=== PATIENT | female | born 1960 | race Caucasian/White ===

== ENCOUNTER 2019-08-19 10:58 | Outpatient (CLI) | payer MEDICARE, OTHER, SELFPAY ==
--- NOTE | ~2019-08-19 | CT_ITS ---
EXAMINATION: CT foot LT wo con DATE: 08/19/2019 11:40 INDICATION: Spontaneous rupture flexor tendon TECHNIQUE: High resolution computed tomography (CT) of the left foot and ankle was performed without intravenous contrast. Additional sagittal and coronal reconstructions were performed. Automated expos ure control and iterative reconstruction technique were employed. The dose-length product was 543.77 mGy-cm. COMPARISON: Radiograph dated 07/19/2018 FINDINGS: Bone alignment is normal. No fracture. Mild polyarticular osteoarthritis at the second-fifth tarsal m etatarsal joints. No cortical erosions or periosteal reaction. Small amount of fluid along the perone al tendon sheath consistent with tenosynovitis. There is prominent thickening of the peroneus brevis tendon distal to the lateral malleolus consistent with at least moderate tendinopathy. Assessment for tear is not considered diagnostic on CT imaging. No joint effusions or other abnormal fluid collecti ons. IMPRESSION: 1. Peroneal tenosynovitis with prominent tendinopathy of the distal peroneus brevis tendon. Unable to diagnostically assessed for tendon tear by CT and could consider further evaluation with MRI as clin ically indicated. Reviewed, dictated and finalized at location A. IMPRESSION: 1. Peroneal tenosynovitis with prominent tendinopathy of the distal peroneus br jacquelyn tendon. Unable to diagnostically assessed for tendon tear by CT and could consider further evaluation with MRI as clinically indicated.
== END 2019-08-19 10:59 | disposition home or self-care (01) ==
PROVIDERS: Visit Provider Podiatrist Foot & Ankle Surgery
DX: M65.872 Other synovitis and tenosynovitis, left ankle and foot (principal)
CPT/HCPCS: 73700

== ENCOUNTER 2019-11-05 09:05 | Inpatient (IN) | payer MEDICARE, OTHER, SELFPAY ==
[2019-11-05] VITALS (11 sets, daily range): BP systolic 129–178; BP diastolic 79–100; PULSE 80–95; RESP 14–18; TEMP 36.3–36.9; O2SAT 97–100; BMI 36.2
--- NOTE | ~2019-11-05 | CT_ITS ---
EXAMINATION: CT BRAIN W/O DATE: 11/05/2019 09:36 INDICATION: Dizziness TECHNIQUE: Computed tomography (CT) of the head was performed without intravenous contrast. The dose- length product was 605.33 mGy-cm. Automated exposure control and iterative reconstruction technique w ere employed. COMPARISON: 07/21/2016 FINDINGS: Normal brain parenchymal volume for age. Normal flores-white differentiation. No acute intrac ranial hemorrhage, infarction, mass or mass effect. No ventriculomegaly or midline shift. Midline sagittal images demonstrate a normal corpus callosum, c raniovertebral junction and sella turcica. Basilar cisterns are patent. Paranasal sinuses and mastoids are pneumatized. No depressed skull fractures. IMPRESSION: 1. No acute intracranial abnormality. Reviewed, dictated and finalized at location B.
--- NOTE | ~2019-11-05 | CT_ITS ---
EXAMINATION: CTA brain carotid DATE: 11/08/2019 09:00 INDICATION: Intractable vertigo. TECHNIQUE: Computed tomographic angiography (CTA) of the head was performed without and with 100 mL O mnipaque-350 intravenous contrast. CTA of the neck was performed with intravenous contrast. Automated exposure control and iterative reconstruction technique were employed. The dose-length product was 1 718.00 mGy-cm. Maximum intensity projection and volume rendered 3D-reconstructions were created by breana rodriguez technologist on a separate workstation. COMPARISON: Head CT 11/05/2019, ultrasound 11/06/2019 FINDINGS: HEAD CTA: There is no intracranial hemorrhage, acute infarction, or abnormal intracranial mass lesion . The ventricles are normal in size. The paranasal sinuses are clear. The orbits are normal. The mast oid air cells are normal. The vertebral arteries are codominant. There is no significant stenosis of basilar artery or the posterior cerebral arteries. There is no significant stenosis of the intracrani al internal carotid arteries or anterior or middle cerebral arteries. There is a 5 mm saccular aneury sm of the terminus of left internal carotid artery. Anterior communicating artery is normal. The post erior communicating arteries are normal. NECK CTA: There is mild emphysema. There are no pathologically enlarged lymph nodes. There is no sign ificant stenosis of the vertebral arteries. There is mild plaque in the proximal internal carotid art eries. There is 0% stenosis of the proximal right internal carotid artery relative to normal distal a rtery lumen diameter (NASCET criteria). There is 0% stenosis of the proximal left internal carotid ar chuckie relative to normal distal artery lumen diameter. There is moderate cervical spondylosis. IMPRESSION: 1. 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 2. 0% stenosis of the proximal internal carotid arteries relative to normal distal artery lumen diame ters (NASCET criteria). Reviewed, dictated and finalized at location A. IMPRESSION: 1. 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 2. 0% stenosis of the proximal internal carotid arteries relative to normal dis jalen artery lumen diameters (NASCET criteria).
--- NOTE | ~2019-11-05 | US_ITS ---
EXAMINATION: US carotid duplex BI DATE: 11/06/2019 17:26 INDICATION: Vertigo. TECHNIQUE: Grayscale, color Doppler, and pulsed Doppler images of the cervical carotid arteries were obtained. The degree of vessel stenosis is placed in one of the following categories: normal, <50%, 5 0-69%, >=70% but less than near-occlusion, near-occlusion, or total occlusion. Note that percent sten osis relative to normal distal artery lumen diameter is indirectly measured from velocity measurement s as described by Ken, et al. Radiology 2003; 229:340-346. COMPARISON: None. FINDINGS: RIGHT: The right common carotid artery (CCA) peak systolic velocity (PSV) is 107 cm/s. The right internal ca rotid artery (ICA) PSV is 136 cm/s. The right ICA end-diastolic velocity (EDV) is 40 cm/s. The right ICA/CCA PSV ratio is 1.3. Grayscale and color Doppler images yield an estimate of <50% diameter reduc tion from plaque in the ICA. There is antegrade flow in the right vertebral artery. LEFT: The left CCA PSV is 87 cm/s. The left ICA PSV is 194 cm/s. The left ICA EDV is 57 cm/s. The left ICA/ CCA PSV ratio is 2.2. Grayscale and color Doppler images yield an estimate of <50% diameter reduction from plaque in the ICA. There is antegrade flow in the left vertebral artery. IMPRESSION: 1. <50% stenosis in the right internal carotid artery. 2. <50% stenosis in the left internal carotid artery. Reviewed, dictated and finalized at location A.
--- NOTE | ~2019-11-05 | XR_ITS ---
EXAMINATION: XR chest 1V DATE: 11/05/2019 09:40 INDICATION: Dizziness TECHNIQUE: frontal view of the chest was obtained. COMPARISON: Chest radiograph dated 12/12/2009 FINDINGS: The lungs remain clear with no focal airspace opacities, pulmonary edema, pleural effusion or pneumot horax. The cardiomediastinal silhouette is normal. Spinal stimulator leads project over the central c anal the lower thoracic spine with distal tip at the level of T8. IMPRESSION: 1. No acute cardiopulmonary disease. Reviewed, dictated and finalized at location A.
--- NOTE | 2019-11-05 09:13 | PC.NURSE ---
Pt unable to recall medications.
--- NOTE | 2019-11-05 09:16 | ED.DIZZY ---
HPI - Dizziness General Chief Complaint: Dizziness Stated Complaint: DIZZINESS Source: RN notes reviewed History of Present Illness HPI Narrative: Patient presents emergency department from home for dizziness. Patient states symptoms began last night. States the dizziness is described as a room spinning sensation. Worse with movement of her head. States that when she ambulates the dizziness is so severe she has trouble walking. She denies any fevers or chills vision changes numbness or tingling in the extremities chest pain shortness of breath or any other symptoms Related Data Home Medications Medication Instructions Recorded Confirmed Unable to Obtain Home Medications 11/05/19 11/05/19 Allergies Allergy/AdvReac Type Severity Reaction Status Date / Time codeine Allergy Severe ITCHING,HIV Verified 11/05/19 09:12 ES hydrocodone Allergy Severe Itching Verified 11/05/19 09:12 NSAIDS (Non-Steroidal Allergy Severe Swelling Verified 11/05/19 09:12 Anti-Inflamma oxycodone Allergy Severe ITCHEY Verified 11/05/19 09:12 HIVES levofloxacin Allergy Mild HIVES ALL Verified 11/05/19 09:12 OVER morphine Allergy Mild ITCHEY Verified 11/05/19 09:12 HIVES kiwi Allergy Unknown Unknown Verified 11/05/19 09:12 strawberry Allergy Unknown Unknown Verified 11/05/19 09:12 OPIODS Allergy Intermediate HIVES Uncoded 11/05/19 09:12 steroids Allergy Intermediate HIVES Uncoded 11/05/19 09:12 Review of Systems Review of Systems: Narrative: Gen.: Denies fevers or chills Eyes: Denies eye pain or visual change ENT: Denies congestion Respiratory: Denies shortness of breath or cough CV: Denies chest pain or palpitations GI: Denies abdominal pain nausea, emesis or diarrhea Musculoskeletal: Denies back pain or muscle pain Neuro: See HPI Skin: Denies rash Except as documented, all other systems reviewed and negative [facility] Past Medical History Medical History (Updated 11/05/19 @ 11:56 by Roger Mason DO) Fibromyalgia Social History Social History (Updated 11/05/19 @ 09:17 by Roger Mason DO) Smoking packs per day: 1 Smoking cigarettes per day: 20.0 Gender identity (if verbalized by the patient): Female Exam Narrative: Exam Narrative: APPEARANCE: No acute distress, nontoxic, resting in bed HEENT: Normocephalic, atraumatic, OMM, TMs clear bilaterally EYES: PERRL, EOMI NECK: Supple, nontender, full range of motion without pain, no meningismus RESPIRATORY: No respiratory distress, clear to auscultation bilaterally with no rhonchi wheezing or rales CARDIOVASCULAR: RRR s murmur ABDOMINAL: Soft, nontender, nondistended MUSCULOSKELETAL: Moves all extremities. No clubbing, cyanosis or edema. NEURO: A and O ?3, following commands, speech normal, no facial droop,muscle strength 5 out of 5 bilateral upper and lower extremities dizziness with turning the head bilaterally SKIN:: Warm, dry. Normal Color PSYCHIATRIC: Normal affect/mood Course Course Emergency Course: Patient continues to have vertigo following Antivert and Valium Discussed Dr Rios presentation work-up. Agrees with admission at this time Discussed with patient and family results of workup and diagnosis. Discussed need for admission. Patient and family understand and agree to current treatment plan. Patient states that she cannot have an MRI secondary to spinal cord stimulator Vital Signs Vital signs: Vital Signs Temperature 97.4 F L 11/05/19 09:06 Pulse Rate 83 11/05/19 09:06 Respiratory Rate 18 11/05/19 09:06 Blood Pressure 161/100 H 11/05/19 09:06 Pulse Oximetry 97 11/05/19 09:06 Temperature 97.4 F L 11/05/19 09:06 Pulse Rate 84 11/05/19 10:18 Respiratory Rate 16 11/05/19 10:18 Blood Pressure 143/79 H 11/05/19 10:18 Pulse Oximetry 97 11/05/19 10:18 MDM - Dizziness Lab Data Result diagrams: 11/05/19 09:48 11/05/19 09:48 Labs: Lab Results 11/05/19 11/05/19
[2019-11-05] MEDS: MECLIZINE HCL 25 MG TABLET PO (09:27)
[2019-11-05] MEDS: SODIUM CHLORIDE 0.9% IV 1,000 ML 999 ML IV CONT (09:27)
--- NOTE | 2019-11-05 09:52 | ECG_ITS ---
Measurements Intervals [place] Rate: 80 P: -16 IN: 146 QRS: 30 QRSD: 76 T: 18 QT: 370 QTc: 427 Interpretive Statements SINUS RHYTHM BORDERLINE T WAVE ABNORMALITY- ANTERIOR LEADS BASELINE WANDER- I, II, V1, V4-V6 BORDERLINE ECG Electronically Signed On 11-05-2019 10:00:06 CDT by Brian Graves D.O.
[2019-11-05 09:55] LABS: Basophils Absolute Auto 0.1 K/mm3 (0.0-0.1); Basophils Percent Auto 0.8 % (0.2-1.2); Eosinophils Absolute Auto 0.1 K/mm3 (0-0.3); Eosinophils Percent Auto 1.2 % (0-4.4); Hematocrit 41.7 % (37.0-47.0); Hemoglobin 14.1 g/dL (12.0-15.0); Immature Granulocyte Absolute 0.06 K/mm3 (0.00-0.031); Immature Granulocyte Percent A 0.6 % (0-0.5); Lymphocytes Percent Auto 23.6 % (18.3-44.2); Mean Corpuscular HGB Conc 33.8 g/dl (32-36); Mean Corpuscular Volume 94.6 fl (80-100); Mean Platelet Volume 9.7 fl (7.4-10.4); Monocytes Absolute Auto 0.8 K/mm3 (0.1-0.6); Monocytes Percent Auto 7.8 % (2.6-8.5); Neutrophils Absolute Auto 6.7 K/mm3 (1.3-6.7); Platelet Count Result 228 k/mm3 (150-375); Red Blood Count 4.41 M/mm3 (4.2-5.4); Red Cell Distribution Width 12.2 % (11.5-14.5); White Blood Count 10.2 K/mm3 (4.5-10.0)
[2019-11-05 10:07] LABS: Alanine Aminotransferase 95 U/L (4-35); Albumin Level 4.5 g/dL (3.5-5.1); Alkaline Phosphatase 66 U/L (38-126); Anion Gap 8 mmol/L (8-16); Aspartate Amino Transferase 68 U/L (14-36); Bilirubin,Total 0.5 mg/dL (0.2-1.3); Blood Urea Nitrogen 10 mg/dL (7-17); Carbon Dioxide 28 mmol/L (22-30); Chloride 99 mmol/L (98-107); Estimated CRCL calculation 66 ml/min; Estimated Glomerular Filt Rate > 60; Glucose 120 mg/dL (65-105); Potassium 4.5 mmol/L (3.4-5.0); Sodium 135 mmol/L (137-145)
[2019-11-05 10:16] LABS: Prothrombin Time 13.3 Seconds (11.1-14.7)
[2019-11-05 10:17] LABS: Partial Thromboplastin Time 25.8 SECONDS (22.3-36.8)
[2019-11-05 10:18] LABS: Troponin I < 0.012 ng/mL (0.000-0.034)
[2019-11-05] MEDS: diazePAM INJ (*CRX) 10 MG/2 ML SYRINGE 2 MG IV PUSH (10:25)
--- NOTE | 2019-11-05 11:07 | PC.NURSE ---
Pt crying, states I'm anxious! My anxiety! when another patient placed into ED Rm 3. Explained that there are no other rooms available at this time. Izzy, physician obstetrician, made aware and at bedside.
--- NOTE | 2019-11-05 11:15 | PC.NURSE ---
Report to SYDNEY Coon, to continue care. Pt made aware of pending admission and process.
[2019-11-05 12:10] LABS: Add Urine Microscopic? YES; Appearance Urine Clear (Clear); Bacteria Urine Trace /hpf; Bilirubin Urine Negative (Negative); Blood Urine 1+ (Negative); Color Urine Straw (Yellow); Glucose Urine UA Negative (Negative); Ketones Urine Negative (Negative); Leukocyte Esterase Ur Negative LEU/UL (Negative); Mucus Urine Rare /lpf; Nitrate Urine Negative (Negative); Protein Urine Negative (Negative); RBC Urine 0-2 /hpf (0-2); Specific Grav Ur 1.011 (1.001-1.035); Squamous Epithelial Cell Urine Few /hpf (Few); Urobilinogen Urine Negative mg/dL (<2.0); WBC Urine 0-3 /hpf
--- NOTE | 2019-11-05 13:45 | PC.NURSE ---
This patient, Avril Salazar, was admitted to 3 Medical Room 348-01. Patient/family oriented to hospital policies and general routines including ID bracelet, bed and alarms, visiting hours, pain management, procedures, bathroom and other care routines, personal items, smoking policy, room service/diet, and visiting hours. Valuables list has been completed. Information on how to activate the Rapid Response Team has been discussed. Patient/Family are encouraged to report perceived risks to care and to ask questions if they do not understand what they are told or what they should do.
[2019-11-05] MEDS: SODIUM CHLORIDE 0.9% IV 1,000 ML 100 ML IV CONT (13:58)
[2019-11-05 15:30] LABS: Troponin I < 0.012 ng/mL (0.000-0.034)
[2019-11-05] MEDS: hydrOXYzine HCL 25 MG TABLET PO (16:46)
[2019-11-05] MEDS: ALPRAZolam (*CRX) 0.5 MG TABLET 1 MG PO ×2 (16:46→20:20)
--- NOTE | 2019-11-05 17:14 | PM.IMHP ---
H&P: HPI History of Present Illness Date/Time: 11/05/19 17:14 Chief complaint: intractable vertigo Narrative: Avril Salazar is a 59 year old female Who has a history of fibromyalgia and hypertension. The patient stated she has been under a lot of stress recently she has a history of depression with anxiety. The patient started to feel dizzy last night. She says she had a very busy day she was doing a lot of running around she is not sure she took off her medicine her drink very much water. 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 The patient stated her symptoms began last night with the room was spinning. It was worse when she moved her head. She stated she did not sleep very well last couple nights. Her dizziness was so severe that she had trouble walking. She has not had this in the past. She has not tried any new medication. Her taken any illicit drugs. She has no fever or chills. The patient in the room crying at this present time. She has no chest pain or palpitations. The patient stated she has not taken any of her medications for 24 hours. She is crying because she has not had her medicine. She is crying because we every time she moves her head her sits up she complains of dizziness. However prior to me coming into the room the patient was sitting up eating and conversing with her without difficulty. Her head CT was read as no acute intracranial abnormality. The patient cannot have MRI she has a neurostimulator. Patient refuses to see the neurologist here. She stated that the Valium did help. She received IV fluids and volume in the emergency room. The patient appears to be quite anxious. She is also complaining of having a Headache. She was also given meclizine in the emergency room. Her troponins were negative. Date of service 11/05/2019 Review of Systems Review of Systems: All systems reviewed & are unremarkable except as noted in HPI and below Constitutional: Constitutional: Reports as per HPI and Reports no additional constitutional complaints Eyes: Eyes: Reports as per HPI and Reports no additional eye complaints ENT: Reports system reviewed and no additional complaints, except as documented and Reports Normal hearing present Cardiovascular: Cardiovascular: Reports no additional cardiovascular complaints Respiratory: Respiratory: Reports no additional respiratory complaints and Reports no additional respiratory complaints Gastrointestinal: Gastrointestinal: Reports as per HPI and Reports no additional gastrointestinal complaints Musculoskeletal: Musculoskeletal: Reports no additional musculoskeletal complaints Integumentary/Breasts: Skin/Breast: Reports system reviewed and no additional complaints, except as docu and Reports as per HPI Neurologic: Reports system reviewed and no additional complaints, except as documented, Reports as per HPI and Reports Normal hearing present Psychiatric: Psychiatric: Reports no additional psychiatric complaints and Reports as per HPI Endocrine: Endocrine: Reports no additional endocrine complaints Hematologic/Lymphatic: Hematologic/Lymphatic: Reports no additional hematologic/lymphatic complaints Allergic/Immunologic: Allergic/Immunologic: Reports no additional allergic/immunologic complaints [facility] Past Medical History Medical History (Updated 11/05/19 @ 17:30 by Priscila Crooks NP) Chronic back pain Depression with anxiety Fibromyalgia GERD with esophagitis High blood triglycerides History of cervical cancer status post history History of peptic ulcer disease History of skin cancer HTN (hypertension), malignant Neuropathy RSD (reflex sympathetic dystrophy) Spinal cord stimulator status Surgical History Surgical History (Updated 11/05/19 @ 17:30 by Priscila Crooks NP) H/O: hysterectomy 2004 Status post osteotomy full Merissa osteotomy right tibia Total knee replacement status x2
[2019-11-05] MEDS: NICOTINE (*PBKC) 21 MG PATCH 1 PATCH TRANSDERM (18:09)
[2019-11-05] MEDS: SUCRALFATE 1 GM TABLET PO ×2 (18:09→20:20)
[2019-11-05 19:34] LABS: Troponin I < 0.012 ng/mL (0.000-0.034)
[2019-11-05] MEDS: PANTOPRAZOLE 40 MG TABLET PO (20:20)
[2019-11-05] MEDS: VENLAFAXINE HCL XR 75 MG CAP.ER.24H 150 MG PO (20:20)
[2019-11-05] MEDS: lisinopriL 10 MG TABLET PO (20:20)
[2019-11-05] MEDS: MELATONIN 3 MG TABLET PO (20:21)
[2019-11-05] MEDS: MECLIZINE HCL 12.5 MG TABLET PO (20:21)
[2019-11-05] MEDS: ACETAMINOPHEN 325 MG TABLET 650 MG PO (23:55)
[2019-11-06] VITALS (17 sets, daily range): BP systolic 124–171; BP diastolic 58–104; PULSE 76–97; RESP 16–20; TEMP 35.8–36.8; O2SAT 97–100
[2019-11-06] MEDS: SODIUM CHLORIDE 0.9% IV 1,000 ML 100 ML IV CONT ×2 (00:36→10:18)
[2019-11-06 06:12] LABS: Basophils Absolute Auto 0.1 K/mm3 (0.0-0.1); Basophils Percent Auto 0.6 % (0.2-1.2); Eosinophils Absolute Auto 0.1 K/mm3 (0-0.3); Eosinophils Percent Auto 1.4 % (0-4.4); Hematocrit 39.2 % (37.0-47.0); Hemoglobin 13.4 g/dL (12.0-15.0); Immature Granulocyte Absolute 0.04 K/mm3 (0.00-0.031); Immature Granulocyte Percent A 0.5 % (0-0.5); Lymphocytes Absolute Auto 2.67 K/mm3 (0.9-3.2); Lymphocytes Percent Auto 34.1 % (18.3-44.2); Mean Corpuscular HGB Conc 34.2 g/dl (32-36); Mean Corpuscular Volume 93.6 fl (80-100); Mean Platelet Volume 9.9 fl (7.4-10.4); Monocytes Absolute Auto 0.7 K/mm3 (0.1-0.6); Monocytes Percent Auto 8.7 % (2.6-8.5); Neutrophils Absolute Auto 4.3 K/mm3 (1.3-6.7); Neutrophils Percent Auto 54.7 % (45.5-73.1); Platelet Count Result 217 k/mm3 (150-375); Red Blood Count 4.19 M/mm3 (4.2-5.4); Red Cell Distribution Width 11.8 % (11.5-14.5); White Blood Count 7.8 K/mm3 (4.5-10.0)
[2019-11-06] MEDS: MECLIZINE HCL 12.5 MG TABLET PO ×3 (06:18→22:09)
[2019-11-06 06:23] LABS: Alanine Aminotransferase 87 U/L (4-35); Albumin Level 3.8 g/dL (3.5-5.1); Alkaline Phosphatase 53 U/L (38-126); Anion Gap 5 mmol/L (8-16); Aspartate Amino Transferase 55 U/L (14-36); Bilirubin,Total 0.5 mg/dL (0.2-1.3); Blood Urea Nitrogen 12 mg/dL (7-17); Carbon Dioxide 30 mmol/L (22-30); Chloride 100 mmol/L (98-107); Estimated CRCL calculation 79 ml/min; Estimated Glomerular Filt Rate > 60; Glucose 107 mg/dL (65-105); Magnesium 1.7 mg/dL (1.6-2.3); Sodium 135 mmol/L (137-145)
[2019-11-06] MEDS: ONDANSETRON HCL ODT 4 MG TABLET 8 MG PO ×2 (06:24→20:30)
[2019-11-06] MEDS: METOPROLOL SUCCINATE EXT REL 25 MG TABCR PO (08:48)
[2019-11-06] MEDS: SUCRALFATE 1 GM TABLET PO ×4 (08:48→20:06)
[2019-11-06] MEDS: NICOTINE (*PBKC) 21 MG PATCH 1 PATCH TRANSDERM (08:49)
[2019-11-06] MEDS: lisinopriL 10 MG TABLET PO ×2 (08:49→20:06)
[2019-11-06] MEDS: VENLAFAXINE HCL XR 75 MG CAP.ER.24H 150 MG PO ×2 (08:50→20:06)
[2019-11-06] MEDS: PANTOPRAZOLE 40 MG TABLET PO ×2 (08:50→20:06)
[2019-11-06] MEDS: hydrOXYzine HCL 25 MG TABLET PO ×3 (08:58→16:20)
[2019-11-06] MEDS: ALPRAZolam (*CRX) 0.5 MG TABLET 1 MG PO ×3 (08:58→22:09)
[2019-11-06] MEDS: TIZANIDINE HCL 2 MG TABLET PO (10:19)
[2019-11-06 12:15] LABS: Total Triiodothyronine (T3) 1.15 NG/ML (0.97-1.69)
[2019-11-06] MEDS: ACETAMINOPHEN 325 MG TABLET 650 MG PO (14:06)
--- NOTE | 2019-11-06 15:39 | PM.IMPN ---
Progress Note: A&P Assessment and Plan (1) Vertigo: Code(s): R42 - Dizziness and giddiness Status: Acute Assessment and Plan: Etiology is unclear at this time. She has had resolution of symptoms with meclizine. She is not orthostatic. head CT negative for any acute findings. Discontinue IV fluids as patient is tolerating oral intake continue p.r.n. meclizine Will obtain carotid doppler neurology consultation has been encouraged however patient adamantly denies. Monitor orthostatics each shift (2) Depression with anxiety: Code(s): F41.8 - Other specified anxiety disorders Status: Chronic Assessment and Plan: Patient is quite anxious and tearful. Her mood is labile throughout the encounter. Continue venlafaxine and hydroxyzine I believe patient would benefit from evaluation by psychiatrist and to establish with a licensed counselor (3) HTN (hypertension), malignant: Code(s): I10 - Essential (primary) hypertension Status: Chronic Assessment and Plan: Blood pressure reviewed and is mildly elevated in the 140s to 150 systolic. Prior readings had elevated diastolic readings in the 90-100s. Continue metoprolol and lisinopril monitor blood pressures closely and up titrate medication as needed (4) Neuropathy: Code(s): G62.9 - Polyneuropathy, unspecified Status: Chronic Assessment and Plan: In bilateral lower extremities. She has been on disability for some time related to this. She is established with pain management and has a spinal cord stimulator. She had a fall 2 days prior to presentation. PT/OT Continue tizanidine (5) Chronic back pain: Code(s): M54.9 - Dorsalgia, unspecified; G89.29 - Other chronic pain Status: Chronic Assessment and Plan: She is established with pain management and has a spinal cord stimulator as noted above. PT/OT, tizanidine as above she will need to follow-up with her pain management provider Subjective Date/time seen: 11/06/19 15:39 Interval history: Date of service: 11/06/2019 Avril Salazar is a 59 year old female with a history of anxiety, fibromyalgia, and neuropathy s/p spinal cord stimulator placement who is seen in follow-up for vertigo. She believes that she is doing and her vertigo has improved. She still feels lightheaded with movements, sitting up, or standing. She has been able to ambulate to the bathroom several times without difficulty. She denies feeling weak or unsteady. She denies headache. She has no visual changes, speech changes, or loss of coordination. she complains of chronic neuropathy in the bilateral lower extremities but denies numbness or tingling in the upper extremities. No nausea, vomiting, fever, chills, cough, shortness of breath, or chest pain. She adamantly denies a neurology consultation. She feels quite anxious today about being in the hospital and about multiple personal issues with family. Review of Systems Review of Systems: Narrative: Twelve systems reviewed with pertinent positives and negatives as per HPI. Exam Narrative: Exam Narrative: Ms. Salazar is a well-nourished 59-year-old female who is lying semi recumbent in bed. She appears comfortable and is in no acute respiratory distress. HR 89, BP 136/104, R 18, T 98.2?, 98% on room air Neuro: awake, alert and oriented x4, speech clear, no focal neuro deficits noted, able to perform [id number] and rapid alternating movements, sensation intact, strength 5/5 throughout HEENMT: normocephalic, atraumatic, EOMI, sclerae anicteric, moist oral mucosa, tongue midline, nares patent Neck: supple, no lymphadenopathy Respiratory: clear to auscultation bilaterally, nonlabored breathing Cardio: regular rate, regular rhythm with S1-S2 Abdomen: nondistended, normoactive bowel sounds, soft, nontender to palpation Extremities: no edema, erythema, cyanosis,
[2019-11-06] MEDS: MELATONIN 3 MG TABLET PO (20:07)
[2019-11-07] VITALS (14 sets, daily range): BP systolic 130–150; BP diastolic 60–97; PULSE 70–83; RESP 17–18; TEMP 36.1–36.2; O2SAT 100
--- NOTE | 2019-11-07 | ECHO_ITS ---
Patient Info Name: Avril Salazar Age: 59 years : 1960 Gender: Female Ht: 63 in Wt: 204 lbs BSA: 2.07 m2 HR: 74 bpm BP: 143 / 88 mmHg Technical Quality: Good Exam Date: 11/07/2019 2:17 PM Exam Location: [facility] Pulmonary Patient Status: Inpatient Admit Date: 11/06/2019 Staff Ordering Physician: Aaron Faulkner MD Polysomnographic Technician: Enrrique Woodson RDCS, RT Attending Provider: Ju Borden PA-C Referring Physician: Kaushik DESOUZA; Exam Type: CA echo doppler color flow Study Info Indications R42 - Dizziness and giddiness Complete two-dimensional, color flow and Doppler transthoracic echocardiogram is performed. Summary 1. Complete two-dimensional, color flow and Doppler transthoracic echocardiogram is performed. 2. Left ventricular chamber dimension is normal. 3. Definity contrast administered improved wall motion interpretation. 4. Left ventricular systolic function is normal, estimated at 65-70%. 5. There is moderately increased left ventricular wall thickness. 6. The left ventricular diastolic function is abnormal. 7. E/e' 11 is mildly elevated. 8. There is trivial pericardial effusion. Left Ventricle Definity contrast administered improved wall motion interpretation. E/e' 11 is mildly elevated. Left ventricular chamber dimension is normal. Left ventricular systolic function is normal, estimated at 65-70%. There is moderately increased left ventricular wall thickness. The left ventricular diastolic function is abnormal. Right Ventricle Right ventricular chamber dimension is normal. Right ventricular systolic function is normal. Left Atria Left atrial chamber dimension is normal. Right Atria Right atrial chamber dimension is normal. Aortic Valve The aortic valve is trileaflet. There is no aortic valve stenosis. There is no aortic valve regurgitation. Pulmonic Valve There is no pulmonic regurgitation. Mitral Valve There is no mitral valve stenosis. There is no mitral valve regurgitation. Tricuspid Valve There is no tricuspid valve regurgitation. Pericardium/Pleural There is trivial pericardial effusion. Inferior Vena Cava Normal inferior vena cava with >50% collapse upon inspiration consistent with normal right atrial pressure, 5 mmHg. Aorta The aortic root size at the sinus of Valsalva is normal. Left Ventricular Outflow Tract Name Value Normal LVOT 2D LVOT Diameter 2.0 cm LVOT Doppler LVOT Peak Gradient 4 mmHg LVOT Mean Gradient 2 mmHg LVOT VTI 21 cm LVOT VTI/AV VTI Ratio 0.9 LVOT Stroke Volume 63 ml LVOT CO 4.8 l/min LVOT CI 2.3 l/min/m2 Mitral Valve Name Value Normal MV Doppler MV Decel S
[2019-11-07] MEDS: MECLIZINE HCL 12.5 MG TABLET PO ×3 (05:28→20:06)
[2019-11-07] MEDS: ONDANSETRON HCL ODT 4 MG TABLET 8 MG PO (05:30)
[2019-11-07] MEDS: ACETAMINOPHEN 325 MG TABLET 650 MG PO ×2 (05:30→17:24)
[2019-11-07 06:39] LABS: Anion Gap 7 mmol/L (8-16); Blood Urea Nitrogen 13 mg/dL (7-17); Calcium 9.5 mg/dL (8.4-10.2); Carbon Dioxide 29 mmol/L (22-30); Chloride 99 mmol/L (98-107); Estimated CRCL calculation 79 ml/min; Estimated Glomerular Filt Rate > 60; Glucose 103 mg/dL (65-105); Potassium 4.2 mmol/L (3.4-5.0); Sodium 135 mmol/L (137-145)
[2019-11-07 07:19] LABS: Hematocrit 41.1 % (37.0-47.0); Mean Corpuscular HGB Conc 34.1 g/dl (32-36); Mean Corpuscular Hemoglobin 32.3 pg (26-34); Mean Corpuscular Volume 94.9 fl (80-100); Mean Platelet Volume 10.4 fl (7.4-10.4); Platelet Count Result 219 k/mm3 (150-375); Red Blood Count 4.33 M/mm3 (4.2-5.4); Red Cell Distribution Width 11.9 % (11.5-14.5); White Blood Count 9.8 K/mm3 (4.5-10.0)
[2019-11-07] MEDS: SUCRALFATE 1 GM TABLET PO ×4 (08:07→20:06)
[2019-11-07] MEDS: ALPRAZolam (*CRX) 0.5 MG TABLET 1 MG PO ×3 (08:07→17:10)
[2019-11-07] MEDS: VENLAFAXINE HCL XR 75 MG CAP.ER.24H 150 MG PO ×2 (08:07→20:07)
[2019-11-07] MEDS: PANTOPRAZOLE 40 MG TABLET PO ×2 (08:07→20:06)
[2019-11-07] MEDS: lisinopriL 10 MG TABLET PO ×2 (08:07→20:07)
[2019-11-07] MEDS: hydrOXYzine HCL 25 MG TABLET PO ×3 (08:07→17:10)
[2019-11-07] MEDS: NICOTINE (*PBKC) 21 MG PATCH 1 PATCH TRANSDERM (08:08)
[2019-11-07] MEDS: METOPROLOL SUCCINATE EXT REL 25 MG TABCR PO (08:09)
[2019-11-07] MEDS: TIZANIDINE HCL 2 MG TABLET PO (12:27)
--- NOTE | 2019-11-07 13:37 | WPDNEURCNPN ---
Assessment and Plan Assessment and plan (1) Chronic back pain: Code(s): M54.9 - Dorsalgia, unspecified; G89.29 - Other chronic pain Status: Chronic (2) Neuropathy: Code(s): G62.9 - Polyneuropathy, unspecified Status: Chronic (3) RSD (reflex sympathetic dystrophy): Code(s): G90.50 - Complex regional pain syndrome I, unspecified Status: Chronic (4) High blood triglycerides: Code(s): E78.1 - Pure hyperglyceridemia Status: Chronic (5) HTN (hypertension), malignant: Code(s): I10 - Essential (primary) hypertension Status: Chronic (6) GERD with esophagitis: Code(s): K21.0 - Gastro-esophageal reflux disease with esophagitis Status: Chronic (7) Depression with anxiety: Code(s): F41.8 - Other specified anxiety disorders Status: Chronic (8) Vertigo: Code(s): R42 - Dizziness and giddiness Status: Acute (9) Fibromyalgia: Code(s): M79.7 - Fibromyalgia Status: Acute Additional Plan I have recommended repeat CT to see if there is any evidence of posterior circulation issues for completeness sake in the meantime present management needs to be continued Consult date: 11/07/19 Time Seen: 12:45 HPI: Avril Salazar is a 59 year old female who is right-handed who was admitted because of severe vertigo for the past 2 or 3 days without any associated headache but she did have some nausea but no vomiting no lateralizing paresthesias no focal motor weakness apart from the fact that she has bad left foot related to diagnosis of the RSD and also has spinal cord stimulator which precludes for her to go through MRI of her brain her CT head is unremarkable likewise her carotid studies unremarkable she never had the episode like this at the time of this examination she continues to have the vertigo on which is with movement of the head as if the things are spinning around she denies double vision though and no lateralizing weakness Review of Systems Review of Systems: All systems reviewed & are unremarkable except as noted in HPI and below PMFSH Past Medical History Medical History Chronic back pain Depression with anxiety Fibromyalgia GERD with esophagitis High blood triglycerides History of cervical cancer status post history History of peptic ulcer disease History of skin cancer HTN (hypertension), malignant Neuropathy RSD (reflex sympathetic dystrophy) Spinal cord stimulator status Surgical History Surgical History H/O: hysterectomy 2004 Status post osteotomy full Merissa osteotomy right tibia Total knee replacement status x2 Family History Family History (Updated 11/05/19 @ 17:32 by Priscila Crooks NP) Father Heart disease Mother Alzheimer disease Sibling Alzheimer disease 2 brother Heart disease sister Idania Gehrigs disease sister from this Social History Social History Social History: 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 She lives with her and has 1 child. She smokes a pack a cigarettes a day. She socially drinks. She is a full code and desires to have her is the durable power assistant county attorney for healthcare his name is Dileep Salazar. Smoking packs per day: 1.5 Smoking cigarettes per day: 30.0 Smoking status: Current every day smoker Tobacco type: cigarettes Alcohol intake: former Substance use: former Substance use type: marijuana Last use: August 2019 Gender identity (if verbalized by the patient): Female Spiritual care concerns: No Meds Home Medications and Allergies Home Medications Medication Instructions Recorded Confirmed Type alprazolam 1 mg PO TID PRN 11/05/19 11/05/19 History cimetidine 400
[2019-11-07] MEDS: PERFLUTREN LIPID MICROSPHERES 1.5 ML VIAL DILUTED TO 10 ML TOTAL VOLUME IV PUSH (14:48)
--- NOTE | 2019-11-07 17:23 | PM.IMPN ---
Progress Note: A&P Assessment and Plan (1) Vertigo: Code(s): R42 - Dizziness and giddiness Status: Acute Assessment and Plan: Etiology is unclear at this time. She has had resolution of symptoms with meclizine. She is not orthostatic. head CT negative for any acute findings. Carotid Dopplers with <50% stenosis bilaterally. Echo showed EF 65-70% and no valvular abnormalities. She had previously refused a neurology consult but changed her mind yesterday evening. continue p.r.n. meclizine Neurology has been consulted and recommendations are appreciated. CTA head/neck has been ordered and will await results. Attempting to obtain vestibular evaluation while inpatient but if unable to be performed while inpatient will be referred for outpatient evaluation. Monitor orthostatics each shift (2) Depression with anxiety: Code(s): F41.8 - Other specified anxiety disorders Status: Chronic Assessment and Plan: Mood improved today. Yesterday, she was quite anxious and tearful with labile mood. Continue venlafaxine and hydroxyzine I believe patient would benefit from evaluation by psychiatrist and to establish with a licensed counselor (3) HTN (hypertension), malignant: Code(s): I10 - Essential (primary) hypertension Status: Chronic Assessment and Plan: Blood pressure reviewed and has been well controlled in the 130s systolic. Prior readings had elevated diastolic readings in the 90-100s. Continue metoprolol and lisinopril monitor blood pressures closely and up titrate medication as needed (4) Neuropathy: Code(s): G62.9 - Polyneuropathy, unspecified Status: Chronic Assessment and Plan: In bilateral lower extremities. She has been on disability for some time related to this. She is established with pain management and has a spinal cord stimulator. She had a fall 2 days prior to presentation. PT/OT Continue tizanidine (5) Chronic back pain: Code(s): M54.9 - Dorsalgia, unspecified; G89.29 - Other chronic pain Status: Chronic Assessment and Plan: She is established with pain management and has a spinal cord stimulator as noted above. PT/OT, tizanidine as above she will need to follow-up with her pain management provider Subjective Date/time seen: 11/07/19 17:23 Interval history: Date of service: 11/06/2019 Avril Salazar is a 59 year old female with a history of anxiety, fibromyalgia, and neuropathy s/p spinal cord stimulator placement who is seen in follow-up for vertigo. Her vertigo has improved today but she has occasional episodes of dizziness with movement. No weakness, fatigue, loss of coordination or balance. She has been ambulating without difficulty. No headache or visual changes. Less anxious today. Review of Systems Review of Systems: Narrative: 12 systems reviewed with pertinent positives and negatives as per HPI. Exam Narrative: Exam Narrative: Ms. Salazar is a well-nourished 59-year-old female who is lying semi recumbent in bed. She appears comfortable and is in no acute respiratory distress. HR 72, BP 130/78, RR 17, T 97.0, 100% on room air Neuro: awake, alert and oriented x4, speech clear, no focal neuro deficits noted, able to perform [id number] and rapid alternating movements, sensation intact, strength 5/5 throughout HEENMT: normocephalic, atraumatic, EOMI, sclerae anicteric, moist oral mucosa, tongue midline, nares patent Neck: supple, no lymphadenopathy Respiratory: clear to auscultation bilaterally, nonlabored breathing Cardio: regular rate, regular rhythm with S1-S2 Abdomen: nondistended, normoactive bowel sounds, soft, nontender to palpation Extremities: no edema, erythema, cyanosis, clubbing, or tenderness to palpation, DP pulses 2+ bilaterally Skin: no rashes or lesions, warm and dry Psych: appropriate mood and affect, judgement and insight intact
[2019-11-07] MEDS: MELATONIN 3 MG TABLET PO (20:06)
[2019-11-08] MEDS: MECLIZINE HCL 12.5 MG TABLET PO ×2 (03:41→09:26)
[2019-11-08] MEDS: TIZANIDINE HCL 2 MG TABLET PO (03:41)
[2019-11-08] MEDS: ACETAMINOPHEN 325 MG TABLET 650 MG PO ×3 (03:43→13:40)
[2019-11-08 04:25] VITALS: BP 137/72; PULSE 77; RESP 19; TEMP 36.1; O2SAT 100
[2019-11-08 08:00] VITALS: BP 134/70
[2019-11-08 08:13] VITALS: BP 130/78
[2019-11-08 08:14] VITALS: BP 135/76
[2019-11-08] MEDS: NICOTINE (*PBKC) 21 MG PATCH 1 PATCH TRANSDERM (09:14)
[2019-11-08] MEDS: PANTOPRAZOLE 40 MG TABLET PO (09:14)
[2019-11-08 09:15] VITALS: PULSE 80; RESP 20; O2SAT 100
[2019-11-08] MEDS: VENLAFAXINE HCL XR 75 MG CAP.ER.24H 150 MG PO (09:15)
[2019-11-08] MEDS: METOPROLOL SUCCINATE EXT REL 25 MG TABCR PO (09:15)
[2019-11-08] MEDS: lisinopriL 10 MG TABLET PO (09:15)
[2019-11-08] MEDS: hydrOXYzine HCL 25 MG TABLET PO ×3 (09:25→17:27)
[2019-11-08] MEDS: ALPRAZolam (*CRX) 0.5 MG TABLET 1 MG PO ×2 (09:25→15:02)
[2019-11-08] MEDS: SUCRALFATE 1 GM TABLET PO ×2 (11:22→17:27)
[2019-11-08 14:00] VITALS: BP 140/76; PULSE 72; RESP 18; TEMP 36.7; O2SAT 100
--- NOTE | 2019-11-08 14:27 | PM.DS ---
DS: Admitting Diagnosis Admitting Diagnosis Admitting Diagnosis: intractable vertigo DS: Discharge Diagnosis Discharge Diagnosis (1) Vertigo: Code(s): R42 - Dizziness and giddiness Status: Acute Assessment and Plan: Etiology is unclear at this time. She has had resolution of symptoms with meclizine. She is not orthostatic. head CT negative for any acute findings. Carotid Dopplers with <50% stenosis bilaterally. Echo showed EF 65-70% and no valvular abnormalities. She had previously refused a neurology consult but changed her mind on evening of 11/05. Neurology recommended CTA head/neck for further evaluation; 5 mm saccular aneurysm at terminus of left internal carotid noted on CTA today; 0% stenosis of proximal internal carotid arteries. Discussed with Dr. Faulkner who states this is likely incidental finding. He recommended increasing meclizine to 25 mg QID. Okay for discharge from his standpoint, but will need further work up/follow up with her PCP and/or neurosurgeon. Continue p.r.n. meclizine; will increase to 25 mg QID PRN per Dr. Faulkner rec Neurology has been consulted and recommendations are appreciated Attempted to obtain vestibular evaluation while inpatient but unable to be performed while inpatient and will be referred for outpatient evaluation. Will discharge today Recommended no driving, swimming, bathing until further recommendation from Dr. Faulkner F/u with PCP and Dr. Faulkner as an outpatient (2) Depression with anxiety: Code(s): F41.8 - Other specified anxiety disorders Status: Chronic Assessment and Plan: Mood improved today. She is a bit anxious and tearful with labile mood again today Continue venlafaxine and hydroxyzine I believe patient would benefit from evaluation by psychiatrist and to establish with a licensed counselor We discussed following up with her PCP as an outpatient for further management (3) HTN (hypertension), malignant: Code(s): I10 - Essential (primary) hypertension Status: Chronic Assessment and Plan: Blood pressure reviewed and has been well controlled in the 130s systolic. Prior readings had elevated diastolic readings in the 90-100s. Orthostatic BP unremarkable today Continue metoprolol and lisinopril monitor blood pressures closely and up titrate medication as needed (4) Neuropathy: Code(s): G62.9 - Polyneuropathy, unspecified Status: Chronic Assessment and Plan: In bilateral lower extremities. She has been on disability for some time related to this. She is established with pain management and has a spinal cord stimulator. She had a fall 2 days prior to presentation. PT/OT Continue tizanidine (5) Chronic back pain: Code(s): M54.9 - Dorsalgia, unspecified; G89.29 - Other chronic pain Status: Chronic Assessment and Plan: She is established with pain management and has a spinal cord stimulator as noted above. PT/OT, tizanidine as above she will need to follow-up with her pain management provider DS: Summary Hospital Course Reason for hospitalization: Intractable vertigo Hospital Course: Patient is a 59 yo F with history of anxiety, fibromyalgia, and neuropathy s/p spinal cord stimulator placement who presented to the ED on 11/04 from home via EMS for evaluation of dizziness. Patient reported sensation that the room was spinning that started the night prior and was made worse with changing positions or moving her head and was so severe that she had difficulty walking, prompting her to summon EMS on morning of 11/04. While in the ED, CT of the brain showed no acute intracranial abnormality and vertigo was persistent without improvement with meclizine or valium. Patient admitted under this setting.
[2019-11-08] MEDS: ONDANSETRON HCL ODT 4 MG TABLET 8 MG PO (14:59)
--- NOTE | 2019-11-08 17:36 | WPDNEUROPN ---
Progress Note: A&P Assessment and Plan (1) Chronic back pain: Code(s): M54.9 - Dorsalgia, unspecified; G89.29 - Other chronic pain Status: Chronic (2) Neuropathy: Code(s): G62.9 - Polyneuropathy, unspecified Status: Chronic (3) RSD (reflex sympathetic dystrophy): Code(s): G90.50 - Complex regional pain syndrome I, unspecified Status: Chronic (4) High blood triglycerides: Code(s): E78.1 - Pure hyperglyceridemia Status: Chronic (5) HTN (hypertension), malignant: Code(s): I10 - Essential (primary) hypertension Status: Chronic (6) GERD with esophagitis: Code(s): K21.0 - Gastro-esophageal reflux disease with esophagitis Status: Chronic (7) Depression with anxiety: Code(s): F41.8 - Other specified anxiety disorders Status: Chronic (8) Vertigo: Code(s): R42 - Dizziness and giddiness Status: Acute (9) Fibromyalgia: Code(s): M79.7 - Fibromyalgia Status: Acute (10) Unruptured cerebral aneurysm: Code(s): I67.1 - Cerebral aneurysm, nonruptured Status: Acute Additional Plan I discussed at length the findings of CTA of the brain and 5 millimeter cerebral aneurysm this is is symptomatic and I suspect it has nothing to do with her vertigo I shared this with her but since it is about 5 millimeter I would recommend seeing a neurosurgeon or interventional neuroradiologist she will be in touch with my office where she would like to go I told her if there is unusual symptoms which she thinks are necessary then she can go to the emergency room again to look into this however at this point this is not ruptured it does not have any neurological findings and or symptoms related to it I also told her to take it easy at home do not drive stat home and see how her dizziness and lightheadedness go which she significantly has gotten better since then she is pleasantly ready to be discharged today All option risk in the benefits were discussed with her in detail and she understood it well Review of Systems Review of Systems: All systems reviewed & are unremarkable except as noted in HPI and below Exam Const: General: comfortable and no acute distress HENMT: General nose exam: Normal nares present Mouth: Yes moist mucous membranes Eyes: General: appearance normal, both eyes and all related structures Other: no nystagmus is noted on today's exam Neck: Neck: supple and no JVD Resp: Effort & Inspection: normal respiratory effort Auscultation: clear to auscultation bilaterally Cardio: Rate: regular rate Rhythm: regular rhythm Skin: General skin exam: normal color and no rashes or lesions noted Neuro: Other: patient is awake and alert well oriented time place and person has normal speech and language function normal cranial examination normal motor examination normal sensory examination is symmetrical reflexes and ability to walk is fairly decent and much better than yesterday Extrem: General: normal to inspection Psych: Mental Status: mental status grossly normal Affect: Anxious affect present Other: patient is anxious and suffers from anxiety Objective Data Vital Signs Vital Signs: Vital Signs - 24 hr 11/07/19 19:22 11/07/19 19:24 11/07/19 19:30 Temperature 36.2 C L Pulse Rate 70 Respiratory Rate 17 Blood Pressure 137/77 136/70 132/85 Pulse Oximetry 100 11/08/19 04:25 11/08/19 08:00 11/08/19 08:13 Temperature 36.1 C L Pulse Rate 77 Respiratory Rate 19 Blood Pressure 137/72 134/70 130/78 Pulse Oximetry 100 11/08/19 08:14 11/08/19 09:15 11/08/19 14:00 Temperature 36.7 C Pulse Rate 80 72 Respiratory Rate 20 18 Blood Pressure 135/76 140/76 Pulse Oximetry 100 100 Intake/Output Intake/Output: Intake & Output 11/05/19 11/06/19 11/07/19 11/08/19 23:59 23:59 23:59 23:59 Intake Total 1540 5760 780 1980 Output Total 1200 3600 1950 Balance 340 2160 -1170 1980 Ga
== END 2019-11-08 18:20 | disposition home or self-care (01) | DRG 149 ==
LOC: ANHED 11:56 → ANH3MED 13:17
PROVIDERS: Nurse Practitioner; Physician Assistant; Admitting Provider Internal Medicine; Emergency Provider Emergency Medicine; PCP Family Medicine; Visit Provider Physician Assistant
DX: R42 Dizziness and giddiness (principal); G90.50 Complex regional pain syndrome I, unspecified; F41.8 Other specified anxiety disorders; G62.9 Polyneuropathy, unspecified; M79.7 Fibromyalgia; I10 Essential (primary) hypertension; M54.9 Dorsalgia, unspecified; F17.219 Nicotine dependence, cigarettes, with unspecified nicotine-induced disorders
CPT/HCPCS: 36415; 70450; 70496; 70498; 71045; 80048; 80053; 81001; 83735; 84439; 84443; 84480; 84484; 85025; 85027; 85610; 85730; 93005; 93306; 93880; 96361; 96374; 97110; 97116; 97161; 97165; 99285; A9270; G0378; J3360; J7030; Q9957; Q9967

== ENCOUNTER 2019-11-16 07:09 | Emergency (ER) | payer MEDICARE, OTHER, SELFPAY ==
[2019-11-16] VITALS (10 sets, daily range): BP systolic 118–178; BP diastolic 61–95; PULSE 73–95; RESP 12–20; TEMP 37.3; O2SAT 87–100
--- NOTE | 2019-11-16 07:28 | ED.GENADULT ---
HPI - General Adult General Chief complaint: Allergic Reaction Stated complaint: Allergic Reaction Time Seen by Provider: 11/16/19 07:14 Source: patient History of Present Illness HPI narrative: Patient is a 59 y/o female complaining of itchy, nausea and drying heaves since yesterday. She states that her itch is severe and there is no alleviating or exacerbating factor. She has hives intermittently. She also feels anxious and light-headed. She states that she was recently admitted for dizziness and was treated for vertigo. Incidentally, she was also found to have a left carotid aneurysm. She has history of anxiety and she was on Xanax, but was recently switched to Valium. She started to take Valium 2 days ago. She is concerned about possible reaction/side effect of Valium Related Data Home Medications Medication Instructions Recorded Confirmed alprazolam 1 mg PO TID PRN 11/05/19 11/05/19 cimetidine 400 mg PO BID 11/05/19 11/05/19 hydroxyzine HCl 25 mg PO TID 11/05/19 11/05/19 lisinopril 10 mg PO BID 11/05/19 11/05/19 metoprolol succinate 25 mg PO DAILY 11/05/19 11/05/19 omeprazole 40 mg PO BID 11/05/19 11/05/19 ondansetron 8 mg PO Q8H PRN 11/05/19 11/05/19 sucralfate 1 g PO TIDWMEAL 11/05/19 11/05/19 tizanidine 2 mg PO TID PRN 11/05/19 11/05/19 venlafaxine 150 mg PO BID 11/05/19 11/05/19 diazepam 11/16/19 Allergies Allergy/AdvReac Type Severity Reaction Status Date / Time codeine Allergy Severe ITCHING,HIV Verified 11/16/19 07:21 ES hydrocodone Allergy Severe Itching Verified 11/16/19 07:21 NSAIDS (Non-Steroidal Allergy Severe Swelling Verified 11/16/19 07:21 Anti-Inflamma oxycodone Allergy Severe ITCHEY Verified 11/16/19 07:21 HIVES levofloxacin Allergy Mild HIVES ALL Verified 11/16/19 07:21 OVER morphine Allergy Mild ITCHEY Verified 11/16/19 07:21 HIVES kiwi Allergy Unknown Unknown Verified 11/16/19 07:21 strawberry Allergy Unknown Unknown Verified 11/16/19 07:21 OPIODS Allergy Intermediate HIVES Uncoded 11/05/19 09:12 steroids Allergy Intermediate HIVES Uncoded 11/05/19 09:12 Review of Systems Constitutional: Constitutional: Denies chills, Denies fever(s), Denies headache(s) and Denies weakness Eyes: Eyes: Denies blurry vision ENT: Denies headache(s) and Denies neck pain Cardiovascular: Cardiovascular: Denies chest pain and Denies dyspnea Respiratory: Respiratory: Denies cough and Denies dyspnea Gastrointestinal: Gastrointestinal: Reports as per HPI, Denies abdominal pain, Denies diarrhea, Reports nausea, Denies vomiting and Reports other (dry heaves) Genitourinary: Genitourinary: Denies hematuria and Denies dysuria Musculoskeletal: Musculoskeletal: Denies back pain and Denies neck pain Integumentary/Breasts: Skin/Breast: Reports as per HPI and Reports other (itch, hives) Neurologic: Denies headache(s) and Denies weakness PMFSH Past Medical History Medical History Chronic back pain Depression with anxiety Fibromyalgia GERD with esophagitis High blood triglycerides History of cervical cancer status post history History of peptic ulcer disease History of skin cancer HTN (hypertension), malignant Neuropathy RSD (reflex sympathetic dystrophy) Spinal cord stimulator status Surgical History Surgical History H/O: hysterectomy 2004 Status post osteotomy full Merissa osteotomy right tibia Total knee replacement status x2 Family History Family History Father Heart disease Mother Alzheimer disease Sibling Alzheimer disease 2 brother Heart disease sister Idania Gehrigs disease sister from this Social History Social History Social History: 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 She i
[2019-11-16 07:38] LABS: Basophils Absolute Auto 0.1 K/mm3 (0.0-0.1); Basophils Percent Auto 0.8 % (0.2-1.2); Eosinophils Absolute Auto 0.1 K/mm3 (0-0.3); Eosinophils Percent Auto 0.7 % (0-4.4); Hematocrit 42.5 % (37.0-47.0); Hemoglobin 15.2 g/dL (12.0-15.0); Immature Granulocyte Percent A 0.8 % (0-0.5); Lymphocytes Absolute Auto 2.63 K/mm3 (0.9-3.2); Lymphocytes Percent Auto 21.4 % (18.3-44.2); Mean Corpuscular HGB Conc 35.8 g/dl (32-36); Mean Corpuscular Hemoglobin 32.3 pg (26-34); Mean Corpuscular Volume 90.2 fl (80-100); Mean Platelet Volume 9.7 fl (7.4-10.4); Monocytes Absolute Auto 0.9 K/mm3 (0.1-0.6); Monocytes Percent Auto 6.9 % (2.6-8.5); Neutrophils Absolute Auto 8.5 K/mm3 (1.3-6.7); Neutrophils Percent Auto 69.4 % (45.5-73.1); Platelet Count Result 322 k/mm3 (150-375); Red Blood Count 4.71 M/mm3 (4.2-5.4); Red Cell Distribution Width 11.5 % (11.5-14.5); White Blood Count 12.3 K/mm3 (4.5-10.0)
[2019-11-16] MEDS: ONDANSETRON INJ 4 MG/2 ML VIAL IV PUSH (07:38)
[2019-11-16] MEDS: ALPRAZolam (*CRX) 0.25 MG TABLET 1 MG PO (07:38)
[2019-11-16 08:04] LABS: Anion Gap 11 mmol/L (8-16); Blood Urea Nitrogen 8 mg/dL (7-17); Calcium 10.1 mg/dL (8.4-10.2); Carbon Dioxide 24 mmol/L (22-30); Chloride 91 mmol/L (98-107); Estimated CRCL calculation 85 ml/min; Estimated Glomerular Filt Rate > 60; Glucose 121 mg/dL (65-105); Potassium 4.5 mmol/L (3.4-5.0); Sodium 126 mmol/L (137-145)
[2019-11-16] MEDS: SODIUM CHLORIDE 0.9% IV 1,000 ML 999 ML IV CONT (08:35)
--- NOTE | 2019-11-16 09:30 | PC.NURSE ---
pt reports feeling more relaxed and calm. reports less itching. skin normal tone and temp. vitals stable. no resp or cardiac distress
== END 2019-11-16 11:08 | disposition home or self-care (01) ==
PROVIDERS: Emergency Provider Emergency Medicine; PCP Family Medicine
DX: F41.8 Other specified anxiety disorders (principal); E87.1 Hypo-osmolality and hyponatremia; M79.7 Fibromyalgia; K21.0 Gastro-esophageal reflux disease with esophagitis; Z85.41 Personal history of malignant neoplasm of cervix uteri; Z87.11 Personal history of peptic ulcer disease; Z85.828 Personal history of other malignant neoplasm of skin; I10 Essential (primary) hypertension; G62.9 Polyneuropathy, unspecified; G90.50 Complex regional pain syndrome I, unspecified; Z96.659 Presence of unspecified artificial knee joint; F17.210 Nicotine dependence, cigarettes, uncomplicated
CPT/HCPCS: 36415; 80048; 85025; 96361; 96374; 99284; A9270; J2405; J7030

== ENCOUNTER 2020-06-02 03:08 | Emergency (ER) | payer MEDICARE, OTHER, SELFPAY ==
--- NOTE | ~2020-06-02 | CT_ITS ---
EXAMINATION: CT brain wo con EXAM DATE: 06/02/2020 03:49 INDICATION: Headache. TECHNIQUE: Spiral CT of the head was performed without contrast. Axial, coronal and sagittal images were reviewed. The dose-length product (DLP) for this examination was 605.33 mGy-cm. The exposure w as tailored according to patient size, and iterative reconstruction (ASIR) was used as additional dos e reduction technique. Comparison is made to prior examination from 11/08/2019. 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 Low-density fluid collection between the craniotomy defect in the overlying temporalis muscle tessie uring up to 1.4 cm in thickness. There is no acute intraparenchymal hemorrhage. No evidence of intra parenchymal brain mass lesion. No evidence of acute infarction. There is no mass effect or midline shift. The ventricles are normal in size. There are no extra-axial collections. There are no acute calvarial fractures. The orbits are unremarkable. Soft tissue is unremarkable. The visualized sinu ses and mastoid air cells are well aerated. IMPRESSION: 1. No acute intracranial findings. 2. 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 Reviewed, dictated and finalized at location A.
[2020-06-02 03:11] VITALS: BP 148/90; PULSE 79; RESP 18; TEMP 37.1; O2SAT 99
[2020-06-02] MEDS: ONDANSETRON HCL ODT 4 MG TABLET PO (03:42)
[2020-06-02] MEDS: SODIUM CHLORIDE 0.9% IV 1,000 ML 999 ML IV CONT (03:42)
--- NOTE | 2020-06-02 03:43 | ED.GENADULT ---
HPI - General Adult General Chief complaint: Nausea/Vomiting/Diarrhea Stated complaint: not feeling well Time Seen by Provider: 06/02/20 03:13 History of Present Illness HPI narrative: Patient is a 60-year-old female that presents to emergency department with chief complaint of nausea vomiting diarrhea and headache. Patient reports that she has been [facility] doing [facility]hab and reports that she has been uncomfortable at that facility per report she has been having nausea and vomiting and is reports to having diarrhea as well since she has been at that facility. Patient reports that she has headache that is not improved by anything nor is it worsened by anything. Patient does report that she was admitted to the facility approximately 3 days ago after she had been discharged from [facility] after having an intercerebral hemorrhage with aneurysm. Patient denies focal neurological deficit denies bowel or bladder dysfunction. Related Data Home Medications Medication Instructions Recorded Confirmed alprazolam 1 mg PO TID PRN 11/05/19 11/05/19 cimetidine 400 mg PO BID 11/05/19 11/05/19 hydroxyzine HCl 25 mg PO TID 11/05/19 11/05/19 lisinopril 10 mg PO BID 11/05/19 11/05/19 metoprolol succinate 25 mg PO DAILY 11/05/19 11/05/19 omeprazole 40 mg PO BID 11/05/19 11/05/19 ondansetron 8 mg PO Q8H PRN 11/05/19 11/05/19 sucralfate 1 g PO TIDWMEAL 11/05/19 11/05/19 tizanidine 2 mg PO TID PRN 11/05/19 11/05/19 venlafaxine 150 mg PO BID 11/05/19 11/05/19 diazepam 11/16/19 Allergies Allergy/AdvReac Type Severity Reaction Status Date / Time codeine Allergy Severe ITCHING,HIV Verified 06/02/20 04:59 ES hydrocodone Allergy Severe Itching Verified 06/02/20 04:59 NSAIDS (Non-Steroidal Allergy Severe Swelling Verified 06/02/20 04:59 Anti-Inflamma oxycodone Allergy Severe ITCHEY Verified 06/02/20 04:59 HIVES levofloxacin Allergy Mild HIVES ALL Verified 06/02/20 04:59 OVER morphine Allergy Mild ITCHEY Verified 06/02/20 04:59 HIVES kiwi Allergy Unknown Unknown Verified 06/02/20 04:59 strawberry Allergy Unknown Unknown Verified 06/02/20 04:59 OPIODS Allergy Intermediate HIVES Uncoded 06/02/20 04:59 steroids Allergy Intermediate HIVES Uncoded 06/02/20 04:59 Review of Systems Review of Systems: Narrative: A 10 system review of systems was completed on the patient and is negative except for what is stated in the HPI. Nursing and ancillary documentation was reviewed. [facility] Past Medical History Medical History (Updated 06/02/20 @ 06:07 by Vitaliy Hinton MD) Chronic back pain Depression with anxiety Fibromyalgia GERD with esophagitis High blood triglycerides History of cervical cancer status post history History of peptic ulcer disease History of skin cancer HTN (hypertension), malignant Neuropathy RSD (reflex sympathetic dystrophy) Spinal cord stimulator status Surgical History Surgical History H/O: hysterectomy 2004 Status post osteotomy full Merissa osteotomy right tibia Total knee replacement status x2 Family History Family History Father Heart disease Mother Alzheimer disease Sibling Alzheimer disease 2 brother Heart disease sister Idania Gehrigs disease sister from this Social History Social History Social History: 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 She lives with her and has 1 child. She smokes a pack a cigarettes a day. She socially drinks. She is a full code and desires to have her is the durable power tax attorney for healthcare his name is Dileep Salazar. Smoking packs per day: 1.5 Smoking cigarettes per day: 30.0 Smoking status: Current every d
[2020-06-02 03:47] LABS: Basophils Absolute Auto 0.1 K/mm3 (0.0-0.1); Basophils Percent Auto 0.5 % (0.2-1.2); Eosinophils Absolute Auto 0.3 K/mm3 (0-0.3); Eosinophils Percent Auto 1.9 % (0-4.4); Hematocrit 36.8 % (37.0-47.0); Hemoglobin 12.2 g/dL (12.0-15.0); Immature Granulocyte Absolute 0.06 K/mm3 (0.00-0.031); Immature Granulocyte Percent A 0.4 % (0-0.5); Lymphocytes Absolute Auto 3.17 K/mm3 (0.9-3.2); Lymphocytes Percent Auto 23.3 % (18.3-44.2); Mean Corpuscular HGB Conc 33.2 g/dl (32-36); Mean Corpuscular Hemoglobin 31.1 pg (26-34); Mean Corpuscular Volume 93.9 fl (80-100); Mean Platelet Volume 10.5 fl (7.4-10.4); Monocytes Absolute Auto 1.2 K/mm3 (0.1-0.6); Monocytes Percent Auto 8.4 % (2.6-8.5); Neutrophils Absolute Auto 8.9 K/mm3 (1.3-6.7); Neutrophils Percent Auto 65.5 % (45.5-73.1); Platelet Count Result 255 k/mm3 (150-375); Red Blood Count 3.92 M/mm3 (4.2-5.4); Red Cell Distribution Width 13.5 % (11.5-14.5); White Blood Count 13.6 K/mm3 (4.5-10.0)
[2020-06-02 03:59] VITALS: PULSE 84; RESP 21; O2SAT 98
[2020-06-02 04:00] VITALS: PULSE 83; RESP 18; O2SAT 98
[2020-06-02 04:00] LABS: Alanine Aminotransferase 65 U/L (4-35); Albumin Level 4.2 g/dL (3.5-5.1); Alkaline Phosphatase 79 U/L (38-126); Anion Gap 8 mmol/L (8-16); Aspartate Amino Transferase 43 U/L (14-36); Bilirubin,Total 0.3 mg/dL (0.2-1.3); Blood Urea Nitrogen 16 mg/dL (7-17); Carbon Dioxide 26 mmol/L (22-30); Chloride 107 mmol/L (98-107); Estimated CRCL calculation 60 ml/min; Estimated Glomerular Filt Rate > 60; Glucose 117 mg/dL (65-105); Lipase 288 U/L (23-300); Potassium 3.6 mmol/L (3.4-5.0); Sodium 141 mmol/L (137-145)
[2020-06-02 04:08] VITALS: BP 127/80; PULSE 83; RESP 19; O2SAT 98
--- NOTE | 2020-06-02 04:29 | PC.NURSE ---
Pt up to bathroom x 2 to void. No diarrhea.
[2020-06-02 04:31] LABS: Add Urine Microscopic? YES; Appearance Urine Cloudy (Clear); Bacteria Urine Trace /hpf; Bilirubin Urine Negative (Negative); Color Urine Yellow (Yellow); Glucose Urine UA Negative (Negative); Ketones Urine Negative (Negative); Leukocyte Esterase Ur 3+ LEU/UL (Negative); Mucus Urine Few /lpf; Nitrate Urine Negative (Negative); Protein Urine 1+ mg/dL (Negative); RBC Urine 21-50 /hpf (0-2); Squamous Epithelial Cell Urine Many /hpf (Few); WBC Urine >75 /hpf
[2020-06-02 04:32] LABS: Blood Urine Negative (Negative)
--- NOTE | 2020-06-02 05:17 | PC.NURSE ---
Pt frequently asking to be discharged so she can go home. Pt frequently trying to get out of bed and will not leave her helmet on. Request sent to [facility] for most recent CT scan of brain for comparison. Pt redirectable.
[2020-06-02 05:59] VITALS: BP 132/80; PULSE 81; RESP 18; O2SAT 97
[2020-06-02 06:31] VITALS: BP 138/70; PULSE 89; RESP 20; O2SAT 95
--- NOTE | 2020-06-02 06:43 | PC.NURSE ---
Pt remains a/o x 4. Pt is abetment that she is not ging back to the Rehab facility.
--- NOTE | 2020-06-02 06:54 | PC.NURSE ---
Pt has contacted her sister who will pick her up. IV ATB completed and IV d/c. Pt gets herself into a w/c and starts to move herself out the door. EDP informed and he will work on paperwork for d/c. Pt will not listen to RN or veterinarian small animal to wait for paperwork or wait in room. RN gets paperwork and finds pt standing outside waiting for sister. Pt does agree to sitting inside to wait.
== END 2020-06-02 06:50 | disposition home or self-care (01) ==
PROVIDERS: Emergency Provider Emergency Medicine; PCP Family Medicine
DX: N30.00 Acute cystitis without hematuria (principal); F41.8 Other specified anxiety disorders; M79.7 Fibromyalgia; K21.00 Gastro-esophageal reflux disease with esophagitis, without bleeding; Z85.41 Personal history of malignant neoplasm of cervix uteri; Z87.11 Personal history of peptic ulcer disease; I10 Essential (primary) hypertension; G90.50 Complex regional pain syndrome I, unspecified; G62.9 Polyneuropathy, unspecified; Z96.659 Presence of unspecified artificial knee joint; F17.210 Nicotine dependence, cigarettes, uncomplicated; Z96.82 Presence of neurostimulator
CPT/HCPCS: 36415; 70450; 80053; 81001; 83690; 85025; 87077; 87086; 87088; 87147; 87181; 87186; 96361; 96365; 99284; A9270; J0696; J7030

== ENCOUNTER 2020-06-05 10:44 | Emergency (ER) | payer MEDICARE, OTHER, SELFPAY ==
--- NOTE | ~2020-06-05 | XR_ITS ---
EXAMINATION: XR foot LT min 3V DATE: 06/05/2020 11:29 INDICATION: Left foot pain. TECHNIQUE: Dorsoplantar, two oblique and lateral views of the left foot were obtained. COMPARISON: None. FINDINGS: Alignment is normal. No fracture. Mild polyarticular osteoarthritis at the first metatarsophalangeal and several tarsal metatarsal and interphalangeal joints. Soft tissues are unremarkable. IMPRESSION: 1. Mild polyarticular osteoarthritis. No acute osseous abnormality. Reviewed, dictated and finalized at location A.
[2020-06-05 11:00] VITALS: BP 149/79; PULSE 100; RESP 18; TEMP 36.2; O2SAT 100
--- NOTE | 2020-06-05 12:02 | ED.GENADULT ---
HPI - General Adult General Chief complaint: Extremity Injury, Lower Stated complaint: left foot pain Time Seen by Provider: 06/05/20 11:03 Source: patient and family Mode of arrival: ambulatory Limitations: no limitations History of Present Illness HPI narrative: Patient 60-year-old female complaining of right midfoot pain pain began after stepping on the foot awkwardly last night patient notes aching pain in the midfoot worse with weightbearing and activity denies other injuries or complaints presents in no distress with family Related Data Home Medications Medication Instructions Recorded Confirmed alprazolam 1 mg PO TID PRN 11/05/19 11/05/19 cimetidine 400 mg PO BID 11/05/19 11/05/19 hydroxyzine HCl 25 mg PO TID 11/05/19 11/05/19 lisinopril 10 mg PO BID 11/05/19 11/05/19 metoprolol succinate 25 mg PO DAILY 11/05/19 11/05/19 omeprazole 40 mg PO BID 11/05/19 11/05/19 ondansetron 8 mg PO Q8H PRN 11/05/19 11/05/19 sucralfate 1 g PO TIDWMEAL 11/05/19 11/05/19 tizanidine 2 mg PO TID PRN 11/05/19 11/05/19 venlafaxine 150 mg PO BID 11/05/19 11/05/19 diazepam 11/16/19 Allergies Allergy/AdvReac Type Severity Reaction Status Date / Time codeine Allergy Severe ITCHING,HIV Verified 06/05/20 11:06 ES hydrocodone Allergy Severe Itching Verified 06/05/20 11:06 NSAIDS (Non-Steroidal Allergy Severe Swelling Verified 06/05/20 11:06 Anti-Inflamma oxycodone Allergy Severe ITCHEY Verified 06/05/20 11:06 HIVES levofloxacin Allergy Mild HIVES ALL Verified 06/05/20 11:06 OVER morphine Allergy Mild ITCHEY Verified 06/05/20 11:06 HIVES kiwi Allergy Unknown Unknown Verified 06/05/20 11:06 strawberry Allergy Unknown Unknown Verified 06/05/20 11:06 OPIODS Allergy Intermediate HIVES Uncoded 06/05/20 11:06 steroids Allergy Intermediate HIVES Uncoded 06/05/20 11:06 Review of Systems Review of Systems: All systems reviewed & are unremarkable except as noted in HPI and below PMFSH Past Medical History Medical History (Updated 06/05/20 @ 12:04 by Monroe Stockton PA-C) Chronic back pain Depression with anxiety Fibromyalgia GERD with esophagitis High blood triglycerides History of cervical cancer status post history History of peptic ulcer disease History of skin cancer HTN (hypertension), malignant Neuropathy RSD (reflex sympathetic dystrophy) Spinal cord stimulator status Surgical History Surgical History H/O: hysterectomy 2004 Status post osteotomy full Merissa osteotomy right tibia Total knee replacement status x2 Family History Family History Father Heart disease Mother Alzheimer disease Sibling Alzheimer disease 2 brother Heart disease sister Idania Gehrigs disease sister from this Social History Social History Social History: 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 She lives with her and has 1 child. She smokes a pack a cigarettes a day. She socially drinks. She is a full code and desires to have her is the durable power neurocritical care physician for healthcare his name is Dileep Salazar. Smoking packs per day: 1.5 Smoking cigarettes per day: 30.0 Smoking status: Current every day smoker Tobacco type: cigarettes Alcohol intake: former Substance use: former Substance use type: marijuana Last use: August 2019 Gender identity (if verbalized by the patient): Female Spiritual care concerns: No Exam Narrative: Exam Narrative: GENERAL: Well-appearing, well-nourished, and in no acute distress. HEAD: Normocephalic, atraumatic. EYES: PERRLA and EOMI. ENT: Nares clear, no rhinorrhea or epistaxis. Mucous membranes moist. CHEST: Clear to auscultation. No respiratory distress. No wheezes rale
--- NOTE | 2020-06-05 12:06 | PC.NURSE ---
Pt declined ordered maria elena wrap and post op shoe.
== END 2020-06-05 12:09 | disposition home or self-care (01) ==
PROVIDERS: Emergency Provider Emergency Medicine; PCP Family Medicine
DX: M79.672 Pain in left foot (principal); F41.8 Other specified anxiety disorders; M79.7 Fibromyalgia; K21.00 Gastro-esophageal reflux disease with esophagitis, without bleeding; I10 Essential (primary) hypertension; G90.50 Complex regional pain syndrome I, unspecified; G62.9 Polyneuropathy, unspecified; Z96.82 Presence of neurostimulator; Z85.41 Personal history of malignant neoplasm of cervix uteri; Z85.828 Personal history of other malignant neoplasm of skin; F17.210 Nicotine dependence, cigarettes, uncomplicated
CPT/HCPCS: 73630; 99283

== ENCOUNTER 2020-11-18 00:12 | Emergency (ER) | payer MEDICARE, OTHER, SELFPAY ==
[2020-11-18 00:15] VITALS: BP 124/68; PULSE 83; RESP 18; TEMP 36.3; O2SAT 99
== END 2020-11-19 05:00 | disposition left against medical advice (07) ==
LOC: ANHED 00:33
PROVIDERS: PCP Family Medicine
DX: R51.9 Headache, unspecified (principal)
CPT/HCPCS: 99199

== ENCOUNTER 2021-05-25 11:36 | Outpatient (CLI) | payer MEDICARE, OTHER, SELFPAY ==
--- NOTE | ~2021-05-25 | CT_ITS ---
EXAMINATION: CT thoracic lumbar wo con EXAM DATE: 05/25/2021 12:30 INDICATION: Thoracic and lumbar radiculopathy. TECHNIQUE: Spiral CT thoracolumbar spine was performed without contrast. Axial, coronal and sagittal images of the thoracic spine were reviewed. Axial, coronal and sagittal images of the lumbar spine we re reviewed. The dose-length product (DLP) for this examination was 1646.90 mGy-cm. The exposure was tailored according to patient size (auto mA exposure control), and iterative reconstruction (ASIR) w as used as additional dose reduction technique. There is a prior CT lumbar spine from 01/29/2014 for comparison. FINDINGS: THORACIC SPINE: There is mild thoracic dextroscoliosis, mild lumbar levoscoliosis. Mild loss of most of the thoracic disc height with small endplate osteophytes. Spine stimulator leads tips at the T7-8 level. There is moderate to severe bilateral neural foraminal stenosis at T8-9. Mild to moderate neur al foraminal stenosis at several of the other levels. The central canal does not have any evidence of stenosis. The vertebral bodies are aligned in the AP dimension. Overall mild thoracic facet arthropa thy. There are no osteoblastic or osteolytic lesions identified. There are no acute fractures identif ied. No endplate erosion. Paraspinal soft tissue is unremarkable. LUMBAR SPINE: Mild lumbar levoscoliosis. There is moderate to severe disc disease L-1-L3 and L5-S1, m oderate at L4-5. The vertebral bodies are aligned in the AP dimension. There are no acute fractures i dentified. Vertebral body heights are maintained. Sacroiliac joints demonstrate moderate osteoarthrit is but otherwise unremarkable. Level by level evaluation: T12-L1: There is a minimal diffuse disc bulge. Facet arthropathy: Mild. Neural foraminal stenosis: No stenosis. Central canal stenosis: No stenosis. L1-L2: There is a minimal diffuse disc bulge. Spine stimulator leads entering this level. Facet arthropathy: Mild. Neural foraminal stenosis: No stenosis. Central canal stenosis: No stenosis. L2-L3: There is a moderate diffuse disc bulge. Facet arthropathy: Mild to moderate. Neural foraminal stenosis: Moderate right, mild to moderate left. Central canal stenosis: Moderate. L3-L4: There is a moderate diffuse disc bulge. Facet arthropathy: Moderate to severe right, mild to moderate left. Neural foraminal stenosis: Moderate right, mild to moderate left. Central canal stenosis: Moderate. L4-L5: There is a moderate diffuse disc bulge. Facet arthropathy: Moderate to severe left, moderate right. Neural foraminal stenosis: Moderate bilateral. Central canal stenosis: Moderate. L5-S1: There is a moderate diffuse disc bulge. Facet arthropathy: Moderate to severe bilateral. Neural foraminal stenosis: Moderate to severe left, moderate right. Central canal stenosis: Mild to moderate. IMPRESSION: 1. T8-9 moderate to severe bilateral neural foraminal stenosis, much less other thoracic levels. 2. Overall moderate to severe lumbar spondylosis. 3. Mild thoracic dextroscoliosis, lumbar levoscoliosis. Reviewed, dictated and finalized at location A. IMPRESSION: 1. T8-9 moderate to severe bilateral neural foraminal stenosis, much less othe r thoracic levels. 2. Overall moderate to severe lumbar spondylosis. 3. Mild thoracic dextroscoliosis, lumbar levoscoliosis.
--- NOTE | 2021-05-25 13:20 | ECG_ITS ---
Measurements Intervals [place] Rate: 75 P: 34 WI: 166 QRS: 58 QRSD: 78 T: 31 QT: 371 QTc: 416 Interpretive Statements SINUS RHYTHM COMPARED TO ECG 11/05/2019 09:08:35 NO SIGNIFICANT CHANGES Electronically Signed On 05-25-2021 14:27:36 CDT by Carmencita Rosas M.D.
[2021-05-25 13:30] LABS: Hematocrit 41.7 % (37.0-47.0); Hemoglobin 14.6 g/dL (12.0-15.0); Mean Corpuscular Hemoglobin 31.8 pg (26-34); Mean Corpuscular Volume 90.8 fl (80-100); Platelet Count Result 282 k/mm3 (150-375); Red Blood Count 4.59 M/mm3 (4.2-5.4); Red Cell Distribution Width 12.4 % (11.5-14.5); White Blood Count 10.9 K/mm3 (4.5-10.0)
[2021-05-25 13:44] LABS: Alanine Aminotransferase 29 U/L (4-35); Albumin Level 4.5 g/dL (3.5-5.1); Alkaline Phosphatase 59 U/L (38-126); Anion Gap 9 mmol/L (8-16); Aspartate Amino Transferase 28 U/L (14-36); Bilirubin,Total 0.2 mg/dL (0.2-1.3); Blood Urea Nitrogen 13 mg/dL (7-17); Calcium 9.2 mg/dL (8.4-10.2); Carbon Dioxide 26 mmol/L (22-30); Chloride 96 mmol/L (98-107); Estimated Glomerular Filt Rate > 60; Glucose 93 mg/dL (65-110); Potassium 4.1 mmol/L (3.4-5.0); Sodium 131 mmol/L (137-145)
[2021-05-25 13:48] LABS: Prothrombin Time 12.4 Seconds (11.1-14.7)
== END 2021-05-25 11:37 | disposition home or self-care (01) ==
PROVIDERS: PCP Family Medicine
DX: R53.83 Other fatigue (principal); R06.00 Dyspnea, unspecified; Z51.81 Encounter for therapeutic drug level monitoring; M47.24 Other spondylosis with radiculopathy, thoracic region; M47.26 Other spondylosis with radiculopathy, lumbar region
CPT/HCPCS: 36415; 72128; 72131; 80053; 85027; 85610; 93005

== ENCOUNTER 2021-08-24 10:29 | Outpatient (CLI) | payer MEDICARE, OTHER, SELFPAY ==
--- NOTE | ~2021-08-24 | CT_ITS ---
EXAMINATION: CT lumbar spine wo con DATE: 08/24/2021 10:56 INDICATION: Lumbar radiculopathy and left hip joint pain TECHNIQUE: Computed tomography (CT) of the lumbar spine was performed without intravenous contrast. A utomated exposure control and iterative reconstruction technique were employed. The dose-length produ ct was 971.89 mGy-cm. COMPARISON: 05/25/2021 FINDINGS: 10 degrees lumbar levoscoliosis. Sagittal alignment is normal. Vertebral body heights are normal. No fracture. Moderate to severe right-sided predominant disc height loss at L2-L3 and L3-L4. Moderate di sc height loss at L4-L5 and mild to moderate disc height loss with vacuum phenomena at L5-S1 and mode rate disc height loss at L4-L5. Spinal stimulator in the subcutaneous tissues at the the cephalad asp ect of the left buttock with a pair of leads extending into the central canal by interspinous process approach at L1 L2 L3 tips extending cephalad to the level of T7-T8. Mild to moderate bilateral sacro iliac osteoarthritis. Visualized paravertebral soft tissues are unremarkable. Normal appendix. The fo llowing disc levels are specifically discussed: T12-L1: Disc is minimally bulging. There is mild right and mild to moderate left facet joint osteoart hritis. There is no neural foraminal stenosis. There is no central canal stenosis. L1-L2: Disc is mildly bulging. There is mild right and mild to moderate left facet joint osteoarthrit is. There is no neural foraminal stenosis. There is no central canal stenosis. L2-L3: Disc is bulging. There is mild left and mild to moderate right facet joint osteoarthritis. The re is moderate right and mild to moderate left neural foraminal stenosis. There is moderate to severe central canal stenosis. L3-L4: Disc is bulging. There is mild left and severe right facet joint osteoarthritis. There is mode rate right and mild to moderate left neural foraminal stenosis. There is moderate to severe central c anal stenosis. L4-L5: Disc is bulging. There is moderate right and moderate to severe left facet joint osteoarthriti s. There is moderate to severe bilateral neural foraminal stenosis. There is moderate to severe centr al canal stenosis. L5-S1: Disc is bulging. There is moderate to severe right and severe left facet joint osteoarthritis. There is moderate right and moderate to severe left neural foraminal stenosis. There is mild central canal stenosis. IMPRESSION: 1. No significant change in moderate to severe lumbar spondylosis. Reviewed, dictated and finalized at location A.
== END 2021-08-24 10:30 | disposition home or self-care (01) ==
PROVIDERS: PCP Family Medicine; Visit Provider Orthopaedic Surgery
DX: M25.552 Pain in left hip (principal)
CPT/HCPCS: 72131

== ENCOUNTER 2022-01-05 10:03 | Emergency (ER) | payer MEDICARE, OTHER, SELFPAY ==
--- NOTE | ~2022-01-05 | XR_ITS ---
XR chest 1V portable DATE: 01/05/2022 10:48 INDICATION: Shortness of breath, numbness TECHNIQUE: Portable upright AP chest on 01/05/2022 at 1040 hours COMPARISON: 11/05/2019 AP chest FINDINGS: 2 electrodes overlie the thoracic spinal canal. Normal heart size. Mild aortic unfolding. No hilar or mediastinal enlargement. Interval mild left pleural effusion since 11/05/2019 with mild infiltrate or atelectasis at the left l khoi base and to a lesser extent right lower lung. No right pleural effusion. Osteopenia. IMPRESSION: Mild infiltrate or atelectasis in the lower lung zones, left greater than right and mild left pleural effusion Reviewed, dictated and finalized at location B. NCE BUSINESS MANAGER IMPRESSION: Mild infiltrate or atelectasis in the lower lung zones, left greate r than right and mild left pleural effusion
--- NOTE | ~2022-01-05 | CT_ITS ---
EXAMINATION: CT brain wo con DATE: 01/05/2022 10:51 INDICATION: Right facial numbness. Headache. TECHNIQUE: Computed tomography (CT) of the head was performed without intravenous contrast. The mA wa s adjusted according to patient size. Iterative reconstruction technique was employed. The dose-lengt h product was 605.33 mGy-cm. COMPARISON: Head CT 06/02/2020 FINDINGS: Again seen is chronic encephalomalacia in lateral aspect of left temporal lobe. There are l ow-attenuation infarcts in left frontal and temporal lobes, new from 06/02/20, but likely chronic. The re is acute subarachnoid hemorrhage in left sylvian fissure and in left frontotemporal sulci. There i s no abnormal mass lesion. There is ex vacuo dilatation of left lateral ventricle. There is 3 mm left wilkerson midline shift from left brain volume loss. There are changes of left-sided craniotomy. There is an aneurysm clip in left suprasellar cistern. The orbits are normal. There is mild mucosal thickening in the paranasal sinuses. The mastoid air cells are normal. IMPRESSION: 1. Acute subarachnoid hemorrhage in left sylvian fissure and left frontotemporal sulci. 2. Infarcts involving left frontal and temporal lobes with worsening from 06/02/2020, likely chronic. Reviewed, dictated and finalized at location A. L SUPPORT ASSISTANT IMPRESSION: 1. Acute subarachnoid hemorrhage in left sylvian fissure and left frontotempora l sulci. 2. Infarcts involving left frontal and temporal lobes with worsening from 2020, likely chronic.
[2022-01-05 10:12] VITALS: BP 147/87; PULSE 88; RESP 18; TEMP 36.6; O2SAT 99
[2022-01-05 10:24] VITALS: BP 145/72; O2SAT 99
--- NOTE | 2022-01-05 10:28 | ECG_ITS ---
Measurements Intervals [place] Rate: 85 P: 180 MA: 366 QRS: 16 QRSD: 86 T: 28 QT: 380 QTc: 454 Interpretive Statements SINUS RHYTHM RSR' IN V1 OR V2, PROBABLY NORMAL VARIANT LOW QRS VOLTAGE- DIFFUSE LEADS BORDERLINE T WAVE ABNORMALITY- ANTERIOR LEADS BASELINE ARTIFACT- II, III, AVR, AVL, AVF, V3 BORDERLINE ECG COMPARED TO ECG 05/25/2021 13:32:46 NO SIGNIFICANT CHANGES Electronically Signed On 01-05-2022 11:33:23 MACHINE REPAIRER by Brian Graves D.O.
--- NOTE | 2022-01-05 10:42 | PC.NURSE ---
pt to cat scan
[2022-01-05 10:46] LABS: Basophils Absolute Auto 0.1 K/mm3 (0.0-0.1); Basophils Percent Auto 0.6 % (0.2-1.2); Eosinophils Absolute Auto 0.1 K/mm3 (0-0.3); Eosinophils Percent Auto 0.4 % (0-4.4); Hematocrit 39.2 % (37.0-47.0); Hemoglobin 13.7 g/dL (12.0-15.0); Immature Granulocyte Absolute 0.09 K/mm3 (0.00-0.031); Immature Granulocyte Percent A 0.7 % (0-0.5); Lymphocytes Absolute Auto 2.35 K/mm3 (0.9-3.2); Lymphocytes Percent Auto 18.1 % (18.3-44.2); Mean Corpuscular HGB Conc 34.9 g/dl (32-36); Mean Corpuscular Hemoglobin 32.5 pg (26-34); Mean Corpuscular Volume 92.9 fl (80-100); Mean Platelet Volume 9.1 fl (7.4-10.4); Monocytes Absolute Auto 0.8 K/mm3 (0.1-0.6); Monocytes Percent Auto 6.3 % (2.6-8.5); Neutrophils Absolute Auto 9.6 K/mm3 (1.3-6.7); Neutrophils Percent Auto 73.9 % (45.5-73.1); Platelet Count Result 259 k/mm3 (150-375); Red Blood Count 4.22 M/mm3 (4.2-5.4); Red Cell Distribution Width 12.1 % (11.5-14.5)
[2022-01-05 10:56] LABS: INR 1.1; Prothrombin Time 13.3 Seconds (11.1-14.7)
[2022-01-05 10:57] LABS: Partial Thromboplastin Time 26.9 SECONDS (22.3-36.8)
[2022-01-05 10:58] VITALS: PULSE 79; RESP 19; O2SAT 96
[2022-01-05 11:00] VITALS: PULSE 79; RESP 22; O2SAT 97
[2022-01-05 11:02] LABS: Alanine Aminotransferase 53 U/L (6-35); Albumin Level 4.4 g/dL (3.5-5.1); Alkaline Phosphatase 72 U/L (38-126); Anion Gap 13 mmol/L (8-16); Aspartate Amino Transferase 46 U/L (14-36); Bilirubin,Total 0.3 mg/dL (0.2-1.3); Blood Urea Nitrogen 8 mg/dL (7-17); Calcium 9.1 mg/dL (8.4-10.2); Carbon Dioxide 24 mmol/L (22-30); Chloride 94 mmol/L (98-107); Estimated CRCL calculation 98 ml/min; Estimated Glomerular Filt Rate > 60; Glucose 111 mg/dL (65-110); Potassium 3.9 mmol/L (3.4-5.0); Sodium 131 mmol/L (137-145)
--- NOTE | 2022-01-05 11:10 | ED.NEUROSD ---
HPI - Neuro Symptoms/Deficit General Chief Complaint: Neuro Symptoms/Deficit Stated Complaint: headache facial numbness 7pm last night Time Seen by Provider: 01/05/22 10:58 Source: patient Mode of arrival: ambulatory Limitations: no limitations History of Present Illness HPI Narrative: This is a 61-year-old female that presents to the emergency department for a headache ongoing over the last couple of days. Reports a constant left-sided headache. Worse with coughing. Reports she had some right-sided facial tingling last night that resolved. She has history of an aneurysm that was cl[place] [address] Mckinney. Denies visual changes, vomiting, or focal numbness or weakness. Related Data Home Medications Medication Instructions Recorded Confirmed alprazolam 1 mg tablet 1 mg PO TID PRN Anxiety 11/05/19 11/05/19 cimetidine 400 mg tablet 400 mg PO BID 11/05/19 11/05/19 hydroxyzine HCl 25 mg tablet 25 mg PO TID 11/05/19 11/05/19 lisinopril 10 mg tablet 10 mg PO BID 11/05/19 11/05/19 metoprolol succinate 25 mg capsule 25 mg PO DAILY 11/05/19 11/05/19 sprinkle, ext. release 24 hr omeprazole 40 mg capsule,delayed 40 mg PO BID 11/05/19 11/05/19 release ondansetron 8 mg disintegrating 8 mg PO Q8H PRN Nausea 11/05/19 11/05/19 tablet sucralfate 1 gram tablet 1 g PO TIDWMEAL 11/05/19 11/05/19 tizanidine 2 mg tablet 2 mg PO TID PRN Pain 11/05/19 11/05/19 venlafaxine 150 mg 150 mg PO BID 11/05/19 11/05/19 capsule,extended release 24 hr diazepam 2 mg tablet 11/16/19 Allergies Allergy/AdvReac Type Severity Reaction Status Date / Time codeine Allergy Severe ITCHING,HIV Verified 06/05/20 11:06 ES hydrocodone Allergy Severe Itching Verified 06/05/20 11:06 NSAIDS (Non-Steroidal Allergy Severe Swelling Verified 06/05/20 11:06 Anti-Inflamma oxycodone Allergy Severe ITCHEY Verified 06/05/20 11:06 HIVES levofloxacin Allergy Mild HIVES ALL Verified 06/05/20 11:06 OVER morphine Allergy Mild ITCHEY Verified 06/05/20 11:06 HIVES kiwi Allergy Unknown Unknown Verified 06/05/20 11:06 strawberry Allergy Unknown Unknown Verified 06/05/20 11:06 OPIODS Allergy Intermediate HIVES Uncoded 06/05/20 11:06 steroids Allergy Intermediate HIVES Uncoded 06/05/20 11:06 Review of Systems Review of Systems: CONSTITUTIONAL: Denies fever EYES: Denies visual changes GASTROINTESTINAL: Denies vomiting NEUROLOGIC: Reports headache. Denies numbness, or weakness. All systems reviewed & are unremarkable except as noted in HPI and below PMFSH Past Medical History Medical History (Updated 01/05/22 @ 11:32 by Lisa Mccarthy PA-C) Chronic back pain Depression with anxiety Fibromyalgia GERD with esophagitis High blood triglycerides History of cervical cancer status post history History of peptic ulcer disease History of skin cancer HTN (hypertension), malignant Neuropathy RSD (reflex sympathetic dystrophy) Spinal cord stimulator status Surgical History Surgical History (Updated 01/05/22 @ 11:24 by Lisa Mccarthy PA-C) H/O: hysterectomy 2004 History of cerebral aneurysm repair Status post osteotomy full Merissa osteotomy right tibia Total knee replacement status x2 Family History Family History Father Heart disease Mother Alzheimer disease Sibling Alzheimer disease 2 brother Heart disease sister Idania Gehrigs disease sister from this Social History Social History Social History: 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 She lives with her and has 1 child. She smokes a pack a cigarettes a day. She socially drinks. She is a full code and desires to have her is the durable power trade mark attorney for healthcare his name is Dileep Salazar. Smoking packs per day: 1.5 Smok
[2022-01-05 11:18] LABS: Troponin I < 0.012 ng/mL (0.000-0.034)
[2022-01-05] MEDS: levETIRAcetam 1000MG/NACL100ML 1,000 MG/100 ML BAG 400 MG IVPB (11:31)
== END 2022-01-05 12:00 | disposition short-term general hospital (02) ==
PROVIDERS: Emergency Provider Emergency Medicine; PCP Family Medicine
DX: I60.9 Nontraumatic subarachnoid hemorrhage, unspecified (principal); J90 Pleural effusion, not elsewhere classified; F41.9 Anxiety disorder, unspecified; F32.9 Major depressive disorder, single episode, unspecified; K21.9 Gastro-esophageal reflux disease without esophagitis; I10 Essential (primary) hypertension
CPT/HCPCS: 36415; 70450; 71045; 80053; 84484; 85025; 85610; 85730; 93005; 96365; 99285; J1953

== ENCOUNTER 2022-02-07 05:53 | Emergency (ER) | payer MEDICARE, OTHER, SELFPAY ==
--- NOTE | ~2022-02-07 | CT_ITS ---
EXAMINATION: CT brain wo con DATE: 02/07/2022 06:12 INDICATION: Right hemiparesis. TECHNIQUE: Computed tomography (CT) of the head was performed without intravenous contrast. The mA wa s adjusted according to patient size. Iterative reconstruction technique was employed. The dose-lengt h product was 605.33 mGy-cm. COMPARISON: Head CT 01/05/2022 FINDINGS: There are changes of left-sided craniotomy. There is an aneurysm clip in left sylvian fissu re. There is chronic encephalomalacia in the left frontal and temporal lobes. There is no intracrania l hemorrhage, acute infarction, or abnormal intracranial mass lesion. There is ex vacuo dilatation of left lateral ventricle. There is mild mucosal thickening in the paranasal sinuses. The mastoid air c ells are normal. The orbits are normal. IMPRESSION: 1. Chronic encephalomalacia in the left frontal and temporal lobes. Reviewed, dictated and finalized at location A. NESS SYSTEMS ANALYST
--- NOTE | ~2022-02-07 | XR_ITS ---
EXAMINATION: XR chest 1V portable DATE: 02/07/2022 06:53 INDICATION: Cerebrovascular accident. TECHNIQUE: A single frontal view of the chest was obtained. COMPARISON: Chest single view 01/05/2022 FINDINGS: There is no pneumonia, pleural effusion, or pneumothorax. The heart size is normal. Epidura l electrodes are noted. IMPRESSION: 1. No acute cardiopulmonary disease. Reviewed, dictated and finalized at location A. ER SHIELDED METAL ARC
--- NOTE | 2022-02-07 06:07 | ECG_ITS ---
Measurements Intervals [place] Rate: 89 P: 132 IN: 239 QRS: 63 QRSD: 77 T: 33 QT: 351 QTc: 427 Interpretive Statements UNCERTAIN REGULAR RHYTHM LOW QRS VOLTAGE IN PRECORDIAL LEADS [QRS DEFLECTION < 1.0 mV IN CHEST LEADS] NONSPECIFIC T-WAVE ABNORMALITY ABNORMAL ECG Electronically Signed On 02-07-2022 15:32:49 PASTORAL MINISTRIES PROFESSOR by Boyd Mai M.D.
[2022-02-07 06:08] VITALS: BP 145/84; PULSE 88; RESP 13; TEMP 36.9; O2SAT 100
[2022-02-07 06:25] LABS: Basophils Absolute Auto 0.1 K/mm3 (0.0-0.1); Basophils Percent Auto 0.4 % (0.2-1.2); Eosinophils Absolute Auto 0.3 K/mm3 (0-0.3); Eosinophils Percent Auto 2.5 % (0-4.4); Hematocrit 37.5 % (37.0-47.0); Hemoglobin 12.9 g/dL (12.0-15.0); Immature Granulocyte Absolute 0.04 K/mm3 (0.00-0.031); Immature Granulocyte Percent A 0.3 % (0-0.5); Lymphocytes Absolute Auto 3.45 K/mm3 (0.9-3.2); Lymphocytes Percent Auto 26.8 % (18.3-44.2); Mean Corpuscular HGB Conc 34.4 g/dl (32-36); Mean Corpuscular Hemoglobin 32.1 pg (26-34); Mean Corpuscular Volume 93.3 fl (80-100); Mean Platelet Volume 9.8 fl (7.4-10.4); Monocytes Absolute Auto 0.8 K/mm3 (0.1-0.6); Monocytes Percent Auto 6.2 % (2.6-8.5); Neutrophils Absolute Auto 8.2 K/mm3 (1.3-6.7); Neutrophils Percent Auto 63.8 % (45.5-73.1); Platelet Count Result 238 k/mm3 (150-375); Red Blood Count 4.02 M/mm3 (4.2-5.4); Red Cell Distribution Width 12.1 % (11.5-14.5); White Blood Count 12.9 K/mm3 (4.5-10.0)
[2022-02-07 06:35] VITALS: PULSE 83; RESP 18; O2SAT 99
[2022-02-07 06:42] LABS: Alanine Aminotransferase 43 U/L (6-35); Albumin Level 4.5 g/dL (3.5-5.1); Alkaline Phosphatase 62 U/L (38-126); Anion Gap 6 mmol/L (8-16); Aspartate Amino Transferase 35 U/L (14-36); Bilirubin,Total 0.3 mg/dL (0.2-1.3); Blood Urea Nitrogen 9 mg/dL (7-17); Calcium 8.6 mg/dL (8.4-10.2); Carbon Dioxide 31 mmol/L (22-30); Chloride 96 mmol/L (98-107); Estimated CRCL calculation 73 ml/min; Estimated Glomerular Filt Rate > 60; Glucose 93 mg/dL (65-110); Potassium 3.3 mmol/L (3.4-5.0); Sodium 133 mmol/L (137-145)
--- NOTE | 2022-02-07 06:42 | ED.GENADULT ---
HPI - General Adult General Chief complaint: Neuro Symptoms/Deficit <Raudel Mendieta MD - Last Filed: 02/07/22 06:49> Stated complaint: R/O CVA, HERE WITH STROKE 4 WEEKS AGO <Raudel Mendieta MD - Last Filed: 02/07/22 06:49> Time Seen by Provider: 02/07/22 05:59 <Raudel Mendieta MD - Last Filed: 02/07/22 06:49> History of Present Illness HPI narrative: Patient is a 61-year-old female who presents ER with concerns for neurodeficits. Patient was seen here 5 weeks ago and was found to have a subarachnoid hemorrhage on the left side. She went to [facility] where she was observed for a week before being discharged home. Has reports she had no neurologic deficits upon discharge and there are no interventions performed. Reports that she is acting normal when he went to bed last night which is around 10 PM. When he woke up this morning patient was acting confused and unable to get up and move around. There is no lateralizing weakness that he can identify. Patient is oriented x3 and is unsure what occurred at home but is able to answer questions reasonably appropriately. She has no complaints of headache. reports it appeared as if patient was moving in slow motion. <Raudel Mendieta MD - Last Filed: 02/07/22 06:49> Related Data Home medications: Home Medications Medication Instructions Recorded Confirmed alprazolam 1 mg tablet 1 mg PO TID PRN Anxiety 11/05/19 11/05/19 cimetidine 400 mg tablet 400 mg PO BID 11/05/19 11/05/19 hydroxyzine HCl 25 mg tablet 25 mg PO TID 11/05/19 11/05/19 lisinopril 10 mg tablet 10 mg PO BID 11/05/19 11/05/19 metoprolol succinate 25 mg capsule 25 mg PO DAILY 11/05/19 11/05/19 sprinkle, ext. release 24 hr omeprazole 40 mg capsule,delayed 40 mg PO BID 11/05/19 11/05/19 release ondansetron 8 mg disintegrating 8 mg PO Q8H PRN Nausea 11/05/19 11/05/19 tablet sucralfate 1 gram tablet 1 g PO TIDWMEAL 11/05/19 11/05/19 tizanidine 2 mg tablet 2 mg PO TID PRN Pain 11/05/19 11/05/19 venlafaxine 150 mg 150 mg PO BID 11/05/19 11/05/19 capsule,extended release 24 hr diazepam 2 mg tablet 11/16/19 <Raudel Mendieta MD - Last Filed: 02/07/22 06:49> Allergies/adverse reactions: Allergies Allergy/AdvReac Type Severity Reaction Status Date / Time codeine Allergy Severe ITCHING,HIV Verified 06/05/20 11:06 ES hydrocodone Allergy Severe Itching Verified 06/05/20 11:06 NSAIDS (Non-Steroidal Allergy Severe Swelling Verified 06/05/20 11:06 Anti-Inflamma oxycodone Allergy Severe ITCHEY Verified 06/05/20 11:06 HIVES levofloxacin Allergy Mild HIVES ALL Verified 06/05/20 11:06 OVER morphine Allergy Mild ITCHEY Verified 06/05/20 11:06 HIVES kiwi Allergy Unknown Unknown Verified 06/05/20 11:06 strawberry Allergy Unknown Unknown Verified 06/05/20 11:06 OPIODS Allergy Intermediate HIVES Uncoded 06/05/20 11:06 steroids Allergy Intermediate HIVES Uncoded 06/05/20 11:06 <Raudel Mendieta MD - Last Filed: 02/07/22 06:49> Review of Systems Review of Systems: All systems reviewed & are unremarkable except as noted in HPI and below <Raudel Mendieta MD - Last Filed: 02/07/22 06:49> Constitutional: Constitutional: Denies chills, Denies fatigue, Denies fever(s) and Reports weakness <Raudel Mendieta MD - Last Filed: 02/07/22 06:49> ENT: Denies nasal congestion and Denies sore throat <Raudel Mendieta MD - Last Filed: 02/07/22 06:49> Cardiovascular: Cardiovascular: Denies chest pain, Denies rapid heart rate and Denies radiating jaw, neck or arm pain <Raudel Mendieta MD - Last Filed: 02/07/22 06:49> Respiratory: Respiratory: Denies cough and Denies dyspnea <Raudel Mendieta MD - Last Filed: 02/07/22 06:49> Gastrointestinal: Gastrointestinal: Denies abdominal pain, Denies nausea and Denies vomiting <Raudel Mendieta MD - Last Filed: 02/07/22 06:49> Neurologic: Denies syncope, Denies headache(s), Denies focal weakne
[2022-02-07 06:43] LABS: Ethanol < 10 mg/dL (<10)
[2022-02-07 06:44] LABS: Partial Thromboplastin Time 27.6 SECONDS (22.3-36.8); Prothrombin Time 12.7 Seconds (11.1-14.7)
[2022-02-07 06:53] LABS: Troponin I < 0.012 ng/mL (0.000-0.034)
[2022-02-07 07:08] LABS: Add Urine Microscopic? NO; Appearance Urine Clear (Clear); Bilirubin Urine Negative (Negative); Blood Urine Negative (Negative); Color Urine Light Yellow (Yellow); Glucose Urine UA Negative (Negative); Ketones Urine Negative (Negative); Leukocyte Esterase Ur Negative LEU/UL (Negative); Nitrate Urine Negative (Negative); Protein Urine Negative (Negative); Specific Grav Ur <= 1.005 (1.001-1.035); Urobilinogen Urine 0.2 mg/dL (<2.0)
[2022-02-07 07:21] LABS: Amphetamine Screen Urine Negative (Negative); Barbiturate Screen Urine Negative (Negative); Benzodiazepines Screen Urine Positive (Negative); Cannabinoid Screen Urine Positive (Negative); Cocaine Screen Urine Negative (Negative); Methadone Screen Urine Negative (Negative); Opiate Screen Urine Negative (Negative); Phencyclidine Screen Urine Negative (Negative)
[2022-02-07 07:26] LABS: Mucus Urine Rare /lpf; RBC Urine 0-2 /hpf (0-2); WBC Urine 0-3 /hpf
[2022-02-07 07:45] LABS: Glucose Point of Care 93 mg/dl (65-105)
[2022-02-07 09:57] VITALS: BP 144/72; PULSE 97; RESP 18; O2SAT 99
[2022-02-07 10:59] VITALS: BP 136/87; PULSE 79; RESP 18; O2SAT 100
[2022-02-07 11:20] VITALS: PULSE 83; RESP 16; O2SAT 97
[2022-02-07 12:28] LABS: Influenza A QL RT-PCR Negative (Negative); Influenza B QL RT-PCR Negative (Negative); RSV RNA, RT-PCR Negative (Negative); SARS-CoV-2 RNA PCR Negative
== END 2022-02-07 11:20 | disposition left against medical advice (07) ==
LOC: ANHED 07:43 → ANH3MEDSUR 10:07
PROVIDERS: Emergency Medicine; Emergency Provider Emergency Medicine; PCP Family Medicine; Visit Provider Chiropractor
DX: R53.1 Weakness (principal); R53.83 Other fatigue; Z20.822 Contact with and (suspected) exposure to COVID-19; I10 Essential (primary) hypertension; M79.7 Fibromyalgia; G62.9 Polyneuropathy, unspecified; K21.00 Gastro-esophageal reflux disease with esophagitis, without bleeding; F41.8 Other specified anxiety disorders; Z96.82 Presence of neurostimulator; Z96.659 Presence of unspecified artificial knee joint; Z90.710 Acquired absence of both cervix and uterus; Z86.73 Personal history of transient ischemic attack (TIA), and cerebral infarction without residual deficits; Z85.41 Personal history of malignant neoplasm of cervix uteri; Z85.828 Personal history of other malignant neoplasm of skin; Z87.11 Personal history of peptic ulcer disease; F17.210 Nicotine dependence, cigarettes, uncomplicated; R94.31 Abnormal electrocardiogram [ECG] [EKG]; G93.89 Other specified disorders of brain
CPT/HCPCS: 36415; 51701; 70450; 71045; 80053; 80307; 81003; 82948; 84484; 85025; 85610; 85730; 87637; 93005; 99284; 99285

== ENCOUNTER 2023-05-13 16:58 | Emergency (ER) | payer MEDICARE, OTHER, SELFPAY ==
[2023-05-13 17:04] VITALS: BP 145/84; PULSE 82; RESP 20; TEMP 36.2; O2SAT 96
--- NOTE | 2023-05-13 17:07 | ECG_ITS ---
Measurements Intervals [place] Rate: 82 P: 43 [place]: 198 QRS: 29 QRSD: 92 T: 45 QT: 364 QTc: 427 Interpretive Statements SINUS RHYTHM VENTRICULAR PREMATURE COMPLEX NONSPECIFIC ST & T-WAVE ABNORMALITY- ANTEROLAT/INF LEADS BORDERLINE ECG COMPARED TO ECG 02/07/2022 06:15:27 NO SIGNIFICANT CHANGES Electronically Signed On 05-14-2023 15:11:44 CDT by Brian Graves D.O.
--- NOTE | 2023-05-13 17:08 | ED.SEIZURE ---
HPI - Seizure General Chief Complaint: Seizure Stated Complaint: SEIZURE Time Seen by Provider: 05/13/23 17:08 Source: patient and family Limitations: no limitations History of Present Illness HPI Narrative: 62 years old white female came to the emergency room because of seizure-like activity, witnessed by her , patient was sitting suddenly started shaking all over tonic clonic, staring in the air, fell on the floor, head injury, denies any pain or injuries. Patient on lorazepam 1 mg t.i.d.. Last seizure was 8 months ago, went to [facility] and was told that her seizure secondary to running out of lorazepam. Patient received 90 tablets a month. Does remember if she got the last prescription or not, does not remember exactly when the last time she had lorazepam. at the bedside does not remember either. History of memory impairment status post brain surgery/stroke 4 years ago. Patient is not on anti seizure medication except lorazepam. The patient and requested no blood workup or imaging, just lorazepam and showed like to go home after that.. Related Data Home Medications Medication Instructions Recorded Confirmed alprazolam 1 mg tablet 1 mg PO TID PRN Anxiety 11/05/19 11/05/19 cimetidine 400 mg tablet 400 mg PO BID 11/05/19 11/05/19 hydroxyzine HCl 25 mg tablet 25 mg PO TID 11/05/19 11/05/19 lisinopril 10 mg tablet 10 mg PO BID 11/05/19 11/05/19 metoprolol succinate 25 mg capsule 25 mg PO DAILY 11/05/19 11/05/19 sprinkle, ext. release 24 hr omeprazole 40 mg capsule,delayed 40 mg PO BID 11/05/19 11/05/19 release ondansetron 8 mg disintegrating 8 mg PO Q8H PRN Nausea 11/05/19 11/05/19 tablet sucralfate 1 gram tablet 1 g PO TIDWMEAL 11/05/19 11/05/19 tizanidine 2 mg tablet 2 mg PO TID PRN Pain 11/05/19 11/05/19 venlafaxine 150 mg 150 mg PO BID 11/05/19 11/05/19 capsule,extended release 24 hr diazepam 2 mg tablet 11/16/19 Allergies Allergy/AdvReac Type Severity Reaction Status Date / Time codeine Allergy Severe ITCHING,HIV Verified 05/13/23 17:06 ES hydrocodone Allergy Severe Itching Verified 05/13/23 17:06 NSAIDS (Non-Steroidal Allergy Severe Swelling Verified 05/13/23 17:06 Anti-Inflamma oxycodone Allergy Severe ITCHEY Verified 05/13/23 17:06 HIVES levofloxacin Allergy Mild HIVES ALL Verified 05/13/23 17:06 OVER morphine Allergy Mild ITCHEY Verified 05/13/23 17:06 HIVES kiwi Allergy Unknown Unknown Verified 05/13/23 17:06 strawberry Allergy Unknown Unknown Verified 05/13/23 17:06 OPIODS Allergy Intermediate HIVES Uncoded 06/05/20 11:06 steroids Allergy Intermediate HIVES Uncoded 06/05/20 11:06 Review of Systems Review of Systems: All systems reviewed & are unremarkable except as noted in HPI and below PMFSH Past Medical History Medical History Chronic back pain Depression with anxiety Fibromyalgia GERD with esophagitis High blood triglycerides History of cervical cancer status post history History of peptic ulcer disease History of skin cancer History of subarachnoid hemorrhage HTN (hypertension), malignant Neuropathy RSD (reflex sympathetic dystrophy) Spinal cord stimulator status Surgical History Surgical History H/O: hysterectomy 2003 History of cerebral aneurysm repair History of craniotomy Status post osteotomy full Merissa osteotomy right tibia Total knee replacement status x2 Family History Family History Father Heart disease Mother Alzheimer disease Sibling Alzheimer disease 2 brother Heart disease sister Idania Gehrigs disease sister from this Social History Social History Social History: 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 She
[2023-05-13 18:00] VITALS: BP 133/76; PULSE 82; RESP 16; O2SAT 100
[2023-05-13] MEDS: LORazepam INJ (*CRX) 2 MG/ML VIAL 1 MG IV PUSH (18:10)
[2023-05-13] MEDS: LORazepam (*CRX) 0.5 MG TABLET 1 MG PO (18:48)
[2023-05-13 18:50] VITALS: BP 148/71; PULSE 84; RESP 16; O2SAT 99
== END 2023-05-13 18:55 | disposition home or self-care (01) ==
PROVIDERS: Emergency Provider Emergency Medicine; PCP Family Medicine
DX: F13.239 Sedative, hypnotic or anxiolytic dependence with withdrawal, unspecified (principal); I10 Essential (primary) hypertension; G62.9 Polyneuropathy, unspecified; K21.00 Gastro-esophageal reflux disease with esophagitis, without bleeding; M79.7 Fibromyalgia; F17.210 Nicotine dependence, cigarettes, uncomplicated; F41.8 Other specified anxiety disorders; Z87.11 Personal history of peptic ulcer disease; Z85.41 Personal history of malignant neoplasm of cervix uteri; Z85.828 Personal history of other malignant neoplasm of skin; Z96.659 Presence of unspecified artificial knee joint; Z96.82 Presence of neurostimulator; Z90.710 Acquired absence of both cervix and uterus; I49.3 Ventricular premature depolarization; R94.31 Abnormal electrocardiogram [ECG] [EKG]
CPT/HCPCS: 93005; 96374; 99284; A9270; J2060

== ENCOUNTER 2023-09-14 08:53 | Outpatient (CLI) | payer MEDICARE, OTHER, SELFPAY ==
[2023-09-14 09:25] LABS: Hematocrit 45.5 % (37.0-47.0); Hemoglobin 15.1 g/dL (12.0-15.0); Mean Corpuscular HGB Conc 33.2 g/dl (32-36); Mean Corpuscular Hemoglobin 30.4 pg (26-34); Mean Corpuscular Volume 91.5 fl (80-100); Mean Platelet Volume 9.8 fl (7.4-10.4); Platelet Count Result 282 k/mm3 (150-375); Red Blood Count 4.97 M/mm3 (4.2-5.4); Red Cell Distribution Width 12.8 % (11.5-14.5); White Blood Count 10.7 K/mm3 (4.5-10.0)
--- NOTE | 2023-09-14 09:33 | ECG_ITS ---
Test Date: 2023-09-14 09:33:45 Measurements Intervals [place] Rate: 71 P: 61 [place]: 163 QRS: 77 QRSD: 80 T: 61 QT: 380 QTc: 414 Interpretive Statements SINUS RHYTHM LOW QRS VOLTAGE IN PRECORDIAL LEADS CANNOT R/O SEPTAL INFARCT, AGE INDETERMINATE BORDERLINE T WAVE ABNORMALITY- ANTERIOR LEADS BASELINE ARTIFACT- I, II, III ABNORMAL ECG No previous ECG available for comparison Electronically Signed On 09-16-2023 12:44:48 CDT by Brian Graves D.O.
[2023-09-14 09:40] LABS: Alanine Aminotransferase 17 U/L (6-35); Albumin Level 4.7 g/dL (3.5-5.1); Alkaline Phosphatase 67 U/L (38-126); Anion Gap 9 mmol/L (4-12); Aspartate Amino Transferase 21 U/L (14-36); Bilirubin,Total 0.6 mg/dL (0.2-1.3); Blood Urea Nitrogen 13 mg/dL (7-17); Calcium 9.6 mg/dL (8.4-10.2); Carbon Dioxide 28 mmol/L (22-30); Chloride 98 mmol/L (98-107); Estimated Glomerular Filt Rate > 60; Glucose 106 mg/dL (65-110); Potassium 3.7 mmol/L (3.4-5.0); Sodium 135 mmol/L (137-145)
== END 2023-09-14 08:54 | disposition home or self-care (01) ==
PROVIDERS: PCP Family Medicine
DX: R53.83 Other fatigue (principal); R94.31 Abnormal electrocardiogram [ECG] [EKG]; Z51.81 Encounter for therapeutic drug level monitoring
CPT/HCPCS: 36415; 80053; 85027; 85610; 93005

== ENCOUNTER 2023-11-20 10:23 | Outpatient (CLI) | payer MEDICARE, OTHER, SELFPAY ==
--- NOTE | ~2023-11-20 | XR_ITS ---
3 VIEWS LUMBAR SPINE Ordering provider: Gabriel Mendez MD History: . RADICULOPATHY, THOR AND LUMB REGION . Comparison: August 10, 2006 FINDINGS: VERTEBRAL BODIES: Levoscoliosis No visible fracture or subluxation. Spinal stimulator is seen. DISK SPACES: Narrowing of the disc L2-L3, L3-4, L4-L5 and L5-S1. Multilevel degenerative. SOFT TISSUES: Normal. IMPRESSION: No acute osseous abnormality lumbar spine. . Reviewed, dictated and finalized at location A.
--- NOTE | ~2023-11-20 | XR_ITS ---
3 VIEWS THORACIC SPINE Ordering provider: Gabriel Mendez MD History: . RADICULOPATHY, THOR AND LUMB REGION . Comparison: February 05, 2015 FINDINGS: VERTEBRAL BODIES: Normal height and alignment. No visible fracture or subluxation. Degenerative ward es of the spine. Spinal stimulator is seen in the midthoracic area. DISK SPACES: Multilevel degenerative disc disease. SOFT TISSUES: Normal. IMPRESSION: No acute osseous abnormality of the thoracic spine. Reviewed, dictated and finalized at location A.
== END 2023-11-20 10:24 | disposition home or self-care (01) ==
LOC: ANHIMG 10:29
PROVIDERS: PCP Internal Medicine; Visit Provider Pain Medicine Interventional Pain Medicine
DX: M54.14 Radiculopathy, thoracic region (principal); M54.17 Radiculopathy, lumbosacral region
CPT/HCPCS: 72072; 72100

== ENCOUNTER 2023-11-22 08:05 | Emergency (ER) | payer MEDICARE, OTHER, SELFPAY ==
--- NOTE | ~2023-11-22 | CT_ITS ---
CT abdomen pelvis w con Ordering provider: Kostas Evans MD History: 63 years Female with . Suprapubic,RLQ,LLQ pain . Comparison: October 22, 2015 Technique: CT abdomen and pelvis with IV and without oral contrast. Automated exposure control and it erative reconstruction technique were employed. The dose-length product was 379.14 mGy-cm. 100 mL Omn ipaque 350 was given IV. Findings: VISUALIZED LOWER CHEST: Normal. UPPER ABDOMINAL ORGANS: Liver: Normal. Gallbladder: Normal. Spleen: Normal. Stomach/duodenum: Thickened wall of the stomach. Evaluation for cystitis advised. Pancreas: Normal. Adrenals: Normal. Kidneys: Normal. PELVIC ORGANS: The bladder is normal. BOWEL AND MESENTERY: Colon: No evidence of diverticulitis. Normal appendix. Appendicolith is seen in the appendix with no definite inflammatory changes. Small Bowel: Normal. No obstruction. Peritoneum/mesentery: No free air or free fluid. No mesenteric lymphadenopathy. RETROPERITONEUM: Mild atheromatous disease of the abdominal aorta. No retroperitoneal lymphadenopat hy. MUSCULOSKELETAL: Superficial soft tissues: The superficial soft tissues are normal. Spinal stimulator is seen in the r ight lumbar area. Bones: Age appropriate degenerative changes of the spine. IMPRESSION: 1. No acute abdominal process with no evidence of appendicitis, diverticulitis or intestinal obstruc tion. Reviewed, dictated and finalized at location A. IMPRESSION: 1. No acute abdominal process with no evidence of appendicitis, diverticulitis or intestinal obstruction.
[2023-11-22 08:10] VITALS: BP 133/84; PULSE 81; RESP 18; TEMP 36.9; O2SAT 100
[2023-11-22 08:37] LABS: Hematocrit 42.4 % (37.0-47.0); Immature Granulocyte Percent A 0.4 % (0-0.5); Mean Corpuscular HGB Conc 35.4 g/dl (32-36); Mean Corpuscular Hemoglobin 31.1 pg (26-34); Mean Corpuscular Volume 87.8 fl (80-100); Mean Platelet Volume 9.7 fl (7.4-10.4); Neutrophils Percent Auto 79.4 % (45.5-73.1); Platelet Count Result 380 k/mm3 (150-375); Red Blood Count 4.83 M/mm3 (4.2-5.4); Red Cell Distribution Width 12.8 % (11.5-14.5); White Blood Count 17.8 K/mm3 (4.5-10.0)
[2023-11-22 08:38] LABS: Basophils Absolute Auto 0.1 K/mm3 (0.0-0.1); Basophils Percent Auto 0.4 % (0.2-1.2); Eosinophils Percent Auto 0.2 % (0-4.4); Immature Granulocyte Absolute 0.08 K/mm3 (0.00-0.031); Lymphocytes Absolute Auto 2.33 K/mm3 (0.9-3.2); Lymphocytes Percent Auto 13.1 % (18.3-44.2); Monocytes Absolute Auto 1.2 K/mm3 (0.1-0.6); Monocytes Percent Auto 6.5 % (2.6-8.5); Neutrophils Absolute Auto 14.2 K/mm3 (1.3-6.7)
[2023-11-22 08:45] LABS: Add Urine Microscopic? YES; Appearance Urine Cloudy (Clear); Bacteria Urine 2+ /hpf; Bilirubin Urine Negative (Negative); Blood Urine Non-Hemolyzed Trace (Negative); Color Urine Yellow (Yellow); Glucose Urine UA Negative (Negative); Ketones Urine Negative (Negative); Leukocyte Esterase Ur 1+ LEU/UL (Negative); Need Manual Microscopic Reviewed; Nitrate Urine Negative (Negative); Non Pathogenic Casts 0-2; Protein Urine 1+ mg/dL (Negative); Specific Grav Ur 1.016 (1.001-1.035); Squamous Epithelial Cell Urine Many /hpf (Few); Urobilinogen Urine 0.2 mg/dL (<2.0)
[2023-11-22 09:11] LABS: Alanine Aminotransferase 15 U/L (6-35); Albumin Level 4.8 g/dL (3.5-5.1); Alkaline Phosphatase 65 U/L (38-126); Anion Gap 8 mmol/L (4-12); Aspartate Amino Transferase 26 U/L (14-36); Bilirubin,Total 0.3 mg/dL (0.2-1.3); Blood Urea Nitrogen 8 mg/dL (7-17); Calcium 9.8 mg/dL (8.4-10.2); Carbon Dioxide 25 mmol/L (22-30); Chloride 99 mmol/L (98-107); Estimated CRCL calculation 69 ml/min; Estimated Glomerular Filt Rate > 60; Glucose 106 mg/dL (65-110); Lipase 444 U/L (23-300); Potassium 4.1 mmol/L (3.4-5.0); Sodium 132 mmol/L (137-145)
--- NOTE | 2023-11-22 10:16 | ED.GENADULT ---
HPI - General Adult General Chief complaint: Abdominal Pain Stated complaint: abd pain Time Seen by Provider: 11/22/23 08:16 History of Present Illness HPI narrative: This is a 63-year-old female presenting ED with a chief complaint abdominal pain. Patient is says that he does not have a good bowel movement for the last 2 weeks. Patient is taken in aggressive bowel regimen including stool softeners previous use and suppositories and still is only having small bowel movements. Now she has developed crampy diffuse abdominal pain. She called her primary care physician to schedule appointment and they told her come to the ED to be evaluated for small-bowel obstruction. Patient has had a bowel movement earlier today. She is still passing gas. She has not had any nausea or vomiting. She has no fevers chills chest pain difficulty breathing. No urinary symptoms. Related Data Home Medications Medication Instructions Recorded Confirmed alprazolam 1 mg tablet 1 mg PO TID PRN Anxiety 11/05/19 11/05/19 cimetidine 400 mg tablet 400 mg PO BID 11/05/19 11/05/19 hydroxyzine HCl 25 mg tablet 25 mg PO TID 11/05/19 11/05/19 lisinopril 10 mg tablet 10 mg PO BID 11/05/19 11/05/19 metoprolol succinate 25 mg capsule 25 mg PO DAILY 11/05/19 11/05/19 sprinkle, ext. release 24 hr omeprazole 40 mg capsule,delayed 40 mg PO BID 11/05/19 11/05/19 release ondansetron 8 mg disintegrating 8 mg PO Q8H PRN Nausea 11/05/19 11/05/19 tablet sucralfate 1 gram tablet 1 g PO TIDWMEAL 11/05/19 11/05/19 tizanidine 2 mg tablet 2 mg PO TID PRN Pain 11/05/19 11/05/19 venlafaxine 150 mg 150 mg PO BID 11/05/19 11/05/19 capsule,extended release 24 hr diazepam 2 mg tablet 11/16/19 Allergies Allergy/AdvReac Type Severity Reaction Status Date / Time codeine Allergy Severe ITCHING,HIV Verified 05/13/23 17:06 ES hydrocodone Allergy Severe Itching Verified 05/13/23 17:06 NSAIDS (Non-Steroidal Allergy Severe Swelling Verified 05/13/23 17:06 Anti-Inflamma oxycodone Allergy Severe ITCHEY Verified 05/13/23 17:06 HIVES levofloxacin Allergy Mild HIVES ALL Verified 05/13/23 17:06 OVER morphine Allergy Mild ITCHEY Verified 05/13/23 17:06 HIVES kiwi Allergy Unknown Unknown Verified 05/13/23 17:06 strawberry Allergy Unknown Unknown Verified 05/13/23 17:06 OPIODS Allergy Intermediate HIVES Uncoded 06/05/20 11:06 steroids Allergy Intermediate HIVES Uncoded 06/05/20 11:06 PMFSH Past Medical History Medical History Chronic back pain Depression with anxiety Fibromyalgia GERD with esophagitis High blood triglycerides History of cervical cancer status post history History of peptic ulcer disease History of skin cancer History of subarachnoid hemorrhage HTN (hypertension), malignant Neuropathy RSD (reflex sympathetic dystrophy) Spinal cord stimulator status Surgical History Surgical History H/O: hysterectomy 2004 History of cerebral aneurysm repair History of craniotomy Status post osteotomy full Merissa osteotomy right tibia Total knee replacement status x2 Family History Family History Father Heart disease Mother Alzheimer disease Sibling Alzheimer disease 2 brother Heart disease sister Idania Gehrigs disease sister from this Social History Social History Social History: 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 She lives with her and has 1 child. She smokes a pack a cigarettes a day. She socially drinks. She is a full code and desires to have her is the durable power ip attorney for healthcare his name is Dileep Salazar. Smoking packs per day: 1.5 Smoking cigarettes per day: 30.0 Smoking status
[2023-11-22 10:52] VITALS: BP 132/88; PULSE 84; RESP 12; O2SAT 99
[2023-11-22] MEDS: DICYCLOMINE HCL INJ 20 MG/2 ML VIAL IM (10:52)
== END 2023-11-22 10:53 | disposition home or self-care (01) ==
PROVIDERS: Emergency Provider Emergency Medicine; PCP Internal Medicine
DX: R10.9 Unspecified abdominal pain (principal); I10 Essential (primary) hypertension; G62.9 Polyneuropathy, unspecified; K21.00 Gastro-esophageal reflux disease with esophagitis, without bleeding; M79.7 Fibromyalgia; F41.8 Other specified anxiety disorders; F17.210 Nicotine dependence, cigarettes, uncomplicated; Z96.659 Presence of unspecified artificial knee joint; Z96.82 Presence of neurostimulator; Z85.41 Personal history of malignant neoplasm of cervix uteri; Z85.828 Personal history of other malignant neoplasm of skin; Z87.11 Personal history of peptic ulcer disease; Z90.710 Acquired absence of both cervix and uterus; Z79.899 Other long term (current) drug therapy
CPT/HCPCS: 36415; 74177; 80053; 81001; 83690; 85025; 87086; 96372; 99284; J0500; Q9967

== ENCOUNTER 2024-03-21 11:20 | Outpatient (CLI) | payer MEDICARE, OTHER, SELFPAY ==
--- OUTSIDE RECORDS SUMMARY | 2024-03-21 11:29 | XMS_ITS | Data Portability ---
Author Organization [place] - [facility], Main Office Address [address] [place] [address] Care Team Providers Care Data Keyer Name Role Phone PAUL ADLER Primary Care Provider PAUL ADLER Referring Provider [phone] SUHAS MENDEZ Pain Management JOEL MADISON Navy Material Inspector ESTELA COOK Primary Care Provider [phone] Assessment Encounter Date Assessment Date Assessment LastModified by Organization Details LastModified Time 08/31/2022 08/31/2022 Patient returns hip pain. She has tried medicine therapy cortisone exercise time unfortunately see symptomatic. She has a hard time taking medication in particularly of prednisone and is reluctant to consider any injections. The pain is localized to the hip. Examination she is more tender over the sacroiliac person has reasonable hip motion without radicular symptoms. Neurologically she is grossly intact strength is good reflexes symmetric. I think most her pain is a tetlin iliac will try an injury course of physical therapy and per prescription drug management will add Voltaren for pain and inflammation. I will see her back in a month for follow-up and reassess at that point discussed. vance Not available 08/31/2022 11:51:50 09/10/2023 09/10/2023 05/28/2023: Hep panel: Neg GGT 30 WBC 11.9H AST 40H, alb 4.7H, TP WNL 45 minutes spent with her in the office, discussed her various diagnosis, and her apts with the consultants adrianna Not available 09/10/2023 14:22:05 10/29/2023 10/29/2023 Assessment: Nicotine smoke: 1 ppd 1983-present (quit 8 years in between) = 32 pack years Cough Dyspnea Plan: The following were reviewed and explained to the patient: primary care/referral note Chest CT 05/28/23 4 mm RML nodule, mild paraseptal emphysema Nicotine cessation counseling provided for 3.5 minutes. [place] for quitting nicotine include getting ready, getting support and encouragement, learning new skills and behaviors and being prepared to handle slips. Tips for dealing with cravings provided. Prevention of subsequent illnesses from nicotine addiction discussed. Comorbidities include but are not limited to hypertension, cerebrovascular disease, coronary heart disease, congestive heart failure, hyperlipidemia, COPD/asthma, peptic ulcer disease, esophagitis/gastri tis, and osteoporosis. Therapy options offered include: Quitting by total abstinence Receiving nicotine replacement therapy Undergoing hypnosis Filling a bupropion or varenicline prescription Enrolling in Quit For Life program Registering at [email or web address] Making a call to 7-825-KKIN-NOW ( ). A strong, clear, personalized message was given to the patient to quit smoking. The patient was urged to set a quit date. We discussed patient's barriers to quitting and I will be of assistance when patient is ready to quit. I encouraged patient to inform friends and family of plans to quit with a request for support. I encouraged the patient to remove all cigarettes from the environment. We reviewed any previous quit attempts and lessons learned from them. I encouraged total abstinence from smoking and advised the patient that drinking alcohol and/or associating with other smokers are associated with failure or relapse. Patient can enroll in [facility]'s smoking cessation class through Radha Campo RN at . Enrollment is free and classes are held every sunday of the month from 1:30 pm to 2:30 pm at the conference room next to the cafeteria on the ground floor. Differential diagnoses for pulmonary nodule: 1. malignant tumor 2. benign tumor 3. inflammatory processes 4. infectious process (viral, atypical bacterial, fungal, atypical mycobacterial) The Fleischner Society pulmonary nodule recommendations below pertain to the follow-up and management of indeterminate pulmonary nodules detected incidentally on CT and are published by the Fleischner Society. The guideline does not apply to lung cancer screening, patients younger than 35 years, or patients with a history of primary cancer or immunosuppression. These recommendations reflect the 2017 revision 4, which supersedes prior versions published in 2005 and 2013. Single solid nodule <6 mm (<100 mm3) *low-risk patients: no routine follow-up required *high-risk patients: optional CT at 12 months (particularly with suspicious nodule morphology and/or upper lobe location) Single solid nodule 6-8 mm (100-250 mm3) *low-risk patients: CT at 6-12 months, then consider CT at 18-24 months *high-risk patients: CT at 6-12 months, then CT at 18-24 months Single solid nodule >8 mm (>250 mm3) *low-risk and high-risk patients: consider CT at 3 months, PET/CT, or tissue sampling Cough/Dyspnea workup will be done as follows: Respiratory allergen panel for [facility] Serum IgE Serum total IgG, IgG1, IgG2, IgG3, IgG4 Odbmx-3-ghfkqtmyal n phenotype and level TB stimulated gamma interferon B-type natriuretic peptide (BNP) Eosinophil count Complete pulmonary function testing (PFT) Adherence to therapy is advocated. Nonadherence may lead to treatment failure, further progression of the condition, and other complications. Hospitals admissions are often the result of individuals not taking prescription medications accurately. Alternatively, greater adherence to medication regimens have shown to lower rates of hospitalization and decrease total medical costs in patients with chronic medical conditions. Advocated influenza vaccination annually and pneumonia vaccination ANTHONY. Advocated weight loss through diet and exercise. Patient's ideal body weight according to height and gender is up to 130 lbs. Encouraged patient to adjust caloric intake to maintain/achieve ideal body weight, emphasizing on fruits, vegetables, whole grains, and fat-free or low-fat products. These include lean meats, poultry, fish, beans, eggs, and nuts and foods that are low in saturated fats, trans-fats, cholesterol, salt (sodium), and glycemic index. Stressed the importance of regular exercise up to the patient's capacity limits. In this case, we recommend regular (4 x a week or more) walking or other light activity. Patient to monitor BP daily and bring records to PCP for further management. Follow-up: 1 week after PFT [email or web address] Not available 10/29/2023 13:20:38 01/14/2024 01/14/2024 05/28/2023: Hep panel: Neg GGT 30 WBC 11.9H AST 40H, alb 4.7H, TP WNL 45 minutes spent with her in the office, discussed her various diagnosis, and her apts with the consultants [email or web address] Not available 01/14/2024 11:53:09 Plan of Treatment Reminders Order Date Submit Date Provider Last Modified By Organization Details Last Modified Time Details Appointments Any 15 2024 10:30A M Estela barillas MD Not available Not available Not available Lab lipid panel, serum 2023 024 [email or web address] Not available 05/23/2023 19:01:34 CMP, serum or plasma 2023 024 ALEJANDRO Not available 05/23/2023 19:01:40 CBC w/ auto diff 2023 024 ALEJANDRO Not available 05/23/2023 18:56:54 TSH + free T4, serum 2023 024 [email or web address] Not available 05/30/2023 09:38:06 vitamin D, 25-hydrox y, total, serum 2023 024 Not available 05/30/2023 09:38:07 vitamin B12 + folate, serum or blood 2023 024 [email or web address] Not available 05/30/2023 09:38:07 lipid panel, serum 2023 024 [email or web address] Not available 10/17/2023 10:01:25 CMP, serum or plasma 2023 024 [email or web address] Not available 10/17/2023 10:01:37 CBC w/ auto diff 2023 024 [email or web address] Not available 10/17/2023 10:01:46 TSH + free T4, serum 2023 024 [email or web address] Not available 10/17/2023 10:01:55 vitamin D, 25-hydrox y, total, serum 2023 024 [email or web address] Not available 10/17/2023 10:02:05 noninvasi ve colorecta l cancer DNA + occult blood screening , QL, stool 2023 024 [email or web address] [employer] (Cologuard Orders Only), [address], [address], [place], [address], 10/17/2023 10:02:23 vitamin B12 + folate, serum or blood 2023 024 [email or web address] Not available 10/17/2023 10:02:14 alpha-1-a ntitrypsi n (aat) phenotype , serum 2023 024 [email or web address] 2 [facility], [address] [place], [address], 01/31/2024 14:04:44 BNP (B-type natriuret ic peptide), serum or plasma 2023 024 ALEJANDRO [facility], [address] [place], [address], 10/29/2023 19:22:52 ige, total, serum 2023 024 [email or web address] 2 [facility], [address] [place], [address], 01/31/2024 14:04:44 tb (M tuberculo sis), ifn-gamma rosmery, blood 2023 024 [email or web address] 2 [facility], [address] [place], [address], 01/31/2024 14:04:45 eosinophi l count, manual, blood (OBS) 2023 024 2 [facility], [address] [place], [address], 01/31/2024 14:04:[address] s 1+2+3+4, serum 2023 024 [email or web address] 2 [facility], [address] [place], [address], 01/31/2024 14:04:45 respirato ry allergen panel, [facility] A, serum 2023 024 [email or web address] 2 [facility], [address] [place], [address], 01/31/2024 14:04:45 respirato ry allergen panel - [facility] b 2023 024 [email or web address] 2 [facility], [address] [place], [address], 01/31/2024 14:04:45 lipid panel, serum 2023 024 Not available 01/14/2024 13:51:35 CMP, serum or plasma 2023 024 Not available 01/14/2024 13:51:35 CBC w/ auto diff 2023 024 Not available 01/14/2024 13:51:35 TSH + free T4, serum 2023 024 Not available 01/14/2024 13:51:36 vitamin D, 25-hydrox y, total, serum 2023 024 Not available 01/14/2024 13:51:36 noninvasi ve colorecta l cancer DNA + occult blood screening , QL, stool 2023 024 [employer] (Cologuard Orders Only), [address], [address], [place], [address], 01/22/2024 09:53:44 vitamin B12 + folate, serum or blood 2023 024 Not available 01/14/2024 13:51:36 Referral physical therapist referral - patient to schedule 2022 023 [email or web address], [address], [place], [address], 08/31/2022 11:12:27 pulmonolo gist referral 2023 024 [email or web address] Joel Madison MD, [address] [place], [address], 12/17/2023 09:46:26 psychiatr ist referral 2023 024 [email or web address] Apolinar Montejo MD, [address], [address], [place], [address], 12/17/2023 09:46:53 pain managemen t referral [address] Gabriel Mendez, [address] [facility] [address], [address], [place], [address], 06/18/2023 12:54:48 cardiolog ist referral 2023 024 [place], [address], [address], [place], [address], 01/14/2024 09:01:23 urologist referral 2023 024 [email or web address] Lowell Mcarthur MD, [address] [facility] [address], [place], [address], 12/17/2023 09:46:[address] referral 2023 024 [email or web address] Jules Edwards MD, [address] [facility] , [address], [place], [address], 12/17/2023 09:46:54 pulmonolo gist referral 2023 024 jenny Madison MD, [address] [place], [address], 03/10/2024 08:41:08 cardiolog ist referral 2023 024 [place], [address], [address], [place], [address], 03/10/2024 08:41:08 urologist referral 2023 024 [email or web address] Lowell Mcarthur MD, [address] [facility] [address], [address], [place], [address], 01/15/2024 12:11:[address] referral 2023 024 [email or web address] Jules Edwards MD, [facility], [address], [address], 01/15/2024 12:04:[address] referral - Please call patient to schedule. 2023 024 Jules Edwards MD, [address] [facility], [address], [place], [address], 03/18/2024 12:33:41 pulmonolo gist referral 2023 024 [email or web address] Joel Madison MD, [address] [place], [address], 01/15/2024 12:01:47 urologist referral - Please call patient to schedule. 2023 024 Roger Ruano, [address] [facility], [facility] [address], [address], 01/15/2024 12:13:56 cardiolog ist referral 2023 024 [email or web address] [place], [address], [address], [place], [address], 03/18/2024 12:33:41 Procedures upper endoscopy procedure (EGD) (PROC) 2023 024 jenny Mooney MD, [address] [facility], [facility] [address], [address], 12/18/2023 08:07:26 colonosco py screening (PROC) 2023 024 [place] [address] Frances Mooney MD, [address], [address], [place], [address], 11/20/2023 10:07:15 upper endoscopy procedure (EGD) (PROC) 2023 024 [place] [address] Frances Mooney MD, [address], [address], [place], [address], 01/15/2024 11:56:01 upper endoscopy procedure (EGD) (PROC) - Please call patient to schedule. 2023 024 ALEJANDRO Hayes MD, [address], [address], [place], [address], 03/15/2024 04:09:15 Surgeries None recorded. Imaging LDCT, chest, for lung cancer screening 2023 024 [facility] (Imaging), [address] [facility] [address] [place] [address], [address], 05/28/2023 10:04:50 MAMMO, screening , bilateral [address] (Imaging), [address] [facility] [address] [facility], [place], [address], 10/17/2023 11:35:00 DEXA [address] (Imaging), [address], [place], [address], 10/17/2023 11:34:50 MAMMO, screening , bilateral [address] (Imaging), [address] [facility] [address], [place], [address], 01/14/2024 15:23:25 DEXA [address] ([facility]), [address], [place], [address], 01/14/2024 15:23:44 Medication Orders diclofena c sodium 75 mg tablet,de layed release [address]/[facility] #[id number], [address], [place], [address], 05/23/2023 11:05:00 hydroxyzi ne HCl 25 mg tablet [address] [facility], [address] [place] [address], [address], 05/23/2023 13:05:35 cyclobenz aprine 10 mg tablet [address] [facility], [address] [place] [address], [address], 09/10/2023 10:58:27 nystatin 100,000 unit/gram topical cream [email or web address] [place] [address] [id number], [address] , [place], [place], [id number], 10/14/2023 11:26:45 lisinopri l 10 mg tablet [address] [id number], [address] , [place], [place], [id number], 09/10/2023 12:40:57 Patient TargetsNo targets recorded. Patient Instructions Encounter Date Encounter Id Patient Instructions Last Modified By Organization Details Last Modified Time 09/10/2023 [id number] dementia rating scale-2* [email or web address] 2 Not available 09/10/2023 12:41:05 alcohol misuse* [email or web address] 2 Not available 09/10/2023 12:41:03 depression screening* Not available 09/10/2023 13:03:38 Timed Up and Go test (TUG)* Not available 09/10/2023 13:03:42 multi-dimensiona l health assessment questionnaire* [email or web address] Not available 09/10/2023 13:03:35 Personalized Hea lt Plan and Screening Recommendations Advance Directives - Do you have one? Yes Advance Directives - Do we have your advance directive on file in your health record? Primary Prevention/Interven tion (prevents or decreases the chance of common diseases from occurring) Smoking Risk: Refer to attached smoking cessation handouts Alcohol Misuse Screening: Refer to attached alcohol cessation handout Weight: Appropriate Overwei ght continue your current weight loss efforts try to lose 5% of your body weight try to lose 10% of your body weight Physical activity: Nutrition: Good Average Refer to attached handout Heart-Healthy Diet: After Your Visit Fall Risk (screened today): Refer to attached handout Preventing Falls: After your Visit Vaccines Pneumococcal: Ordered Recommended today Recommended today, but you have declined No further needed Influenza: Chronic Disease Risks Stroke: Low Risk Intermediate Risk Heart Attack: Low risk Intermediate Risk Clogging of the Arteries: Low risk Intermediate Risk Diabetes: Low Risk Intermediate Risk Secondary Prevention/Interven tion (detects treatable diseases before they may cause symptoms, disability, or ) Breast Cancer Screening with mammogram: Your next mammogram: Ordered Cervical/Uterine/Ov rosa elena Cancer Screening: Your next PAP/pelvic in: 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 [email or web address] Not available 11/29/2023 18:03:48 Reason for Referral Physical Therapist Referral for Pain in left sacroiliac joint patient to schedule Referring Physician: Hugo Riddle, Orthopedic Surgery, Encounter Date: 08/31/2022 Navy Material Inspector Referral for Britta gibbons Referring Physician: Estela Cook, Internal Medicine, Encounter Date: 05/23/2023 Psychiatrist Referral for Mo derate recurrent major depression Referring Physician: Estela Cook Internal Medicine, Encounter Date: 05/23/2023 Neurologist Referral for Tra nsient cerebral ischemia Referring Physician: Estela Cook Internal Medicine, Encounter Date: 05/23/2023 Pain Management Referral for Chronic pain Referring Physician: Estela Cook Internal Medicine, Encounter Date: 05/23/2023 Private Pilot Referral for Es sential hypertension Referring Physician: Estela Cook Internal Medicine, Encounter Date: 05/23/2023 Urologist Referral for Urina ry incontinence Referring Physician: Kailash Truong, Encounter Date: 05/23/2023 Neurologist Referral for Tra nsient cerebral ischemia Referring Physician: Kailash Truong Medicine, Encounter Date: 09/10/2023 Private Pilot Referral for Es sential hypertension Referring Physician: Kailash Truong, Encounter Date: 09/10/2023 Urologist Referral for Urina ry incontinence Referring Physician: Kailash Truong, Encounter Date: 09/10/2023 Navy Material Inspector Referral for P ulmonary emphysema Referring Physician: Estela Cook Internal Medicine, Encounter Date: 09/10/2023 Neurologist Referral for Tra nsient cerebral ischemia Please call patient to schedule. Referring Physician: Kailash Truong, Encounter Date: 01/14/2024 Private Pilot Referral for Es sential hypertension Referring Physician: Kailash Truong, Encounter Date: 01/14/2024 Urologist Referral for Urina ry incontinence Please call patient to schedule. Referring Physician: Kailash Truong, Encounter Date: 01/14/2024 Navy Material Inspector Referral for P ulmonary emphysema Referring Physician: Estela Cook, Internal Medicine, Encounter Date: 01/14/2024 Results Created Date Observation Date Name Description Value Unit Range Abnormal Flag Note LastModifiedBy Organization Detail LastModifiedTime 05/23/19 24 05/23/2023 CBC/C OMPLE TE BLD COUNT W/DIF F white blood cells 13.0 x10'3 /uL 4.2-10 .8 high Not Available [facility] (Lab) [address] [place], [address], 05/23/2023 18:56:54 05/23/19 24 05/23/2023 CBC/C OMPLE TE BLD COUNT W/DIF F red blood cells 4.46 x10'6 /uL 3.80-5 .20 Not Available [facility] (Lab) [address] [place], [address], 05/23/2023 18:56:54 05/23/19 24 05/23/2023 CBC/C OMPLE TE BLD COUNT W/DIF F hemoglobin 13.8 g/dL 12.0-1 5.6 Not Available [facility] (Lab) [address] [place], [address], 05/23/2023 18:56:54 05/23/19 24 05/23/2023 CBC/C OMPLE TE BLD COUNT W/DIF F hematocrit 40.8 % 35.7-4 5.7 Not Available [facility] (Lab) [address] [place], [address], 05/23/2023 18:56:54 05/23/19 24 05/23/2023 CBC/C OMPLE TE BLD COUNT W/DIF F mean red cell volume 91.5 fL 82.0-9 9.0 Not Available [facility] (Lab) [address] [place], [address], 05/23/2023 18:56:54 05/23/19 24 05/23/2023 CBC/C OMPLE TE BLD COUNT W/DIF F mean red cell hemoglobin 30.9 pg 27.0-3 3.0 Not Available [facility] (Lab) [address] [place], [address], 05/23/2023 18:56:54 05/23/19 24 05/23/2023 CBC/C OMPLE TE BLD COUNT W/DIF F mean RBC HGB concentratio n 33.8 g/dL 31.0-3 6.0 Not Available [facility] (Lab) [address] [place], [address], 05/23/2023 18:56:54 05/23/19 24 05/23/2023 CBC/C OMPLE TE BLD COUNT W/DIF F red cell distribution width 12.3 % 11.8-1 5.5 Not Available [facility] (Lab) [address] [place], [address], 05/23/2023 18:56:54 05/23/19 24 05/23/2023 CBC/C OMPLE TE BLD COUNT W/DIF F platelets 276 x10'3 /uL 150-40 0 Not Available [facility] (Lab) [address] [place], [address], 05/23/2023 18:56:54 05/23/19 24 05/23/2023 CBC/C OMPLE TE BLD COUNT W/DIF F mean platelet volume 11.0 fL 9.0-12 .4 Not Available [facility] (Lab) [address] [place], [address], 05/23/2023 18:56:54 05/23/19 24 05/23/2023 CBC/C OMPLE TE BLD COUNT W/DIF F neutrophils 64.0 % 39.0-7 2.0 Not Available [facility] (Lab) [address] [place], [address], 05/23/2023 18:56:54 05/23/19 24 05/23/2023 CBC/C OMPLE TE BLD COUNT W/DIF F lymphocytes 27.5 % 16.0-4 7.0 Not Available [facility] (Lab) [address] [place], [address], 05/23/2023 18:56:54 05/23/19 24 05/23/2023 CBC/C OMPLE TE BLD COUNT W/DIF F monocytes 6.5 % 5.0-12 .0 Not Available [facility] (Lab) [address] [place], [address], 05/23/2023 18:56:54 05/23/19 24 05/23/2023 CBC/C OMPLE TE BLD COUNT W/DIF F eosinophils 1.0 % 1.0-7. 0 Not Available [facility] (Lab) [address] [place], [address], 05/23/2023 18:56:54 05/23/19 24 05/23/2023 CBC/C OMPLE TE BLD COUNT W/DIF F basophils 0.7 % 0.0-2. 0 Not Available [facility] (Lab) [address] [place], [address], 05/23/2023 18:56:54 05/23/19 24 05/23/2023 CBC/C OMPLE TE BLD COUNT W/DIF F immature granulocytes 0.3 % 0.00-0 .50 Not Available [facility] (Lab) [address] [place], [address], 05/23/2023 18:56:54 05/23/19 24 05/23/2023 CBC/C OMPLE TE BLD COUNT W/DIF F neutrophils, absolute count 8.32 x10'3 /uL 1.5-8. 0 high Not Available [facility] (Lab) [address] [place], [address], 05/23/2023 18:56:54 05/23/19 24 05/23/2023 CBC/C OMPLE TE BLD COUNT W/DIF F lymphocytes, absolute count 3.57 x10'3 /uL 1.07-3 .43 high Not Available [facility] (Lab) [address] [place], [address], 05/23/2023 18:56:54 05/23/19 24 05/23/2023 CBC/C OMPLE TE BLD COUNT W/DIF F monocytes, absolute count 0.84 x10'3 /uL 0.29-0 .99 Not Available [facility] (Lab) [address] [place], [address], 05/23/2023 18:56:54 05/23/19 24 05/23/2023 CBC/C OMPLE TE BLD COUNT W/DIF F eosinophils, absolute count 0.13 x10'3 /uL 0.02-0 .53 Not Available [facility] (Lab) [address] [place], [address], 05/23/2023 18:56:54 05/23/19 24 05/23/2023 CBC/C OMPLE TE BLD COUNT W/DIF F basophils, absolute count 0.09 x10'3 /uL 0.01-0 .08 high Not Available [facility] (Lab) [address] [place], [address], 05/23/2023 18:56:54 05/23/19 24 05/23/2023 CBC/C OMPLE TE BLD COUNT W/DIF F immature granulocytes ,absolute 0.04 x10'3 /uL 0.00-0 .05 Not Available [facility] (Lab) [address] [place], [address], 05/23/2023 18:56:54 05/23/19 24 05/23/2023 CBC/C OMPLE TE BLD COUNT W/DIF F nucleated red blood cells 0.0 % -0 Not Available [facility] (Lab) [address] [place], [address], 05/23/2023 18:56:54 05/23/19 24 05/23/2023 CBC/C OMPLE TE BLD COUNT W/DIF F NRBC# 0.00 x10'3 /uL Not Available [facility] (Lab) [address] [place], [address], 05/23/2023 18:56:54 05/23/19 24 05/23/2023 LIPID PANEL cholesterol 112 mg/dL 140-19 9 low NIH ZULMA NSUS RECOM MENDA TION FOR BRI STERO L: ADULT CHILD LOW RISK: <200 <170 BORDE RLINE : <200- 239 ----- HIGH RISK: >240 >200 Not Available [facility] (Lab) [address] [place], [address], 05/23/2023 19:01:34 05/23/19 24 05/23/2023 LIPID PANEL triglyceride s 100 mg/dL 0-150 NIH ZULMA NSUS REPOR T RECOM MENDA TION FOR TRIGL YCERI CALE: ADULT CHILD LOW RISK: <150 ----- BODER LINE: 150-1 99 ----- HIGH RISK: >200 ----- Not Available [facility] (Lab) [address] [place], [address], 05/23/2023 19:01:34 05/23/19 24 05/23/2023 LIPID PANEL HDL cholesterol 59 mg/dL 40- Not Available [facility] (Lab) [address] [place], [address], 05/23/2023 19:01:34 05/23/19 24 05/23/2023 LIPID PANEL LDL cholesterol, calculated 33 mg/dL 0-130 NIH ZULMA NSUS REPOR T RECOM MENDA TIONS FOR LDL: ADULT CHILD LOW RISK <130 <110 (OPTI MAL LDL) <100 ----- BORDE RLINE : 130-1 59 ----- HIGH RISK: >160 >130 A TRIGL YCERI DE RESUL T >400 INVAL IDATE S THE CALCU LATIO N FOR LDL FRACT IONAT ION - THE LDL RESUL T WILL NOT BE REPOR AUDI. Not Available [facility] (Lab) [address] [place], [address], 05/23/2023 19:01:34 05/23/19 24 05/23/2023 COMPR EHENS RICHARD METAB OLIC PANEL sodium 137 mmol/ L 137-14 5 Not Available [facility] (Lab) [address] [place], [address], 05/23/2023 19:01:40 05/23/19 24 05/23/2023 COMPR EHENS RICHARD METAB OLIC PANEL potassium 4.2 mmol/ L 3.5-5. 1 Not Available [facility] (Lab) [address] [place], [address], 05/23/2023 19:01:40 05/23/19 24 05/23/2023 COMPR EHENS RICHARD METAB OLIC PANEL chloride 104 mmol/ L 98-107 Not Available [facility] (Lab) [address] [place], [address], 05/23/2023 19:01:40 05/23/19 24 05/23/2023 COMPR EHENS RICHARD METAB OLIC PANEL carbon dioxide 27 mmol/ L 22-30 Not Available [facility] (Lab) [address] [place], [address], 05/23/2023 19:01:40 05/23/19 24 05/23/2023 COMPR EHENS RICHARD METAB OLIC PANEL anion gap 10.2 mmol/ L 14-22 low Not Available [facility] (Lab) [address] [place], [address], 05/23/2023 19:01:40 05/23/19 24 05/23/2023 COMPR EHENS RICHARD METAB OLIC PANEL glucose 98 mg/dL 70-99 Not Available [facility] (Lab) [address] [place], [address], 05/23/2023 19:01:40 05/23/19 24 05/23/2023 COMPR EHENS RICHARD METAB OLIC PANEL BUN 14 mg/dL 8-19 Not Available [facility] (Lab) [address] [place], [address], 05/23/2023 19:01:40 05/23/19 24 05/23/2023 COMPR EHENS RICHARD METAB OLIC PANEL creatinine 0.69 mg/dL 0.66-1 .25 Not Available [facility] (Lab) [address] [place], [address], 05/23/2023 19:01:40 05/23/19 24 05/23/2023 COMPR EHENS RICHARD METAB OLIC PANEL GFR >60 Refer ence Range : Arthur ge GFR Healt hy Adult : >60 mL/mi n/1.7 3 m2 Chron ic Kidne y Disea se: 15-60 mL/mi n/1.7 3 m2 Kidne y Failu re: <15/m L/min /1.73 m2 www.n iddk. nih.g ov The MDRD study equat ion has not been valid ated in child kari <18 years of age; pregn ant women ; the elder ly >85 years of age; or in some racia l or ethni c subgr oups, such as Hisny nics. Outsi de the valid ated ammy eters , estim ated GFR is less accur ate, requi ring clini obdulia judgm ent on a case- by-ca se basis . Clini obdulia inter preta tion for other races and ages must be made by the clini jeannie. The MDRD study equat ion has not been valid ated for the evalu ation of serum creat inine relat ed to nutri rosy l statu s or medic ation usage . For perso ns <18 years of age, a pedia tric GFR calcu latayanna is avail able on the F websi te: https ://sola valladares.gary agarwal.o odessa/pr ofess ional s/kdo qi/gf r_cal culat or Not Available [facility] (Lab) [address] [place], [address], 05/23/2023 19:01:40 05/23/19 24 05/23/2023 COMPR EHENS RICHARD METAB OLIC PANEL alkaline phosphatase 53 U/L 38-126 Not Available [facility] (Lab) [address] [place], [address], 05/23/2023 19:01:40 05/23/19 24 05/23/2023 COMPR EHENS RICHARD METAB OLIC PANEL alanine aminotransfe rase 22 U/L 0-35 Not Available [facility] (Lab) [address] [place], [address], 05/23/2023 19:01:40 05/23/19 24 05/23/2023 COMPR EHENS RICHARD METAB OLIC PANEL aspartate aminotransfe rase 40 U/L 15-37 high Not Available [facility] (Lab) [address] [place], [address], 05/23/2023 19:01:40 05/23/19 24 05/23/2023 COMPR EHENS RICHARD METAB OLIC PANEL bilirubin, total 0.60 mg/dL 0.20-1 .30 Not Available [facility] (Lab) [address] [place], [address], 05/23/2023 19:01:40 05/23/19 24 05/23/2023 COMPR EHENS RICHARD METAB OLIC PANEL calcium 9.5 mg/dL 8.4-10 .2 Not Available [facility] (Lab) [address] [place], [address], 05/23/2023 19:01:40 05/23/19 24 05/23/2023 COMPR EHENS RICHARD METAB OLIC PANEL total protein 7.5 g/dL 6.3-8. 2 Not Available [facility] (Lab) [address] [place], [address], 05/23/2023 19:01:40 05/23/19 24 05/23/2023 COMPR EHENS RICHARD METAB OLIC PANEL albumin 4.7 g/dL 3.0-4. 4 high Not Available [facility] (Lab) [address] [place], [address], 05/23/2023 19:01:40 05/23/19 24 05/23/2023 COMPR EHENS RICHARD METAB OLIC PANEL globulin 2.8 g/dL 2.6-4. 2 Not Available [facility] (Lab) [address] [place], [address], 05/23/2023 19:01:40 05/23/19 24 05/23/2023 COMPR EHENS RICHARD METAB OLIC PANEL A/G ratio 1.7 ratio 1.0-2. 0 Not Available [facility] (Lab) [address] [place], [address], 05/23/2023 19:01:40 05/23/19 24 05/23/2023 T4 FREE free T4 1.01 NG/dL 0.78-2 .19 Not Available [facility] (Lab) [address] [place], [address], 05/23/2023 19:22:54 05/23/19 24 05/23/2023 VITAM IN D 25-HY DROXY vd25oh 40.4 NG/mL 30-100 Vitam in D Statu s: Defic ient: <20 ng/mL Insuf ficie nt: 20-29 ng/mL Suffi cient : 30-10 0 ng/mL Not Available [facility] (Lab) [address] [place], [address], 05/23/2023 19:23:09 05/23/19 24 05/23/2023 TSH thyroid-stim ulating hormone 1.660 uIU/m L 0.465- 4.680 Not Available [facility] (Lab) [address] [place], [address], 05/23/2023 19:47:42 05/23/19 24 05/23/2023 VITAM IN B12 (CAITLIN YAMIL ) vb12 829 pg/mL 239-93 1 Not Available [facility] (Lab) [address] [place], [address], 05/23/2023 20:07:30 05/23/19 24 05/23/2023 FOLAT E, SERUM /PLAS MA folate 12.6 NG/mL 2.76-2 0.0 Not Available [facility] (Lab) [address] [place], [address], 05/23/2023 20:07:34 05/28/19 24 05/28/2023 CBC/C OMPLE TE BLD COUNT W/DIF F white blood cells 11.9 x10'3 /uL 4.2-10 .8 high Not Available [facility] (Lab) [address] [place], [address], 05/28/2023 13:00:18 05/28/19 24 05/28/2023 CBC/C OMPLE TE BLD COUNT W/DIF F red blood cells 4.30 x10'6 /uL 3.80-5 .20 Not Available [facility] (Lab) [address] [place], [address], 05/28/2023 13:00:18 05/28/19 24 05/28/2023 CBC/C OMPLE TE BLD COUNT W/DIF F hemoglobin 13.3 g/dL 12.0-1 5.6 Not Available [facility] (Lab) [address] [place], [address], 05/28/2023 13:00:18 05/28/19 24 05/28/2023 CBC/C OMPLE TE BLD COUNT W/DIF F hematocrit 38.8 % 35.7-4 5.7 Not Available [facility] (Lab) [address] [place], [address], 05/28/2023 13:00:18 05/28/19 24 05/28/2023 CBC/C OMPLE TE BLD COUNT W/DIF F mean red cell volume 90.2 fL 82.0-9 9.0 Not Available [facility] (Lab) [address] [place], [address], 05/28/2023 13:00:18 05/28/19 24 05/28/2023 CBC/C OMPLE TE BLD COUNT W/DIF F mean red cell hemoglobin 30.9 pg 27.0-3 3.0 Not Available [facility] (Lab) [address] [place], [address], 05/28/2023 13:00:18 05/28/19 24 05/28/2023 CBC/C OMPLE TE BLD COUNT W/DIF F mean RBC HGB concentratio n 34.3 g/dL 31.0-3 6.0 Not Available [facility] (Lab) [address] [place], [address], 05/28/2023 13:00:18 05/28/19 24 05/28/2023 CBC/C OMPLE TE BLD COUNT W/DIF F red cell distribution width 12.4 % 11.8-1 5.5 Not Available [facility] (Lab) [address] [place], [address], 05/28/2023 13:00:18 05/28/19 24 05/28/2023 CBC/C OMPLE TE BLD COUNT W/DIF F platelets 274 x10'3 /uL 150-40 0 Not Available [facility] (Lab) [address] [place], [address], 05/28/2023 13:00:18 05/28/19 24 05/28/2023 CBC/C OMPLE TE BLD COUNT W/DIF F mean platelet volume 10.9 fL 9.0-12 .4 Not Available [facility] (Lab) [address] [place], [address], 05/28/2023 13:00:18 05/28/19 24 05/28/2023 CBC/C OMPLE TE BLD COUNT W/DIF F neutrophils 63.2 % 39.0-7 2.0 Not Available [facility] (Lab) [address] [place], [address], 05/28/2023 13:00:18 05/28/19 24 05/28/2023 CBC/C OMPLE TE BLD COUNT W/DIF F lymphocytes 27.2 % 16.0-4 7.0 Not Available [facility] (Lab) [address] [place], [address], 05/28/2023 13:00:18 05/28/19 24 05/28/2023 CBC/C OMPLE TE BLD COUNT W/DIF F monocytes 7.4 % 5.0-12 .0 Not Available [facility] (Lab) [address] [place], [address], 05/28/2023 13:00:18 05/28/19 24 05/28/2023 CBC/C OMPLE TE BLD COUNT W/DIF F eosinophils 1.2 % 1.0-7. 0 Not Available [facility] (Lab) [address] [place], [address], 05/28/2023 13:00:18 05/28/19 24 05/28/2023 CBC/C OMPLE TE BLD COUNT W/DIF F basophils 0.7 % 0.0-2. 0 Not Available [facility] (Lab) [address] [place], [address], 05/28/2023 13:00:18 05/28/19 24 05/28/2023 CBC/C OMPLE TE BLD COUNT W/DIF F immature granulocytes 0.3 % 0.00-0 .50 Not Available [facility] (Lab) [address] [place], [address], 05/28/2023 13:00:18 05/28/19 24 05/28/2023 CBC/C OMPLE TE BLD COUNT W/DIF F neutrophils, absolute count 7.50 x10'3 /uL 1.5-8. 0 Not Available [facility] (Lab) [address] [place], [address], 05/28/2023 13:00:18 05/28/19 24 05/28/2023 CBC/C OMPLE TE BLD COUNT W/DIF F lymphocytes, absolute count 3.22 x10'3 /uL 1.07-3 .43 Not Available [facility] (Lab) [address] [place], [address], 05/28/2023 13:00:18 05/28/19 24 05/28/2023 CBC/C OMPLE TE BLD COUNT W/DIF F monocytes, absolute count 0.88 x10'3 /uL 0.29-0 .99 Not Available [facility] (Lab) [address] [place], [address], 05/28/2023 13:00:18 05/28/19 24 05/28/2023 CBC/C OMPLE TE BLD COUNT W/DIF F eosinophils, absolute count 0.14 x10'3 /uL 0.02-0 .53 Not Available [facility] (Lab) [address] [place], [address], 05/28/2023 13:00:18 05/28/19 24 05/28/2023 CBC/C OMPLE TE BLD COUNT W/DIF F basophils, absolute count 0.08 x10'3 /uL 0.01-0 .08 Not Available [facility] (Lab) [address] [place], [address], 05/28/2023 13:00:18 05/28/19 24 05/28/2023 CBC/C OMPLE TE BLD COUNT W/DIF F immature granulocytes ,absolute 0.04 x10'3 /uL 0.00-0 .05 Not Available [facility] (Lab) [address] [place], [address], 05/28/2023 13:00:18 05/28/19 24 05/28/2023 CBC/C OMPLE TE BLD COUNT W/DIF F nucleated red blood cells 0.0 % -0 Not Available [facility] (Lab) [address] [place], [address], 05/28/2023 13:00:18 05/28/19 24 05/28/2023 CBC/C OMPLE TE BLD COUNT W/DIF F NRBC# 0.00 x10'3 /uL Not Available [facility] (Lab) [address] [place], [address], 05/28/2023 13:00:18 05/28/19 24 05/28/2023 GGT/G -GLUT AMYL TRANS FERAS E gamma-glutam yl transferase 30 U/L 12-43 Not Available [facility] (Lab) [address] [place], [address], 05/28/2023 16:12:39 05/28/19 24 05/28/2023 HEPAT ITIS ACUTE PANEL hepatitis A IgM antibody NON-RE ACTIVE non-re active For sampl es repor audi as Madinade rline React richard for HAV IgM, it is recom justin d a new speci men be obtai adri in 2 weeks and retes audi. Not Available [facility] (Lab) [address] [place], [address], 05/28/2023 16:48:51 05/28/19 24 05/28/2023 HEPAT ITIS ACUTE PANEL hepatitis A virus signal/cutof 0.02 0.00-0 .79 Not Available [facility] (Lab) [address] [place], [address], 05/28/2023 16:48:51 05/28/19 24 05/28/2023 HEPAT ITIS ACUTE PANEL hepatitis B core IgM antibody NON-RE ACTIVE non-re active Not Available [facility] (Lab) [address] [place], [address], 05/28/2023 16:48:51 05/28/19 24 05/28/2023 HEPAT ITIS ACUTE PANEL HBV core IgM signal/cutof f 0.13 0.00-1 .10 Not Available [facility] (Lab) [address] [place], [address], 05/28/2023 16:48:51 05/28/19 24 05/28/2023 HEPAT ITIS ACUTE PANEL hepatitis B surface antigen NON-RE ACTIVE non-re active All speci mens react richard for Hepat itis B Surfa ce Antig en will refle x to refer ral lab confi rmato ry testi ng. Not Available [facility] (Lab) [address] [place], [address], 05/28/2023 16:48:51 05/28/19 24 05/28/2023 HEPAT ITIS ACUTE PANEL HBV surf.antigen signal/cutof f 0.07 0.00-0 .99 Not Available [facility] (Lab) [address] [place], [address], 05/28/2023 16:48:51 05/28/19 24 05/28/2023 HEPAT ITIS ACUTE PANEL hepatitis C antibody NON-RE ACTIVE non-re active All speci mens react richard for Hepat itis C Virus antib chau will refle x to PCR confi rmato ry testi ng. Pleas e allow 48-72 hours for resul ts. Not Available [facility] (Lab) [address], [place], [address], 05/28/2023 16:48:51 05/28/19 24 05/28/2023 HEPAT ITIS ACUTE PANEL hepatitis C virus signal/cutof 0.02 0.00-0 .99 Not Available [facility] (Lab) [address] [facility], [place], [address], 05/28/2023 16:48:51 05/28/19 24 LDCT, chest , for lung cance r scree dale [facility] [address] [facility] [address], [place] [address] Patien t Name: DIMA POLLOCK Access ion #: [id number] Sex: F : 1960 6 Dictat ed By: Barak Kendrick ms Attend ing Physic cinthia: GINO KENNEDY Orderi Physic cinthia: GINO KENNEDY Exam Date: 2023 08:07 AM Exam Name: CT LOW DOSE CANCER SCREEN ING Admitt ing Diagno sis(es ): CT Chest withou t intrav enous contra st INDICA TION: Nicoti ne depend ence. TECHNI QUE: Multid etecto r spiral CT of the chest was perfor med from the lung apices to the upper abdome n utiliz ing axial images . Gonsalez l and sagitt al multip lanar reform ats were perfor med. Radiat ion Dose : 1. Chest: CTDI volume is 1.9 mGy. Dose-l ength produc t is 65.5 mGy*cm The dose indica tors for CT are the volume Comput ed Tomogr aphy (CT) Dose Index (CTDIv ol) and the Dose Length Produc t (DLP), and are measur ed in units of mGy and mGy-cm , respec tively . These indica tors are not patien t dose, but values genera audi from the CT scanne r acquis ition factor s. The report includ es radiat ion exposu re data for exposu res receiv ed during this examin ation. Compar nanda: None. Findin gs: Lower neck: Unrema rkable thyroi d Lungs: There is mild parase ptal emphys carlene. There is a 0.4 cm nodule in the right middle lobe (serie s 204, image 131). Pleura : No pleura l effusi ons. No pneumo thorax Heart/ Vascul ar Struct ures: The heart is normal in size. No perica rdial effusi on There are gonsalez ry artery calcif icatio ns. Normal calibe r aorta. The main pulmon josie artery is normal in calibe r Page 1 [facility] [address] [place] [address] Patien t Name: DIMA POLLOCK Access ion #: [id number] Sex: F : 1960 6 Dictat ed By: Barak Kendrick ms Attend ing Physic cinthia: MIKE PONCE Physic cinthia: GINO KENNEDY Exam Date: 2023 08:07 AM Exam Name: CT LOW DOSE CANCER SCREEN ING Admitt ing Diagno sis(es ): Lymph Nodes: No adenop athy Muscul oskele jalen: No fractu re or suspic ious bone lesion s. Thorac ic spinal stimul ator noted. Body wall: Unrema rkable Upper abdome n: Unrema rkable IMPRES VINAY: Right middle lobe pulmon josie nodule . Mild parase ptal emphys carlene. Gonsalez ry artery calcif icatio ns. Lung-R ADS: Catego ry 2: Recomm endati on: Contin ue annual screen ing with LDCT [email or web address]: [email or web address] Electr onical ly Signed by: Barak Kendrick ms at 2023 09:03: 32 AM Page 2 [email or web address] [facility] (Imaging) [address] [place], [address], 09/30/2023 19:14:20 11/20/19 24 11/20/2023 XR, thora cic spine No observ ation record ed. [address], [place], [address], 11/29/2023 16:09:12 11/20/19 24 11/20/2023 XR, lumba r spine , 2 view No observ ation record ed. [address], [place], [address], 11/29/2023 17:14:53 11/22/19 24 11/22/2023 CT, abdom en + pelvi s, w/ contr ast No observ ation record ed. [address] [address], [place], [address], 11/29/2023 16:10:36 Result Notes None recorded. Problems Name Problem SNOMED Code Status Onset Date Resolution Date Notes Provider Name and Address Organization Details Recorded Time Osteoarthriti s 318827974 Active Not Available [employer] 3 08:11:06 Hyperlipidemi a 68631477 Active 2023 Estela hancock MD [address], [address] [address], [place], [address] , [employer] 4 11:42:25 Essential hypertension 39254001 Active 2023 Estela hancock MD [address], [facility] [address], [place], [address] , [employer] 4 11:42:29 Moderate recurrent major depression 31808190 Active 2023 Estela hancock MD [address], [facility] [address], [place], [address] , [employer] 4 11:42:42 Smoker 30026380 Active 2023 Estela hancock MD [address] [facility] [address], [place], [address] , [facility] 4 11:43:43 Transient cerebral ischemia 557204297 Active 2023 Estela hancock MD [address], [address], [place], [address] , [facility] 4 11:44:10 Overactive urinary bladder 630765032 Active 2023 Katia Fowler MA null, [place] [facility] 4 14:31:55 Gastroesophag eal reflux disease 117008724 Active 2023 Katia Fowler MA null, [place] [facility] 4 12:03:18 Dementia 35689727 Active 2023 Estela hancock MD [address], [address], [place], [address] , [facility] 4 11:53:20 Urinary incontinence 269772822 Active 2023 Estela hancock MD [address], [address], [place], [address] , [facility] 4 14:50:22 Vitamin D deficiency 65072274 Active 2023 Estela hancock MD [address], [address], [place], [address] , [facility] 4 14:50:22 Serum vitamin B12 below reference range 081870381 Active 2023 Estela hancock MD [address], [address], [place], [address] , [facility] 4 14:50:22 Chronic pain 41084945 Active 2023 Estela hancock MD [address], [address], [place], [address] , [facility] 4 14:50:22 Gastroesophag eal reflux disease without esophagitis 603302097 Active 2023 Estela hancock MD [address] [facility], [address], [address] , [facility] 4 14:50:22 Pulmonary emphysema 39611601 Active 2023 Estela hancock MD [address] [facility], [address], [address] , [facility] 4 14:50:22 Pruritic rash 26646411 Active 2023 Estela hancock MD [address] [facility], [address], [address] , [facility] [employer] [facility] [employer] [facility] 4 14:50:22 Leukocytosis 528281412 Active 2023 Estela hancock MD [address] [facility], [address], [address] , [facility] [employer] [facility] [employer] [facility] 4 11:57:22 Cough 43253980 Active 2024 CHINA Dominguez [facility] [employer] [facility] 5 11:42:23 Notes:Medical History: TIA D ementia Anxiety/Depression Rhinitis to multiple environmental allergens Eosinophils 90/uL IgE 593 IU/mL AAT PiMM 190 mg% Nicotine use 4 mm RML nodule Hypertension Hyperlipidemia KASSIDY Urge urinary incontinence Lumbar spondylosis Procedure History: ROSANNA-BSO 2005 Left foot surgeries 4936-9691 Electrical stumulation unit implantation 2013, 2023 Rught knee replacement 2014 Left cerebral aneurysm clipping 2020 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 Procedures Surgical History Date Name Laterality Status Provider Name and Address Organization Details Recorded Time 09/10/19 Medicare Wellness CPT Code, subsequent completed Kuldeep Phillips LPN [facility] [employer] [facility] 09/10/2023 08:23:20 Brain Surgery completed CHINA Dominguez [facility] [employer] [facility] 05/23/2023 11:13:29 Foot Surgery completed Tabitha Estes [facility] 05/23/2023 11:13:56 Hysterectomy completed Tabitha Estes [facility] 05/23/2023 11:14:01 excision of basal cell carcinoma completed Tabitha Estes [facility] 05/23/2023 11:14:25 Knee Replacement completed Tabitha Estes CHINA [facility] 05/23/2023 11:14:36 Imaging Results Imaging Date Name Status LastModified by Organiz [email or web address] Details LastModified Time 05/28/2023 LDCT, chest, for lung cancer screening completed [address] (Imaging) [address] [place], [address], 09/30/2023 19:14:20 11/20/2023 XR, thoracic spine completed [address] [place] [address], [address], 11/29/2023 16:09:12 11/20/2023 XR, lumbar spine, 2 view completed [address], [address], 11/29/2023 17:14:53 11/22/2023 CT, abdomen + pelvis, w/ contrast completed [address], [address], 11/29/2023 16:10:36 Procedure Notes None recorded. Medical Equipment None Reported. Allergies Allergen ID Allergen Name Allergen Category Reaction Reaction Severity Criticality Documentation Date Start Date Code Code System Note Provider Name and Address Organization Details Recorded Time prednison e medicatio n hives itching respirato ry distress severe severe severe Not available 04/19/2022 8640 RxNorm Not Available [facility] 3 08:15:02 oxycodone medicatio n hives itching respirato ry distress severe severe severe Not available 04/19/2022 7804 RxNorm Not Available [facility] 3 08:15:02 02701 morphine medicatio n hives itching respirato ry distress severe severe severe Not available 04/19/2022 7052 RxNorm Not Available [facility] 3 08:15:03 56445 hydrocodo ne Not available hives itching respirato ry distress severe severe severe Not available 04/19/2022 5489 RxNorm Not Available [facility] 3 08:15:03 Medications Name Sig Start Date Stop Date Status Note LastModified by Organization Details LastModified Time celecoxib 200 mg capsule Take 1 capsule every day by oral route. 09/01 completed Not Available Not Available Not Available cyclobenzap rine 10 mg tablet TAKE 1 TABLET BY MOUTH ONCE DAILY NEEDED FOR 30 DAYS active Not Available Not Available No t Available amoxicillin 500 mg capsule TAKE ONE CAPSULE BY MOUTH 3 TIMES A DAY 09/01 completed Not Available Not Available Not Available atorvastati n 40 mg tablet TAKE 1 TABLET BY MOUTH ONCE DAILY active Not Available Not Available No t Available silver sulfadiazin e 1 % topical cream 09/01 completed Not Available Not Available Not Available promethazin e-DM 6.25 mg-15 mg/5 mL oral syrup TAKE 5 - 10 ML BY MOUTH EVERY 6 HOURS NEEDED. 09/01 completed Not Available Not Available Not Available gabapentin 600 mg tablet TAKE 1 TABLET BY MOUTH THREE TIMES DAILY NEEDED active Not Available Not Available No t Available tizanidine 2 mg tablet TAKE 1 TABLET BY MOUTH EVERY 4 HOURS NEEDED 01/13 completed Not Available Not Available Not Available loperamide 2 mg capsule 08/31 completed Not Available Not Available Not Available azithromyci n 250 mg tablet TAKE 2 TABLETS BY MOUTH ON DAY 1, AND THEN TAKE 1 TABLET BY MOUTH ONCE A DAY ON DAY 2 THROUGH DAY 5 active Not Available Not Available No t Available alprazolam 1 mg tablet TAKE 1 TABLET BY MOUTH THREE TIMES DAILY active Not Available Not Available No t Available tizanidine 4 mg tablet TAKE 1 TABLET BY MOUTH TWICE DAILY NEEDED active Not Available Not Available No t Available fluconazole 150 mg tablet TAKE 1 TABLET BY MOUTH TODAY. YOU MAY REPEAT IN 3 DAYS IF STILL SYMPTOMAT IC 09/01 completed Not Available Not Available Not Available cimetidine 400 mg tablet 09/01 completed Not Available Not Available Not Available ranitidine 300 mg tablet 09/01 completed Not Available Not Available Not Available meperidine 50 mg tablet active Not Available Not Available Not Available ondansetron HCl 8 mg tablet 09/01 completed Not Available Not Available Not Available sucralfate 1 gram tablet TAKE 1 TABLET BY MOUTH 3 TIMES A DAY WITH MEALS AND 1 TABLET BY MOUTH AT BEDTIME 09/01 completed Not Available Not Available Not Available promethazin e 12.5 mg tablet TAKE ONE TABLET BY MOUTH THREE TIMES A DAY NEEDED 09/01 completed Not Available Not Available Not Available ondansetron HCl 4 mg tablet TAKE 1 TABLET BY MOUTH TWICE DAILY NEEDED 2024 active Not Available Not Available Not Avai lable clonazepam 1 mg tablet TAKE 1 TABLET BY MOUTH 3 TIMES A DAY NEEDED 09/01 completed Not Available Not Available Not Available venlafaxine ER 150 mg capsule,ext ended release 24 hr TAKE 1 CAPSULE BY MOUTH ONCE DAILY WITH FOOD active Not Available Not Available No t Available penicillin V potassium 500 mg tablet TAKE 1 TABLET BY MOUTH 4 TIMES A DAY UNTIL FINISHED 09/01 completed Not Available Not Available Not Available Nexium 40 mg capsule,del ayed release 09/01 completed Not Available Not Available Not Available phentermine 37.5 mg tablet TAKE 1 TABLET BY MOUTH EVERY DAY 09/01 completed Not Available Not Available Not Available amlodipine 5 mg tablet TAKE 1 TABLET BY MOUTH EVERY MORNING 09/01 completed Not Available Not Available Not Available sulfamethox azole 800 mg-trimetho prim 160 mg tablet TAKE 1 TABLET BY MOUTH TWICE A DAY FOR 5 DAYS 05/22 completed Not Available Not Available Not Available omeprazole 40 mg capsule,del ayed release TAKE 1 CAPSULE BY MOUTH TWICE A DAY 09/01 completed Not Available Not Available Not Available tramadol 50 mg tablet TAKE 1 TO 2 TABLETS BY MOUTH THREE TIMES DAILY NEEDED active Not Available Not Available No t Available amoxicillin 500 mg tablet TAKE 1 TABLET BY MOUTH EVERY 12 HOURS FOR 7 DAYS 08/31 completed Not Available Not Available Not Available ondansetron 8 mg disintegrat ing tablet DISSOLVE 1 TABLET ON THE TONGUE EVERY 8 HOURS NEEDED FOR NAUSEA 09/09 completed Not Available Not Available Not Available lidocaine-p rilocaine 2.5 %-2.5 % topical cream 09/01 completed Not Available Not Available Not Available ketorolac 10 mg tablet TAKE 1 TABLET BY MOUTH TWICE A DAY FOR 5 DAYS 09/01 completed Not Available Not Available Not Available meloxicam 7.5 mg tablet TAKE 1 TABLET BY MOUTH EVERY DAY 10/28 completed Not Available Not Available Not Available alprazolam 0.5 mg tablet TAKE 1 TABLET BY MOUTH THREE TIMES DAILY active Not Available Not Available No t Available alprazolam 0.25 mg tablet 09/01 completed Not Available Not Available Not Available potassium chloride ER 20 mEq tablet,exte nded release(par t/cryst) 05/22 completed Not Available Not Available Not Available levetiracet am 250 mg tablet 08/31 completed Not Available Not Available Not Available benzonatate 100 mg capsule TAKE ONE CAPSULE BY MOUTH THREE TIMES DAILY NEEDED 09/01 completed Not Available Not Available Not Available cephalexin 500 mg capsule TAKE 1 CAPSULE BY MOUTH TWICE DAILY FOR 7 DAYS 10/13 completed Not Available Not Available Not Available pantoprazol e 40 mg tablet,annamarie yed release TAKE 1 TABLET BY MOUTH ONCE DAILY NEEDED active Not Available Not Available No t Available hyoscyamine sulfate 0.125 mg tablet active Not Available Not Available Not Available nystatin 100,000 unit/gram topical cream APPLY TOPICALLY TO THE AFFECTED AREA TWICE DAILY 10/13 completed Not Available Not Available Not Available buspirone 10 mg tablet TAKE 1 TABLET BY MOUTH TWICE DAILY 10/28 completed Not Available Not Available Not Available lisinopril 10 mg tablet TAKE 1 TABLET BY MOUTH TWICE DAILY active Not Available Not Available No t Available orphenadrin e citrate ER 100 mg tablet,exte nded release TAKE 1 TABLET TWICE DAILY. active Not Available Not Available No t Available oxybutynin chloride ER 5 mg tablet,exte nded release 24 hr TAKE 1 TABLET BY MOUTH EVERY DAY active Not Available Not Available No t Available gabapentin 300 mg capsule TAKE 1 CAPSULE BY MOUTH TWICE DAILY NEEDED 10/13 completed Not Available Not Available Not Available buspirone 7.5 mg tablet 09/01 completed Not Available Not Available Not Available diclofenac sodium 75 mg tablet,annamarie yed release Take 1 tablet twice a day by oral route. 05/22 completed Not Available Not Available Not Available hydroxyzine HCl 25 mg tablet TAKE 1 TABLET BY MOUTH TWICE DAILY NEEDED active Not Available Not Available No t Available metoprolol succinate ER 25 mg tablet,exte nded release 24 hr TAKE 1 TABLET BY MOUTH EVERY DAY IN THE EVENING 08/31 completed Not Available Not Available Not Available ondansetron 4 mg disintegrat ing tablet TAKE 1 TABLET BY MOUTH EVERY 6 HOURS NEEDED 09/01 completed Not Available Not Available Not Available dicyclomine 10 mg capsule 09/01 completed Not Available Not Available Not Available diazepam 5 mg tablet TAKE 1 TABLET BY MOUTH 1 HOUR PRIOR TO PROCEDURE THEN 30 MINUTES PRIOR TO PROCEDURE 09/01 completed Not Available Not Available Not Available metoclopram raulito 10 mg tablet TAKE 1 TABLET BY MOUTH THREE TIMES DAILY NEEDED FOR NAUSEA active Not Available Not Available No t Available amoxicillin 875 mg-potassiu m clavulanate 125 mg tablet TAKE 1 TABLET BY MOUTH EVERY 12 HOURS 09/01 completed Not Available Not Available Not Available Ventolin HFA 90 mcg/actuati on aerosol inhaler INHALE 2 PUFFS BY MOUTH EVERY 6 HOURS NEEDED 09/01 completed Not Available Not Available Not Available buspirone 15 mg tablet TAKE 1 TABLET BY MOUTH THREE TIMES DAILY active Not Available Not Available No t Available escitalopra m 5 mg tablet TAKE 1 TABLET BY MOUTH EVERY DAY 09/01 completed Not Available Not Available Not Available nitrofurant oin monohydrate /macrocryst als 100 mg capsule 09/01 completed Not Available Not Available Not Available omega-3 acid ethyl esters 1 gram capsule TAKE 2 CAPSULES BY MOUTH TWICE A DAY 09/01 completed Not Available Not Available Not Available Lyrica 50 mg capsule TAKE ONE CAPSULE AT BEDTIME active Not Available Not Available No t Available Euflexxa 10 mg/mL (mw 2.4-3.6 million) intra-artic ular syringe active Not Available Not Available Not Available levetiracet am 1,000 mg tablet 08/31 completed Not Available Not Available Not Available Flector 1.3 % transdermal 12 hour patch APPLY ONE PATCH FOR 12 HOURS THEN REMOVE FOR 12 HOURS (APPLYING ONE PATCH A DAY) 09/01 completed Not Available Not Available Not Available diclofenac 1 % topical gel APPLY 3 GRAMS TO AFFECTED AREA 4 TIMES A DAY 09/01 completed Not Available Not Available Not Available Nucynta 50 mg tablet active Not Available Not Available No t Available Suprep Bowel Prep Kit 17.5 gram-3.13 gram-1.6 gram oral solution active Not Available Not Available Not Available Xarelto 10 mg tablet 09/01 completed Not Available Not Available Not Available PCCA Custom Lipo-Max cream 09/01 completed Not Available Not Available Not Available Chantix Starting Month Box 0.5 mg (11)-1 mg (42) tablets in dose pack USE DIRECTED 09/01 completed Not Available Not Available Not Available Combivent Respimat 20 mcg-100 mcg/actuati on solution for inhalation INHALE 1 PUFF BY MOUTH EVERY 4 HOURS NEEDED FOR SHORTNESS OF BREATH OR WHEEZING 09/01 completed Not Available Not Available Not Available EpiPen 2-Pancho 0.3 mg/0.3 mL injection, auto-inject or 09/01 completed Not Available Not Available Not Available Osphena 60 mg tablet active Not Available Not Available No t Available Contrave 8 mg-90 mg tablet,exte nded release TAKE 1 TABLET BY MOUTH FOR 1 WEEK THEN TWICE DAILY 09/01 completed Not Available Not Available Not Available Flowflex COVID-19 Antigen Home Test kit USE PER PACKAGE DIRECTION S 08/31 completed Not Available Not Available Not Available Vitals Date Recorded Body height Provider Name an d Address Organization Details Last Updated DateTime 08/31/2022 162.56 cm Alysha Shaikh CNA [employer] [facility] [employer] 08/31/2022 10:06:21 Date Recorded Body mass index (BMI) Body weight Provider Name and Address Organization Details Last Updated DateTime 08/31/2022 46.3 kg/m2 594420.94 g Alysha Shaikh [facility]NA [employer] [facility] [employer] 08/31/2022 10:06:30 Date Recorded Body height Provider Name an d Address Organization Details Last Updated DateTime 05/23/2023 162.56 cm Tabitha Estes [facility] [employer] 05/23/2023 11:03:10 Date Recorded Body mass index (BMI) Body weight Provider Name and Address Organization Details Last Updated DateTime 05/23/2023 26.8 kg/m2 52626.41 g CHINA Dominguez [place] [facility] [place] 05/23/2023 11:03:25 Date Recorded Body temperature Provider Name a nd Address Organization Details Last Updated DateTime 05/23/2023 97.9 [degF] CHINA Dominguez [place] [facility] [place] 05/23/2023 11:18:22 Date Recorded Heart rate Provider Name an d Address Organization Details Last Updated DateTime 05/23/2023 84 /min CHNIA Dominguez [place] [facility] [place] 05/23/2023 11:18:52 Date Recorded Body height Provider Name an d Address Organization Details Last Updated DateTime 09/10/2023 162.56 cm CHINA Dominguez [place] [facility] [place] 09/10/2023 10:57:15 Date Recorded Body mass index (BMI) Body weight Provider Name and Address Organization Details Last Updated DateTime 09/10/2023 26.1 kg/m2 43940.04 g CHINA Dominguez [place] [facility] [place] 09/10/2023 10:57:21 Date Recorded Body temperature Provider Name a nd Address Organization Details Last Updated DateTime 09/10/2023 97.5 [degF] CHINA Dominguez [place] [facility] [place] 09/10/2023 11:00:44 Date Recorded Heart rate Provider Name an d Address Organization Details Last Updated DateTime 09/10/2023 78 /min CHINA Dominguez [place] [facility] [place] 09/10/2023 11:01:39 Date Recorded Pain severity - 0-10 verbal numeric rating [Score] - Reported Provider Name and Address Organization Details Last Updated DateTime 09/10/2023 6 Kuldeep Phillips LPN [place] [facility] [place] 09/10/2023 11:30:55 Date Recorded Body height Provider Name an d Address Organization Details Last Updated DateTime 10/29/2023 162.56 cm Juanita Cedeño [place] [facility] [place] [facility] [place] 10/29/2023 12:32:21 Date Recorded Body mass index (BMI) Body weight Provider Name and Address Organization Details Last Updated DateTime 10/29/2023 24 kg/m2 94430.93 g Juanita Cedeño MA [facility] [employer] [facility] 10/29/2023 12:33:08 Date Recorded Body temperature Provider Name a nd Address Organization Details Last Updated DateTime 10/29/2023 98.1 [degF] Juanita Cedeño MA [facility] [employer] [facility] 10/29/2023 12:38:25 Date Recorded Heart rate Provider Name an d Address Organization Details Last Updated DateTime 10/29/2023 80 /min Juanita [facility]edeño [facility] [employer] [facility] 10/29/2023 12:39:01 Date Recorded Oxygen saturation Oxygen saturation in Arterial blood by Pulse oximetry Provider Name and Address Organization Details Last Updated DateTime 10/29/2023 97 % 97 % Juanita Cedeño MA [facility] [place] [employer] [facility] 10/29/2023 12:39:05 Date Recorded Heart rate Provider Name an d Address Organization Details Last Updated DateTime 10/29/2023 80 /min Joel Madison MD [address], [id number], [facility] [employer] [facility] 10/29/2023 13:12:47 Date Recorded Respiratory rate Provider Name a nd Address Organization Details Last Updated DateTime 10/29/2023 15 /min Joel Madison MD [address], [id number], [facility] [employer] [facility] 10/29/2023 13:16:51 Date Recorded Body height Provider Name an d Address Organization Details Last Updated DateTime 01/14/2024 162.56 cm CHINA Dominguez [facility] I [employer] [facility] 01/14/2024 11:26:56 Date Recorded Body mass index (BMI) Body weight Provider Name and Address Organization Details Last Updated DateTime 01/14/2024 25.6 kg/m2 86431.26 g CHINA Dominguez [place] [employer] [facility] 01/14/2024 11:27:11 Date Recorded Body temperature Provider Name a nd Address Organization Details Last Updated DateTime 01/14/2024 97.6 [degF] CHINA Dominguez [place] [employer] [facility] [place] 01/14/2024 11:30:00 Date Recorded Heart rate Provider Name an d Address Organization Details Last Updated DateTime 01/14/2024 78 /min Tabitha EstesCHINA - JAN [facility] [employer] 01/14/2024 11:31:37 Date Recorded Systolic blood pressure Diastolic blood pressure Provider Name and Address Organization Details Last Updated DateTime 05/23/2023 110 mm[Hg] 64 mm[Hg] Tabitha EstesCHINA [place] [facility] [employer] 05/23/2023 11:18:26 Date Recorded Systolic blood pressure Diastolic blood pressure Provider Name and Address Organization Details Last Updated DateTime 09/10/2023 114 mm[Hg] 62 mm[Hg] Tabitha Estes CH[place] - [facility] [employer] 09/10/2023 11:01:36 Date Recorded Systolic blood pressure Diastolic blood pressure Provider Name and Address Organization Details Last Updated DateTime 10/29/2023 136 mm[Hg] 86 mm[Hg] Juanita Cedeño [place] [employer] 10/29/2023 12:40:52 Date Recorded Systolic blood pressure Diastolic blood pressure Provider Name and Address Organization Details Last Updated DateTime 01/14/2024 118 mm[Hg] 76 mm[Hg] Tabitha EstesCHINA - [employer] 01/14/2024 11:31:34 Social History Question Answer Notes LastModified by Organization Details LastModified Time Tobacco Smoking Status Current Every Day Smoker Not Available [facility] 04/19/2022 08:07:12 Do You Have An Advance Directive? Yes Information not available 05/23/2023 What Is Your Level Of Alcohol Consumption? Occasional Information not available 05/23/2023 How Many Years Have You Consumed Alcohol? 30 [email or web address] Information not available 09/10/2023 Are You Blind Or Do You Have Difficulty Seeing? No Information not available 05/23/2023 Is Blood Transfusion Acceptable In An Emergency? Yes [email or web address] Information not available 09/10/2023 What Is Your Level Of Caffeine Consumption? Occasional [email or web address] Information not available 09/10/2023 What Is Your Code Status? DNR [email or web address] Information not available 09/10/2023 In The 14 Days Before Symptom Onset, Have You Had Close Contact With A [facility] While That Case Was Ill? No Information not available 05/23/2023 In The 14 Days Before Symptom Onset, Have You Had Close Contact With A Person Who Is Under Investigation For COVID-19 While That Person Was Ill? No Information not available 05/23/2023 Are You Currently Employed? No Diabled [email or web address] Information not available 09/10/2023 Are You Deaf Or Do You Have Serious Difficulty Hearing? No Information not available 05/23/2023 What Type Of Diet Are You Following? REGULAR Information not available 05/23/2023 Which Illicit Or Recreational Drugs Have You Used? Marijuana Information not available 05/23/2023 What Is The Highest Grade Or Level Of School You Have Completed Or The Highest Degree You Have Received? [id number] Information not available 05/23/2023 Do You Have An Electrostatic Air Filter? Yes Information not available 10/29/2023 How Many Days Of Moderate To Strenuous Exercise, Like A Brisk Walk, Did You Do In The Last 7 Days? 0 [email or web address] Information not available 09/10/2023 Have There Been Any Changes To Your Family Or Social Situation? Yes MIL And Step Dtr. [email or web address] Information not available 09/10/2023 What Is The Fluoride Status Of Your Home? Unknown Information not available 05/23/2023 Are There Any Guns Present In Your Home? Yes Information not available 05/23/2023 Do You Have A Humidifier? Yes Information not available 10/29/2023 How Many Years Have You Used Illicit Or Recreational Drugs? 4 [email or web address] Information not available 09/10/2023 Do You Use Insect Repellent Routinely? No [email or web address] Information not available 09/10/2023 Where Do You Live? SingleLevelHouse Information not available 05/23/2023 Advance Directive- Providers Has Reviewed Directive And Consents To Follow Them (insert Provider Name With Any Objectives In Notes Field) Yes [email or web address] Information not available 09/10/2023 Presence Of Domestic Violence No Information not available 09/10/2023 Guns Present In The Home? Yes [email or web address] Information not available 09/10/2023 Are You Able To Care For Yourself? Yes Wity Assistance When Needed [email or web address] Information not available 09/10/2023 Are You Blind Or Do Yo Have Difficulty Seeing? No [email or web address] Information not available 09/10/2023 Are You Deaf Or Do You Have Serious Difficulty Hearing? No [email or web address] Information not available 09/10/2023 General Stress Level? High [email or web address] Information not available 09/10/2023 Live Alone Of With Others? With Others [email or web address] Information not available 09/10/2023 Do You Have A Medical Power Of Entry Level Paralegal? Yes Information not available 05/23/2023 Do You Have Moisture Problems In Your Home? No Information not available 10/29/2023 What Was The Date Of Your Most Recent Tobacco Screening? 01/14/2024 Information not available 01/14/2024 How Many Children Do You Have? 1 [email or web address] Information not available 09/10/2023 What Is Your Current Pack Years? 20-29packyears [email or web address] Information not available 09/10/2023 Have You Ever Been Counseled For Unhealthy Alcohol Use? No [email or web address] Information not available 09/10/2023 Do You Have Any Pets? Yes Dog Information not available 09/10/2023 What Is Your Relationship Status? Information not available 05/23/2023 Do You Use Your Seat Belt Or Car Seat Routinely? Yes Information not available 05/23/2023 Do You Have Smoke And Carbon Monoxide Detectors In Your Home? Yes Information not available 05/23/2023 At What Age Did You Start Smoking Tobacco? 16 Information not available 05/23/2023 Are You Passively Exposed To Smoke? No [email or web address] Information not available 09/10/2023 Are There Any Smokers In Your House? No Information not available 09/10/2023 How Much Tobacco Do You Smoke? 1 PPD Information not available 05/23/2023 What Types Of Sporting Activities Do You Participate In? None [email or web address] Information not available 09/10/2023 Do You Feel Stressed (tense, Restless, Nervous, Or Anxious, Or Unable To Sleep At Night)? [id number] Information not available 05/23/2023 Do You Use Any Illicit Or Recreational Drugs? Yes Information not available 05/23/2023 Do You Use Sunscreen Routinely? No [email or web address] Information not available 09/10/2023 Has Tobacco Cessation Counseling Been Provided? Yes [email or web address] Information not available 09/10/2023 On What Date Was Tobacco Cessation Counseling Provided? 09/10/2023 [email or web address] Information not available 09/10/2023 How Many Years Have You Smoked Tobacco? 25 [id number] Information not available 04/19/2022 Have You Recently Traveled Abroad? No Information not available 05/23/2023 Have You Used IV Drugs? No [email or web address] Information not available 09/10/2023 Do You Have Any Dietary Restrictions? No [email or web address] Information not available 09/10/2023 Do You Or Have You Ever Used Any Other Forms Of Tobacco Or Nicotine? No Information not available 05/23/2023 How Many Days In The Past Year Have You Consumed 4 Or More Drinks? 0 Information not available 09/10/2023 Sex: Unknown Functional Status Question Answer Note LastModified by Organizat ion Details LastModified Time Do you have difficulty walking or climbing stairs? Yes Uses cane [email or web address] Information not available 09/10/2023 Do you have transportation difficulties? No [email or web address] Information not available 09/10/2023 Are you able to walk? YESASSIST Colt [email or web address] Information not available 09/10/2023 Do you have difficulty doing errands alone? No Information not available 05/23/2023 Are you able to care for yourself? Yes Information n ot available 05/23/2023 Do you have difficulty dressing or bathing? Yes needs help at times Information not available 09/10/2023 What is your exercise level? None [email or web address] Information not available 09/10/2023 Mental Status Question Answer Note LastModified by Organization D etails LastModified Time Do you have difficulty concentrating, remembering or making decisions? Yes Information no t available 05/23/2023 Family History Relationship Description Onset Age of this Age Resolved Age Notes LastModified by Organization Details LastModified Time Father Heart disease [email or web address] Not available 2022 10:08:02 Father Malignant tumor of lung Not available 2023 11:08:29 Mother Dementia Not availabl e 05/23/2023 11:08:49 Sister Amyotrophic lateral sclerosis Not available 2023 11:08:57 Brother Dementia Not availab le 05/23/2023 11:09:09 Brother Posttraumati c stress disorder [email or web address] Not available 2023 13:05:24 Maternal Grandfather Malignant tumor of colon [email or web address] Not available 2023 13:04:41 Medical History Condition Response NERVE DISEASE N BLINDNESS N RHEUMATIC FEVER N KIDNEY STONES N BLADDER PROBLEMS N MRSA N OTHER # 1 N POLIO N LUNG DISEASE/DISORDER N HISTORY OF DRUG ABUSE N COPD N RADIATION / CHEMOTHERAPY N Other # 2 N BLOOD DISEASES N EAR OR HEARING PROBLEMS N MUMPS N SHINGLES N DEPRESSION (INCLUDING POST ) Y BOWEL PROBLEMS N FAILED BACK SYNDROME N STROKE/TIA Y ULCERS N BENIGN PROSTATIC HYPERPLASIA N MEASLES N HYPOTENSION N MYOCARDIAL INFARCTION N OBESITY N GERD/NAUSEA N ANEURYSM Y URINARY/BLADDER/KIDNEY PROBLEMS N CORONARY ARTERY DISEASE (CAD) N Do you have Advance directive? N ADDICTION CONCERNS N Impotence N ENDOMETRIOSIS N USE OF BLOOD THINNERS N SKIN PROBLEMS N GASTROINTESTINAL DISORDER N PERIPHERAL VASCULAR DISEASE N MUSCLE,JOINT OR BONE PROBLEMS N GASTROINTESTINAL BLEEDING N BLOOD CLOTS N ASTHMA N CATARACTS N Abdominal Pain N ERECTILE DYSFUNCTION N ARTERIAL INSUFFICIENCY N VARICOSITIES N GI PROBLEMS N Low Testosterone N INFERTILITY N AIDS/HIV N CHEMOTHERAPY / RADIATION N LIVER DISEASE N MALE HYPOGONADISM N HYPERTENSION Y Deficiency N TOURETTE'S N ANXIETY DISORDER Y BLOOD TRANSFUSION N ANEMIA/BLOOD DISORDER N CHRONIC EAR INFECTIONS N TUBERCULOSIS N GLAUCOMA N FOOT PROBLEM N DIVERTICULITIS N SLEEP APNEA N CHICKENPOX N BACK INJECTIONS N ALLERGIES/HAYFEVER N INFECTIOUS DISEASE N PROSTATE N HEART ARRHYTHMIA N INSOMNIA N ESRD N HIGH CHOLESTEROL / HYPERLIPIDEMIA Y HYPERTHYROIDISM N EYE PROBLEMS N PVD N EDEMA N CHRONIC PAIN SYNDROME N HYPOTHYROIDISM N CONSTIPATION N CAROTID BLOCKAGE N BACK / NECK PROBLEMS N ATHEROSCLEROSIS N BREAST PROBLEMS N DIALYSIS N POLYCYSTIC OVARIES N ECZEMA N OSTEOPOROSIS N ARTHRITIS Y APPENDICITIS N DIABETES, TYPE N BAD TEETH N VON WILLIBRAND'S DISEASE N ENT N HEARTBURN / REFLUX N GI N AUTISM SPECTRUM DISORDER (ASD) N POST LAMINECTOMY SYNDROME N HEPATITIS / LIVER DISEASE N GOUT N SLEEP DISORDER N ALZHEIMER'S DISEASE N Brain Problems N HERPES N DEMENTIA N SEIZURES/EPILEPSY N HEADACHES/MIGRAINES N VASCULAR DISEASE N PACEMAKER N DIZZINESS N KIDNEY DISEASE N HEART DISEASE/HEART PROBLEMS N MULTIPLE SCLEROSIS N NEUROPSYCHOLOGICAL N CARDIAC ARRHYTHMIA N CANCER: SPECIFY N Gall Stones N ATRIAL FIBRILLATION N PULMONARY EMBOLISM N AUTOIMMUNE DISEASE N Gynecological HistoryNo gynecological history recorded. Obstetrics History GPAL:G 0 P 0 0 0 0 Immunizations Vaccine Type Date Status Note Provider Nam e and Address Organization Details Recorded Time Influenza, split virus, trivalent, PF 4 completed Kuldeep Phillips LPN null, [facility] 09/10/2023 08:21:04 pneumococcal polysaccharide PPV23 0 completed Kuldeep Phillips LPN null, [facility] 09/10/2023 08:21:04 influenza, unspecified formulation 0 completed Tabitha Estes RMAngel null, [facility] 05/23/2023 12:43:27 COVID-19, mRNA, LNP-S, PF, 30 mcg/0.3 mL dose 1 completed Kuldeep Phillips LPN null, [facility] 09/10/2023 08:21:04 COVID-19, mRNA, LNP-S, PF, 30 mcg/0.3 mL dose 1 completed Kuldeep Phillips LPN null, [facility] 09/10/2023 08:21:04 Influenza, recombinant, quadrivalent, PF 2 completed Kuldeep Phillips LPN null, [facility] 09/10/2023 08:21:04 Influenza, split virus, quadrivalent, PF 4 completed Kuldeep Phillips LPN null, [facility] 09/10/2023 08:21:04 Pneumococcal conjugate PCV 13 4 completed Estela Cook MD [address] [place] [address], [address], [address], [facility] 05/23/2023 14:13:40 Influenza, high-dose, trivalent, PF 4 completed Estela Cook MD [address], [place], [address], [place] [facility] 01/14/2024 18:15:24 Past Encounters Encounter ID Performer Location Encounter Start Date Encounter Closed Date Diagnosis/Indication Diagnosis SNOMED-CT Code Diagnosis ICD10 Code Diagnosis Note [id number] [facility] [address] [place] [address] 11/30/2020 00:00:00 11/30/2020 14:51:27 [id number] [facility] [address] [place] [address] 08/11/2021 00:00:00 08/11/2021 11:36:57 [id number] [facility] [address] [place] [address] 09/01/2021 00:00:00 09/01/2021 11:31:46 [id number] [facility] [address] [place] [address] 03/02/2022 00:00:00 03/02/2022 11:48:48 [id number] Hugo Riddle MD [facility] [address] [place] [address] 08/31/2022 09:46:39 08/31/2022 11:12:27 Pain in left sacroiliac joint 5414981989 [id number] M53.3 Pain of le ft hip joint 5017249902 19804 M25.552 Trochanter ic bursitis of left hip 9874328554 46286 M70.62 Spinal adonay nosis of lumbar region 29184276 M48.425 [id number] MD JOHN [facility] Mark rodriguez [address] [facility] [place] [address] 05/23/2023 10:32:01 05/23/2023 12:46:46 Screening - NAD 810634117 Z13.9 C-scope: Get this done if not done Mammogram: Get thisDEXA: Get thisPAP: Not doing d/t ROSANNA and Davy O Get yearly flu shotGet Tdap if not doneUTD PCV #13 05/23/2023 Get shingrix vaccineCan do RSV vaccineGet COVID 19 vaccine and its boosters RTC in 3 months, do labs, ER if worse, she and her verbalized her understand ing of the above Hyperlipidemia 12955329 E78.5 On atorvastat in 40mg dailyGet labs Essential hypertension 94811299 I10 On lisinopril 10mg bidGet labs Urinary incontinence 165 615146 R32 On oxybutynin ER 5mg dailyWill get a referral to urology Moderate r ecurrent major depression 32626274 F33.1 On alprazolam 1mg tid as neededOn buspirone 10mg dailyOn hydroxyzin e 25mg tid as needed, renewed 05/23/2023 , advised the next refill has to be from psychiatry On venlafaxin e ER 150mg bidNot suicidal or homicidalA greeable to see psychiatry Chronic pain 88696771 G8 9.29 On meloxicam 7.5mg daily, advised to take ONLY as neededOn cyclobenza blaine 10mg daily as needed, renewed 05/23/2023 On tizanadine 2mg every 4 hours as neededOn tramadol 50mg tidOn zofranAdvi sed that she will need to see pain management and get her meds sent by them, advised that I am unable to fill any opiates Smoker 51993627 F17.200 Advised to quit!Get a referral to pulmonaryG et LDCT Transient cerebral ischemia 124343608 G45.9 S/p aneurysmS/ p surgeryShe has noted some gait imbalance, uses a walker, refer to neurology Vitamin D deficiency 347 02328 E55.9 Serum fatuma min B12 below reference range 419781802 R79.89 Administra tion of pneumococcal vaccine 00896767 Z23 Screening for malignant neoplasm of colon 519685400 Z12.11 Gastroesop hageal reflux disease without esophagitis 990637923 K21.9 On pantoprazo le 40mg bidNeeds to get EGD [id number] Estela hancock MD [facility] Mark lljennifer [address] [place] [address] 09/10/2023 10:50:00 09/10/2023 12:04:40 Screening - NAD 042005753 Z13.9 C-scope: Get this done if not done Mammogram: Get thisDEXA: Get thisPAP: Not doing d/t ROSANNA and Davy O Get yearly flu shotGet Tdap if not doneUTD PCV #13 05/23/2023 Get shingrix vaccineCan do RSV vaccineGet COVID 19 vaccine and its boosters RTC in 3 months, do labs, ER if worse, she and her verbalized her understand ing of the above Hyperlipidemia 16755723 E78.5 On atorvastat in 40mg dailyGet labs Essential hypertension 39264002 I10 On lisinopril 10mg bid, renewed 09/10/2023 Get labsLDCT 05/28/2023 Needs to keep apt with cardiology ! referred again 09/10/2023 Urinary incontinence 165 795352 R32 On oxybutynin ER 5mg dailyWill get a referral to urology Moderate r ecurrent major depression 34366499 F33.1 On alprazolam 1mg tid as neededOn buspirone 10mg dailyOn hydroxyzin e 25mg tid as needed, renewed by Dr Mendez pain management On venlafaxin e ER 150mg bidNot suicidal or homicidalS ees Anayeli Luis [employer] psychiatry Chronic pain 94547183 G8 9.29 On meloxicam 7.5mg daily, advised to take ONLY as neededOn cyclobenza blaine 10mg daily as neededOn tizanadine 2mg every 4 hours as neededOn gabapentin 600mg tidOn tramadol 50mg tidOn zofranNow sees Dr Galicia s also to get her nerve simulator removed as per her history 09/10/2023 , states that she does not need any cardiac clearance as [facility] work up, advised her that she still needs to see cardiology and referral was again provided to her today 09/10/2023 Smoker 96859305 F17.200 Advised to quit!Get a referral to pulmonaryL DCT 05/28/2023 Transient cerebral ischemia 290058280 G45.9 S/p aneurysmS/ p surgeryShe has noted some gait imbalance, uses a walker, refer to neurology Vitamin D deficiency 347 16099 E55.9 Serum fatuma min B12 below reference range 390594207 R79.89 Screening for malignant neoplasm of colon 230492304 Z12.11 Gastroesop hageal reflux disease without esophagitis 027297276 K21.9 On pantoprazo le 40mg bidNeeds to get EGD Adult heal th examination 007135081 Z00.00 Screening for disorder 486255425 Z13.9 Screening mammography 24 239506 Z12.31 Screening for osteoporosis 587777591 Z13.820 Pulmonary emphysema 8743 3001 J43.9 LDCT 05/28/2023 Get a referral to Dr Madison Dementia 55940544 F03.90 MWV 09/10/2023 , dementia screening scored 5/8, will refer to neurology Pruritic rash 81532171 L 28.2 Faint hyperemic, slightly excoriated rash noted on the R inner upper thigh, will get on nystatin cream as needed [id number] Joel Madison MD [facility] [address] [place] [address] 10/29/2023 12:24:46 10/30/2023 15:30:48 Dyspnea on exertion 87162104 R06.09 R05.9 T78.40XA D89.9 Smoker 19526136 F17.218 F17.219 Z87.095 [id number] Estela hancock MD [facility] [address] [place] [address] 01/14/2024 11:11:28 01/14/2024 12:49:51 Screening - NAD 682858147 Z13.9 C-scope: Get this done if not done Mammogram: Get thisDEXA: Get thisPAP: Not doing d/t ROSANNA and Davy O Get yearly flu shotGet Tdap if not doneUTD PCV #13 05/23/2023 Get shingrix vaccineCan do RSV vaccineGet COVID 19 vaccine and its boosters RTC in 3 months, do labs, ER if worse, she and her verbalized her understand ing of the above Hyperlipidemia 49333785 E78.5 On atorvastat in 40mg dailyGet labs Essential hypertension 67877431 I10 On lisinopril 10mg bid, renewed 09/10/2023 Get labsLDCT 05/28/2023 Needs to keep apt with cardiology ! referred again 09/10/2023 Urinary incontinence 165 075065 R32 On oxybutynin ER 5mg dailyWill get a referral to urology Moderate r ecurrent major depression 68264650 F33.1 On alprazolam 1mg tid as neededOn buspirone 10mg dailyOn hydroxyzin e 25mg tid as needed, renewed by Dr Mendez pain management On venlafaxin e ER 150mg bidNot suicidal or homicidalS ees Anayeli Luis [employer] psychiatry Chronic pain 02967573 G8 9.29 On meloxicam 7.5mg daily, advised to take ONLY as neededOn cyclobenza blaine 10mg daily as neededOn tizanadine 2mg every 4 hours as neededOn gabapentin 600mg tidOn tramadol 50mg tidOn zofranNow sees Dr Galicia s also to get her nerve simulator removed as per her history 09/10/2023 , states that she does not need any cardiac clearance as [place] [facility] [place] [facility] done her cardiac work up, advised her that she still needs to see cardiology and referral was again provided to her today 09/10/2023 Smoker 75386943 F17.200 Advised to quit!Get a referral to pulmonaryL DCT 05/28/2023 Transient cerebral ischemia 822535199 G45.9 S/p aneurysmS/ p surgeryShe has noted some gait imbalance, uses a walker, refer to neurology Vitamin D deficiency 347 57938 E55.9 Serum fatuma min B12 below reference range 897818784 R79.89 Screening for malignant neoplasm of colon 130055175 Z12.11 Gastroesop hageal reflux disease without esophagitis 100667034 K21.9 On pantoprazo le 40mg bidNeeds to get EGD Screening mammography 24 969302 Z12.31 Screening for osteoporosis 299171031 Z13.820 Pulmonary emphysema 8743 3001 J43.9 LDCT 05/28/2023 Dr Madison 10/29/2023 , ordered labs and PFT Dementia 26604520 F03.90 MWV 09/10/2023 , dementia screening scored 5/8, will refer to neurology Leukocytosis 708681990 D 72.829 Repeat the labs Administra tion of influenza vaccine 46912500 Z23 Health Concerns Section Related Observation LastModified by Organization Detai ls LastModified Time None Recorded Concern Status LastModified by Organization Details LastModified Time None Recorded Advance Directives Directive Y: Payers Encounter Date Sequence Insurance Name Policy Number Policy Ayers Covered Member ID Ayers Member ID Guarantor Name 08/31/2022 1 [place] Avril Tee Martin [id number] Avril L [place] 08/31/2022 2 [employer] [place] [place] (MEDICARE SUPPLEMENT) Avril L [place] [id number] Avril L Martin 05/23/2023 1 [place] Avril L Martin [id number] Avril L [place] 05/23/2023 2 [employer] [place] (MEDICARE SUPPLEMENT) Avril L Martin [id number] Avril L Martin 09/10/2023 1 [place] Avril L [place] [id number] Avril L [place] 09/10/2023 2 [employer] [place] (MEDICARE SUPPLEMENT) Avril L [place] [id number] Avril L Martin 10/29/2023 1 [place] Avril L Martin [id number] Avril L Martin 10/29/2023 2 [employer] [place] (MEDICARE SUPPLEMENT) Avril L Martin [id number] Avril L [place] 01/14/2024 1 [place] Avril L [place] [id number] Avril L Martin 01/14/2024 2 [employer] [place] (MEDICARE SUPPLEMENT) Varil L Martin [id number] Avril L Martin Notes Date Note Type Note Provider Name and Address Organization Details Recorded Time 08/31/2022 text/html Patient returns hip and back pain. She is tender over the sacroiliac region has pain to palpation manipulation. Neurologically she is intact pain persist despite adequate conservative treatment she continues to be fairly symptomatic. On exam she has got positive Matthew's test tenderness over the SI joint pain to palpation manipulation. This is on her left hip. Hugo Riddle MD [address], [place], [address], [facility] [employer] [facility] [employer] [facility] 08/31/2022 11:52:15 05/23/2023 text/html OV 05/23/2023:He re to establish care Present Hx:DepressionHLDHTNG ERDChronic painSmokerS/p TIA s/p surgery Here to discuss above, to get labs, also wants refill on the hydroxyzine and flexerill Estela Cook MD [address], [place], [address], [employer] [facility] [employer] [facility] 05/23/2023 14:16:51 09/10/2023 text/html OV 05/23/2023:He re to establish care Present Hx:DepressionHLDHTEULALIA ERDChronic painSmokerS/p TIA s/p surgery Here to discuss above, to get labs, also wants refill on the hydroxyzine and flexerill OV 09/10/2023: Here for her f/u apt, she states that she is to get the now removed, she is here with her , she is also to get a MWV Estela Cook MD [address], [place], [address], [facility] [employer] [facility] 09/10/2023 14:22:29 10/29/2023 text/html Primary care/Referring provider: Estela Cook MD Patient is here to go over shortness of breath evaluation/managemen t. Initial development of shortness of breath: 2020 Duration of shortness of breath: 3 years Condition of shortness of breath: stable Timing of shortness of breath: none Frequency: once a week Limits activities: yes Aggravating factors: walking, carrying 10-lb groceries Alleviating factors: rest Modified [employer] (mMRC) Dyspnea Scale - Grade 2 Grade 0 ? I only get breathless with strenuous exercise? . Grade 1 ? I get short of breath when hurrying on the level or walking up a slight hill? . Grade 2 ? I walk slower than people of the same age on the level because of breathlessness or have to stop for breath when walking at my own pace on the level? . Grade 3 ? I stop for breath after walking about 100 yards or after a few minutes on the level? . Grade 4 ? I am too breathless to leave the house? or ? I am breathless when dressing? . Treatment history:None Other symptoms: Drooling: no Dysarthria: no Neck pain: no Odynophagia: no Dysphagia: no Weak mastication: no Facial weakness: no Nasal speech: no Protruding tongue: no Productive cough: no Wheezing: no Chest tightness: yes Orthopnea: no Frequent throat clearing or swallowing: no Palpitations: no Heartburn: no Edema: yes Environmental exposures: Nicotine smoke: 1 ppd 1983-present (quit 8 years in between) = 32 pack years [place]: no Dye: no Dust mites: yes Mold: no Damp basement: no Wood burning stove: no Animal dander: dog, cockatiel 3026-[address] Cockroaches: no Pollen: yes Arsenic: no Asbestos: no Beryllium: no Cadmium: no Chromium: no [place] smoke: no Diesel fumes: no Nickel: no Silica: no Soot: no EPWORTH SLEEPINESS SCALE (ESS) CHANCE OF DOZING SCORE 0 = would never doze 1 = slight chance of dozing 2 = moderate chance of dozing 3 = high chance of dozing SITUATION AND CHANCE OF DOZING Sitting and reading - 1 Watching television - 1 Sitting inactive in a public place (e.g. a theater or meeting) - 0 As a passenger in a car for an hour without a break - 1 Lying down to rest in the afternoon when circumstances permit - 1 Sitting and talking to someone - 0 Sitting quietly after lunch without alcohol - 0 In a car, while stopped for a few minutes in the traffic - 0 TOTAL SCORE 4 Subjectively, patient has a slight chance of dozing. Joel aMdison MD [address] [place] [address], [facility] [address], [place], [address], [place] [facility] [employer] [employer] [facility] 10/29/2023 13:23:50 01/14/2024 text/html OV 05/23/2023:He re to establish care Present Hx:DepressionHLDHTNG ERDChronic painSmokerS/p TIA s/p surgery Here to discuss above, to get labs, also wants refill on the hydroxyzine and flexerill OV 09/10/2023: Here for her f/u apt, she states that she is to get the now removed, she is here with her , she is also to get a MWV OV 01/14/2024: Here for her f/u apt, she is doing well today Estela Cook MD [address] [place] [address], [facility] [address], [place], [address], [place] [facility] 01/14/2024 18:16:07 OBGyn Episode No OBEpisode recorded.
[2024-03-21 12:15] LABS: Strep Group A RT-PCR NOT DETECTED (Negative)
[2024-03-21 12:26] LABS: Influenza A QL RT-PCR Negative (Negative); Influenza B QL RT-PCR Negative (Negative); SARS-CoV-2 RNA PCR Positive (Negative)
== END 2024-03-21 11:21 | disposition home or self-care (01) ==
PROVIDERS: PCP Family Medicine; Visit Provider Internal Medicine
DX: U07.1 COVID-19 (principal)
CPT/HCPCS: 87636; 87651

== ENCOUNTER 2024-04-28 10:43 | Outpatient (CLI) | payer MEDICARE, OTHER, SELFPAY ==
[2024-04-28 11:38] LABS: Basophils Absolute Auto 0.1 K/mm3 (0.0-0.1); Eosinophils Absolute Auto 0.2 K/mm3 (0-0.3); Hematocrit 42.4 % (37.0-47.0); Immature Granulocyte Absolute 0.02 K/mm3 (0.00-0.031); Immature Granulocyte Percent A 0.2 % (0-0.5); Lymphocytes Absolute Auto 2.59 K/mm3 (0.9-3.2); Mean Corpuscular Hemoglobin 30.9 pg (26-34); Mean Corpuscular Volume 93.6 fl (80-100); Mean Platelet Volume 10.5 fl (7.4-10.4); Monocytes Absolute Auto 0.7 K/mm3 (0.1-0.6); Neutrophils Absolute Auto 5.3 K/mm3 (1.3-6.7); Neutrophils Percent Auto 59.8 % (45.5-73.1); Platelet Count Result 287 k/mm3 (150-375); Red Blood Count 4.53 M/mm3 (4.2-5.4); Red Cell Distribution Width 13.2 % (11.5-14.5); White Blood Count 8.9 K/mm3 (4.5-10.0)
[2024-04-28 11:57] LABS: Alanine Aminotransferase 18 U/L (6-35); Albumin Level 4.6 g/dL (3.5-5.1); Alkaline Phosphatase 62 U/L (38-126); Anion Gap 6 mmol/L (4-12); Aspartate Amino Transferase 22 U/L (14-36); Bilirubin,Total 0.4 mg/dL (0.2-1.3); Blood Urea Nitrogen 11 mg/dL (7-17); Calcium 9.8 mg/dL (8.4-10.2); Carbon Dioxide 30 mmol/L (22-30); Chloride 98 mmol/L (98-107); Cholesterol 130 mg/dL (0-200); Estimated Glomerular Filt Rate > 60; Glucose 95 mg/dL (65-110); HDL Direct 66 mg/dL; Potassium 4.6 mmol/L (3.4-5.0); Sodium 134 mmol/L (137-145); Triglycerides 118 mg/dL (<150)
[2024-04-28 12:08] LABS: LDL Cholesterol Direct 32 mg/dL
[2024-04-28 12:25] LABS: Free T4 Free Thyroxine 0.99 ng/dL (0.78-2.19)
--- OUTSIDE RECORDS SUMMARY | 2024-04-28 12:42 | XMS_ITS | Encounter Summary ---
Author Organization [facility] Address [facility] [place] [address] Care Team Providers Care Drafting Detailer Name Role Phone Dontrell Brooks DO Primary Care Provider [phone] Hugo Riddle MD Unavailable [phone] Encounter Details Date Type Department Care Team (Latest Contact Info) Description 12/25/2017 Abstract [facility] Nicho Arana MD Social History Tobacco Use Types Packs/Day Years Used Date Smoking Tobacco: Every Day Cigarettes Smokeless Tobacco: Never Alcohol Use Standard Drinks/Week Comments Yes 0 (1 standard drink = 0.6 oz pur e alcohol) Comments No Sex and Gender Information Value Date Recorded Sex Assigned at Not on file Legal Sex Female 7:03 PM CDT Gender Identity Not on file Sexual Orientation Not on file documented as of this encounter Plan of Treatment Not on file documented as of this encounter Visit Diagnoses Not on filedocumented in this encounter Additional Health Concerns Infection Onset Date Last Indicated Resolved Time COVID-19 Rule Out 03/13/2020 03/13/2020 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
--- OUTSIDE RECORDS SUMMARY | 2024-04-28 12:42 | XMS_ITS ---
Author Organization [facility] Address [address] [place] [address] [address] [place] [address] Care Team Providers Care Larry Car Operator Name Role Phone Awais Davenport Unavailable [phone] REASON FOR VISIT fu Medications Medication SIG (Take, Route, Fr equency, Duration) Notes Start Date End Date Status traMADol HCl 50 MG 1 tablet as needed O rally every 6 hours for 16 days 09/20/2023 10/06/2023 Active Encounters Encounter Location Date Provider Diagnosis [facility] [address] [place] [address] [address] [place] [address] 10/03/2023 Awais Davenport Assessments Encounter Date Diagnosis (ICD Code) Assessment Notes Treatment Notes Treatment Clinical Notes Section Notes 10/03/2023 patient is here for surgical wound check, patient had spinal cord stimulator IPG repositioning/ replacement recently surgical incision is healing nicely, no swelling no redness no discharge, patient feels the stimulator works well and cover the pain on the foot , patient is happy about her current pain control,patient only has some muscle soreness on the right hip area around the new IPG area but she feels it is getting better. follow-up as needed Plan Of Treatment Next Appt Details Follow Up: no martita gayle Reas on: Progress Notes * Avril BAKER LDOB:[birth year] (63 yo F)Acc No.[id number]:10/03/2023 Progress Notes Patient: Avril AGUILERA Provider: Tripp Davenport MD :1960 A ge:63 Y S ex:Female Date:10/03/2023 Address:[address], [facility] Subjective: * Chief Complaints: * 1 . Fu. * Medical History: * Medications: T derick traMADol HCl 50 MG Tablet 1 tablet as needed Orally every 6 hours , stop date 10/06/2023 Objective: * Vitals: Assessment: * Assessment: patient is here for surgical wound check, patient had spinal cord stimulator IPG repositioning/ replacement recently surgical incision is healing nicely, no swelling no redness no discharge, patient feels the stimulator works well and cover the pain on the foot , patient is happy about her current pain control,patient only has some muscle soreness on the right hip area around the new IPG area but she feels it is getting better. follow-up as needed Plan: * Treatment: * Follow Up: martita amado * Billing Information: * Visit Code: * Procedure Codes: * Sign off status: Completed true * Provider: Tripp Davenport MD Date: 0 10/03/2023 Generated for Shawanda johnson/Gold/Mariamitting on: 0 04/28/2024 12:42 PM CDT
--- OUTSIDE RECORDS SUMMARY | 2024-04-28 12:43 | XMS_ITS | Referral Summary ---
Author Organization [facility] Address [address] [place] [address] Care Team Providers Care Liability Claims Representative Name Role Phone Dontrell Brooks Clemente Primary Care Provider Allergies Active Allergy Reactions Criticality Noted Date Comments Acetaminophen Azithromycin Codeine Diclofenac Fenofibrate Gabapentin House Dust Hydrocodone Hydrocodone-Acetaminophen Itching Reaction: Itching, Meperidine Morphine Itching Reaction: Itching, , Nsaids (Non-Steroidal Anti-Inflammatory Drug) Opioids - Morphine Analogues Oxcarbazepine [place] Medications ascorbic acid (vitamin C) 1,000 mg tablet take 1 by Oral route once 0 0 6 Active Additional Information Patient not taking.Reported on 12/22/2020 EPINEPHrine (EPIPEN) 0.3 mg/0.3 mL injection syringe inject 0.3 milliliter by intramuscular route once as needed for anaphylaxis 0 0 6 Active aspirin (ASPIR-81) 81 mg tablet take 1 Tablet by oral route every day 0 0 6 Active Additional Information Patient not taking.Reported on 12/22/2020 venlafaxine 150 mg tablet extended release 24hr 24 hr tablet take 1 tablet by oral route every day in the morning at the same time each day with food 0 0 6 Active cimetidine (TAGAMET) 200 mg tablet take 1 tablet by oral route 2 times every day 30 minutes before meals 0 0 6 Active Additional Information Patient not taking.Reported on 12/22/2020 [id number] pa-fish oil (FISH OIL) 720-1,200 mg capsule take as directed 0 0 6 Active Additional Information Patient not taking.Reported on 12/22/2020 hydrOXYzine (ATARAX) 25 mg tablet take 1 tablet by oral route 3 times every day as needed 0 0 6 Active omeprazole (PriLOSEC) 40 mg capsule take 1 capsule by oral route every day before a meal 0 0 6 Active cyanocobalamin (vitamin B-12) 500 mcg tablet take 3 by oral route once 0 0 6 Active tiZANidine (ZANAFLEX) 2 mg tablet Take 2 mg by mouth every 6 (six) hours as needed for muscle spasms Active lisinopriL (PRINIVIL,ZEST RIL) 10 mg tablet Take 10 mg by mouth 2 (two) times a day Active metoprolol XL (TOPROL-XL) 25 mg extended release tablet Take 25 mg by mouth daily Active amoxicillin-cl avulanate (AUGMENTIN) 875-125 mg per tablet amoxicillin 875 mg-potassium clavulanate 125 mg tablet TAKE 1 TABLET BY MOUTH EVERY 12 HOURS Active cyclobenzaprin e (FLEXERIL) 10 mg tablet Take 1 tablet (10 mg total) by mouth 3 (three) times a day as needed for muscle spasms 60 tablet 2 4 Active metoclopramide (REGLAN) 10 mg tablet Take 1 tablet (10 mg total) by mouth 3 (three) times a day as needed (nausea) 90 tablet 2 4 Active oxyBUTYnin XL (DITROPAN-XL) 5 mg 24 hr tablet Take 1 tablet (5 mg total) by mouth daily 90 tablet 3 4 Active traMADoL (ULTRAM) 50 mg tablet Take 1 tablet (50 mg total) by mouth 3 (three) times a day 85 tablet 4 Active ALPRAZolam (XANAX) 1 mg tablet Take 1 tablet (1 mg total) by mouth 3 (three) times a day as needed for anxiety 90 tablet 4 Active Active Problems Problem Noted Date Diagnosed Date 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): RSD (reflex sympathetic dystrophy) Abnormal electrocardiography 11/26/2015 Overview (06/01/2016): Abnormal EKG Palpitations 11/26/2015 Overview (06/01/2016): Heart palpitations Fibromyalgia 11/26/2015 Overview (06/01/2016): Fibromyalgia Preoperative state 11/26/2015 Overview (06/01/2016): Preoperative cardiovascular examination Tobacco use 11/26/2015 Overview (06/01/2016): Tobacco abuse Knee pain 11/26/2015 Overview (06/01/2016): Chronic pain of right knee Pain of foot 10/02/2012 Social History Tobacco Use Types Packs/Day Years Used Date Smoking Tobacco: Smoker, Current Status Unknown Alcohol Use Standard Drinks/Week Comments Yes 0 (1 standard drink = 0.6 oz pur e alcohol) Personal Safety Answer Date Recorded Getting School Help Needed Not on file 03/09 Comments Unknown Sex and Gender Information Value Date Recorded Sex Assigned at Not on file Legal Sex Female 4:15 AM [employer] Gender Identity Not on file Sexual Orientation Not on file Last Filed Vital Signs Vital Sign Reading Time Taken Comments Blood Pressure 110/70 11/26/2015 2:42 PM CDT Pulse 94 11/26/2015 2:42 PM CDT Temperature 36.5 C (97.7 F) 03/02/2021 10:22 AM [employer]MI[employer]OTE[employer] Respiratory Rate - - Oxygen Saturation - - Inhaled Oxygen Concentration - - Weight 83 kg (183 lb) 11/26/2015 2:42 PM CDT Height 160 cm (5' 3 ) 11/26/2015 2:42 PM CDT Body Mass Index 32.42 11/26/2015 2:42 PM CDT Plan of Treatment Not on file Insurance MEDICARE [employer] [facility] [facility] [employer] MEDICARE [employer] [facility] Care Teams Liability Claims Representative Relationship Specialty Start Date End Date Dontrell Brooks DO PCP - General 11/26/15
--- OUTSIDE RECORDS SUMMARY | 2024-04-28 12:43 | XMS_ITS | Patient Health Summary ---
Author Organization [facility] Address [address] [place] [address] Care Team Providers Care Medical Laboratory Manager Name Role Phone [place] Dontrell Wray Primary Care Provider [phone] Note from [facility],non-owned Affiliates and Associated Physician Practices is amultiple site organization consisting of ambulatory clinics and hospital sitesin [place], [place], [place] and [place]. This disclosure is being madepursuant to the Care Everywhere program and may not contain all information available regarding this patient. Last updated 17.[facility] Allergies * Diclofenac Epolamine(Unknown) -Medium Criticality * Dust Mite Extract(Itching) -Low Criticality * Fenofibrate(Unknown) -Medium Criticality * Fentanyl(Swelling) -Medium Criticality * Gabapentin(Nausea and/or Vomiting) -Medium Criticality * Gramineae Pollens(Urticaria,Itching) -Medium Criticality * Green Estrada(Urticaria) -Medium Criticality * Hydrocodone(Anaphylaxis) -High Criticality * Hydrocodone-Acetaminophen(Unknown) -Medium Criticality * Kiwi Extract(Urticaria) -Medium Criticality * Magnesium Sulfate(Unknown) -Medium Criticality * Morphine(Anaphylaxis) -High Criticality * Codeine(Urticaria) -Medium Criticality * Oxcarbazepine(Unknown) -Medium Criticality * Oxycodone(Other) -Medium Criticality * Seasonal(Itching) -Low Criticality * Corticosteroids(Rash,Anaphylaxis) -High Criticality * [place](Other) -Medium Criticality * Acetaminophen(Unknown) -Medium Criticality,Inactive * Azithromycin(Unknown),Inactive * Meperidine(Unknown) -Medium Criticality,Inactive * Orphenadrine(Unknown),Inactive Medications * Be aware that medications may not be up to date on this document. Alwaysverify current medications with the patient. * venlafaxine XR 24hr (EFFEXOR XR) 150 MG capsule(Started 06/19/2017) Take 150 mg by mouth daily with breakfast * hydrOXYzine hcl (ATARAX) 25 MG tablet Take 25 mg by mouth 3 times daily as needed * acetaminophen (TYLENOL) 325 MG tablet(Started 05/31/2020) Take 2 (two) tablets by mouth every 6 hours as needed for Headache (alternate with ibuprofen) Maximum allowable Acetaminophen amount = 4 Grams (4000 mg) / 24 hours. * calcium carbonate (TUMS) 500 MG chew tablet(Started 05/31/2020) Take 1 (one) tablet by mouth every 4 hours as needed * clonazePAM (KLONOPIN) 0.5 MG tablet(Started 05/31/2020) Take 1 (one) tablet by mouth every 8 hours * busPIRone (BUSPAR) 10 MG tablet(Started 06/21/2020) Take 10 mg by mouth 2 times daily * cimetidine (TAGAMET) 400 MG tablet(Started 07/05/2020) TAKE 1 TABLET BY MOUTH TWICE A DAY * dicyclomine (BENTYL) 10 MG capsule(Started 07/07/2020) Take 1 (one) capsule by mouth once daily * lisinopril (PRINIVIL; ZESTRIL) 10 MG tablet(Started 06/21/2020) Take 10 mg by mouth 2 times daily * pantoprazole EC (PROTONIX) 40 MG tablet(Started 07/10/2020) * Probiotic Product (PROBIOTIC-10 PO) * traMADol (ULTRAM) 50 MG tablet Take 50 mg by mouth every 6 hours as needed for Pain * ALPRAZolam (XANAX) 1 MG tablet(Started 08/28/2020) TAKE 1 TABLET BY MOUTH THREE TIMES A DAY NEEDED * meloxicam (MOBIC) 7.5 MG tablet(Started 03/28/2021) Take 7.5 mg by mouth 2 times daily * perampanel (Fycompa) 8 MG tablet(Started 01/13/2022) Take 1 (one) tablet by mouth once daily * ondansetron, disintegrating, (Zofran ODT) 8 MG tablet(Started 01/13/2022) Take 1 (one) tablet by mouth every 8 hours as needed * metoprolol succinate XL 24hr (Toprol XL) 25 MG tablet(Started 01/13/2022) Take 1 (one) tablet by mouth once daily * polyethylene glycol 3350 (MiraLax) 17 g packet(Started 01/13/2022) Take 17 (seventeen) g by mouth once daily as needed for Constipation * metoclopramide (Reglan) 10 MG tablet(Started 01/13/2022) * tiZANidine (Zanaflex) 2 MG tablet(Started 01/13/2022) Take 1 (one) tablet by mouth * sucralfate (Carafate) 1 GM/10ML suspension(Started 01/13/2022) Take 10 mL by mouth 4 times daily * oxybutynin CR 24hr (Ditropan-XL) 5 MG tablet(Started 01/13/2022) Take 1 (one) tablet by mouth once daily * bismuth subsalicylate (Pepto-Bismol;Kaopectate) 262 MG/15ML suspension(Started 01/13/2022) Take 15 mL by mouth every 1 hour as needed for Diarrhea 2 refills by 01/13/2023 * saline nasal spray ([place]; Baby [place]) 0.65 % nasal spray(Started 01/13/2022) [place] 2 (two) sprays into each nostril every 30 minutes as needed for Dry Nose 2 refills by 01/13/2023 Active Problems Problem Noted Date Diagnosed Date Subarachnoid hemorrhage 01/05/2022 Brain aneurysm 01/05/2022 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 Encounter for central line placement 05/06/2020 Cerebral aneurysm 05/06/2020 Depression 07/17/2018 Essential (primary) hypertension 07/02/2018 Tobacco use 11/26/2015 Fibromyalgia 07/23/2012 Gastroesophageal reflux disease 07/23/2012 Hyperlipidemia 07/23/2012 Viral hepatitis B 07/23/2012 Anxiety 05/27/2012 SAH (subarachnoid hemorrhage) Seizures Nontraumatic epidural hematoma Subdural hematoma Acute respiratory failure Malnutrition Pulmonary insufficiency Leukocytosis Immunizations * INFLUENZA VACCINE(Given 12/03/2020, 12/11/2019) Social History Tobacco Use Types Packs/Day Years Used Date Smoking Tobacco: Some Days Cigarettes Smokeless Tobacco: Never Tobacco Cessation:Ready to Q uit: Not Asked; Counseling Given: Not Answered Alcohol Use Standard Drinks/Week Comments Yes 0 (1 standard drink = 0.6 oz pur e alcohol) 2-3 DRINKS EVERY OTHER DAY AUDIT-C Answer Date Recorded Q1: How often do you have a drink containing alc ohol? Never 08/05/2022 Average Number of Drinks Not on file 023 Frequency of Binge Drinking Not on file 07/20 PHQ-2 Answer Date Recorded PHQ2 TOTAL SCORE 0 01/07/2022 Hunger Vital Sign Answer Date Recorded Within the past 12 months, y ou worried that your food would run out before you got the money to buy more. Never true 01/07/20 22 Within the past 12 months, t he food you bought just didn't last and you didn't have money to get more. Never true 01/06/2022 Sex and Gender Information Value Date Recorded Sex Assigned at Not on file Gender Identity Not on file Sexual Orientation Not on file Last Filed Vital Signs Vital Sign Reading Time Taken Comments Blood Pressure 137/86 08/05/2022 10:40 PM CDT Pulse 96 08/05/2022 10:40 PM CDT Temperature 36.8 C (98.2 F) 08/05/2022 9:12 PM CDT Respiratory Rate 18 08/05/2022 9:12 PM CDT Oxygen Saturation 94% 08/05/2022 10:40 PM CDT Inhaled Oxygen Concentration 40% 08/04/2020 5 :11 PM CDT Weight 82.6 kg (182 lb) 08/05/2022 9:21 PM CDT Height 160 cm (5' 3 ) 08/05/2022 9:21 PM CDT Body Mass Index 32.24 08/05/2022 9:21 PM CDT Medical Devices Implanted Type Area Addiction Psychiatrist Device Identifier Shelf Expiration Date Model / Serial / Lot Sugita Titanium Aneurysm Clip Ii Implanted:Qty: 1 on 05/06/2020 by Timoteo Mckinney MD at [facility] Aneurysm Clip Left: Brain Sugita Standard 17-001-0 52SLAP / 52-SL Sugita Titanium Aneurysm Clip Ii Implanted:Qty: 1 on 05/06/2020 by Timoteo Mckinney MD at [facility] Aneurysm Clip Left: Brain Sugita Standard 17-001-0 2 / 48SKAE / 48-SK Graft Tissue Drgn + Bvn Clgn Mtrx 5x4in Implanted:Qty: 1 on 05/06/2020 by Timoteo Mckinney MD at [facility] Left: Brain Integra Neurosciences 01/18/2023 [id number] / / [id number] Plate 2 Hl Ult Lopro Chmfr Edg Crnl Implanted:Qty: 1 on 05/06/2020 by Timoteo Mckinney MD at [facility] Left: Cranial Synthes Usa 502.0 62 / / Plate 4 Hl Ult Lopro Chmfr Edg Crnl .3mm Implanted:Qty: 1 on 05/06/2020 by Timoteo Mckinney MD at [facility] Left: Cranial Synthes Usa 502.0 64 / / Screw 1.5mm 4mm Crnmxf Slfdrl Implanted:Qty: 16 on 05/06/2020 by Timoteo Mckinney MD at [facility] Left: Cranial Synthes Maxillofacial . 04.01 / / Graft Tissue Drgn + Bvn Clgn Mtrx 2x2in Implanted:Qty: 1 on 05/11/2020 by Austyn Saldaña MD at [facility] Left: Brain Integra Neurosciences 10/19/2022 DP-1022 / / [id number] Cover Bur Hl Lght Grn 17mm Matrixneuro Implanted:Qty: 2 on 05/06/2020 by Timoteo Mckinney MD at [facility] Explanted:Qty: 1 on 08/04/2020 by Austyn Saldaña MD at [facility] Left: Cranial Synthes Usa 04.502.0 23 / / Screw 1.5mm 4mm Crnmxf Slfdrl Implanted:Qty: 6 on 08/04/2020 by Austyn Saldaña MD at [facility] Left: Cranial Synthes Maxillofacial 503.1 04.01 / / Procedures * CARDIAC EKG ORDER(Performed 08/07/2022) * BASIC METABOLIC PANEL (CALCIUM TOTAL)(Performed 08/06/2022) * LACTIC ACID BLOOD(Performed 08/06/2022) * CT HEAD WO CONTRAST(Performed 08/06/2022) Performed for Altered mental status, unspecified altered mental status type * LACTIC ACID BLOOD(Performed 08/06/2022) * XR CHEST 1VW PORTABLE(Performed 08/05/2022) Performed for Altered mental status, unspecified altered mental status type * DIFFERENTIAL MANUAL(Performed 08/05/2022) * LACTIC ACID BLOOD(Performed 08/05/2022) * MAGNESIUM BLOOD(Performed 08/05/2022) * ALCOHOL ETHYL BLOOD(Performed 08/05/2022) * COMPREHENSIVE METABOLIC PANEL(Performed 08/05/2022) * CBC W AUTO DIFFERENTIAL(Performed 08/05/2022) * GLUCOSE - POINT OF CARE(Performed 08/05/2022) * EKG 12-LEAD(Performed 08/05/2022) Performed for Altered mental status, unspecified altered mental status type * CARDIAC EKG ORDER(Performed 01/18/2022) * SODIUM BLOOD(Performed 01/13/2022) Performed for SAH (subarachnoid hemorrhage) ([facility]) * PHOSPHORUS BLOOD(Performed 01/13/2022) Performed for SAH (subarachnoid hemorrhage) ([facility]) * MAGNESIUM BLOOD(Performed 01/13/2022) Performed for SAH (subarachnoid hemorrhage) ([facility]) * PT-INR SLH(Performed 01/13/2022) Performed for SAH (subarachnoid hemorrhage) ([facility]) * CBC W/O DIFFERENTIAL(Performed 01/13/2022) Performed for SAH (subarachnoid hemorrhage) ([facility]) * BASIC METABOLIC PANEL (CALCIUM TOTAL)(Performed 01/13/2022) Performed for SAH (subarachnoid hemorrhage) ([facility]) * SODIUM BLOOD(Performed 01/12/2022) Performed for SAH (subarachnoid hemorrhage) (HCC) * SODIUM BLOOD(Performed 01/12/2022) Performed for SAH (subarachnoid hemorrhage) (HCC) * SODIUM BLOOD(Performed 01/12/2022) Performed for SAH (subarachnoid hemorrhage) ([facility]) * PHOSPHORUS BLOOD(Performed 01/12/2022) Performed for SAH (subarachnoid hemorrhage) ([facility]) * MAGNESIUM BLOOD(Performed 01/12/2022) Performed for SAH (subarachnoid hemorrhage) (HCC) * PT-INR SLH(Performed 01/12/2022) Performed for SAH (subarachnoid hemorrhage) (HCC) * CBC W/O DIFFERENTIAL(Performed 01/12/2022) Performed for SAH (subarachnoid hemorrhage) (HCC) * BASIC METABOLIC PANEL (CALCIUM TOTAL)(Performed 01/12/2022) Performed for SAH (subarachnoid hemorrhage) (HCC) * SODIUM BLOOD(Performed 01/11/2022) Performed for SAH (subarachnoid hemorrhage) (HCC) * OSMOLALITY URINE(Performed 01/11/2022) Performed for SAH (subarachnoid hemorrhage) (HCC) * SODIUM BLOOD(Performed 01/11/2022) Performed for SAH (subarachnoid hemorrhage) (HCC) * VAS TRANSCRANIAL DOPPLER COMP(Performed 01/11/2022) Performed for SAH (subarachnoid hemorrhage) ([facility]) * SODIUM BLOOD(Performed 01/11/2022) Performed for SAH (subarachnoid hemorrhage) ([facility]) * CBC W/O DIFFERENTIAL(Performed 01/11/2022) Performed for SAH (subarachnoid hemorrhage) ([facility]) * PHOSPHORUS BLOOD(Performed 01/11/2022) Performed for SAH (subarachnoid hemorrhage) ([facility]) * MAGNESIUM BLOOD(Performed 01/11/2022) Performed for SAH (subarachnoid hemorrhage) ([facility]) * PT-INR SLH(Performed 01/11/2022) Performed for SAH (subarachnoid hemorrhage) ([facility]) * BASIC METABOLIC PANEL (CALCIUM TOTAL)(Performed 01/11/2022) Performed for SAH (subarachnoid hemorrhage) ([facility]) * SODIUM BLOOD(Performed 01/10/2022) Performed for SAH (subarachnoid hemorrhage) ([facility]) * SODIUM BLOOD(Performed 01/10/2022) Performed for SAH (subarachnoid hemorrhage) ([facility]) * VAS TRANSCRANIAL DOPPLER COMP(Performed 01/10/2022) Performed for SAH (subarachnoid hemorrhage) ([facility]) * CT HEAD WO CONTRAST(Performed 01/10/2022) Performed for SAH (subarachnoid hemorrhage) ([facility]) * SODIUM BLOOD(Performed 01/10/2022) Performed for SAH (subarachnoid hemorrhage) (HCC) * PHOSPHORUS BLOOD(Performed 01/09/2022) Performed for SAH (subarachnoid hemorrhage) ([facility]) * MAGNESIUM BLOOD(Performed 01/09/2022) Performed for SAH (subarachnoid hemorrhage) ([facility]) * PT-INR SLH(Performed 01/09/2022) Performed for SAH (subarachnoid hemorrhage) ([facility]) * CBC W/O DIFFERENTIAL(Performed 01/09/2022) Performed for SAH (subarachnoid hemorrhage) ([facility]) * BASIC METABOLIC PANEL (CALCIUM TOTAL)(Performed 01/09/2022) Performed for SAH (subarachnoid hemorrhage) ([facility]) * SODIUM BLOOD(Performed 01/09/2022) Performed for SAH (subarachnoid hemorrhage) ([facility]) * SODIUM BLOOD(Performed 01/09/2022) Performed for SAH (subarachnoid hemorrhage) ([facility]) * SODIUM BLOOD(Performed 01/09/2022) Performed for SAH (subarachnoid hemorrhage) ([facility]) * PHOSPHORUS BLOOD(Performed 01/08/2022) Performed for SAH (subarachnoid hemorrhage) ([facility]) * MAGNESIUM BLOOD(Performed 01/08/2022) Performed for SAH (subarachnoid hemorrhage) ([facility]) * PT-INR SLH(Performed 01/08/2022) Performed for SAH (subarachnoid hemorrhage) ([facility]) * CBC W/O DIFFERENTIAL(Performed 01/08/2022) Performed for SAH (subarachnoid hemorrhage) ([facility]) * BASIC METABOLIC PANEL (CALCIUM TOTAL)(Performed 01/08/2022) Performed for SAH (subarachnoid hemorrhage) ([facility]) * PHOSPHORUS BLOOD(Performed 01/07/2022) Performed for SAH (subarachnoid hemorrhage) ([facility]) * MAGNESIUM BLOOD(Performed 01/07/2022) Performed for SAH (subarachnoid hemorrhage) ([facility]) * PT-INR SLH(Performed 01/07/2022) Performed for SAH (subarachnoid hemorrhage) ([facility]) * CBC W/O DIFFERENTIAL(Performed 01/07/2022) Performed for SAH (subarachnoid hemorrhage) ([facility]) * BASIC METABOLIC PANEL (CALCIUM TOTAL)(Performed 01/07/2022) Performed for SAH (subarachnoid hemorrhage) ([facility]) * PHOSPHORUS BLOOD(Performed 01/07/2022) Performed for SAH (subarachnoid hemorrhage) ([facility]) * MAGNESIUM BLOOD(Performed 01/07/2022) Performed for SAH (subarachnoid hemorrhage) ([facility]) * PT-INR SLH(Performed 01/07/2022) Performed for SAH (subarachnoid hemorrhage) ([facility]) * CBC W/O DIFFERENTIAL(Performed 01/07/2022) Performed for SAH (subarachnoid hemorrhage) ([facility]) * BASIC METABOLIC PANEL (CALCIUM TOTAL)(Performed 01/07/2022) Performed for SAH (subarachnoid hemorrhage) ([facility]) * ECHO COMPLETE W BUBBLE STUDY(Performed 01/06/2022) Performed for Brain aneurysm ([facility]) * IR CAROTID CEREBRAL ANGIOGRAM(Performed 01/06/2022) Performed for Subarachnoid hemorrhage (HCC), Nontraumatic subarachnoid hemorrhage, unspecified (HCC) * PHOSPHORUS BLOOD(Performed 01/06/2022) Performed for SAH (subarachnoid hemorrhage) (HCC) * MAGNESIUM BLOOD(Performed 01/06/2022) Performed for SAH (subarachnoid hemorrhage) (HCC) * PT-INR SLH(Performed 01/06/2022) Performed for SAH (subarachnoid hemorrhage) (HCC) * CBC W/O DIFFERENTIAL(Performed 01/06/2022) Performed for SAH (subarachnoid hemorrhage) (HCC) * BASIC METABOLIC PANEL (CALCIUM TOTAL)(Performed 01/06/2022) Performed for SAH (subarachnoid hemorrhage) (HCC) * CT ANGIO BRAIN(Performed 01/05/2022) Performed for Brain aneurysm (HCC) * PHOSPHORUS BLOOD(Performed 01/05/2022) Performed for SAH (subarachnoid hemorrhage) (HCC) * MAGNESIUM BLOOD(Performed 01/05/2022) Performed for SAH (subarachnoid hemorrhage) (HCC) * PT-INR SLH(Performed 01/05/2022) Performed for SAH (subarachnoid hemorrhage) (HCC) * CBC W/O DIFFERENTIAL(Performed 01/05/2022) Performed for SAH (subarachnoid hemorrhage) (HCC) * BASIC METABOLIC PANEL (CALCIUM TOTAL)(Performed 01/05/2022) Performed for SAH (subarachnoid hemorrhage) (HCC) * EKG 12-LEAD(Performed 01/05/2022) Performed for Brain aneurysm (HCC) * GLUCOSE - POINT OF CARE(Performed 01/05/2022) * CT HEAD WO CONTRAST(Performed 12/30/2021) Performed for History of cranioplasty * CARDIAC EKG ORDER(Performed 08/07/2020) * CBC W AUTO DIFFERENTIAL(Performed 08/05/2020) Performed for Acquired skull defect * BASIC METABOLIC PANEL (CALCIUM TOTAL)(Performed 08/05/2020) Performed for Acquired skull defect * CT HEAD WO CONTRAST(Performed 08/04/2020) Performed for Acquired skull defect * ENDOTRACHEAL TUBE NOTE(Performed 08/04/2020) * CRANIOPLASTY(Performed 08/04/2020) Performed for Acquired skull defect * SARS-COV-2 (COVID-19) IN HOUSE(Performed 08/02/2020) Performed for Pre-op testing * PT-INR SLH(Performed 07/27/2020) Performed for Pre-op testing * PTT SLH(Performed 07/27/2020) Performed for Pre-op testing * CBC W AUTO DIFFERENTIAL(Performed 07/27/2020) Performed for Pre-op testing * BASIC METABOLIC PANEL (CALCIUM TOTAL)(Performed 07/27/2020) Performed for Pre-op testing * EKG 12-LEAD(Performed 07/27/2020) Performed for Pre-op testing * XR CHEST 2VW(Performed 07/27/2020) Performed for Pre-op testing * CT HEAD WO CONTRAST(Performed 07/27/2020) Performed for Pseudomeningocele * CT HEAD WO CONTRAST(Performed 07/13/2020) Performed for Cerebral aneurysm (HCC) * COMPREHENSIVE METABOLIC PANEL(Performed 06/21/2020) * CBC W AUTO DIFFERENTIAL(Performed 06/21/2020) * SARS-COV-2 (COVID-19)+INFLU A+B PCR RAPID(Performed 06/21/2020) * CARDIAC EKG ORDER(Performed 06/02/2020) * CBC W AUTO DIFFERENTIAL(Performed 05/31/2020) * BASIC METABOLIC PANEL (CALCIUM TOTAL)(Performed 05/31/2020) * CBC W AUTO DIFFERENTIAL(Performed 05/30/2020) * BASIC METABOLIC PANEL (CALCIUM TOTAL)(Performed 05/30/2020) * CBC W AUTO DIFFERENTIAL(Performed 05/29/2020) * BASIC METABOLIC PANEL (CALCIUM TOTAL)(Performed 05/29/2020) * CBC W AUTO DIFFERENTIAL(Performed 05/28/2020) * BASIC METABOLIC PANEL (CALCIUM TOTAL)(Performed 05/28/2020) * EKG 12-LEAD(Performed 05/27/2020) Performed for Cerebral aneurysm (HCC) * URINALYSIS W/MICROSCOPIC NO CULTURE(Performed 05/27/2020) * CBC W AUTO DIFFERENTIAL(Performed 05/27/2020) * BASIC METABOLIC PANEL (CALCIUM TOTAL)(Performed 05/27/2020) * CBC W AUTO DIFFERENTIAL(Performed 05/26/2020) * BASIC METABOLIC PANEL (CALCIUM TOTAL)(Performed 05/26/2020) * DIFFERENTIAL MANUAL(Performed 05/25/2020) * CBC W AUTO DIFFERENTIAL(Performed 05/25/2020) * BASIC METABOLIC PANEL (CALCIUM TOTAL)(Performed 05/25/2020) * URINALYSIS W/MICROSCOPIC NO CULTURE(Performed 05/24/2020) * VASCULAR LAB ORDER(Performed 05/24/2020) * CARDIAC EKG ORDER(Performed 05/24/2020) * CBC W AUTO DIFFERENTIAL(Performed 05/24/2020) * BASIC METABOLIC PANEL (CALCIUM TOTAL)(Performed 05/24/2020) * CBC W AUTO DIFFERENTIAL(Performed 05/23/2020) * BASIC METABOLIC PANEL (CALCIUM TOTAL)(Performed 05/23/2020) * CBC W AUTO DIFFERENTIAL(Performed 05/22/2020) * BASIC METABOLIC PANEL (CALCIUM TOTAL)(Performed 05/22/2020) * URINALYSIS REFLEX TO MICROSCOPIC NO CULTURE(Performed 05/21/2020) * CBC W AUTO DIFFERENTIAL(Performed 05/21/2020) * BASIC METABOLIC PANEL (CALCIUM TOTAL)(Performed 05/21/2020) * CBC W AUTO DIFFERENTIAL(Performed 05/20/2020) * BASIC METABOLIC PANEL (CALCIUM TOTAL)(Performed 05/20/2020) * CBC W AUTO DIFFERENTIAL(Performed 05/19/2020) * PHOSPHORUS BLOOD(Performed 05/19/2020) * MAGNESIUM BLOOD(Performed 05/19/2020) * BASIC METABOLIC PANEL (CALCIUM TOTAL)(Performed 05/19/2020) * DIFFERENTIAL MANUAL(Performed 05/17/2020) * BLOOD GASES ART COMPLETE SLH OR(Performed 05/17/2020) Performed for Cerebral aneurysm (HCC) * PHOSPHORUS BLOOD(Performed 05/17/2020) * MAGNESIUM BLOOD(Performed 05/17/2020) * CBC W AUTO DIFFERENTIAL(Performed 05/17/2020) * BASIC METABOLIC PANEL (CALCIUM TOTAL)(Performed 05/17/2020) * BLOOD GASES ART COMPLETE SLH OR(Performed 05/17/2020) Performed for Cerebral aneurysm (HCC) * DIFFERENTIAL MANUAL(Performed 05/17/2020) * BLOOD GASES ART COMPLETE [facility] OR(Performed 05/17/2020) Performed for Cerebral aneurysm (HCC) * PHOSPHORUS BLOOD(Performed 05/17/2020) * MAGNESIUM BLOOD(Performed 05/17/2020) * CBC W AUTO DIFFERENTIAL(Performed 05/17/2020) * BASIC METABOLIC PANEL (CALCIUM TOTAL)(Performed 05/17/2020) * BLOOD GASES ART COMPLETE SLH OR(Performed 05/16/2020) Performed for Cerebral aneurysm (HCC) * EKG 12-LEAD(Performed 05/16/2020) Performed for Seizures (HCC) * CT HEAD WO CONTRAST(Performed 05/16/2020) Performed for Cerebral aneurysm (HCC) * DIFFERENTIAL MANUAL(Performed 05/16/2020) * CBC W AUTO DIFFERENTIAL(Performed 05/16/2020) * PHOSPHORUS BLOOD(Performed 05/15/2020) * MAGNESIUM BLOOD(Performed 05/15/2020) * BASIC METABOLIC PANEL (CALCIUM TOTAL)(Performed 05/15/2020) * BLOOD GASES ART COMPLETE SLH OR(Performed 05/15/2020) Performed for Cerebral aneurysm (HCC) * BLOOD GASES ART COMPLETE [facility] OR(Performed 05/15/2020) Performed for Cerebral aneurysm (HCC) * BLOOD GASES ART COMPLETE [facility] OR(Performed 2020) Performed for Cerebral aneurysm (HCC) * PHOSPHORUS BLOOD(Performed 2020) * MAGNESIUM BLOOD(Performed 2020) * CBC W AUTO DIFFERENTIAL(Performed 2020) * BASIC METABOLIC PANEL (CALCIUM TOTAL)(Performed 2020) * BLOOD GASES ART COMPLETE [facility] OR(Performed 2020) Performed for Cerebral aneurysm (HCC) * BLOOD GASES ART COMPLETE [facility] OR(Performed 2020) Performed for Cerebral aneurysm (HCC) * PHOSPHORUS BLOOD(Performed 2020) * MAGNESIUM BLOOD(Performed 2020) * CBC W AUTO DIFFERENTIAL(Performed 2020) * BASIC METABOLIC PANEL (CALCIUM TOTAL)(Performed 2020) * BLOOD GASES ART COMPLETE [facility]H OR(Performed 05/13/2020) Performed for Acute respiratory failure with hypoxia (HCC) * URINALYSIS W/MICROSCOPIC NO CULTURE(Performed 05/13/2020) Performed for Cerebral aneurysm (HCC) * BLOOD GASES ART COMPLETE [facility] OR(Performed 05/13/2020) Performed for Cerebral aneurysm (HCC) * XR CHEST 1VW PORTABLE(Performed 05/13/2020) Performed for Cerebral aneurysm (HCC) * ECHO COMPLETE(Performed 05/13/2020) * DIFFERENTIAL MANUAL(Performed 05/12/2020) * BLOOD GASES ART COMPLETE [facility] OR(Performed 05/12/2020) Performed for Cerebral aneurysm (HCC) * PHOSPHORUS BLOOD(Performed 05/12/2020) * MAGNESIUM BLOOD(Performed 05/12/2020) * CBC W AUTO DIFFERENTIAL(Performed 05/12/2020) * BASIC METABOLIC PANEL (CALCIUM TOTAL)(Performed 05/12/2020) * EKG 12-LEAD(Performed 05/12/2020) Performed for Cerebral aneurysm (HCC) * EKG 12-LEAD(Performed 05/12/2020) Performed for Cerebral aneurysm (HCC) * BLOOD GASES ART COMPLETE [facility] OR(Performed 05/12/2020) Performed for Cerebral aneurysm (HCC) * CT HEAD WO CONTRAST(Performed 05/12/2020) Performed for Cerebral aneurysm (HCC) * DIFFERENTIAL MANUAL(Performed 05/11/2020) * BLOOD GASES ART COMPLETE [facility] OR(Performed 05/11/2020) Performed for Cerebral aneurysm (HCC) * PHOSPHORUS BLOOD(Performed 05/11/2020) * MAGNESIUM BLOOD(Performed 05/11/2020) * CBC W AUTO DIFFERENTIAL(Performed 05/11/2020) * BASIC METABOLIC PANEL (CALCIUM TOTAL)(Performed 05/11/2020) * XR ABDOMEN KUB PORTABLE(Performed 05/11/2020) Performed for Pre-op testing * CRANIECTOMY/CRANIOTOMY(Performed 05/11/2020) Performed for SDH (subdural hematoma) (HCC) * ARTERIAL LINE NOTE(Performed 05/11/2020) * BLOOD GASES ART COMPLETE [facility] OR(Performed 05/11/2020) Performed for Cerebral aneurysm (HCC) * CT HEAD WO CONTRAST(Performed 05/11/2020) Performed for Cerebral aneurysm (HCC), SAH (subarachnoid hemorrhage) (HCC) * XR ABDOMEN KUB(Performed 05/11/2020) Performed for Cerebral aneurysm (HCC) * XR CHEST 1VW(Performed 05/11/2020) Performed for Cerebral aneurysm (HCC) * BLOOD GASES ART COMPLETE [facility] OR(Performed 05/11/2020) Performed for Cerebral aneurysm (HCC) * BASIC METABOLIC PANEL (CALCIUM TOTAL)(Performed 05/11/2020) Performed for Cerebral aneurysm (HCC) * DIFFERENTIAL MANUAL(Performed 05/11/2020) * PHOSPHORUS BLOOD(Performed 05/11/2020) * MAGNESIUM BLOOD(Performed 05/11/2020) * CBC W AUTO DIFFERENTIAL(Performed 05/11/2020) * BASIC METABOLIC PANEL (CALCIUM TOTAL)(Performed 05/11/2020) * MRI BRAIN WO CONTRAST(Performed 05/10/2020) Performed for Cerebral aneurysm (HCC) * VAS TRANSCRANIAL DOPPLER COMP(Performed 05/10/2020) Performed for Cerebral aneurysm (HCC) * CT HEAD WO CONTRAST(Performed 05/10/2020) Performed for Cerebral aneurysm (HCC) * DIFFERENTIAL MANUAL(Performed 05/10/2020) * PHOSPHORUS BLOOD(Performed 05/10/2020) * MAGNESIUM BLOOD(Performed 05/10/2020) * CBC W AUTO DIFFERENTIAL(Performed 05/10/2020) * BASIC METABOLIC PANEL (CALCIUM TOTAL)(Performed 05/10/2020) * PREPARE RBC LEUKOREDUCED UNIT(Performed 05/10/2020) Performed for Cerebral aneurysm (HCC) * DIFFERENTIAL MANUAL(Performed 05/09/2020) * PHOSPHORUS BLOOD(Performed 05/09/2020) * MAGNESIUM BLOOD(Performed 05/09/2020) * CBC W AUTO DIFFERENTIAL(Performed 05/09/2020) * BASIC METABOLIC PANEL (CALCIUM TOTAL)(Performed 05/09/2020) * CT HEAD WO CONTRAST(Performed 05/08/2020) Performed for Disorientation * DIFFERENTIAL MANUAL(Performed 05/08/2020) * PHOSPHORUS BLOOD(Performed 05/08/2020) * MAGNESIUM BLOOD(Performed 05/08/2020) * CBC W AUTO DIFFERENTIAL(Performed 05/08/2020) * BASIC METABOLIC PANEL (CALCIUM TOTAL)(Performed 05/08/2020) * OT EVAL AND TREAT(Performed 05/07/2020) * CT HEAD WO CONTRAST(Performed 05/07/2020) Performed for Cerebral aneurysm (HCC) * DIFFERENTIAL MANUAL(Performed 05/06/2020) * PHOSPHORUS BLOOD(Performed 05/06/2020) * MAGNESIUM BLOOD(Performed 05/06/2020) * CBC W AUTO DIFFERENTIAL(Performed 05/06/2020) * BASIC METABOLIC PANEL (CALCIUM TOTAL)(Performed 05/06/2020) * GLUCOSE - POINT OF CARE(Performed 05/06/2020) * XR CHEST 1VW PORTABLE(Performed 05/06/2020) Performed for Encounter for central line placement * BLOOD GASES ART COMPLETE [facility] OR(Performed 05/06/2020) Performed for Cerebral aneurysm (HCC) * BLOOD GASES ART COMPLETE [facility] OR(Performed 05/06/2020) Performed for Cerebral aneurysm (HCC) * CENTRAL LINE NOTE(Performed 05/06/2020) * ARTERIAL LINE NOTE(Performed 05/06/2020) * ENDOTRACHEAL TUBE NOTE(Performed 05/06/2020) * CRANIOTOMY FOR REPAIR ANEURYSM(Performed 05/06/2020) Performed for Cerebral aneurysm (HCC) * TYPE + SCREEN PANEL(Performed 05/06/2020) Performed for Cerebral aneurysm (HCC) * SARS-COV-2 (COVID-19) IN HOUSE(Performed 05/03/2020) Performed for Pre-op testing * XR CHEST 2VW(Performed 04/29/2020) Performed for Pre-op testing * TYPE + SCREEN PANEL(Performed 04/29/2020) Performed for Cerebral aneurysm (HCC) * PT-INR [facility](Performed 04/29/2020) Performed for Pre-op testing * PTT [facility](Performed 04/29/2020) Performed for Pre-op testing * CBC W AUTO DIFFERENTIAL(Performed 04/29/2020) Performed for Pre-op testing * BASIC METABOLIC PANEL (CALCIUM TOTAL)(Performed 04/29/2020) Performed for Pre-op testing * EKG 12-LEAD(Performed 04/29/2020) Performed for Pre-op testing * IR CAROTID CEREBRAL ANGIOGRAM(Performed 03/26/2020) Performed for Cerebral aneurysm (HCC) * BASIC METABOLIC PANEL (CALCIUM TOTAL)(Performed 03/26/2020) * PT-INR [facility](Performed 03/26/2020) * CBC W AUTO DIFFERENTIAL(Performed 03/26/2020) * MRI SHOULDER LEFT WWO CONT(Performed 06/13/2017) Performed for Bone lesion * STREP A SCREEN - POINT OF CARE (AMB) STL(Performed 05/04/2016) Performed for Sore throat * SKIN TEST PPD - POINT OF CARE(Performed 11/12/2015) Performed for Screening examination for pulmonary tuberculosis * GROSS + MICRO EXAM(Performed 10/02/1995) Results * CARDIAC EKG ORDER (08/07/2022 4:10 PM CDT) Only the most recent of5 resultswithin the time period is included. Narrative 08/07/2022 4:10 PM CDT Ordered by an unspecified provider. Scanned Document CARDIAC SERVICES ORD ERABLES * (ABNORMAL) BASIC METABOLIC PANEL (CALCIUM TOTAL) (08/06/2022 4:11 AM CDT) Only the most recent of40 resultswithin the time period is included. BUN 7 7 - 26 mg/dL 08/06/2022 5:05 AM [facility] Creatinine 0.63 0.56 - 0.96 mg/dL 08/06/2022 5:05 AM [facility] Sodium 137 136 - 145 mmol/L 08/06/2022 5:05 AM [facility] Potassium 5.0(H) 3.5 - 4.5 mmol/L 08/06/2022 5:05 AM [facility] Chloride 108(H) 98 - 107 mmol/L 08/06/2022 5:05 AM [facility] CO2 21(L) 22 - 29 mmol/L 08/06/2022 5:05 AM [facility] Glucose 100 70 - 115 mg/dL 08/06/2022 5:05 AM [facility] Calcium 9.3 8.4 - 10.2 mg/dL 08/06/2022 5:05 AM [facility] Anion Gap 13 8 - 18 08/06/2022 5:05 AM [facility] BUN/Creatinine Ratio 11 7 - 23 08/06/2022 5:05 AM [facility] Osmolality Calculated 282 270 - 300 mOsm/kg 08/06/2022 5:05 AM [facility] eGFR by CKD-EPI >90 >=90 mL/min/1.7 3 m2 08/06/2022 5:05 AM [facility] Blood BLOOD SPECIMEN / Unknown Venipuncture / Unknown 08/06/2022 4:11 AM CDT 08/06/2022 4:38 AM CDT Charbel Batista MD LAB - CHEMISTRY ORDERABLES [facility] [address] [place] [address], [facility] [phone] * LACTIC ACID BLOOD (08/06/2022 3:47 AM CDT) Only the most recent of3 resultswithin the time period is included. Pathologist [facility] Lactic Acid-Stat 1.0 <=2.0 mmol/L 08/06/2022 4:24 AM CDT [facility] Blood BLOOD SPECIMEN / Unknown Venipuncture / Unknown 08/06/2022 3:47 AM CDT 08/06/2022 4:16 AM CDT Charbel Batista MD LAB - CHEMISTRY ORDERABLES [facility] [address] [place] [address], [facility] [phone] * CT HEAD WO CONTRAST (08/06/2022 2:22 AM CDT) Only the most recent of12 resultswithin the time period is included. 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 Within these limitations: 1.Redemonstrated postoperative changes of remote left peritonectomy/plasty with left parasellar aneurysm clips. Redemonstration of linear hyperdensity subjacent to the pterional craniotomy site measuring 2 to 3 mm in thickness, not significantly changed compared to study from December 2021 could be secondary to postsurgical changes given the lack of significant interval change compared to study from 01/10/2022. 2.Otherwise no acute intracranial abnormality Report dictated by Orlando Bradford MD, PhD (interventional radiology technologist). I, Monserrat Jacobs MD have personally reviewed and interpreted this examination/study. > Interpreting Provider: Monserrat Jacobs MD on 08/06/2022 11:52 AM Narrative 08/06/2022 11:52 AM CDT PROCEDURE: CT HEAD WO CONTRAST, DATE/TIME OF EXAM: 08/06/2022 1:26 AM, LOC[place] [facility] [place] INDICATION: R41.82: Altered mental status, unspecified altered mental status type ADDITIONAL CLINICAL INFORMATION: Ordering Provider Reason For Exam: r/o ICH Technologist Note: Additional: COMPARISON: CT head without contrast from 01/10/2022, 12/30/2021 EXAMINATION: Computed tomography (CT) of the head without contrast TECHNIQUE: CT of the head was performed without contrast according to standard protocol. CT dose reduction technique was used, including Automated Exposure Control FINDINGS: Redemonstrated postoperative changes of remote left peritonectomy/plasty with left parasellar aneurysm clips, unchanged in position. Redemonstrated linear extra-axial hyperdensity subjacent to the craniotomy site in the left pterional region the (image 26, series 7). Otherwise no evidence of extra-axial blood products noted. 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 Redemonstrated is encephalomalacia/gliosis of the left frontal and temporal lobes with ex vacuo dilation of the left lateral ventricle. Small chronic lacunar infarct in the left basal ganglia. No acute intracranial hemorrhage is identified. There is mild cerebral volume loss with associated ex vacuo ventricular dilatation. The basilar cisterns are patent. No mass effect or midline shift is seen. The flores-white matter differentiation is normal. Periventricular white matter hypoattenuation is indicative of chronic small vessel ischemic disease. There is trace vascular calcification of the carotid siphons . No acute calvarial fracture is identified. The orbits and the orbital contents appear normal. The paranasal sinuses are clear. The nasal septum is deviated to the right with a septal spur in contact with the base of the right inferior turbinateThe mastoid air cells are clear. No soft tissue abnormality is identified. Procedure Note Monserrat Jacobs MD - 08/06/2022 PROCEDURE: CT HEAD WO CONTRAST, DATE/TIME OF EXAM: 08/06/2022 1:26 AM, LOCATION [facility] [place] INDICATION: R41.82: Altered mental status, unspecified altered mental status type ADDITIONAL CLINICAL INFORMATION: Ordering Provider Reason For Exam: r/o ICH Technologist Note: Additional: COMPARISON: CT head without contrast from 01/10/2022, 12/30/2021 EXAMINATION: Computed tomography (CT) of the head without contrast TECHNIQUE: CT of the head was performed without contrast according to standard protocol. CT dose reduction technique was used, including Automated Exposure Control FINDINGS: Redemonstrated postoperative changes of remote left peritonectomy/plasty with left parasellar aneurysm clips, unchanged in position.Redemonstrated linear extra-axial hyperdensity subjacent to the craniotomy site in the left pterional region the (image 26, series 7). Otherwise no evidence of extra-axial blood products noted. 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 Redemonstrated is encephalomalacia/gliosis of the left frontal andtemporal lobes with ex vacuo dilation of the left lateral ventricle. Smallchronic lacunar infarct in the left basal ganglia. No acute intracranial hemorrhage is identified. There is mild cerebral volume loss with associated ex vacuo ventricular dilatation. The basilar cisterns are patent. No mass effect or midline shift is seen. The flores-white matter differentiation is normal. Periventricular whitematter hypoattenuation is indicative of chronic small vessel ischemic disease. There is trace vascular calcification of the carotid siphons . No acute calvarial fracture is identified. The orbits and the orbital contents appear normal. The paranasal sinuses are clear. The nasal septum is deviated to the right with a septal spur in contact with the base of the right inferior turbinateThe mastoid air cells are clear. No soft tissue abnormality is identified. 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 Within these limitations: 1.Redemonstrated postoperative changes of remote leftperitonectomy/plasty with left parasellar aneurysm clips. Redemonstration of linear hyperdensity subjacent to the pterional craniotomy site measuring 2 to 3 mm in thickness, not significantlychanged compared to study from December 2021 could be secondary to postsurgical changes given the lack of significant interval change compared to study from 01/10/2022. 2.Otherwise no acute intracranial abnormality Report dictated by Orlando Bradford MD, PhD (interventional radiology technologist). I, Monserrat Jacobs MD have personally reviewed and interpreted this examination/study. > Interpreting Provider: Monserrat Jacobs MD on 08/06/2022 11:52 AM Karie Lowe MD CT ORDERABLES * XR CHEST 1VW PORTABLE (08/05/2022 10:17 PM CDT) Only the most recent of3 resultswithin the time period is included. Anatomical Region Laterality Modality Chest Radiographic Radha ging 08/05/2022 11:4 9 PM CDT Impressions 08/06/2022 7:36 AM CDT IMPRESSION: Minimal basilar airspace opacifications, likely representing atelectasis. A component of airspace disease is not excluded. Report dictated by Orlando Bradford MD, PhD (interventional radiology technologist). I, JOSH MEJIA MD have personally reviewed and interpreted this examination/study. > Interpreting Provider: JOSH MEJIA MD on 08/06/2022 7:36 AM Narrative 08/06/2022 7:36 AM CDT PROCEDURE: XR CHEST 1VW PORTABLE, DATE/TIME OF EXAM: 08/05/2022 10:17 PM, LOCATION [facility] [place] INDICATION: R41.82: Altered mental status, unspecified altered mental status type ADDITIONAL CLINICAL INFORMATION: Ordering Provider Reason For Exam: r/o pneumonia Technologist Note: Additional: COMPARISON: Chest radiograph from 07/27/2020. FINDINGS: Hardware: *Partially visualized spinal neurostimulator leads terminate in the midthoracic spine. Minimal basilar airspace opacifications. There is no focal consolidation, pleural effusion, or pneumothorax. The mediastinal and cardiac contours are normal. The trachea is symmetrically lucent. No acute osseous abnormality is seen. Procedure Note Josh Mejia MD - 08/06/2022 PROCEDURE: XR CHEST 1VW PORTABLE, DATE/TIME OF EXAM: 08/05/2022 10:17PM, LOCATION [facility] [place] INDICATION: R41.82: Altered mental status, unspecified altered mental status type ADDITIONAL CLINICAL INFORMATION: Ordering Provider Reason For Exam: r/o pneumonia Technologist Note: Additional: COMPARISON: Chest radiograph from 07/27/2020. FINDINGS: Hardware: *Partially visualized spinal neurostimulator leads terminate in the midthoracic spine. Minimal basilar airspace opacifications. There is no focalconsolidation, pleural effusion, or pneumothorax. The mediastinal and cardiac contoursare normal. The trachea is symmetrically lucent. No acute osseousabnormality is seen. IMPRESSION: Minimal basilar airspace opacifications, likely representing atelectasis.A component of airspace disease is not excluded. Report dictated by Orlando Bradford MD, PhD (interventional radiology technologist). I, JSOH MEJIA MD have personally reviewed and interpreted this examination/study. > Interpreting Provider: JOSH MEJIA MD on 08/06/2022 7:36 AM Karie Lowe MD DIAGNOSTIC IMAGING O RDERABLES * (ABNORMAL) DIFFERENTIAL MANUAL (08/05/2022 9:35 PM CDT) Only the most recent of12 resultswithin the time period is included. WBC (corrected for NRBC) 18.3 10 3/uL 08/05/2022 10:33 PM [facility] Total Cell Count 100 08/05/2022 10:33 PM [facility] Neutrophils Absolute Manual 14.46(H) 1.60 - 7.00 10 3/uL 08/05/2022 10:33 PM [facility] Comment:(BANDS+SEGS) x WBC = NEUT # (ANC) Lymphocyte Absolute Manual 2.38 1.10 - 3.90 10 3/uL 08/05/2022 10:33 PM [facility] Monocytes Absolute Manual 1.28(H) 0.26 - 1.07 10 3/uL 08/05/2022 10:33 PM [facility] Band % Manual 3 0 - 10 % 08/05/2022 10:33 PM [facility] Neutrophil % Manual 76(H) 35 - 70 % 08/05/2022 10:33 PM [facility] Lymphocyte % Manual 13(L) 20 - 43 % 08/05/2022 10:33 PM [facility] Monocytes % Manual 7 5 - 13 % 08/05/2022 10:33 PM [facility] Atypical Lymphocyte % Manual 1(H) 0 % 08/05/2022 10:33 PM [facility] Platelet Estimate Adequate Adequate 08/05/2022 10:33 PM [facility] Smudge Cells Rare(A) None 08/05/2022 10:33 PM [facility] Large Platelet Count Occasional(A ) None 08/05/2022 10:33 PM [facility] Comment Platelet Platelet clumped on the smear but appear adequate. 08/05/2022 10:33 PM [facility] Blood BLOOD SPECIMEN / Unknown Venipuncture / Unknown 08/05/2022 9:35 PM CDT 08/05/2022 9:51 PM CDT Karie Lowe MD LAB - HEMATOLOGY ORD ERABLES [facility] [address] [place] [address], [facility] [phone] * (ABNORMAL) CBC W AUTO DIFFERENTIAL (08/05/2022 9:35 PM CDT) Only the most recent of31 resultswithin the time period is included. WBC 18.3(H) 3.5 - 10.5 10 3/uL 08/05/2022 10:01 PM [facility] RBC 4.34 3.80 - 5.20 10 6/uL 08/05/2022 10:01 PM [facility] Hemoglobin 13.5 12.0 - 15.6 g/dL 08/05/2022 10:01 PM [facility] Hematocrit 38.0 35.0 - 45.0 % 08/05/2022 10:01 PM [facility] MCV 87.6 80.7 - 98.3 fL 08/05/2022 10:01 PM [facility] MCH 31.1 26.7 - 34.0 pg 08/05/2022 10:01 PM [facility] MCHC 35.5 30.8 - 35.9 g/dL 08/05/2022 10:01 PM [facility] RDW-SD 39.1 36.0 - 50.0 fL 08/05/2022 10:01 PM [facility] RDW-CV 12.0 11.2 - 14.8 % 08/05/2022 10:01 PM [facility] Platelet Count 310 150 - 400 10 3/uL 08/05/2022 10:01 PM [facility] MPV 10.5 9.4 - 12.9 fL 08/05/2022 10:01 PM [facility] nRBC Absolute 0.00 0 10 3/uL 08/05/2022 10:01 PM T [facility] nRBC Auto 0.0 0 /100 WBC 08/05/2022 10:01 PM [facility] Blood BLOOD SPECIMEN / Unknown Venipuncture / Unknown 08/05/2022 9:35 PM CDT 08/05/2022 9:51 PM CDT Karie Lowe MD LAB - HEMATOLOGY ORD ERABLES [facility] [address] [place] [address], [facility] [phone] * (ABNORMAL) COMPREHENSIVE METABOLIC PANEL (08/05/2022 9:35 PM CDT) Only the most recent of2 resultswithin the time period is included. BUN 8 7 - 26 mg/dL 08/05/2022 10:17 PM [facility] Creatinine 0.86 0.56 - 0.96 mg/dL 08/05/2022 10:17 PM [facility] Sodium 131(L) 136 - 145 mmol/L 08/05/2022 10:17 PM [facility] Potassium 2.9(L) 3.5 - 4.5 mmol/L 08/05/2022 10:17 PM [facility] Chloride 97(L) 98 - 107 mmol/L 08/05/2022 10:17 PM [facility] CO2 20(L) 22 - 29 mmol/L 08/05/2022 10:17 PM [facility] Glucose 145(H) 70 - 115 mg/dL 08/05/2022 10:17 PM [facility] Calcium 9.4 8.4 - 10.2 mg/dL 08/05/2022 10:17 PM [facility] Protein Total 7.1 6.0 - 8.3 g/dL 08/05/2022 10:17 PM [facility] Albumin 4.1 3.4 - 5.0 g/dL 08/05/2022 10:17 PM [facility] Bilirubin Total 0.3 0.2 - 1.2 mg/dL 08/05/2022 10:17 PM [facility] Alkaline Phosphatase 67 40 - 150 U/L 08/05/2022 10:17 PM [facility] ALT 22 5 - 55 U/L 08/05/2022 10:17 PM [facility] AST 20 5 - 34 U/L 08/05/2022 10:17 PM [facility] Anion Gap 17 8 - 18 08/05/2022 10:17 PM [facility] BUN/Creatinine Ratio 9 7 - 23 08/05/2022 10:17 PM [facility] Osmolality Calculated 273 270 - 300 mOsm/kg 08/05/2022 10:17 PM [facility] Albumin/Globulin Ratio 1.4 1.1 - 2.3 08/05/2022 10:17 PM [facility] eGFR by CKD-EPI 75(L) >=90 mL/min/1.7 3 m2 08/05/2022 10:17 PM [facility] Blood BLOOD SPECIMEN / Unknown Venipuncture / Unknown 08/05/2022 9:35 PM CDT 08/05/2022 9:51 PM CDT Karie Lowe MD LAB - CHEMISTRY ORDSandee NOLAN Performing Organization Address City/[facility]/ZIP Co de Phone Number [address] [address], [facility] [phone] * (ABNORMAL) MAGNESIUM BLOOD (08/05/2022 9:35 PM CDT) Only the most recent of23 resultswithin the time period is included. Magnesium 1.3(L) 1.6 - 2.6 mg/dL 08/05/2022 10:17 PM T [facility] Blood BLOOD SPECIMEN / Unknown Venipuncture / Unknown 08/05/2022 9:35 PM CDT 08/05/2022 9:51 PM CDT Karie Lowe MD LAB - CHEMISTRY MATTHEW NOLAN [address] [place] [address], [facility] [phone] * ALCOHOL ETHYL BLOOD (08/05/2022 9:35 PM CDT) Pathologist [facility] Ethanol (mg/dL) <10 <10 mg/dL 10:17 PM CDT [facility] Ethanol Calculated (g/dL) <0.010 <=0.010 g/dL 08/05/2022 10:17 PM CDT [facility] Blood BLOOD SPECIMEN / Unknown Venipuncture / Unknown 08/05/2022 9:35 PM CDT 08/05/2022 9:51 PM CDT Narrative [facility] - 08/05/2022 10:17 PM CDT Ethanol Interp <10: None Detected. Depression of HEALTH COMMUNICATIONS SPECIALIST: >100 mg/dl Potentially Critical: >250 mg/dl Potentially Fatal >400 mg/dl Ethanol in the patient's blood will contribute to the osmolar gap. Ethanol's contribution to the osmolar gap can be estimated by dividing the concentration of ethanol in mg/dL by 4.6. This test is for clinical use only and does not equal a JOSE for legal purposes. Karie Lowe MD LAB - CHEMISTRY MATTHEW NOLAN [facility] [address] [place] [address], [facility] [phone] * (ABNORMAL) GLUCOSE - POINT OF CARE (08/05/2022 9:13 PM CDT) Only the most recent of3 resultswithin the time period is included. Pathologist [facility] Glucose WB/POC 167(H) 70 - 115 mg/dL 08/05/2022 9:17 PM CDT [facility] Specimen Type Cap Fingerstick 2022 9:17 PM CDT [facility] Blood BLOOD SPECIMEN / Unknown 08/05/2022 9:13 PM CDT 08/05/2022 9:17 PM CDT Provider Unknown LAB - POINT OF CARE ORDERABLES [facility] [address] [place] [address], [facility] [phone] * EKG 12-LEAD (08/05/2022 9:03 PM CDT) Only the most recent of7 resultswithin the time period is included. Ventricular Rate 99 BPM [facility] Atrial Rate 99 BPM [facility] P-R Interval 180 ms [facility] QRS Duration ms 80 ms [facility] Q-T Interval ms 360 ms [facility] QTC Calculation (Bezet) 462 ms [facility] Calculated P Coventry 55 degrees [facility] Calculated R Coventry 69 degrees [facility] Calculated T Coventry -4 degrees [facility] Interpretation EKG SINUS RHYTHM WITH OCCASIONAL PREMATURE VENTRICULAR COMPLEXES LOW VOLTAGE QRS SEPTAL INFARCT , AGE UNDETERMINED ABNORMAL ECG WHEN COMPARED WITH ECG OF 05-JAN-2022 16:56, PREMATURE VENTRICULAR COMPLEXES ARE NOW PRESENT SEPTAL INFARCT IS NOW PRESENT ST NOW DEPRESSED IN INFERIOR LEADS NONSPECIFIC T WAVE ABNORMALITY NOW EVIDENT IN LATERAL LEADS Confirmed by AWAIS ARAUJO, VICKI ([id number]) on 08/06/2022 9:28:23 PM [facility] [place] 08/05/2022 9:03 PM CDT 08/06/2022 9:28 PM CDT Karie Lowe MD ECG ORDERABLES Performing Organization Address [facility] de Phone Number [facility] * SODIUM BLOOD (01/13/2022 5:55 AM RATE MARKER) Only the most recent of13 resultswithin the time period is included. [facility] Sodium 139 136 - 145 mmol/L 01/13/2022 6:35 AM RATE MARKER [facility] Blood BLOOD SPECIMEN / Unknown Venipuncture / Unknown 01/13/2022 5:55 AM RATE MARKER 01/13/2022 6:13 AM RATE MARKER Johnny Bishop MD LAB - CHEMISTRY MATTHEW ONLAN Performing Organization Address [facility] Co de Phone Number [facility] [address] [place] [address], [facility] [phone] * PT-INR [facility] (01/13/2022 12:31 AM RATE MARKER) Only the most recent of12 resultswithin the time period is included. PT 13.2 12.1 - 14.8 Seconds 01/13/2022 1:06 AM [facility] INR 1.0 See Comment 01/13/2022 1:06 AM [facility] Comment:The suggested therap eutic range for standard coumadin (warfarin) therapy is an INR of 2.0-3.0. For high-risk patients (Mechanical Mitral Valve Prosthesis, etc.), the suggested prophylactic therapeutic range is an INR of 2.5-3.5. Blood BLOOD SPECIMEN / Unknown Venipuncture / Unknown 01/13/2022 12:31 AM RATE MARKER 01/13/2022 12:37 AM [facility] Johnny Bishop MD LAB - COAGULATION OR DERABLES Performing Organization Address City/State/[facility] Co de Phone Number [facility] [address] [place] [address], [facility] [phone] * (ABNORMAL) CBC W/O DIFFERENTIAL (01/13/2022 12:31 AM RATE MARKER) Only the most recent of9 resultswithin the time period is included. WBC 11.7(H) 3.5 - 10.5 10 3/uL 01/13/2022 12:41 AM [facility] RBC 3.48(L) 3.80 - 5.20 10 6/uL 01/13/2022 12:41 AM [facility] Hemoglobin 11.3(L) 12.0 - 15.6 g/dL 01/13/2022 12:41 AM [facility] Hematocrit 31.9(L) 35.0 - 45.0 % 01/13/2022 12:41 AM [facility] MCV 91.7 80.7 - 98.3 fL 01/13/2022 12:41 AM [facility] MCH 32.5 26.7 - 34.0 pg 01/13/2022 12:41 AM [facility] MCHC 35.4 30.8 - 35.9 g/dL 01/13/2022 12:41 AM [facility] RDW-SD 41.7 36.0 - 50.0 fL 01/13/2022 12:41 AM [facility] RDW-CV 12.6 11.2 - 14.8 % 01/13/2022 12:41 AM [facility] Platelet Count 274 150 - 400 10 3/uL 01/13/2022 12:41 AM [facility] MPV 9.6 9.4 - 12.9 fL 01/13/2022 12:41 AM [facility] nRBC Absolute 0.00 0 10 3/uL 01/13/2022 12:41 AM [facility] nRBC Auto 0.0 0 /100 WBC 01/13/2022 12:41 AM [facility] Blood BLOOD SPECIMEN / Unknown Venipuncture / Unknown 01/13/2022 12:31 AM RATE MARKER 01/13/2022 12:37 AM RATE MARKER Johnny Bishop MD LAB - HEMATOLOGY ORD ERABLES [address] [address], [facility] [phone] * PHOSPHORUS BLOOD (01/13/2022 12:31 AM RATE MARKER) Only the most recent of22 resultswithin the time period is included. Phosphorus 3.3 2.9 - 5.1 mg/dL 01/13/2022 1:10 AM [facility] Blood BLOOD SPECIMEN / Unknown Venipuncture / Unknown 01/13/2022 12:31 AM RATE MARKER 01/13/2022 12:37 AM RATE MARKER Johnny Bishop MD LAB - CHEMISTRY MATTHEW NOLAN [address] [address], [facility] [phone] * OSMOLALITY URINE (01/11/2022 11:37 AM RATE MARKER) Osmolality Urine 562 50 - 1,200 mOsm/kg 01/11/2022 12:15 PM [facility] Urine URINE SPECIMEN OBTAINED BY CLEAN CATCH PROCEDURE / Unknown Collection / Unknown 01/11/2022 11:37 AM RATE MARKER 01/11/2022 11:59 AM RATE MARKER Timoteo Mckinney MD LAB - URINE CHEMISTR Y ORDERABLES [facility] [address] [place] [address], [facility] [phone] * VAS TRANSCRANIAL DOPPLER COMP (01/11/2022 10:28 AM RATE MARKER) Only the most recent of3 resultswithin the time period is included. Anatomical Region Laterality Modality Head Intravascular Ul trasound 01/11/2022 9:44 AM RATE MARKER Narrative Procedure Note Froylan Blank MD - 01/11/2022 Timoteo Mckinney MD VASCULAR LAB ORDERAB LES * ECHO COMPLETE W BUBBLE STUDY (01/06/2022 4:03 PM RATE MARKER) Anatomical Region Laterality Modality Chest Echo 01/06/2022 3:05 PM RATE MARKER Narrative Procedure Note Kostas Rothman MD - 01/06/2022 Sukumar Squires MD ECHOCARDIOGRAPHY RAD IANT * IR CAROTID CEREBRAL ANGIOGRAM (01/06/2022 8:45 AM RATE MARKER) Only the most recent of2 resultswithin the time period is included. Anatomical Region Laterality Modality Head X-Ray Angiograph y 01/06/2022 7:48 AM RATE MARKER Impressions 02/06/2022 6:58 AM RATE MARKER Impression: 1.No aneurysms or vascular anomalies identified to explain the SAH. 2.Visualized the previously placed left terminal ICA aneurysm clips. 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 I, Alex Kirkland MD have personally reviewed and interpreted this examination/study. > Interpreting Provider: Alex Kirkland MD on 02/06/2022 6:58 AM Narrative 02/06/2022 6:58 AM RATE MARKER PROCEDURE: IR CAROTID CEREBRAL ANGIOGRAM, DATE/TIME OF EXAM: 01/06/2022 9:29 AM, [place] [facility] [place] INDICATION: I60.9: Subarachnoid hemorrhage (SAH) (CMS/HCC) Procedure: Diagnostic Catheter Cerebral Angiogram Comparison Study: CTA 01/05/22 History: 61 year old femalewith hx ofL ICA terminus aneurysm clipping in04/2020, p/w severe headache and found to have aL. Sylvian fissure SAH(HH2, mFS2). Will perform a cerebral angiogram to evaluate for any vascular causes for SAH. Soda Fountain Manager: Dr. Taz Kirkland Damage Inside Adjuster(s): Heather Ro Vessels: Ultrasound Guided Access of Radial Artery Right Radial Artery Angiogram Left Common Carotid Artery Angiogram: Cerebral Right Common Carotid Artery Angiogram: Cerebral Right Vertebral Artery Angiogram: Cerebral 3D Kristen CT was obtained by injection of contrast with the catheter in the left common carotid. The data was sent to a [employer] work station and analyzed with surface rendering. Anesthesia: I, Dr. Taz Kirkland was present during and supervised the entire procedure. Moderate sedation on this adult patient was ordered by the surface mount technology operator, administered intravenously in my presence, and monitored by the procedure nurse as an independent trained observer who was present throughout the procedure. The following parameters were monitored: oxygen saturation, heart rate, blood pressure, and response to care. Intra-service sedation start time was 8:30 and end time was 9:10 during which I was present. Total physician intra-service sedation time was 40 min. For details on sedation patient evaluation, please review the evaluation in [facility]. For details on monitored clinical parameters during the intra-service sedation time, please review the procedure nurse documentation in [facility]. Procedural detail: The risks, benefits, and alternatives to procedure were discussed in detail with the patient and her family. These included but were not limited to the risk of blood loss, vessel injury, stroke, renal injury, and contrast allergy. The patient was brought to the biplane angiography suite where she underwent prep and drape procedures. Limited ultrasound of the right radial artery demonstrated a patent vessel. A flores scale image was documented. The right radial artery was accessed using a micropuncture needle. Following a series of exchanges, a 5 [place] Islander 11 cm Glidesheath slender was placed in the radial artery. A radial angiogram was performed through the sheath. A spasmolytic cocktail containing 2.5mg verapamil, and 200mcg of nitroglycerin was administered. A 5 [place] Islander Glidecath Martino 2 diagnostic catheter along with a 0.035 Glidewire was navigated into the aortic arch. The catheter was used to select the left common carotid artery and cerebral angiogram was obtained. The catheter was returned to the arch and used to select the brachiocephalic artery followed by the right common carotid artery and a cerebral angiogram was obtained. The catheter was returned to the brachiocephalic artery and used to select the right subclavian artery followed by the the right vertebral artery and a cerebral angiogram was obtained. All catheters and sheaths were removed from the arterial system. Hemostasis was achieved using a [employer] radial band closure device. Hemostasis was immediate at the end of the closure procedure. The right radial artery pulse was palpable at the end of the closure procedure. The patient tolerated the procedure without immediate complications. She was returned to the recovery area in hemodynamically stable condition and neurologically unchanged. The estimated blood loss was less than 10 mL. A total of 6.8 minutes of fluoroscopic time and 105 ml of Isovue-300 contrast were utilized for the study. Findings: There was good arterial, capillary, and venous opacification of all angiographic runs. The left common carotid artery cerebral angiogram reveals a normal course and caliber the intracranial segments of the internal carotid artery (ICA). The visualized branches of the external carotid artery or normal. The proximal segment of the ophthalmic artery appears to be tortuous in course but normal in size and caliber. There is a small (W. 1.45 mm x H. 0.2 mm) outpouching on the inferior aspect of the communicating segment. Observed the previously placed left parasellar terminal ICA aneurysm clips. There is an area with slight increase in diameter in the distal M1 segment of the middle cerebral artery but otherwise normal course of the vessel and no aneurysms were observed. The anterior cerebral artery is small in caliber but normal in course. The anterior communicating artery is not visualized. The venous drainage is normal. The right common carotid artery cerebral angiogram reveals a normal course and caliber the intracranial segments of the internal carotid artery. There's a small infundibulum in the origin of the right posterior communicating artery. A small anterior choroidal artery is visualized. The visualized branches of the external carotid artery or normal. The middle cerebral artery is normal in course and caliber. A prominent anterior temporal artery branches off of the M1 segments of the middle cerebral artery. Right anterior cerebral artery is normal in course and caliber. The anterior communicating artery is visualized as is the left anterior cerebral artery. The venous drainage is normal. The right vertebral artery cerebral angiogram reveals a V3, V4, and vertebrobasilar junction that are normal in course and caliber. Contrast flows into the left vertebral artery which appears to be co-dominant. The major vessels to the cerebellum including both posterior inferior cerebellar arteries (PICAs) are normal in course and caliber. The basilar artery and posterior cerebral arteries are also normal in course and caliber. The venous drainage is also normal. Procedure Note Alex Kirkland MD - 02/06/2022 PROCEDURE: IR CAROTID CEREBRAL ANGIOGRAM, DATE/TIME OF EXAM:01/06/2022 9:29 AM, LOCATION [facility] [place] INDICATION: I60.9: Subarachnoid hemorrhage (SAH) ([facility]) Procedure: Diagnostic Catheter Cerebral Angiogram Comparison Study: CTA 01/05/22 History: 61 year old femalewith hx ofL ICA terminus aneurysm clipping in04/2020, p/w severe headache and found to have aL. Sylvian fissure SAH(HH2, mFS2). Will perform a cerebral angiogram to evaluate for any vascular causes for SAH. Soda Fountain Manager: Dr. Taz Kirkland Damage Inside Adjuster(s): Heather Ro Vessels: Ultrasound Guided Access of Radial Artery Right Radial Artery Angiogram Left Common Carotid Artery Angiogram: Cerebral Right Common Carotid Artery Angiogram: Cerebral Right Vertebral Artery Angiogram: Cerebral 3D Kristen CT was obtained by injection of contrast with the catheter inthe left common carotid. The data was sent to a [employer] work station and analyzed with surface rendering. Anesthesia: I, Dr. Taz Kirkland was present during and supervised the entire procedure. Moderate sedation on this adult patient was ordered by the surface mount technology operator, administered intravenously in my presence, and [facility] as an independent trained observer who was present throughout the procedure. The following parameters were monitored: oxygen saturation, heart rate, blood pressure, and response to care. Intra-service sedation start time was 8:30 and end time was 9:10 during which I was present.Total physician intra-service sedation time was 40 min. For details onsedation patient evaluation, please review the evaluation in [facility]. For details on monitored clinical parameters during the intra-service sedation time, please review the procedure nurse documentation in [facility]. Procedural detail: The risks, benefits, and alternatives to procedure were discussed indetail with the patient and her family. These included but were not limited to the risk of blood loss, vessel injury, stroke, renal injury, andcontrast allergy. The patient was brought to the biplane angiography suite whereshe underwent prep and drape procedures. Limited ultrasound of the right radial artery demonstrated a patent vessel. A flores scale image was documented. The right radial artery was accessed using a micropuncture needle. Following a series of exchanges, a 5 [place] Islander 11 cm Glidesheath slender was placed in the radial artery. A radial angiogram wasperformed through the sheath. A spasmolytic cocktail containing 2.5mg verapamil,and 200mcg of nitroglycerin was administered. A 5 [place] Islander Glidecath Martino 2 diagnostic catheter along with a 0.035 Glidewire was navigated into the aortic arch. The catheter was used to select the left common carotid artery andcerebral angiogram was obtained. The catheter was returned to the arch and usedto select the brachiocephalic artery followed by the right common carotid artery and a cerebral angiogram was obtained. The catheter was returnedto the brachiocephalic artery and used to select the right subclavianartery followed by the the right vertebral artery and a cerebral angiogram was obtained. All catheters and sheaths were removed from the arterial system.Hemostasis was achieved using a [employer] radial band closure device. Hemostasis was immediate at the end of the closure procedure. The right radial artery pulse was palpable at the end of the closure procedure. The patient tolerated the procedure without immediate complications. She was returned to the recovery area in hemodynamically stable conditionand neurologically unchanged. The estimated blood loss was less than 10 mL. A total of 6.8 minutes of fluoroscopic time and 105 ml of Isovue-300 contrast were utilized for the study. Findings: There was good arterial, capillary, and venous opacification of all angiographic runs. The left common carotid artery cerebral angiogram reveals a normalcourse and caliber the intracranial segments of the internal carotid artery(ICA). The visualized branches of the external carotid artery or normal. The proximal segment of the ophthalmic artery appears to be tortuous incourse but normal in size and caliber. There is a small (W. 1.45 mm x H. 0.2mm) outpouching on the inferior aspect of the communicating segment.Observed the previously placed left parasellar terminal ICA aneurysm clips. Thereis an area with slight increase in diameter in the distal M1 segment of the middle cerebral artery but otherwise normal course of the vessel and no aneurysms were observed. The anterior cerebral artery is small incaliber but normal in course. The anterior communicating artery is notvisualized. The venous drainage is normal. The right common carotid artery cerebral angiogram reveals a normalcourse and caliber the intracranial segments of the internal carotid artery. There's a small infundibulum in the origin of the right posterior communicating artery. A small anterior choroidal artery is visualized.The visualized branches of the external carotid artery or normal. The middle cerebral artery is normal in course and caliber. A prominent anterior temporal artery branches off of the M1 segments of the middle cerebral artery. Right anterior cerebral artery is normal in course and caliber.The anterior communicating artery is visualized as is the left anterior cerebral artery. The venous drainage is normal. The right vertebral artery cerebral angiogram reveals a V3, V4, and vertebrobasilar junction that are normal in course and caliber. Contrast flows into the left vertebral artery which appears to be co-dominant.The major vessels to the cerebellum including both posterior inferior cerebellar arteries (PICAs) are normal in course and caliber. Thebasilar artery and posterior cerebral arteries are also normal in course and caliber. The venous drainage is also normal. Impression: 1.No aneurysms or vascular anomalies identified to explain the SAH. 2.Visualized the previously placed left terminal ICA aneurysm clips. 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 I, Alex Kirkland MD have personally reviewed and interpreted this examination/study. > Interpreting Provider: Alex Kirkland MD on 02/06/2022 6:58 AM Jacklyn Bnudy VIBRATING SCREED OPERATOR-EMBROIDERER IR ORDERABLES * CT ANGIO BRAIN (01/05/2022 9:22 PM RATE MARKER) Anatomical Region Laterality Modality Head Computed Tomogra phy 01/05/2022 9:07 PM RATE MARKER Impressions 01/05/2022 11:19 PM RATE MARKER IMPRESSION: 1.Small volume acute subarachnoid hemorrhage layering along the left frontal, temporal, and parietal lobe sulci in addition to a left frontal inferior frontal convexity acute subdural hemorrhage measuring 3 mm in thickness, which are unchanged from outside facility head CT 01/05/2022. 2.Streak/beam hardening artifact from left parasellar aneurysm clips obscures the MCA M1 segment. No evidence of residual or recurrent aneurysm in areas not obscured by artifact. 3.Suggestion of short segment [id number] stenosis of the proximal left MCA M1 segment adjacent to aneurysmal clips. The distal left MCA M1 and M2 segments demonstrate diminutive caliber compared to the right side. The report was drafted by Cyrus Sheth MD (residential program director) I, Astrid Hewitt DR have personally reviewed and interpreted this examination/study. > Interpreting Provider: Astrid Hewitt DR on 01/05/2022 11:19 PM Narrative 01/05/2022 11:19 PM RATE MARKER PROCEDURE: CT ANGIO BRAIN, DATE/TIME OF EXAM: 01/05/2022 9:23 PM, LOCATION [facility] [place] INDICATION: I67.1: Brain aneurysm ADDITIONAL CLINICAL INFORMATION: Ordering Provider Reason For Exam: History of known acute subarachnoid hemorrhage. Transfer from an outside facility. COMPARISON: Head CT 12/30/2021. Outside facility head CT 01/05/2022. EXAMINATION: CT scan of the head without intravenous contrast CT angiogram images of the head acquired with intravenous contrast TECHNIQUE: CT of the head was performed without intravenous contrast according to standard protocol. CT angiography of the head was obtained after administration of intravenous contrast. CT dose reduction technique was used, including Automated Exposure Control. CONTRAST: 50 mL of Isovue-370 FINDINGS: HEAD CT: BRAIN PARENCHYMA: Re-demonstrated encephalomalacia of the left frontal and left temporal lobes, which is unchanged from prior head CT 12/31/2019. Basic ganglia with small chronic lacunes versus prominent perivascular spaces, unchanged. Scattered white matter hypodensities, which nonspecific but likely represents the sequela of chronic microangiopathic change. No evidence of an acute parenchymal hemorrhage. No significant midline shift or brain herniation. VENTRICLES/EXTRA-AXIAL SPACES: Small volume acute subarachnoid hemorrhage layering along the left frontal, temporal, and parietal lobe sulci and a left inferior frontal convexity acute subdural hemorrhage measuring up to 3 mm in thickness (series 10, images 22-25), which are unchanged compared to prior outside facility head CT 01/05/2022. Re-demonstrated ex vacuo dilatation of the left lateral ventricle. No evidence of hydrocephalus. EXTRACRANIAL STRUCTURES: Prior left pterional cranioplasty with left parasellar aneurysm clips. Mild opacification of the left superior maxillary sinus and left sphenoid sinus with a tiny mucosal retention cyst versus polyp. Remaining paranasal sinuses are clear. Bilateral mastoid air cells are clear. Bilateral orbits are unremarkable. CTA HEAD: Streak/beam hardening artifact from left parasellar aneurysm clips obscures the middle cerebral artery (MCA) M1 segment. No evidence of residual or recurrent aneurysm in areas not obscured by artifact. Suggestion of short segment [id number]-[id number] stenosis of the proximal M1 segment of the left MCA adjacent to aneurysmal clips (series 7, images 107-111). The distal M1 and M2 segments of the left MCA demonstrate diminutive caliber compared to the right side. The right MCA, bilateral anterior cerebral arteries, and bilateral posterior cerebral arteries are patent. Intracranial vertebral and basilar arteries are patent. Procedure Note Astrid Hewitt MD - 01/05/2022 PROCEDURE: CT ANGIO BRAIN, DATE/TIME OF EXAM: 01/05/2022 9:23 PM, LOCATION [facility] [place] INDICATION: I67.1: Brain aneurysm ADDITIONAL CLINICAL INFORMATION: Ordering Provider Reason For Exam: History of known acute subarachnoid hemorrhage. Transfer from an outside facility. COMPARISON: Head CT 12/30/2021. Outside facility head CT 01/05/2022. EXAMINATION: CT scan of the head without intravenous contrast CT angiogram images of the head acquired with intravenous contrast TECHNIQUE: CT of the head was performed without intravenous contrast according to standard protocol. CT angiography of the head was obtained after administration of intravenous contrast. CT dose reductiontechnique was used, including Automated Exposure Control. CONTRAST: 50 mL of Isovue-370 FINDINGS: HEAD CT: BRAIN PARENCHYMA: Re-demonstrated encephalomalacia of the left frontaland left temporal lobes, which is unchanged from prior head CT 12/31/2019. Basic ganglia with small chronic lacunes versus prominent perivascular spaces, unchanged. Scattered white matter hypodensities, whichnonspecific but likely represents the sequela of chronic microangiopathic change. No evidence of an acute parenchymal hemorrhage. No significant midlineshift or brain herniation. VENTRICLES/EXTRA-AXIAL SPACES: Small volume acute subarachnoidhemorrhage layering along the left frontal, temporal, and parietal lobe sulci and a left inferior frontal convexity acute subdural hemorrhage measuring up to3 mm in thickness (series 10, images 22-25), which are unchanged comparedto prior outside facility head CT 01/05/2022. Re-demonstrated ex vacuo dilatation of the left lateral ventricle. No evidence of hydrocephalus. EXTRACRANIAL STRUCTURES: Prior left pterional cranioplasty with left parasellar aneurysm clips. Mild opacification of the left superior maxillary sinus and left sphenoid sinus with a tiny mucosal retentioncyst versus polyp. Remaining paranasal sinuses are clear. Bilateral mastoidair cells are clear. Bilateral orbits are unremarkable. CTA HEAD: Streak/beam hardening artifact from left parasellar aneurysm clipsobscures the middle cerebral artery (MCA) M1 segment. No evidence of residual or recurrent aneurysm in areas not obscured by artifact. Suggestion ofshort segment [id number] stenosis of the proximal M1 segment of theleft MCA adjacent to aneurysmal clips (series 7, images 107-111). The distalM1 and M2 segments of the left MCA demonstrate diminutive caliber comparedto the right side. The right MCA, bilateral anterior cerebral arteries, and bilateral posterior cerebral arteries are patent. Intracranial vertebral andbasilar arteries are patent. IMPRESSION: 1.Small volume acute subarachnoid hemorrhage layering along the left frontal, temporal, and parietal lobe sulci in addition to a left frontal inferior frontal convexity acute subdural hemorrhage measuring 3 mm in thickness, which are unchanged from outside facility head CT 01/05/2022. 2.Streak/beam hardening artifact from left parasellar aneurysm clips obscures the MCA M1 segment. No evidence of residual or recurrentaneurysm in areas not obscured by artifact. 3.Suggestion of short segment [id number] stenosis of theproximal left MCA M1 segment adjacent to aneurysmal clips. The distal left MCA M1 and M2 segments demonstrate diminutive caliber compared to the right side. The report was drafted by Cyrus Sheth MD (residential program director) Astrid Rivas DR have personally reviewed and interpreted this examination/study. > Interpreting Provider: Astrid Hewitt DR on 01/05/2022 11:19 PM Sukumar Squires MD CT ORDERABLES * ETT LINE PERFORMABLE (08/04/2020 3:59 PM CDT) Narrative Nas Wynn DO - 08/04/2020 3:59 PM CDT Nas Wynn DO 08/04/2020 4:00 PM Endotracheal Tube Placement: Patient Location: OR. Intubation Event Date/Time: 08/04/2020 3:34 PM Procedure: intubation ([id number]). Procedure Section: Sedation: under general anesthesia. Indications for Airway Management: anesthesia Induction: standard IV Patient Position: sniffing and supine Mask Ventilation: easy. Blade Type: Elda Blade Size: 3 Laryngoscopy View: grade 1 (full cords) Tube: endotracheal tube Placement: oral Tube type: cuff - inflated Tube Size (MM): 7 Depth of Insertion (CM): 22 Measured From: lips Cuff Inflated With: air Number of Attempts: 1. Placement Verified By: direct visualization, bilateral breath sounds, chest auscultation and CO2 monitor Tube secured with: adhesive tape. Difficult Airway? No. Procedure Start Time: 08/04/2020 3:34 PM. Staff Section Anesthesia Provider: Nas Wynn DO, Performed the procedure Dontrell Villagomez MD GENERAL ANESTHESIA O RDERABLES * SARS-COV-2 (COVID-19) IN HOUSE (08/02/2020 10:25 AM CDT) Only the most recent of2 resultswithin the time period is included. COVID-19 PCR Not detected Not detected 08/02/2020 5:[address] [facility] Microbiology SPECIMEN FROM NASOPHARYNGEAL STRUCTURE / Unknown Collection / Unknown 08/02/2020 10:25 AM CDT 08/02/2020 11:18 AM CDT Narrative [facility] - 08/02/2020 5:30 PM CDT This nucleic acid amplification assay performance was validated by [facility]. This test has been authorized by the Food and Drug administration (FDA)under an Emergency Use Authorization (EUA). This test has been validated in accordance with the FDA's guidance document Policy for Diagnostic Testing in Laboratories Certified to perform High Complexity Testing under CLIA prior to Emergency Use Authorization for Coronavirus Disease-2019 during the Public Health Emergency issued on April 19, 2019. FDA independent review of this validation is pending. This test is only authorized for the duration of time the declaration that circumstances exist justifying the authorization of emergency use of in vitro diagnostic tests for detection of SARS-CoV-2 virus and/or diagnosis of COVID-19 infection under section 564(b)(1) of the Act, 21 U.S.C 360bbb-3 (b)(1), unless the authorization is terminated or revoked sooner. Fact Sheets for this EUA assay are available upon request. Timoteo Mckinney MD LAB - MICROBIOLOGY O RDERABLES [facility] [address] [place] [address], [facility] [phone] * PTT [facility] (07/27/2020 10:21 AM CDT) Only the most recent of2 resultswithin the time period is included. APTT 28.5 23.0 - 38.4 Seconds 07/27/2020 11:12 AM CDT [facility] Comment:Suggested therapeuti c range for full dose I.V. unfractionated heparin therapy for venous thromboembolism is 71 to 109 seconds. Blood BLOOD SPECIMEN / Unknown Lab Venipuncture / Unknown 07/27/2020 10:21 AM CDT 07/27/2020 11:02 AM CDT Timoteo Mckinney MD LAB - COAGULATION OR DERABLES [facility] [address] [place] [address], [place] [phone] * XR CHEST 2VW (07/27/2020 9:21 AM CDT) Only the most recent of2 resultswithin the time period is included. Anatomical Region Laterality Modality Chest Radiographic Radha ging 07/27/2020 9:23 AM CDT Impressions 07/27/2020 1:22 PM CDT FINDINGS/IMPRESSION: Lines and tubes: *Spinal stimulator leads are redemonstrated. There is no focal consolidation, pleural effusion, or pneumothorax. The cardiomediastinal silhouette is normal. The visible bony thorax is intact. Dictated by Em Spangler MD (interventional radiology technologist). IDr. ABENA have personally reviewed and interpreted this examination/study. This report was electronically signed by ABENA MANCIA on 07/27/2020 1:22 PM . Narrative 07/27/2020 1:22 PM CDT EXAMINATION: XR CHEST 2VW HISTORY: Z01.818: Pre-op testing COMPARISON: Chest radiograph dated 05/13/2020. Procedure Note Abena Mancia, DO - 07/27/2020 EXAMINATION: XR CHEST 2VW HISTORY: Z01.818: Pre-op testing COMPARISON: Chest radiograph dated 05/13/2020. FINDINGS/IMPRESSION: Lines and tubes: *Spinal stimulator leads are redemonstrated. There is no focal consolidation, pleural effusion, or pneumothorax. The cardiomediastinal silhouette is normal. The visible bony thorax isintact. Dictated by Em Spangler MD (interventional radiology technologist). I, Dr. ABENA MANCIA have personally reviewed and interpreted this examination/study. This report was electronically signed by ABENA MANCIA on 07/27/2020 1:22 PM . Timoteo Mckinney MD DIAGNOSTIC IMAGING O RDERABLES * SARS-COV-2 (COVID-19)+INFLU A+B PCR RAPID (06/21/2020 9:31 AM CDT) COVID-19 PCR Not detected Not detected 06/22/19 10:53 AM CDT [facility] Influenza A Rapid RENEE Not Detected Not Detected 06/21/2020 10:53 AM CDT [facility] Influenza B RENEE Rapid Not Detected Not Detected 06/21/2020 10:53 AM CDT [facility] Microbiology SPECIMEN FROM NASOPHARYNGEAL STRUCTURE / Unknown Collection / Unknown 06/21/2020 9:31 AM CDT 06/21/2020 9:34 AM CDT Narrative [facility] - 06/21/2020 10:53 AM CDT Influenza assay performed by Nucleic Acid Amplification. Results do not exclude the possibility of a mixed viral infection. NOTE: Detecting and identifying specific viral nucleic acids from individuals exhibiting signs and symptoms of respiratory infection aids in the diagnosis of respiratory infection, if used in conjunction with other clinical and laboratory findings. The results of this test should not be used as the sole basis for diagnosis, treatment, or patient management decisions. This nucleic acid amplification assay performance was validated by [facility]. This test has been authorized by the Food and Drug administration (FDA)under an Emergency Use Authorization (EUA). This test has been validated in accordance with the FDA's guidance document Policy for Diagnostic Testing in Laboratories Certified to perform High Complexity Testing under CLIA prior to Emergency Use Authorization for Coronavirus Disease-2019 during the Public Health Emergency issued on April 19, 2019. FDA independent review of this validation is pending. This test is only authorized for the duration of time the declaration that circumstances exist justifying the authorization of emergency use of in vitro diagnostic tests for detection of SARS-CoV-2 virus and/or diagnosis of COVID-19 infection under section 564(b)(1) of the Act, 21 U.S.C 360bbb-3 (b)(1), unless the authorization is terminated or revoked sooner. Fact Sheets for this EUA assay are available upon request. Charbel Batista MD LAB - MICROBIOL OGY ORDERABLES Performing Organization Address City/State/[facility] Co de Phone Number [address] [address] [phone] * (ABNORMAL) URINALYSIS W/MICROSCOPIC NO CULTURE (05/27/2020 7:39 PM CDT) Only the most recent of3 resultswithin the time period is included. Color UA Vianney(A) Straw, Yellow, Colorless 05/27/2020 8:13 PM CDT [facility] Clarity UA Cloudy(A) Clear, Slt Cloudy 05/27/2020 8:13 PM CDT [facility] Specific [place] UA 1.032(H) 1.005 - 1.030 05/27/2020 8:13 PM [facility] pH UA 5.0 5.0 - 8.0 pH 05/27/2020 8:13 PM [facility] Protein UA 2+(A) Negative mg/dL 05/27/2020 8:13 PM [facility] Glucose UA Negative Negative mg/dL 05/27/2020 8:13 PM [facility] Ketone UA Trace(A) Negative mg/dL 05/27/2020 8:13 PM [facility] Bilirubin UA Negative Negative mg/dL 05/27/2020 8:13 PM [facility] Blood UA Negative Negative 05/27/2020 8:13 PM [facility] Nitrite UA Negative Negative 05/27/2020 8:13 PM [facility] Leukocyte Esterase 2+(A) Negative 05/27/2020 8:13 PM [facility] Urobilinogen UA 2.0(A) Negative mg/dL 05/27/2020 8:13 PM [facility] RBC UA 6-10(A) None Seen, 0-2, 3-5 /HPF 05/27/2020 8:13 PM [facility] WBC UA 11-20(A) None Seen, 0-5 /HPF 05/27/2020 8:13 PM [facility] Bacteria UA Trace None, Trace /HPF 05/27/2020 8:13 PM [facility] Squamous Epithelial Cells UA 11-20(A) None Seen, 0-2 /HPF 05/27/2020 8:13 PM [facility] Mucus UA 3+(A) None, 1+ /LPF 05/27/2020 8:13 PM [facility] Hyaline Casts UA 0-2 None Seen, 0-2 /LPF 05/27/2020 8:13 PM [facility] Urine URINE SPECIMEN OBTAINED BY CLEAN CATCH PROCEDURE / Unknown Collection / Unknown 05/27/2020 7:39 PM CDT 05/27/2020 7:54 PM [facility] - 05/27/2020 8:13 PM CDT Timoteo Mckinney MD LAB - URINALYSIS ORD ERABLES [facility] [address] [place] [address], [facility] [phone] * VASCULAR LAB ORDER (05/24/2020 10:38 AM CDT) Anatomical Region Laterality Modality Other Narrative 05/24/2020 10:38 AM CDT Ordered by an unspecified provider. Scanned Document VASCULAR LAB ORDERAB LES * (ABNORMAL) URINALYSIS REFLEX TO MICROSCOPIC NO CULTURE (05/21/2020 10:20 PM CDT) Color UA Yellow Straw, Yellow, Colorless 05/21/2020 10:45 PM CDT [facility] Clarity UA Slt Cloudy Clear, Slt Cloudy 05/21/2020 10:45 PM T [facility] Specific [place] UA 1.028 1.005 - 1.030 05/21/2020 10:45 PM T [facility] pH UA 5.0 5.0 - 8.0 pH 05/21/2020 10:45 PM T [facility] Protein UA 1+(A) Negative mg/dL 05/21/2020 10:45 PM [facility] Glucose UA Negative Negative mg/dL 05/21/2020 10:45 PM [facility] Ketone UA Negative Negative mg/dL 05/21/2020 10:45 PM T [facility] Bilirubin UA Negative Negative mg/dL 05/21/2020 10:45 PM T [facility] Blood UA Negative Negative 05/21/2020 10:45 PM T [facility] Nitrite UA Negative Negative 05/21/2020 10:45 PM [facility] Leukocyte Esterase Trace(A) Negative 05/21/2020 10:45 PM [facility] Urobilinogen UA Negative Negative mg/dL 05/21/2020 10:45 PM [facility] RBC UA 6-10(A) None Seen, 0-2, 3-5 /HPF 05/21/2020 10:45 PM [facility] WBC UA 6-10(A) None Seen, 0-5 /HPF 05/21/2020 10:45 PM CDT [facility] Bacteria UA Trace None, Trace /HPF 05/21/2020 10:45 PM CDT [facility] Squamous Epithelial Cells UA 6-10(A) None Seen, 0-2 /HPF 05/21/2020 10:45 PM CDT [facility] Mucus UA 1+ None, 1+ /LPF 05/21/2020 10:45 PM T [facility] Urine URINE SPECIMEN OBTAINED BY CLEAN CATCH PROCEDURE / Unknown Collection / Unknown 05/21/2020 10:20 PM CDT 05/21/2020 10:26 PM CDT Narrative [facility] - 05/21/2020 10:45 PM CDT Timoteo Mckinney MD LAB - URINALYSIS ORD ERABLES [facility] [address] [place] [address], [facility] [phone] * (ABNORMAL) BLOOD GASES ART COMPLETE [facility] (05/17/2020 11:32 PM CDT) Only the most recent of18 resultswithin the time period is included. pH Arterial 7.40 7.35 - 7.45 05/17/2020 11:45 PM [facility] pCO2 Arterial 54(H) 35 - 45 mmHg 05/17/2020 11:45 PM [facility] pO2 Arterial 122(H) 71 - 95 mmHg 05/17/2020 11:45 PM [facility] HCO3 Arterial 32.4(H) 22.0 - 26.0 mmol/L 05/17/2020 11:45 PM [facility] TCO2 Arterial 34.0(H) 25.0 - 29.0 mmol/L 05/17/2020 11:45 PM [facility] Base Excess Arterial 6.5(H) -2.0 - 2.0 mmol/L 05/17/2020 11:45 PM [facility] Hemoglobin Arterial 9.8(L) 12.0 - 15.5 g/dL 05/17/2020 11:45 PM [facility] Oxyhemoglobin Arterial 97.2 95.0 - 100.0 % 05/17/2020 11:45 PM [facility] Carboxyhemoglobin 0.3 0.0 - 3.0 % 05/17/2020 11:45 PM [facility] Methemoglobin 0.5 0.0 - 2.0 % 05/17/2020 11:45 PM [facility] FI O2 Arterial 32.0 % 05/17/2020 11:45 PM [facility] Ionized Calcium Whole Blood 1.19 mmol/L 05/17/2020 11:45 PM [facility] Adjusted Ionized Calcium 1.19 1.19 - 1.34 mmol/L 05/17/2020 11:45 PM [facility] Sodium Whole Blood 141 135 - 145 mmol/L 05/17/2020 11:45 PM [facility] Potassium Whole Blood 3.4(L) 3.5 - 5.5 mmol/L 05/17/2020 11:45 PM [facility] Chloride Whole Blood 100(L) 101 - 111 mmol/L 05/17/2020 11:45 PM [facility] Glucose Whole Blood 127(H) 70 - 110 mg/dL 05/17/2020 11:45 PM [facility] Lactic Acid Whole Blood 0.8 0.5 - 3.4 mmol/L 05/17/2020 11:45 PM [facility] Blood ARTERIAL BLOOD SPECIMEN / Unknown Venipuncture / Unknown 05/17/2020 11:32 PM CDT 05/17/2020 11:40 PM CDT Timoteo Mckinney MD LAB - BLOOD GASES OR DERABLES [facility] [address] [place] [address], [facility] [phone] * ECHO COMPLETE (05/13/2020 9:49 AM CDT) Anatomical Region Laterality Modality Chest Echo 05/13/2020 9:02 AM CDT Narrative Procedure Note Sukumar Vega MD - 05/13/2020 Timoteo Mckinney MD ECHOCARDIOGRAPHY RAD IANT * XR ABDOMEN KUB PORTABLE (05/11/2020 9:43 PM CDT) Anatomical Region Laterality Modality Abdomen Radiographic Radha ging 05/12/2020 8:25 AM CDT Impressions 05/17/2020 12:07 PM CDT FINDINGS/IMPRESSION: Nasogastric tube courses below the diaphragm and terminates in the stomach. Dictated by Em Spangler MD (interventional radiology technologist). This report was approved by Em Spangler on 05/17/2020 8:[address] MIRELA Rivas MD have personally reviewed and interpreted this examination/study. This report was electronically signed by Dr. MIRELA GARCIA MD on 05/17/2020 12:07 PM . Narrative 05/17/2020 12:07 PM CDT EXAMINATION: XR ABDOMEN KUB PORTABLE HISTORY: Z01.818: Pre-op testing. This exam is for nasogastric tube placement. COMPARISON: No prior study is available for comparison. Procedure Note Mirela Garcia MD - 05/17/2020 EXAMINATION: XR ABDOMEN KUB PORTABLE HISTORY: Z01.818: Pre-op testing. This exam is for nasogastric tube placement. COMPARISON: No prior study is available for comparison. FINDINGS/IMPRESSION: Nasogastric tube courses below the diaphragm and terminates in thestomach. Dictated by Em Spangler MD (interventional radiology technologist). This report was approved by Em Spangler on 05/17/2020 8:[address] MIRELA Rivas MD have personally reviewed and interpretedthis examination/study. This report was electronically signed by Dr. MIRELA GARCIA MD on 05/17/2020 12:07 PM . Timoteo Mckinney MD DIAGNOSTIC IMAGING O RDERABLES * ARTERIAL LINE PERFORMABLE (05/11/2020 4:04 PM CDT) Narrative Rocio Neves DO - 05/11/2020 4:04 PM CDT Rocio Neves DO 05/11/2020 4:06 PM Arterial Line Placement Procedure Note Patient Location: [place]. Procedure: Arterial Line (34707). Procedure Section Indications: continuous blood pressure monitoring, hypotension and blood sampling needed. Consent: informed consent was obtained for the procedure. Skin Prep: Chloraprep. Location: radial. Sterile Technique: cap and mask. Gauge: 20. Seldinger Technique Used? Yes Number of Attempts: 1. Line Secured with: tape and Tegaderm. Procedure Tolerance: tolerated well. Events: none. Procedure Start Time: 05/11/2020 3:49 PM. Staff Section Anesthesia Provider: Dontrell Villagomez MD, Performed the procedure Dontrell Villagomez MD GENERAL ANESTHESIA O RDERABLES * XR ABDOMEN KUB (05/11/2020 3:07 PM CDT) Anatomical Region Laterality Modality Abdomen Radiographic Radha ging 05/12/2020 8:42 AM CDT Impressions 05/12/2020 9:52 AM CDT FINDINGS/IMPRESSION: NG/OG tube courses below the diaphragm and terminates in the left mid abdomen, indeterminate location, may be in the distended stomach. Side-port is now well visualized in this exam due to overlying spinal stimulator device. Multiple monitoring devices over the chest and abdomen Dictated by Em Spangler MD (interventional radiology technologist). I, Dr. GAYATRI ARROYO M.D. have personally reviewed and interpreted this examination/study. This report was electronically signed by GAYATRI ARROYO M.D. on 05/12/2020 9:52 AM . Narrative 05/12/2020 9:52 AM CDT EXAMINATION: XR ABDOMEN KUB HISTORY: I67.1: Cerebral aneurysm. This exam is for NG/OG tube placement. COMPARISON: No prior study is available for comparison. Procedure Note Gayatri Arroyo MD - 05/12/2020 EXAMINATION: XR ABDOMEN KUB HISTORY: I67.1: Cerebral aneurysm. This exam is for NG/OG tubeplacement. COMPARISON: No prior study is available for comparison. FINDINGS/IMPRESSION: NG/OG tube courses below the diaphragm and terminates in the left mid abdomen, indeterminate location, may be in the distended stomach. Side-port is now well visualized in this exam due to overlying spinal stimulator device. Multiple monitoring devices over the chest andabdomen Dictated by Em Spangler MD (interventional radiology technologist). Dr. GAYATRI Rivas M.D. have personally reviewed and interpreted this examination/study. This report was electronically signed by GAYATRI ARROYO M.D. on 05/12/2020 9:52 AM . Luis Braga MD DIAGNOSTIC IMAGING O RDERABLES * XR CHEST 1VW (05/11/2020 3:06 PM CDT) Anatomical Region Laterality Modality Chest Radiographic Radha ging 05/12/2020 8:45 AM CDT Impressions 05/12/2020 10:45 AM CDT FINDINGS/IMPRESSION: Lines and tubes: *Interval intubation. Endotracheal tube terminates in the distal thoracic trachea, approximately 2.6 cm above the analisa. *Interval placement of NG/OG tube, which courses below the diaphragm. Tip out of field of view. *Interval removal of right internal jugular central venous catheter. *Redemonstration of spinal stimulator leads. Interval development of small left pleural effusion with associated atelectasis and/or airspace disease. Right basilar infiltrate/atelectasis. No right pleural effusion. No pneumothorax bilaterally. The cardiomediastinal silhouette is normal. Dictated by Em Spangler MD (interventional radiology technologist). Dr. GAYATRI Rivas M.D. have personally reviewed and interpreted this examination/study. This report was electronically signed by GAYATRI ARROYO M.D. on 05/12/2020 10:45 AM . Narrative 05/12/2020 10:45 AM CDT EXAMINATION: XR CHEST 1VW HISTORY: I67.1: Cerebral aneurysm COMPARISON: Chest x-ray dated 05/06/2020 Procedure Note Gayatri Arroyo MD - 05/12/2020 EXAMINATION: XR CHEST 1VW HISTORY: I67.1: Cerebral aneurysm COMPARISON: Chest x-ray dated 05/06/2020 FINDINGS/IMPRESSION: Lines and tubes: *Interval intubation. Endotracheal tube terminates in the distalthoracic trachea, approximately 2.6 cm above the analisa. *Interval placement of NG/OG tube, which courses below the diaphragm.Tip out of field of view. *Interval removal of right internal jugular central venous catheter. *Redemonstration of spinal stimulator leads. Interval development of small left pleural effusion with associated atelectasis and/or airspace disease. Right basilarinfiltrate/atelectasis. No right pleural effusion. No pneumothorax bilaterally. The cardiomediastinal silhouette is normal. Dictated by Em Spangler MD (interventional radiology technologist). I, Dr. GAYATRI ARROYO M.D. have personally reviewed and interpreted this examination/study. This report was electronically signed by GAYATRI ARROYO M.D. on 05/12/2020 10:45 AM . Luis Braga MD DIAGNOSTIC IMAGING O RDERABLES * MRI BRAIN WO CONTRAST (05/10/2020 9:50 PM CDT) Anatomical Region Laterality Modality Head Magnetic Resonan ce 05/10/2020 11:3 5 PM CDT Impressions 05/11/2020 12:08 AM CDT IMPRESSION: Recent postsurgical changes related to left ICA terminus aneurysm clipping. Blood products from the site of enters and clipping extend into the left-sided subarachnoid spaces.. Mixed age blood products along the left cerebral convexity exert mass effect on the brain parenchyma and ventricular system resulting in midline shift to the right. This report was electronically signed by LEV GARZA on 05/11/2020 12:08 AM . Narrative 05/11/2020 12:08 AM CDT INDICATION: Postoperative day 4 status post left ICA terminus aneurysm clipping COMPARISON: Multiple recent CTs. TECHNIQUE: MRI brain without intravenous contrast FINDINGS: Evaluation is limited by patient motion artifact. Extracranial and intracranial susceptibility artifact related to recent left pterional craniotomy and left ICA terminus aneurysm clipping limits evaluation. There is focal T2 bright signal at the site of aneurysm clipping which may represent acute blood products. No large territory brain parenchymal abnormal diffusion restriction. Large left subgaleal heterogenous fluid collection representing overlying the craniotomy site is redemonstrated and represents gas and acute on subacute blood products. Patchy abnormal T2 bright signal in the brainstem is nonspecific but statistically most likely related to small vessel ischemia. Small-volume dependent recent blood products are seen in the occipital horns. Heterogenous signal extra-axial fluid collection along the left cerebral convexity underlying the craniotomy site is grossly is redemonstrated and represents gas and acute on subacute blood products. Local regional mass effect on the left cerebral hemisphere resulting in effacement of the sulci, left sylvian fissure, partial effacement of the left lateral ventricle, and midline shift to the right is redemonstrated. Subarachnoid blood products epicentered in the left sylvian fissure are redemonstrated. The basal cisterns are patent. Procedure Note Lev Garza MD - 05/11/2020 INDICATION: Postoperative day 4 status post left ICA terminus aneurysm clipping COMPARISON: Multiple recent CTs. TECHNIQUE: MRI brain without intravenous contrast FINDINGS: Evaluation is limited by patient motion artifact. Extracranial and intracranial susceptibility artifact related to recent left pterional craniotomy and left ICA terminus aneurysm clipping limits evaluation. There is focal T2 bright signal at the site of aneurysm clipping whichmay represent acute blood products. No large territory brain parenchymal abnormal diffusion restriction. Large left subgaleal heterogenous fluid collection representing overlying the craniotomy site is redemonstrated and represents gas and acute on subacute blood products. Patchy abnormal T2 bright signal in the brainstem is nonspecific but statistically most likely related to small vessel ischemia. Small-volume dependent recent blood products are seen in the occipital horns. Heterogenous signal extra-axial fluid collection along the left cerebral convexityunderlying the craniotomy site is grossly is redemonstrated and represents gas and acute on subacute blood products. Local regional mass effect on the left cerebral hemisphere resulting in effacement of the sulci, left sylvian fissure, partial effacement of the left lateral ventricle, and midline shift to the right is redemonstrated. Subarachnoid blood products epicentered in the left sylvian fissure are redemonstrated. The basal cisterns are patent. 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 Blood products from the site of enters and clipping extendinto the left-sided subarachnoid spaces.. Mixed age blood products along the left cerebral convexity exert mass effect on the brain parenchyma and ventricular system resulting in midline shift to the right. This report was electronically signed by LEV GARZA on 05/11/2020 12:08 AM . Alfredo Freedman VIBRATING SCREED OPERATOR-EMBROIDERER MR ORDERABLES * PREPARE (CROSSMATCH) RBC UNIT(S), 2 Units (05/10/2020 1:17 AM CDT) Unit Description AS1 LR PRBC [facility] Unit ABO A [facility] Unit Rh POS [facility] Product Number R02 [facility] Unit Donor # [id number] [facility] Unit Status released [facility] BL[facility] Product Code [id number] [facility] Blood Type Barcode 6200 [facility] Expiration Date S BLOOD BANK LAB Unit Description AS1 LR PRBC [facility] Unit ABO A [facility] Unit Rh POS [facility] Product Number R02 [facility] Unit Donor # [id number] [facility] Unit Status released [facility] Product Code [id number] [facility] B[facility] Blood Type Barcode 6200 [facility] Expiration Date S BLOOD BANK LAB Blood Bank BLOOD SPECIMEN / Unknown 05/06/2020 6:34 AM CDT Provider Unknown LAB - BLOOD BANK ORD ERABLES [facility] [address] [place] [address], [facility] [phone] * CENTRAL LINE PERFORMABLE (05/06/2020 9:17 AM CDT) Narrative Beth Hope DO - 05/06/2020 9:17 AM CDT Beth Hope DO 05/06/2020 9:18 AM Central Line Placement Procedure Note/LDA Patient Location: OR. Procedure: central line < 5 yr(33865). Procedure Section: Indications: IV access and CVP monitoring. Patient Position: Trendelenburg Site: internal jugular Skin Prep: Chloraprep. Local Anesthetic Used? No Site Identification: ultrasound guided with sterile sleeve and gel. Seldinger Technique Used? Yes Wire Verification: verified by ultrasound. Intravenous Verification: verified by ultrasound and all ports aspirated/flushed easily. Lumens: triple lumen Size (Fr): 7. Length (cm): 16. Secured at (cm): 15. Port Insertion: guidewire removed intact, all ports aspirated/flushed, sutured in place and dressing applied. Number of Attempts: 1. Procedure Tolerance: performed while patient under general anesthesia Maximal Sterile Barriers: Cap, mask, sterile gloves, a large sterile sheet, hand hygiene, and chlorhexidine for cutaneous antisepsis (6030F) Procedure Start Time: 05/06/2020 8:00 AM. Staff Section Anesthesia Provider: Beth Hope DO, Performed the procedure Dontrell Villagomez MD GENERAL ANESTHESIA O LUCÍAERAMORENO * ARTERIAL LINE PERFORMABLE (05/06/2020 9:15 AM CDT) Narrative Beth Hope DO - 05/06/2020 9:15 AM CDT Beth Hope DO 05/06/2020 9:17 AM Arterial Line Placement Procedure Note Patient Location: OR. Procedure: Arterial Line (88395). Procedure Section Indications: continuous blood pressure monitoring. Consent: informed consent was obtained for the procedure. Skin Prep: Chloraprep. Location: left radial. Site Identification: palpation. Sterile Technique: mask and cap. Local Anesthetic Used? No Gauge: 20. Seldinger Technique Used? Yes Number of Attempts: 1. Line Secured with: Tegaderm and tape. Procedure Tolerance: performed while patient under general anesthesia. Events: none. Procedure Start Time: 05/06/2020 7:50 AM. Staff Section Anesthesia Provider: Travis Escoto Performed the procedure Provider #1: Dontrell Villagomez MD. Provider #2: Beth Hope DO. Dontrell Villagomez MD GENERAL ANESTHESIA O LUCÍAERAMORENO * ETT LINE PERFORMABLE (05/06/2020 9:15 AM CDT) Narrative Beth Hope DO - 05/06/2020 9:15 AM CDT Beth Hope DO 05/06/2020 9:15 AM Endotracheal Tube Placement: Patient Location: OR. Intubation Event Date/Time: 05/06/2020 7:42 AM Procedure: intubation (69836). Procedure Section: Sedation: under general anesthesia. Indications for Airway Management: anesthesia Induction: rapid sequence Patient Position: supine Mask Ventilation: not attempted. Blade Type: Elda Blade Size: 3 Laryngoscopy View: grade 1 (full cords) Tube: endotracheal tube Placement: oral Tube type: cuff - inflated Tube Size (MM): 7 Cuff Inflated With: air Number of Attempts: 1. Placement Verified By: direct visualization, bilateral breath sounds and CO2 monitor Tube secured with: adhesive tape. Dentition unchanged? Yes Difficult Airway? No. Procedure Start Time: 05/06/2020 7:42 AM. Staff Section Anesthesia Provider: Beth Hope DO, Performed the procedure Additional Comments: Bronchospasm upon intubation, relieved by albuterol. Dontrell Villagomez MD GENERAL ANESTHESIA O RDERABLES * TYPE + SCREEN PANEL (05/06/2020 6:28 AM CDT) Only the most recent of2 resultswithin the time period is included. Antibody Screen NEG 7:19 AM CDT [facility] ABO Rh A POS 05/06/2020 7:19 AM CDT [facility] Blood Bank BLOOD SPECIMEN / Unknown Venipuncture / Unknown 05/06/2020 6:28 AM CDT 05/06/2020 6:34 AM CDT Provider Unknown LAB - BLOOD BANK ORD ERABLES [facility] [address] [place] [address], [facility] [phone] * MRI SHOULDER LEFT WWO CONT (06/13/2017 10:56 AM CDT) Anatomical Region Laterality Modality Upper Extremity Magnetic Resonan ce 06/13/2017 10:5 0 AM CDT Impressions 06/13/2017 12:18 PM CDT IMPRESSION: 1. Enhancing bone lesion in the proximal humeral diaphysis measuring 4.6 cm in craniocaudal dimension. The differential diagnosis includes a chondroid bone lesion such as enchondroma, or fibrous dysplasia. Given the patient's age, a more aggressive process such as metastasis or multiple myeloma cannot be excluded. Therefore further evaluation or follow-up is recommended. 2. Proximal to this is an 8 mm cortical defect in the anterior aspect of the proximal humeral shaft with localized overlying soft tissue edema and enhancement. This is located at the pectoralis tendon insertion onto the humerus, and is favored to represent the sequela of a tendon insertional strain or avulsion. A small surface bone lesion such is periosteal chondroma is also possible. Dictated by Dash Sanchez MD (interventional radiology technologist). I, Dr. SHIRAZ KERN MD have personally reviewed and interpreted this examination/study. This report was electronically signed by SHIRAZ KERN MD on 06/13/2017 12:18 PM . Narrative 06/13/2017 12:18 PM CDT EXAMINATION: Magnetic resonance imaging (MRI) of the left shoulder without and with contrast HISTORY: M89.9: Bone lesion TECHNIQUE: MRI of the left shoulder was performed using multiple pulse sequences in axial and sagittal planes prior to and following the uneventful administration of 16 mL MultiHance intravenous gadolinium contrast. Due to the presence of a spinal stimulator, the protocol was selected to keep the scan time less than 30 minutes. COMPARISON: Left shoulder radiograph dated 03/20/2017 and a left shoulder MRI dated 03/29/2017 from [facility] FINDINGS: There is a bone lesion in the proximal humeral diaphysis. The lesion measures 4.6 cm in maximum craniocaudal dimension. This lesion fills the entire medullary cavity measuring 1.0 x 0.8 cm in the axial plane. There is no cortical thinning, cortical breakthrough, or associated intracortical signal abnormality in the region of this lesion. The lesion is characterized by signal which is primarily hypointense on the T1-weighted images replacing the normal marrow. There are a few small foci of T2 hyperintensity which could represent spared areas of fatty marrow or foci of hemorrhage. The lesion is predominantly hyperintense on the T2-weighted images although it is heterogeneous with a few areas of hypointense signal. On the postcontrast images, most of the lesion enhances although there are few nonenhancing central foci. Upon correlation with the radiographs, there appears to be subtle sclerosis in the humeral shaft in this region which may represent fibrous or possibly chondroid matrix. There are a few small T2 hyperintense foci in the proximal humerus proximal to the lesion, for example one measuring 4 mm (series 8 image 15) located 2.2 cm proximal to the lesion, and proximal to this another measuring 3 mm in the lower aspect of the humeral head (series 8 image 12). Centered 2.6 cm proximal to the above-described bone lesion is another abnormality at the anterior aspect of the proximal humeral shaft. This is characterized by a defect in the anterior cortex of the humerus measuring 0.8 cm in diameter (series 8, image 12) with mild adjacent soft tissue edema and moderate adjacent soft tissue enhancement (series 12 image 18, series 14 image 12-13). The area of enhancement is somewhat ill-defined but measures approximately 1.2 cm (series 12, image 18 and series 14, image 12). There is a central focus of hypointense signal measuring about 3 mm which may represent calcification or a nidus. This area of abnormality is along the lateral margin of the bicipital groove, in the region of the pectoralis tendon insertion onto the humerus. The long head of the biceps tendon passes just anterior to this lesion. The intra-articular portion of the long head of the biceps tendon is present (therefore this does not appear to represent a humeral defect associated with biceps tenodesis). Upon review of the prior left shoulder radiographs, there is mild soft tissue calcification in this region. This study was performed according to a mass protocol, therefore evaluation of the shoulder is limited. There is no glenohumeral arthritis or effusion. The rotator cuff is intact. The acromioclavicular joint is not fully imaged. Procedure Note Shiraz Kern MD - 06/13/2017 EXAMINATION: Magnetic resonance imaging (MRI) of the left shoulderwithout and with contrast HISTORY: M89.9: Bone lesion TECHNIQUE: MRI of the left shoulder was performed using multiple pulse sequences in axial and sagittal planes prior to and following the uneventful administration of 16 mL MultiHance intravenous gadolinium contrast. Due to the presence of a spinal stimulator, the protocol was selected to keep the scan time less than 30 minutes. COMPARISON: Left shoulder radiograph dated 03/20/2017 and a left shoulder MRI dated 03/29/2017 from [facility] FINDINGS: There is a bone lesion in the proximal humeral diaphysis. The lesion measures 4.6 cm in maximum craniocaudal dimension. This lesion fills the entire medullary cavity measuring 1.0 x 0.8 cm in the axial plane. There is no cortical thinning, cortical breakthrough, or associated intracortical signal abnormality in the region of this lesion. Thelesion is characterized by signal which is primarily hypointense on the T1-weighted images replacing the normal marrow. There are a few smallfoci of T2 hyperintensity which could represent spared areas of fatty marrowor foci of hemorrhage. The lesion is predominantly hyperintense on the T2-weighted images although it is heterogeneous with a few areas of hypointense signal. On the postcontrast images, most of the lesion enhances although there are few nonenhancing central foci. Upon correlation with the radiographs, there appears to be subtle sclerosisin the humeral shaft in this region which may represent fibrous or possibly chondroid matrix. There are a few small T2 hyperintense foci in the proximal humerus proximal to the lesion, for example one measuring 4 mm (series 8 image 15) located 2.2 cm proximal to the lesion, and proximalto this another measuring 3 mm in the lower aspect of the humeral head (series 8 image 12). Centered 2.6 cm proximal to the above-described bone lesion is another abnormality at the anterior aspect of the proximal humeral shaft. Thisis characterized by a defect in the anterior cortex of the humerusmeasuring 0.8 cm in diameter (series 8, image 12) with mild adjacent soft tissue edema and moderate adjacent soft tissue enhancement (series 12 image 18, series 14 image 12-13). The area of enhancement is somewhat ill-defined but measures approximately 1.2 cm (series 12, image 18 and series 14, image 12). There is a central focus of hypointense signal measuringabout 3 mm which may represent calcification or a nidus. This area of abnormality is along the lateral margin of the bicipital groove, in the region of the pectoralis tendon insertion onto the humerus. The longhead of the biceps tendon passes just anterior to this lesion. The intra-articular portion of the long head of the biceps tendon is present (therefore this does not appear to represent a humeral defect associated with biceps tenodesis). Upon review of the prior left shoulder radiographs, there is mild soft tissue calcification in this region. This study was performed according to a mass protocol, therefore evaluation of the shoulder is limited. There is no glenohumeralarthritis or effusion. The rotator cuff is intact. The acromioclavicular joint is not fully imaged. IMPRESSION: 1. Enhancing bone lesion in the proximal humeral diaphysis measuring 4.6 cm in craniocaudal dimension. The differential diagnosis includes a chondroid bone lesion such as enchondroma, or fibrous dysplasia. Giventhe patient's age, a more aggressive process such as metastasis or multiple myeloma cannot be excluded. Therefore further evaluation or follow-up is recommended. 2. Proximal to this is an 8 mm cortical defect in the anterior aspect of the proximal humeral shaft with localized overlying soft tissue edemaand enhancement. This is located at the pectoralis tendon insertion onto the humerus, and is favored to represent the sequela of a tendon insertional strain or avulsion. A small surface bone lesion such is periosteal chondroma is also possible. Dictated by Dash Sanchez MD (interventional radiology technologist). I, Dr. SHIRAZ KERN MD have personally reviewed and interpreted this examination/study. This report was electronically signed by SHIRAZ KERN MD on06/13/2017 12:18 PM . Mike Momin MD MR ORDERABLES * STREP A SCREEN (05/04/2016 11:47 AM CDT) Strep A Rapid POCT Negative Negative Strep A Internal Control Present Lot # [id number] Expiration Date 03/02/18 Throat ENTIRE THROAT (SURFACE REGION OF NECK) / Unknown 05/04/2016 11:47 AM CDT Gary Hall APRN-[facility] LAB - POINT OF CARE ORDERABLES * SKIN TEST PPD - POINT OF CARE (11/12/2015) PPD neg MISCELLANEOUS SAMPLE S / Unknown 11/12/2015 Avelina Topete VIBRATING SCREED OPERATOR-EMBROIDERER LAB - POINT OF CARE ORDERABLES * GROSS + MICRO EXAM (10/02/1995 10:33 AM CDT) Result CASE NUMBER [id number] Comment: ORDERING PHYSICIAN KAYLYNN [facility] SPECIMEN TYPE Cervix Date 10/02/1995 Physician Valentine Gross Description There are two specimens received in formalin-filled containers, each labeled with the patient's name. The first one is additionally labeled endocervical curettings and contains two extremely minute fragments of reddish-whitehead tissue, measuring approximately 0.2 x less than 0.1 x less than 0.1 cm in aggregate volume. The entire specimen is wrapped in tissue paper and submitted in a single cassette labeled A . The second container is additionally labeled specimen-cervical cone and it contains a product of cold knife cone specimen with intact ectocervix. The ectocervix measures approximately 3 x 3 cm and the depth of the specimen from the surface of the ectocervix is approximately 2.5 cm. The external surface of the ectocervix is pinkish-white smooth, and grossly void of any identifiable lesions. The entire margin of excision is inked. There is a long black suture identified on the specimen indicating 12 o'clock position. Upon sectioning, the endocervical canal is slightly trabeculated and coated with a small amount of mucoid material. The entire specimen is serially sectioned and is submitted as follows 12-3 o'clock, B and C 3-6 o'clock E and D 6-9 o'clock, F and G 9-12 o'clock, H and I. NW/lmj Microscopic Exam Section labeled A shows few minute fragments of blood mixed with fibrinous material and strips of squamous epithelium with no evidence of atypia or dysplasia. Sections of the cone biopsy show koilocytosis and varying degrees of dysplasia involving the transitional area. Areas of carcinoma in-situ with endocervical duct involvement are seen in the quadrant of 12-3 o'clock and is characterized by full thickness of cells with increased nuclear cytoplasmic ratio, hyperchromasia, increased mitosis and dispolarity. The rest of the quadrants show scattered areas of koilocytotic change and moderate to severe dysplasia. There is no microinvasion identified and the margins are free of dysplasia. The stroma shows acute chronic inflammatory cell infiltration. Diagnosis I. Uterus, endocervix, curettings A. No pathologic diagnosis. II. Uterus, cervix, cold knife conization A. 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 B. Squamous intraepithelial lesion, high-grade (moderate to severe), with koilocytic atypia seen in outer quadrants. C. Margins of excision free of dysplasia. D. Acute and chronic cervicitis. *Snomed Code 1 [id number] - [id number] - [id number], N13760, L09288, A38407 Casting Technician bk Pathologist Abner Winters M.D. MISCELLANEOUS SAMPLES / Unknown 10/02/1995 10:33 AM CDT 10/02/1995 10:33 AM CDT Historical Provider LAB - PATHOLOGY/C YTOLOGY ORDERABLES Care Teams Medical Laboratory Manager Relationship Specialty Start Date End Date Dontrell Brooks DO [address] [place] [address] PCP - General Family Medicine 11/12/15
--- OUTSIDE RECORDS SUMMARY | 2024-04-28 12:43 | XMS_ITS ---
Author Organization [facility] [employer] [facility] Address [address] [facility] [address] [place] [address] Care Team Providers Care Map Drafter Name Role Phone Joyce ARAUJO, [facility] Primary Care Provider Un available Anayeli Luis Unavailable [phone] Social History Sex Assigned At : Social History Observation Description Sex Assigned At Female Encounters Encounter Location Date Provider Diagnosis [place] [id number] [facility] [address] [place] [address] 04/07/2024 Anayeli Luis Plan Of Treatment Next Appt Details Provider Name:Anayeli Luis, 06/27/2024 11:00:00 AM, [address], [facility] [address], [place], [address], Progress Notes * DIMA BAKERHDOB: [birth year] (63 yo F)Acc No.[id number]:04/07/2024 Patient: RASHARD AGUILERA :1960 A ge:63 Y S ex:Female Phone: Address:[address], [place], [address] * * Date:
--- OUTSIDE RECORDS SUMMARY | 2024-04-28 12:43 | XMS_ITS | Patient Health Record ---
Author Organization [facility] [employer] Address [address] [facility] [address] [place] [address] Care Team Providers Care Rn Pacu Name Role Phone Joyce ARAUJO, Ralph Primary Care Provider Un available Anayeli Luis Unavailable [phone] Migration, Provider Unavailable Unavailable Allergies Allergen (clinical drug ingredient) Drug/Non Drug Allergy documented on EMR Reaction Allergy Type Onset Date Status predniSONE Unknown Drug Allergy 06/07/2023 Activ e hydrocodone Hydrocodone Unknown Drug Allergy 06/07/2023 Ac tive morphine Morphine Unknown Drug Allergy 06/07/2023 Active oxycodone Oxycodone Unknown Drug Allergy 06/07/2023 Active Results Component Value Reference Range Notes DRUG SCREEN, 14 DRUGS (DETEC TIMED), URINE Reviewed date:06/07/2023 12:00:00 AM Interpretation: Performing Lab: Notes/Report: Amphetamine negative Barbiturates negative Benzodiazipine positive Buprenorphine negative Cocaine negative MDMA/Ectasy negative Methadone negative Methamphetamine negative Morphine negative note +BZO Oxycodone negative Phenocyclidine negative THC negative Reason For Referral No Information Medications Medication SIG (Take, Route, Frequency, Duration) Notes Start Date End Date Status Atorvastatin Calcium 40 MG Oral 06/07/2023 Unknown busPIRone HCl 15 MG 1 tablet Oral THREE TIMES DAILY for 90 days Active ALPRAZolam 1 MG 1 tablet Oral three times daily for 30 days please cancel any previous scripts. 04/28/2024 Active traMADol HCl 50 MG Oral 06/07/2023 Unknown Nitrofurantoin Monohyd Macro 100 MG Oral 06/07/2023 Unknown Omeprazole 40 MG Oral 06/07/2023 Un known Pantoprazole Sodium 40 MG Oral 06/07/2023 Unknown Cyclobenzaprine HCl 10 MG Oral 06/07/2023 Unknown Lisinopril 10 MG Oral 06/07/2023 Un known Metoclopramide HCl 10 MG Oral 06/07/2023 Unknown Venlafaxine HCl ER 150 MG 1 capsule with food Oral Once a day for 30 days please fill darrin, pt has good RX card Active Metoprolol Succinate ER 25 MG Oral 06/07/2023 Unknown Cimetidine 400 MG Oral 06/07/2023 U nknown busPIRone HCl 15 MG TAKE 1 TABLET BY MOUTH THREE TIMES DAILY for 90 Active Diclofenac Sodium 75 MG Oral 06/07/2023 Unknown oxyBUTYnin Chloride ER 5 MG Oral 06/07/2023 Unknown Benzonatate 100 MG Oral 06/07/2023 Unknown Meloxicam 7.5 MG Oral 06/07/2023 Un known Social History Tobacco Use: Social History Observation Description Date Details (start date - stop date) Current Smoker NA - NA Sex Assigned At : Social History Observation Description Sex Assigned At Female Household Question Answer Notes Marital status: Tobacco Control (Standard) Question Answer Notes Tobacco use: Current smoker Problems Problem Type SNOMED Code ICD Code Onset Dates Problem Status W/U Status Risk Notes Problem 34859058 DEBBY (generalized anxiety disorder) (F41.1) Active confirmed Problem [id number] MDD (major depressive disorder), recurrent severe, without psychosis (F33.2) Active confirmed Vital Signs Heart Rate 87 /min 04/28/2024 Height-cm 160.02 cm 04/28/2024 Blood pressure diastolic 62 mm Hg 04/28/2024 Weight-kg 66.68 kg 04/28/2024 Height 63.00 in 04/28/2024 Blood pressure systolic 105 mm Hg 04/28/2024 Weight 147 lbs 04/28/2024 BMI 26.04 kg/m2 04/28/2024 Encounters Encounter Location Date Provider Diagnosis [facility] [employer] [facility] [address] [facility] [address] [place] [address] 06/07/2023 Anayeli Luis Major depressive disorder, recurrent severe without psychotic features F33.2 and Generalized anxiety disorder F41.1 [facility] [employer] [facility] [address] [facility] [address] [place] [address] 06/08/2023 Provider Migration Generalized anxiety disorder F41.1 [employer] [place] [id number] [facility] [address] [place] [address] 07/26/2023 Anayeli Janelle MDD (major depressiv e disorder), recurrent severe, without psychosis F33.2 and DEBBY (generalized anxiety disorder) F41.[address] [address] 10/03/2023 Anayeli Janelle MDD (major depressiv e disorder), recurrent severe, without psychosis F33.2 and DEBBY (generalized anxiety disorder) F41.[address] [address] 10/31/2023 Anayeli Janelle MDD (major depressiv e disorder), recurrent severe, without psychosis F33.2 and DEBBY (generalized anxiety disorder) F41.[address] [address] 11/28/2023 Anayeli Janelle MDD (major depressiv e disorder), recurrent severe, without psychosis F33.2 and DEBBY (generalized anxiety disorder) F41.[address] [address] 01/28/2024 Anayeli Janelle MDD (major depressiv e disorder), recurrent severe, without psychosis F33.2 and DEBBY (generalized anxiety disorder) F41.[address] [address] 04/07/2024 Anayeli Janelle MDD (major depressiv e disorder), recurrent severe, without psychosis F33.2 and DEBBY (generalized anxiety disorder) F41.[address] [address] 04/28/2024 Anayeli Janelle Encounter for screening for depression Z13.31 ; Encounter for screening for cardiovascular disorders Z13.6 ; Nicotine use Z72.0 ; MDD (major depressive disorder), recurrent severe, without psychosis F33.2 and DEBBY (generalized anxiety disorder) F41.[address] [address] 06/08/2023 Provider Migration [facility] [employer] [address] 07/07/2023 Provider Migration [address] [place] [address] 07/08/2023 Provider Migration [facility], [facility] [address] [place] [address] 08/27/2023 Anayeli Luis DEBBY (generalized anxiety disorder) F41.1 [facility], [place] [address] [place] [address] 10/09/2023 Anayeli Luis [facility], [facility] [address] [place] [address] 10/11/2023 Anayeli Luis [facility], [facility] [address] [place] [address] 10/11/2023 Anayeli Luis [facility], [facility] [address] [place] [address] 10/30/2023 Anayeli [facility], [place] [address] [place] [address] 11/02/2023 Anayeli Luis [facility], [facility] [address] [place] [address] 03/20/2024 Anayeli Luis [facility], [place] [address] [place] [address] 03/24/2024 Anayeli [facility], [facility] [address] [place] [address] 03/27/2024 Anayeli Luis DEBBY (generalized anxiety disorder) F41.1 [facility], [place] [address] [place] [address] 03/28/2024 Anayeli Luis [facility], [facility] [address] [place] [address] 04/07/2024 Anayeli Janelle [facility], [facility] [address] [place] [address] 04/28/2024 Anayeli Luis Assessments Encounter Date Diagnosis (ICD Code) Assessment Notes Treatment Notes Treatment Clinical Notes Section Notes 08/27/2023 DEBBY (generalized anxiety disorder) (ICD-10 - F41.1) 10/03/2023 MDD (major depressive disorder), recurrent severe, without psychosis (ICD-10 - F33.2) 06/07/2023 Major depressive disorder, recurrent severe without psychotic features (ICD-10 - F33.2) 06/07/2023 Generalized anxiety disorder (ICD-10 - F41.1) 06/08/2023 Generalized anxiety disorder (ICD-10 - F41.1) 07/26/2023 DEBBY (generalized anxiety disorder) (ICD-10 - F41.1) 07/26/2023 MDD (major depressive disorder), recurrent severe, without psychosis (ICD-10 - F33.2) 10/31/2023 MDD (major depressive disorder), recurrent severe, without psychosis (ICD-10 - F33.2) 11/28/2023 MDD (major depressive disorder), recurrent severe, without psychosis (ICD-10 - F33.2) 01/28/2024 MDD (major depressive disorder), recurrent severe, without psychosis (ICD-10 - F33.2) SSRI/SNRI side effects discussed including but not limited to, gastric upset, nausea, vomiting, diarrhea and/or constipation, weight changes, sexual side effects including loss of libido, increased suicidal thoughts/behaviors in children and young adults, and serotonin syndrome. 03/27/2024 DEBBY (generalized anxiety disorder) (ICD-10 - F41.1) 04/07/2024 MDD (major depressive disorder), recurrent severe, without psychosis (ICD-10 - F33.2) SSRI/SNRI side effects discussed including but not limited to, gastric upset, nausea, vomiting, diarrhea and/or constipation, weight changes, sexual side effects including loss of libido, increased suicidal thoughts/behaviors in children and young adults, and serotonin syndrome. 04/28/2024 Encounter for screening for depression (ICD-10 - Z13.31) 04/28/2024 Encounter for screening for cardiovascular disorders (ICD-10 - Z13.6) 04/07/2024 DEBBY (generalized anxiety disorder) (ICD-10 - F41.1) Discussed and educated pt regarding benzodiazepines are generally not intended for prolonged use and that use can cause tolerance, dependence, depression, and associated memory issues including dementias (this list is not exhaustive). Benzodiazepine use is generally not recommended concurrently with pain medications and/or other controlled substances due to increased risks of profound sedation, respiratory depression, coma, and even . They are not to be used with any alcohol, as this combination can be lethal. 01/28/2024 DEBBY (generalized anxiety disorder) (ICD-10 - F41.1) Discussed and educated pt regarding benzodiazepines are generally not intended for prolonged use and that use can cause tolerance, dependence, depression, and associated memory issues including dementias (this list is not exhaustive). Benzodiazepine use is generally not recommended concurrently with pain medications and/or other controlled substances due to increased risks of profound sedation, respiratory depression, coma, and even . They are not to be used with any alcohol, as this combination can be lethal. 11/28/2023 DEBBY (generalized anxiety disorder) (ICD-10 - F41.1) Discussed and educated pt regarding benzodiazepines are generally not intended for prolonged use and that use can cause tolerance, dependence, depression, and associated memory issues including dementias (this list is not exhaustive). Benzodiazepine use is generally not recommended concurrently with pain medications and/or other controlled substances due to increased risks of profound sedation, respiratory depression, coma, and even . They are not to be used with any alcohol, as this combination can be lethal. 10/31/2023 DEBBY (generalized anxiety disorder) (ICD-10 - F41.1) 10/03/2023 DEBBY (generalized anxiety disorder) (ICD-10 - F41.1) 04/28/2024 Nicotine use (ICD-10 - Z72.0) 04/28/2024 MDD (major depressive disorder), recurrent severe, without psychosis (ICD-10 - F33.2) SSRI/SNRI side effects discussed including but not limited to, gastric upset, nausea, vomiting, diarrhea and/or constipation, weight changes, sexual side effects including loss of libido, increased suicidal thoughts/behaviors in children and young adults, and serotonin syndrome. 04/28/2024 DEBBY (generalized anxiety disorder) (ICD-10 - F41.1) Discussed and educated pt regarding benzodiazepines are generally not intended for prolonged use and that use can cause tolerance, dependence, depression, and associated memory issues including dementias (this list is not exhaustive). Benzodiazepine use is generally not recommended concurrently with pain medications and/or other controlled substances due to increased risks of profound sedation, respiratory depression, coma, and even . They are not to be used with any alcohol, as this combination can be lethal. 07/26/2023 Other Continue current medications. Patient educated on all medications including potential benefits, side effects, risks. Educated on proper dosing schedule and importance of compliance. [place] checked and consistent with prescription history, no controlled substance prescriptions from other providers. 10/03/2023 Other Increase Buspar to 15mg BID for anxiety. Decrease alprazolam to 1mg BID, will slowly try to taper off. Patient educated on all medications including potential benefits, side effects, risks. Educated on proper dosing schedule and importance of compliance. [place] report checked and consistent with prescription history, no controlled substance prescriptions from other providers. 10/31/2023 Other Decrease alprazolam to 0.5mg TID Increase buspar to 15mg TID for anxiety. Patient educated on all medications including potential benefits, side effects, risks. Educated on proper dosing schedule and importance of compliance. [place] report checked and consistent with prescription history, no controlled substance prescriptions from other providers. Discussed and educated pt regarding benzodiazepines are generally not intended for prolonged use and that use can cause tolerance, dependence, depression, and associated memory issues including dementias (this list is not exhaustive). Benzodiazepine use is generally not recommended concurrently with pain medications and/or other controlled substances due to increased risks of profound sedation, respiratory depression, coma, and even . They are not to be used with any alcohol, as this combination can be lethal. 11/28/2023 Other Stable, continue current medications. Refills sent in. Patient educated on all medications including potential benefits, side effects, risks. Educated on proper dosing schedule and importance of compliance. [place] report checked and consistent with prescription history 01/28/2024 Other Pharmacy has not been filling 0.5mg alprazolam scripts; decrease today to 0.5mg TID Patient educated on all medications including potential benefits, side effects, risks. Educated on proper dosing schedule and importance of compliance. [place] report checked and consistent with prescription history. 04/07/2024 Other Has been off of venlafaxine, pt agreeable to restart venlafaxine at previous dose. -educated to use [facility] if not affordable with insurance (15 dollars at [facility] with goodrx coupon). Patient educated on all medications including potential benefits, side effects, risks. Educated on proper dosing schedule and importance of compliance. [place] report checked and consistent with prescription history, no controlled substance prescriptions from other providers. -Assessment and treatment plan reviewed with patient. -Compliance with treatment plan importance discussed. -Discussed the risks/benefits of this medication -Discussed medication side effects. -Contact office if symptoms worsen. -Discussed that it can take up to 6-8 weeks to see full therapeutic effects of psychotropic medications. -Crisis prevention hotline [phone]. 04/28/2024 Other Stable, cont current medications. Patient educated on all medications including potential benefits, side effects, risks. Educated on proper dosing schedule and importance of compliance. [place] report checked and consistent with prescription history, no controlled substance prescriptions from other providers. -Assessment and treatment plan reviewed with patient. -Compliance with treatment plan importance discussed. -Discussed the risks/benefits of this medication -Discussed medication side effects. -Contact office if symptoms worsen. -Discussed that it can take up to 6-8 weeks to see full therapeutic effects of psychotropic medications. -Crisis prevention hotline [phone]. Plan Of Treatment Next Appt Details Provider Name:Anayeli Luis, 06/27/2024 11:00:00 AM, [address], [place], [address], Insurance Providers Payer Name Payer Address Payer Phone Subscriber Number Group Number Insured Name Patient Relationship to Insured Coverage Start Date Coverage End Date [place] [address] [place] [address] [id number] RASHARD BAKER Self - patient is the insured [employer] Medicare Supplement [address] [place] [address] [id number] RASHARD BAKER Self - patient is the insured Medical (General) History Medical History History ICD Code Problems: Brachial neuritis Chronic pain Closed fracture of lateral malleolus Closed fracture of metatarsal bone Derangement of knee Disorder of shoulder Essential hypertension Generalized anxiety disorder Hyperlipidemia Moderate recurrent major depression Neoplastic disease of uncertain behavior Osteoarthritis Pain in left sacroiliac joint Pain in right hip joint Pain of left hip joint Pelvic mass Radiotherapy follow-up Serum vitamin B12 below reference range Severe recurrent major depression withou t psychotic features Shoulder joint pain Smoker Spinal stenosis in cervical region Spinal stenosis of lumbar region Transient cerebral ischemia Trochanteric bursitis of left hip Urinary incontinence Vitamin D deficiency ,
--- OUTSIDE RECORDS SUMMARY | 2024-04-28 12:43 | XMS_ITS | Data Portability ---
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 [place] for quitting nicotine include getting ready, getting [...] in Quit For Life program Registering at [email or web address] Making a call to 5-678-LBAA-NOW ( ). A strong, clear, personalized message [...] failure or relapse. Patient can enroll in [facility]'s smoking cessation class through Radha Campo RN [...] done as follows: Respiratory allergen panel for [facility] Serum IgE Serum total IgG, IgG1, IgG2, IgG3, IgG4 Gkmxq-1-nxmyylaswj n phenotype and level TB stimulated gamma [...] the consultants adrianna Not available 01/14/2024 11:53:09 04/16/2024 04/16/2024 05/28/2023: Hep panel: Neg GGT 30 WBC 11.9H AST 40H, alb 4.7H, TP WNL adrianna Not available 04/16/2024 18:25:12 Plan of Treatment Reminders Order Date Submit Date Provider Last Modified By Organization Details Last Modified Time Details Appointments Follow Up 15 2024 10:30A Kamala barillas MD Not available Not available Not available Lab lipid panel, serum [address], [place], [address], 04/17/2024 12:49:01 CMP, serum or plasma [address], [place], [address], 04/17/2024 12:49:01 CBC w/ auto diff [address] [address], [place], [address], 04/17/2024 12:49:01 TSH + free T4, serum [address] [address], [place], [address], 04/17/2024 12:49:02 vitamin D, 25-hydrox y, total, serum [address] [address], [place], [address], 04/17/2024 12:49:01 noninvasi ve colorecta l cancer DNA + occult blood screening , QL, stool 2024 [place] [facility] (Cologuard Orders Only), [address], [address], [facility] [place], [address], 04/16/2024 12:26:49 vitamin B12 + folate, serum or blood [address], [place], [address], 04/17/2024 12:49:01 lipid panel, serum 2023 024 Not available [...] blood screening , QL, stool 2023 024 [place] [facility] (Cologuard Orders Only), [address], [address], [place], [address], 01/22/2024 09:53:44 vitamin B12 + folate, serum or blood 2023 024 Not available 01/14/2024 13:51:36 alpha-1-a ntitrypsi n (aat) phenotype , serum 2023 024 [email or web address] 2 [facility], [address] [place], [address], 01/31/2024 14:04:44 BNP (B-type natriuret ic peptide), serum or plasma 2023 024 [facility], [address] [place], [address], 10/29/2023 19:22:52 ige, total, serum 2023 024 2 [facility], [address] [place], [address], 01/31/2024 14:04:44 tb (M tuberculo sis), ifn-gamma rosmery, blood 2023 024 [email or web address] 2 [facility], [address] [place], [address], 01/31/2024 14:04:45 eosinophi l count, manual, blood (OBS) 2023 024 [email or web address] 2 [facility], [address] [place], [address], 01/31/2024 14:04:[address] 1+2+3+4, serum 2023 024 2 [facility], [address] [place], [address], 01/31/2024 14:04:45 respirato ry allergen panel, [facility] A, serum 2023 024 [email or web address] 2 [facility], [address] [place], [address], 01/31/2024 14:04:45 respirato ry allergen panel - [facility] b 2023 024 [email or web address] 2 [facility], [address] [place], [address], 01/31/2024 14:04:45 lipid panel, serum 2023 024 [email or web address] Not available 04/15/2024 08:43:02 CMP, serum or plasma 2023 024 [email or web address] Not available 04/15/2024 08:43:03 CBC w/ auto diff 2023 024 [email or web address] Not available 04/15/2024 08:43:03 TSH + free T4, serum 2023 024 [email or web address] Not available 04/15/2024 08:43:03 vitamin D, 25-hydrox y, total, serum 2023 024 Not available 04/15/2024 08:43:03 noninvasi ve colorecta l cancer DNA + occult blood screening , QL, stool 2023 024 [email or web address] [facility] (Cologuard Orders Only), [address], [address], [place], [address], 04/15/2024 08:43:03 vitamin B12 + folate, serum or blood 2023 024 [email or web address] Not available 04/15/2024 08:43:03 lipid panel, serum 2023 024 ALEJANDRO Not available 05/23/2023 19:01:34 CMP, serum or plasma 2023 024 ALEJANDRO Not available 05/23/2023 19:01:40 CBC w/ auto diff 2023 024 ALEJANDRO Not available 05/23/2023 18:56:54 TSH + free T4, serum 2023 024 [email or web address] Not available 05/30/2023 09:38:06 vitamin D, 25-hydrox y, total, serum 2023 024 [email or web address] Not available 05/30/2023 09:38:07 vitamin B12 + folate, serum or blood 2023 024 [email or web address] Not available 05/30/2023 09:38:[address] referral - Please call patient to schedule an appointme nt. Thank you. 2024 025 TAMRA Edwards MD, [address] [facility] , [address], [place], [address], 04/21/2024 13:15:17 pulmonolo gist referral - Please call patient to schedule an appointme nt. Thank you. 2024 025 [email or web address] Joel Madison MD, [address] [place], [address], 04/21/2024 12:36:24 urologist referral - Please call patient to schedule an appointme nt. Thank you. 2024 025 [email or web address] Roger Ruano, [address] [place] [address], [address], 04/23/2024 09:59:40 cardiolog ist referral - Please call patient to schedule an appointme nt. Thank you. 2024 025 [place], [address] [address], [facility] [address], [address], 04/21/2024 13:10:[address] referral - Please call patient to schedule. 2023 024 [email or web address] Jules Edwards MD, [facility]0 [facility], [address], [address], 03/18/2024 12:33:41 pulmonolo gist referral 2023 024 [email or web address] Joel Madison MD, [address] [place] [address], [address], 01/15/2024 12:01:47 urologist referral - Please call patient to schedule. 2023 024 richard Roger Ruano, [address] [place] [address], [address], 04/17/2024 14:28:14 cardiolog ist referral 2023 024 [email or web address] [place], [address] [address] , [facility] [place], [address], 03/18/2024 12:33:41 pulmonolo gist referral 2023 024 [email or web address] Joel Madison MD, [address] [place] [address], [address], 03/10/2024 08:41:08 cardiolog ist referral 2023 024 [place], [address], [address], [place], [address], 03/10/2024 08:41:08 urologist referral 2023 024 [email or web address] Lowell Mcarthur MD, [address], [address], [place], [address], 01/15/2024 12:11:[address] referral 2023 024 [email or web address] Jules Edwards MD, [address] [facility] [address], [address], [place], [address], 01/15/2024 12:04:38 pulmonolo gist referral 2023 024 Joel Madison MD, [address] [place], [address], 12/17/2023 09:46:26 psychiatr ist referral 2023 024 Apolinar Montejo MD, [address], [address], [place], [address], 12/17/2023 09:46:53 pain managemen t referral 2023 024 ALEJANDRO Mendez, [address] [facility] [address], [address], [place], [address], 06/18/2023 12:54:48 cardiolog ist referral 2023 024 [email or web address] [place], [address], [address], [place], [address], 01/14/2024 09:01:23 urologist referral 2023 024 [email or web address] Lowell Mcarthur MD, [address], [address], [place], [address], 12/17/2023 09:46:[address] referral 2023 024 [email or web address] Jules Edwards MD, [address] [facility], [address], [place], [address], 12/17/2023 09:46:54 Procedures upper endoscopy procedure (EGD) (PROC) - Please call patient to schedule an appointme nt. Thank you. 2024 025 ATHENANORMA Hayes MD, [address], [address], [place], [address], 04/21/2024 12:31:58 upper endoscopy procedure (EGD) (PROC) - Please call patient to schedule. 2023 024 [email or web address] Marcio Hayes MD, [address], [address], [place], [address], 04/24/2024 10:08:52 upper endoscopy procedure (EGD) (PROC) 2023 024 [email or web address] Frances Mooney MD, [address], [address], [place], [address], 01/15/2024 11:56:01 upper endoscopy procedure (EGD) (PROC) 2023 024 [email or web address] Mooney MD, [address], [address], [place], [address], 12/18/2023 08:07:26 colonosco py screening (PROC) 2023 024 jenny Mooney MD, [address], [address], [place], [address], 11/20/2023 10:07:15 Surgeries None recorded. Imaging MAMMO, screening , bilateral 2024 025 [email or web address] [facility] (Imaging), [address] [facility] [address], [place], [address], 04/16/2024 13:59:53 DEXA 2024 025 [facility] (Imaging), [address] [place] [address], [address], 04/16/2024 12:40:50 MAMMO, screening , bilateral [address] (Imaging), [address] [place] [address], [address], 01/14/2024 15:23:25 DEXA [address] (Imaging), [address] [place] [address], [address], 01/14/2024 15:23:44 MAMMO, screening , bilateral [address] (Imaging), [address] [place] [address], [address], 04/14/2024 11:23:19 DEXA [address] (Imaging), [address] [place] [address], [address], 04/15/2024 08:44:10 LDCT, chest, for lung cancer screening 2023 024 [facility] (Imaging), [address] [place] [address], [address], 05/28/2023 10:04:50 Medication Orders nystatin 100,000 unit/gram topical cream 2023 [email or web address] [id number], [address] [facility], [place], [place], [id number], 10/14/2023 11:26:45 lisinopri l 10 mg tablet [email or web address] [id number], [address] , [place], [place], [id number], 09/10/2023 12:40:57 hydroxyzi ne HCl 25 mg tablet 2023 024 [email or web address], [address] [place] [address], [address], 05/23/2023 13:05:35 cyclobenz aprine 10 mg tablet 2023 024 [facility], [address] [facility], [place], [address], 09/10/2023 10:58:27 Patient TargetsNo targets recorded. Patient Instructions Encounter Date Encounter Id Patient Instructions Last Modified By Organization Details Last Modified Time 09/10/2023 [id number] dementia rating scale-2* [email or web address] 2 Not available 09/10/2023 12:41:05 alcohol misuse* [email or web address] 2 Not available 09/10/2023 12:41:03 depression screening* [email or web address] Not available 09/10/2023 13:03:38 Timed Up and Go test (TUG)* [email or web address] Not available 09/10/2023 13:03:42 multi-dimensiona l health assessment questionnaire* [email or web address] Not available 09/10/2023 13:03:35 Personalized [facility] lt Plan and Screening Recommendations Advance Directives - Do you have one? Yes Advance Directives - Do we have your advance directive on file in your health record? No, please bring in a copy at your earliest convenience Primary Prevention/Interven tion (prevents or decreases the chance of common diseases from occurring) Smoking Risk: Smoker Refer to attached smoking cessation handouts Alcohol Misuse Screening: Positive Refer to attached alcohol cessation handout Weight: Appropriate Overwei ght continue your current weight loss efforts try to lose 5% of your body weight try to lose 10% of your body weight Physical activity: Need more exercise/physical activity decrease sitting time to no more than 5hr/day Nutrition: Good Average Refer to attached handout Heart-Healthy Diet: After Your Visit Fall Risk (screened today): High Refer to attached handout Preventing Falls: After your Visit Vaccines Pneumococcal: Ordered Recommended today Recommended today, but you have declined No further needed Influenza: Your next one in the fall of this year Chronic Disease Risks Stroke: Low Risk Intermediate Risk Heart Attack: Low risk Intermediate Risk Clogging of the Arteries: Low risk Intermediate Risk Diabetes: Low Risk Intermediate Risk Secondary Prevention/Interven tion (detects treatable diseases before they may cause symptoms, disability, or ) Breast Cancer Screening with mammogram: Your next mammogram: Ordered Cervical/Uterine/Ov rosa elena Cancer Screening: Your next PAP/pelvic in: Referral to special education assistant Osteoporosis Screening: Your next DEXA in: Ordered Colon Cancer Screening: Colonoscopy Fecal Occult Blood Cologuard (DNA stool test) Date Screening Ordered today Eye Disease Screening: Ordered Recommended today Dementia Risk: High I have no recommendations My recommendation would be to have further medical evaluation, make an appointment with primary care physician Depression Screening: Negative Positive Active diagnosis, Continue current treatment plan Not available 09/10/2023 12:14:07 10/29/2023 [id number] complete PFT w/ post bronchodilator spirometry* - Please call patient to schedule. [email or web address] Not available 11/29/2023 18:03:48 Reason for Referral [employer] Administrator Referral for S mary anneker Referring Physician: Estela Cook Internal Medicine, Encounter Date: 05/23/2023 Psychiatrist Referral for Mo derate recurrent major depression Referring Physician: Estela Cook Internal Medicine, Encounter Date: 05/23/2023 Neurologist Referral for Tra nsient cerebral ischemia Referring Physician: Estela Cook Internal Medicine, Encounter Date: 05/23/2023 Pain Management Referral for Chronic pain Referring Physician: Estela Cook Internal Medicine, Encounter Date: 05/23/2023 Assistant Manager Of Operations Referral for Es sential hypertension Referring Physician: Estela Cook Internal Medicine, Encounter Date: 05/23/2023 Urologist Referral for Urina ry incontinence Referring Physician: Estela Cook Internal Medicine, Encounter Date: 05/23/2023 Neurologist Referral for Tra nsient cerebral ischemia Referring Physician: Estela Cook Internal Medicine, Encounter Date: 09/10/2023 Assistant Manager Of Operations Referral for Es sential hypertension Referring Physician: Kailash Truong Medicine, Encounter Date: 09/10/2023 Urologist Referral for Urina ry incontinence Referring Physician: Estela Cook Internal Medicine, Encounter Date: 09/10/2023 Linux [employer] Administrator Referral for P ulmonary emphysema Referring Physician: Estela Cook Internal Medicine, Encounter Date: 09/10/2023 Neurologist Referral for Tra nsient cerebral ischemia Please call patient to schedule. Referring Physician: Kailash Truong Medicine, Encounter Date: 01/14/2024 Assistant Manager Of Operations Referral for Es sential hypertension Referring Physician: Kailash Truong Medicine, Encounter Date: 01/14/2024 Urologist Referral for Urina ry incontinence Please call patient to schedule. Referring Physician: Kailash Truong, Encounter Date: 01/14/2024 [employer] Administrator Referral for P ulmonary emphysema Referring Physician: Kailash Truong Medicine, Encounter Date: 01/14/2024 Neurologist Referral for Tra nsient cerebral ischemia Please call patient to schedule an appointment. Thank you. Referring Physician: Kailash Truong Medicine, Encounter Date: 04/16/2024 Assistant Manager Of Operations Referral for Es sential hypertension Please call patient to schedule an appointment. Thank you. Referring Physician: Kailash Truong, Encounter Date: 04/16/2024 Urologist Referral for Urina ry incontinence Please call patient to schedule an appointment. Thank you. Referring Physician: Kailash Truong, Encounter Date: 04/16/2024 [employer] Administrator Referral for P ulmonary emphysema Please call patient to schedule an appointment. Thank you. Referring Physician: Estela Cook, Internal Medicine, Encounter Date: 04/16/2024 Results Created Date Observation Date Name Description Value Unit Range Abnormal Flag Note LastModifiedBy Organization Detail LastModifiedTime 05/23/19 24 05/23/2023 CBC/C OMPLE TE BLD COUNT W/DIF F white blood cells 13.0 x10'3 /uL 4.2-10 .8 high Not Available [facility] (Lab) [address] [place], [address], 05/23/2023 18:56:54 05/23/19 24 05/23/2023 CBC/C OMPLE TE BLD COUNT W/DIF F red blood cells 4.46 x10'6 /uL 3.80-5 .20 Not Available [facility] (Lab) [address] [place], [address], 05/23/2023 18:56:54 05/23/19 24 05/23/2023 CBC/C OMPLE TE BLD COUNT W/DIF F hemoglobin 13.8 g/dL 12.0-1 5.6 Not Available [facility] (Lab) [address] [place], [address], 05/23/2023 18:56:54 05/23/19 24 05/23/2023 CBC/C OMPLE TE BLD COUNT W/DIF F hematocrit 40.8 % 35.7-4 5.7 Not Available [facility] (Lab) [address] [place], [address], 05/23/2023 18:56:54 05/23/19 24 05/23/2023 CBC/C OMPLE TE BLD COUNT W/DIF F mean red cell volume 91.5 fL 82.0-9 9.0 Not Available [facility] (Lab) [address] [place], [address], 05/23/2023 18:56:54 05/23/19 24 05/23/2023 CBC/C OMPLE TE BLD COUNT W/DIF F mean red cell hemoglobin 30.9 pg 27.0-3 3.0 Not Available [facility] (Lab) [address] [place], [address], 05/23/2023 18:56:54 05/23/19 24 05/23/2023 CBC/C OMPLE TE BLD COUNT W/DIF F mean RBC HGB concentratio n 33.8 g/dL 31.0-3 6.0 Not Available [facility] (Lab) [address] [place], [address], 05/23/2023 18:56:54 05/23/19 24 05/23/2023 CBC/C OMPLE TE BLD COUNT W/DIF F red cell distribution width 12.3 % 11.8-1 5.5 Not Available [facility] (Lab) [address] [place], [address], 05/23/2023 18:56:54 05/23/19 24 05/23/2023 CBC/C OMPLE TE BLD COUNT W/DIF F platelets 276 x10'3 /uL 150-40 0 Not Available [facility] (Lab) [address] [place], [address], 05/23/2023 18:56:54 05/23/19 24 05/23/2023 CBC/C OMPLE TE BLD COUNT W/DIF F mean platelet volume 11.0 fL 9.0-12 .4 Not Available [facility] (Lab) [address] [place], [address], 05/23/2023 18:56:54 05/23/19 24 05/23/2023 CBC/C OMPLE TE BLD COUNT W/DIF F neutrophils 64.0 % 39.0-7 2.0 Not Available [facility] (Lab) [address] [place], [address], 05/23/2023 18:56:54 05/23/19 24 05/23/2023 CBC/C OMPLE TE BLD COUNT W/DIF F lymphocytes 27.5 % 16.0-4 7.0 Not Available [facility] (Lab) [address] [place], [address], 05/23/2023 18:56:54 05/23/19 24 05/23/2023 CBC/C OMPLE TE BLD COUNT W/DIF F monocytes 6.5 % 5.0-12 .0 Not Available [facility] (Lab) [address] [place], [address], 05/23/2023 18:56:54 05/23/19 24 05/23/2023 CBC/C OMPLE TE BLD COUNT W/DIF F eosinophils 1.0 % 1.0-7. 0 Not Available [facility] (Lab) [address] [place], [address], 05/23/2023 18:56:54 05/23/19 24 05/23/2023 CBC/C OMPLE TE BLD COUNT W/DIF F basophils 0.7 % 0.0-2. 0 Not Available [facility] (Lab) [address] [place], [address], 05/23/2023 18:56:54 05/23/19 24 05/23/2023 CBC/C OMPLE TE BLD COUNT W/DIF F immature granulocytes 0.3 % 0.00-0 .50 Not Available [facility] (Lab) [address] [place], [address], 05/23/2023 18:56:54 05/23/19 24 05/23/2023 CBC/C OMPLE TE BLD COUNT W/DIF F neutrophils, absolute count 8.32 x10'3 /uL 1.5-8. 0 high Not Available [facility] (Lab) [address] [place], [address], 05/23/2023 18:56:54 05/23/19 24 05/23/2023 CBC/C OMPLE TE BLD COUNT W/DIF F lymphocytes, absolute count 3.57 x10'3 /uL 1.07-3 .43 high Not Available [facility] (Lab) [address] [place], [address], 05/23/2023 18:56:54 05/23/19 24 05/23/2023 CBC/C OMPLE TE BLD COUNT W/DIF F monocytes, absolute count 0.84 x10'3 /uL 0.29-0 .99 Not Available [facility] (Lab) [address] [place], [address], 05/23/2023 18:56:54 05/23/19 24 05/23/2023 CBC/C OMPLE TE BLD COUNT W/DIF F eosinophils, absolute count 0.13 x10'3 /uL 0.02-0 .53 Not Available [facility] (Lab) [address] [place], [address], 05/23/2023 18:56:54 05/23/19 24 05/23/2023 CBC/C OMPLE TE BLD COUNT W/DIF F basophils, absolute count 0.09 x10'3 /uL 0.01-0 .08 high Not Available [facility] (Lab) [address] [place], [address], 05/23/2023 18:56:54 05/23/19 24 05/23/2023 CBC/C OMPLE TE BLD COUNT W/DIF F immature granulocytes ,absolute 0.04 x10'3 /uL 0.00-0 .05 Not Available [facility] (Lab) [address] [place], [address], 05/23/2023 18:56:54 05/23/19 24 05/23/2023 CBC/C OMPLE TE BLD COUNT W/DIF F nucleated red blood cells 0.0 % -0 Not Available [facility] (Lab) [address] [place], [address], 05/23/2023 18:56:54 05/23/19 24 05/23/2023 CBC/C OMPLE TE BLD COUNT W/DIF F NRBC# 0.00 x10'3 /uL Not Available [facility] (Lab) [address] [place], [address], 05/23/2023 18:56:54 05/23/19 24 05/23/2023 LIPID PANEL cholesterol 112 mg/dL 140-19 9 low NIH ZULMA NSUS RECOM MENDA TION FOR BRI STERO L: ADULT CHILD LOW RISK: <200 <170 BORDE RLINE : <200- 239 ----- HIGH RISK: >240 >200 Not Available [facility] (Lab) [address] [place], [address], 05/23/2023 19:01:34 05/23/19 24 05/23/2023 LIPID PANEL triglyceride s 100 mg/dL 0-150 NIH ZULMA NSUS REPOR T RECOM MENDA TION FOR TRIGL YCERI CALE: ADULT CHILD LOW RISK: <150 ----- BODER LINE: 150-1 99 ----- HIGH RISK: >200 ----- Not Available [facility] (Lab) [address] [place], [address], 05/23/2023 19:01:34 05/23/19 24 05/23/2023 LIPID PANEL HDL cholesterol 59 mg/dL 40- Not Available [facility] (Lab) [address] [place], [address], 05/23/2023 19:01:34 05/23/19 24 05/23/2023 LIPID PANEL [...] WILL NOT BE REPOR AUDI. Not Available [facility] (Lab) [address] [place], [address], 05/23/2023 19:01:34 05/23/19 24 05/23/2023 COMPR EHENS RICHARD METAB OLIC PANEL sodium 137 mmol/ L 137-14 5 Not Available [facility] (Lab) [address] [place], [address], 05/23/2023 19:01:40 05/23/19 24 05/23/2023 COMPR EHENS RICHARD METAB OLIC PANEL potassium 4.2 mmol/ L 3.5-5. 1 Not Available [facility] (Lab) [address] [place], [address], 05/23/2023 19:01:40 05/23/19 24 05/23/2023 COMPR EHENS RICHARD METAB OLIC PANEL chloride 104 mmol/ L 98-107 Not Available [facility] (Lab) [address] [place], [address], 05/23/2023 19:01:40 05/23/19 24 05/23/2023 COMPR EHENS RICHARD METAB OLIC PANEL carbon dioxide 27 mmol/ L 22-30 Not Available [facility] (Lab) [address] [place], [address], 05/23/2023 19:01:40 05/23/19 24 05/23/2023 COMPR EHENS RICHARD METAB OLIC PANEL anion gap 10.2 mmol/ L 14-22 low Not Available [facility] (Lab) [address] [place], [address], 05/23/2023 19:01:40 05/23/19 24 05/23/2023 COMPR EHENS RICHARD METAB OLIC PANEL glucose 98 mg/dL 70-99 Not Available [facility] (Lab) [address] [place], [address], 05/23/2023 19:01:40 05/23/19 24 05/23/2023 COMPR EHENS RICHARD METAB OLIC PANEL BUN 14 mg/dL 8-19 Not Available [facility] (Lab) [address] [place], [address], 05/23/2023 19:01:40 05/23/19 24 05/23/2023 COMPR EHENS RICHARD METAB OLIC PANEL creatinine 0.69 mg/dL 0.66-1 .25 Not Available [facility] (Lab) [address] [place], [address], 05/23/2023 19:01:40 05/23/19 24 05/23/2023 COMPR EHENS RICHARD METAB OLIC PANEL GFR >60 Refer ence Range : [place] ge GFR Healt hy Adult : >60 [...] or ethni c subgr oups, such as [employer]. Outsi de the valid ated ammy [...] of age, a pedia tric GFR calcu lator is avail able on the F websi te: https :[email or web address] [email or web address] [email or web address] odessa/pr ofess ional s/kdo qi/gf r_cal culat or Not Available [facility] (Lab) [address] [place], [address], 05/23/2023 19:01:40 05/23/19 24 05/23/2023 COMPR EHENS RICHARD METAB OLIC PANEL alkaline phosphatase 53 U/L 38-126 Not Available [facility] (Lab) [address] [place], [address], 05/23/2023 19:01:40 05/23/19 24 05/23/2023 COMPR EHENS RICHARD METAB OLIC PANEL alanine aminotransfe rase 22 U/L 0-35 Not Available [facility] (Lab) [address] [place], [address], 05/23/2023 19:01:40 05/23/19 24 05/23/2023 COMPR EHENS RICHARD METAB OLIC PANEL aspartate aminotransfe rase 40 U/L 15-37 high Not Available [facility] (Lab) [address] [place], [address], 05/23/2023 19:01:40 05/23/19 24 05/23/2023 COMPR EHENS RICHARD METAB OLIC PANEL bilirubin, total 0.60 mg/dL 0.20-1 .30 Not Available [facility] (Lab) [address] [place], [address], 05/23/2023 19:01:40 05/23/19 24 05/23/2023 COMPR EHENS RICHARD METAB OLIC PANEL calcium 9.5 mg/dL 8.4-10 .2 Not Available [facility] (Lab) [address] [place], [address], 05/23/2023 19:01:40 05/23/19 24 05/23/2023 COMPR EHENS RICHARD METAB OLIC PANEL total protein 7.5 g/dL 6.3-8. 2 Not Available [facility] (Lab) [address] [place], [address], 05/23/2023 19:01:40 05/23/19 24 05/23/2023 COMPR EHENS RICHARD METAB OLIC PANEL albumin 4.7 g/dL 3.0-4. 4 high Not Available [facility] (Lab) [address] [place], [address], 05/23/2023 19:01:40 05/23/19 24 05/23/2023 COMPR EHENS RICHARD METAB OLIC PANEL globulin 2.8 g/dL 2.6-4. 2 Not Available [facility] (Lab) [address] [place], [address], 05/23/2023 19:01:40 05/23/19 24 05/23/2023 COMPR EHENS RICHARD METAB OLIC PANEL A/G ratio 1.7 ratio 1.0-2. 0 Not Available [facility] (Lab) [address] [place], [address], 05/23/2023 19:01:40 05/23/19 24 05/23/2023 T4 FREE free T4 1.01 NG/dL 0.78-2 .19 Not Available [facility] (Lab) [address] [place], [address], 05/23/2023 19:22:54 05/23/19 24 05/23/2023 VITAM IN D 25-HY DROXY vd25oh 40.4 NG/mL 30-100 Vitam in D Statu s: Defic ient: <20 ng/mL Insuf ficie nt: 20-29 ng/mL Suffi cient : 30-10 0 ng/mL Not Available [facility] (Lab) [address] [place], [address], 05/23/2023 19:23:09 05/23/19 24 05/23/2023 TSH thyroid-stim ulating hormone 1.660 uIU/m L 0.465- 4.680 Not Available [facility] (Lab) [address] [place], [address], 05/23/2023 19:47:42 05/23/19 24 05/23/2023 VITAM IN B12 (CAITLIN YAMIL ) vb12 829 pg/mL 239-93 1 Not Available [facility] (Lab) [address] [place], [address], 05/23/2023 20:07:30 05/23/19 24 05/23/2023 FOLAT E, SERUM /PLAS MA folate 12.6 NG/mL 2.76-2 0.0 Not Available [facility] (Lab) [address] [place], [address], 05/23/2023 20:07:34 05/28/19 24 05/28/2023 CBC/C OMPLE TE BLD COUNT W/DIF F white blood cells 11.9 x10'3 /uL 4.2-10 .8 high Not Available [facility] (Lab) [address] [place], [address], 05/28/2023 13:00:18 05/28/19 24 05/28/2023 CBC/C OMPLE TE BLD COUNT W/DIF F red blood cells 4.30 x10'6 /uL 3.80-5 .20 Not Available [facility] (Lab) [address] [place], [address], 05/28/2023 13:00:18 05/28/19 24 05/28/2023 CBC/C OMPLE TE BLD COUNT W/DIF F hemoglobin 13.3 g/dL 12.0-1 5.6 Not Available [facility] (Lab) [address] [place], [address], 05/28/2023 13:00:18 05/28/19 24 05/28/2023 CBC/C OMPLE TE BLD COUNT W/DIF F hematocrit 38.8 % 35.7-4 5.7 Not Available [facility] (Lab) [address] [place], [address], 05/28/2023 13:00:18 05/28/19 24 05/28/2023 CBC/C OMPLE TE BLD COUNT W/DIF F mean red cell volume 90.2 fL 82.0-9 9.0 Not Available [facility] (Lab) [address] [place], [address], 05/28/2023 13:00:18 05/28/19 24 05/28/2023 CBC/C OMPLE TE BLD COUNT W/DIF F mean red cell hemoglobin 30.9 pg 27.0-3 3.0 Not Available [facility] (Lab) [address] [place], [address], 05/28/2023 13:00:18 05/28/19 24 05/28/2023 CBC/C OMPLE TE BLD COUNT W/DIF F mean RBC HGB concentratio n 34.3 g/dL 31.0-3 6.0 Not Available [facility] (Lab) [address] [place], [address], 05/28/2023 13:00:18 05/28/19 24 05/28/2023 CBC/C OMPLE TE BLD COUNT W/DIF F red cell distribution width 12.4 % 11.8-1 5.5 Not Available [facility] (Lab) [address] [place], [address], 05/28/2023 13:00:18 05/28/19 24 05/28/2023 CBC/C OMPLE TE BLD COUNT W/DIF F platelets 274 x10'3 /uL 150-40 0 Not Available [facility] (Lab) [address] [place], [address], 05/28/2023 13:00:18 05/28/19 24 05/28/2023 CBC/C OMPLE TE BLD COUNT W/DIF F mean platelet volume 10.9 fL 9.0-12 .4 Not Available [facility] (Lab) [address] [facility] [place], [address], 05/28/2023 13:00:18 05/28/19 24 05/28/2023 CBC/C OMPLE TE BLD COUNT W/DIF F neutrophils 63.2 % 39.0-7 2.0 Not Available [facility] (Lab) [address] [place], [address], 05/28/2023 13:00:18 05/28/19 24 05/28/2023 CBC/C OMPLE TE BLD COUNT W/DIF F lymphocytes 27.2 % 16.0-4 7.0 Not Available [facility] (Lab) [address] [place], [address], 05/28/2023 13:00:18 05/28/19 24 05/28/2023 CBC/C OMPLE TE BLD COUNT W/DIF F monocytes 7.4 % 5.0-12 .0 Not Available [facility] (Lab) [address] [place], [address], 05/28/2023 13:00:18 05/28/19 24 05/28/2023 CBC/C OMPLE TE BLD COUNT W/DIF F eosinophils 1.2 % 1.0-7. 0 Not Available [facility] (Lab) [address] [place], [address], 05/28/2023 13:00:18 05/28/19 24 05/28/2023 CBC/C OMPLE TE BLD COUNT W/DIF F basophils 0.7 % 0.0-2. 0 Not Available [facility] (Lab) [address] [place], [address], 05/28/2023 13:00:18 05/28/19 24 05/28/2023 CBC/C OMPLE TE BLD COUNT W/DIF F immature granulocytes 0.3 % 0.00-0 .50 Not Available [facility] (Lab) [address] [facility] [place], [address], 05/28/2023 13:00:18 05/28/19 24 05/28/2023 CBC/C OMPLE TE BLD COUNT W/DIF F neutrophils, absolute count 7.50 x10'3 /uL 1.5-8. 0 Not Available [facility] (Lab) [address] [place], [address], 05/28/2023 13:00:18 05/28/19 24 05/28/2023 CBC/C OMPLE TE BLD COUNT W/DIF F lymphocytes, absolute count 3.22 x10'3 /uL 1.07-3 .43 Not Available [facility] (Lab) [address] [place], [address], 05/28/2023 13:00:18 05/28/19 24 05/28/2023 CBC/C OMPLE TE BLD COUNT W/DIF F monocytes, absolute count 0.88 x10'3 /uL 0.29-0 .99 Not Available [facility] (Lab) [address] [place], [address], 05/28/2023 13:00:18 05/28/19 24 05/28/2023 CBC/C OMPLE TE BLD COUNT W/DIF F eosinophils, absolute count 0.14 x10'3 /uL 0.02-0 .53 Not Available [facility] (Lab) [address] [place], [address], 05/28/2023 13:00:18 05/28/19 24 05/28/2023 CBC/C OMPLE TE BLD COUNT W/DIF F basophils, absolute count 0.08 x10'3 /uL 0.01-0 .08 Not Available [facility] (Lab) [address] [place], [address], 05/28/2023 13:00:18 05/28/19 24 05/28/2023 CBC/C OMPLE TE BLD COUNT W/DIF F immature granulocytes ,absolute 0.04 x10'3 /uL 0.00-0 .05 Not Available [facility] (Lab) [address] [place], [address], 05/28/2023 13:00:18 05/28/19 24 05/28/2023 CBC/C OMPLE TE BLD COUNT W/DIF F nucleated red blood cells 0.0 % -0 Not Available [facility] (Lab) [address] [place], [address], 05/28/2023 13:00:18 05/28/19 24 05/28/2023 CBC/C OMPLE TE BLD COUNT W/DIF F NRBC# 0.00 x10'3 /uL Not Available [facility] (Lab) [address] [place], [address], 05/28/2023 13:00:18 05/28/19 24 05/28/2023 GGT/G -GLUT AMYL TRANS FERAS E gamma-glutam yl transferase 30 U/L 12-43 Not Available [facility] (Lab) [address] [place], [address], 05/28/2023 16:12:39 05/28/19 24 05/28/2023 HEPAT ITIS ACUTE PANEL hepatitis A IgM antibody NON-RE ACTIVE non-re active For sampl es repor audi as Madinade rline React richard for HAV IgM, it is recom justin d a new speci men be obtai adri in 2 weeks and retes audi. Not Available [facility] (Lab) [address] [place], [address], 05/28/2023 16:48:51 05/28/19 24 05/28/2023 HEPAT ITIS ACUTE PANEL hepatitis A virus signal/cutof 0.02 0.00-0 .79 Not Available [facility] (Lab) [address] [place], [address], 05/28/2023 16:48:51 05/28/19 24 05/28/2023 HEPAT ITIS ACUTE PANEL hepatitis B core IgM antibody NON-RE ACTIVE non-re active Not Available [facility] (Lab) [address] [place], [address], 05/28/2023 16:48:51 05/28/19 24 05/28/2023 HEPAT ITIS ACUTE PANEL HBV core IgM signal/cutof f 0.13 0.00-1 .10 Not Available [facility] (Lab) [address] [place], [address], 05/28/2023 16:48:51 05/28/19 24 05/28/2023 HEPAT ITIS ACUTE PANEL hepatitis B surface antigen NON-RE ACTIVE non-re active All speci mens react richard for Hepat itis B Surfa ce Antig en will refle x to refer ral lab confi rmato ry testi ng. Not Available [facility] (Lab) [address] [place], [address], 05/28/2023 16:48:51 05/28/19 24 05/28/2023 HEPAT ITIS ACUTE PANEL HBV surf.antigen signal/cutof f 0.07 0.00-0 .99 Not Available [facility] (Lab) [address] [place], [address], 05/28/2023 16:48:51 05/28/19 24 05/28/2023 HEPAT ITIS ACUTE PANEL hepatitis C antibody NON-RE ACTIVE non-re active All speci mens react richard for Hepat itis C Virus antib chau will refle x to PCR confi rmato ry testi ng. Pleas e allow 48-72 hours for resul ts. Not Available [facility] (Lab) [address], [place], [address], 05/28/2023 16:48:51 05/28/19 24 05/28/2023 HEPAT ITIS ACUTE PANEL hepatitis C virus signal/cutof 0.02 0.00-0 .99 Not Available [facility] (Lab) [address] [facility], [place], [address], 05/28/2023 16:48:51 05/28/19 24 LDCT, chest , for lung cance r scree d[facility] [address] [facility] [address], [place] [address] [phone] Patien t Name: DIMA POLLOCK Access ion #: [id number] Sex: F : 1960 6 Dictat [...] is normal in calibe r Page 1 [facility] [address] [place] [address] [phone] Patien t Name: DIMA POLLOCK Access ion #: [id number] Sex: F : 1960 6 Dictat [...] 2023 09:03: 32 AM Page 2 [email or web address] [facility] (Imaging) [address] [place], [address], 09/30/2023 19:14:20 11/20/19 24 11/20/2023 XR, thora cic spine No observ ation record ed. [address], [place], [address], 11/29/2023 16:09:12 11/20/19 24 11/20/2023 XR, lumba r spine , 2 view No observ ation record ed. [address], [place], [address], 11/29/2023 17:14:53 11/22/19 24 11/22/2023 CT, abdom en + pelvi s, w/ contr ast No observ ation record ed. [address] [address], [place], [address], 11/29/2023 16:10:36 Result Notes None recorded. Problems Name Problem SNOMED Code Status Onset Date Resolution Date Notes Provider Name and Address Organization Details Recorded Time Osteoarthriti s 234660129 Active Not Available [employer] 3 08:11:06 Hyperlipidemi a 33536177 Active 2023 Estela hancock MD [address], [facility] [address], [place], [address] , [facility] 4 11:42:25 Essential hypertension 58392181 Active 2023 Estela hancock MD [address] [facility], [facility] [address], [place], [address] , [employer] 4 11:42:29 Moderate recurrent major depression 22926890 Active 2023 Estela hancock MD [address], [address], [place], [address] , [employer] 4 11:42:42 Smoker 36711667 Active 2023 Estela hancock MD [address], [address], [place], [address] , [facility] 4 11:43:43 Transient cerebral ischemia 135156129 Active 2023 Estela hancock MD [address], [address], [place], [address] , [facility] 4 11:44:10 Overactive urinary bladder 325157448 Active 2023 Katia Fowler MA null, [place] [facility] 4 14:31:55 Gastroesophag eal reflux disease 379811655 Active 2023 Katia Fowler MA null, [place] [facility] 4 12:03:18 Dementia 74295952 Active 2023 Estela hancock MD [address], [address], [place], [address] , [facility] 4 11:53:20 Urinary incontinence 370642747 Active 2023 Estela hancock MD [address], [address], [place], [address] , [facility] 4 14:50:22 Vitamin D deficiency 81319408 Active 2023 Estela hancock MD [address], [address], [place], [address] , [facility] 4 14:50:22 Serum vitamin B12 below reference range 602698061 Active 2023 Estela hancock MD [address], [address], [place], [address] , [facility] 4 14:50:22 Chronic pain 26410691 Active 2023 Estela hancock MD [address], [place], [address] , [facility] [place] [place] 4 14:50:22 Gastroesophag eal reflux disease without esophagitis 423328509 Active 2023 Estela hancock MD [address] [facility], [address], [address] , [facility] 4 14:50:22 Pulmonary emphysema 85643310 Active 2023 Estela hancock MD [address] [facility], [address], [address] , [facility] [place], [facility] 4 14:50:22 Pruritic rash 83975491 Active 2023 Estela hancock MD [address] [facility], [address] [address], [place], [address] , [facility] [place], [facility] 4 14:50:22 Leukocytosis 774042961 Active 2023 Estela hancock MD [address] [facility], [address], [address] , [facility] [place], [facility] 4 11:57:22 Cough 83348906 Active 2024 CHINA Dominguez null, [facility] 5 11:42:23 COVID-19 213780142 Active 2024 CHINA Dominguez null, [facility] 5 17:18:43 Upper respiratory infection 37639491 Active 2024 Juanita Cedeño MA null, [facility] 5 13:38:42 Notes:Medical History: TIA D ementia Anxiety/Depression Rhinitis to multiple environmental allergens Eosinophils 90/uL IgE 593 IU/mL AAT PiMM 190 mg% Nicotine use 4 mm RML nodule Hypertension Hyperlipidemia KASSIDY Urge urinary incontinence Lumbar spondylosis Procedure History: ROSANNA-BSO 2005 Left foot surgeries [id number] Electrical stumulation unit implantation 2013, 2023 Rught knee replacement 2014 Left cerebral aneurysm clipping 2020 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 Procedures Surgical History Date Name Laterality Status Provider Name and Address Organization Details Recorded Time 09/10/19 24 Medicare Wellness CPT Code, subsequent completed Kuldeep Phillips LPN [facility] 09/10/2023 08:23:20 Brain Surgery completed Tabitha Estes [place] [facility] 05/23/2023 11:13:29 Foot Surgery completed Tabitha Estes [place] [facility] 05/23/2023 11:13:56 Hysterectomy completed Tabitha Estes [place] [facility] 05/23/2023 11:14:01 excision of basal cell carcinoma completed Tabitha Estes [place] [facility] 05/23/2023 11:14:25 Knee Replacement completed Tabitha Meera [facility] 05/23/2023 11:14:36 Imaging Results Imaging Date Name Status LastModified by Organiz ation Details LastModified Time 05/28/2023 LDCT, chest, for lung cancer screening completed [address] (Imaging) [address] [place], [address], 09/30/2023 19:14:20 11/20/2023 XR, thoracic spine completed [address], [address], 11/29/2023 16:09:12 11/20/2023 XR, lumbar spine, 2 view completed [address], [address], 11/29/2023 17:14:53 11/22/2023 CT, abdomen + pelvis, w/ contrast completed [address], [address], 11/29/2023 16:10:36 Procedure Notes None recorded. Medical Equipment None Reported. Allergies Allergen ID Allergen Name Allergen Category Reaction Reaction Severity Criticality Documentation Date Start Date Code Code System Note Provider Name and Address Organization Details Recorded Time prednison e medicatio n hives itching respirato ry distress severe severe severe Not available 04/19/2022 8640 RxNorm Not Available [facility] 3 08:15:02 00139 oxycodone medicatio n hives itching respirato ry distress severe severe severe Not available 04/19/2022 7804 RxNorm Not Available [facility] 3 08:15:02 86627 morphine medicatio n hives itching respirato ry distress severe severe severe Not available 04/19/2022 7052 RxNorm Not Available [facility] 3 08:15:03 96248 hydrocodo ne Not available hives itching respirato ry distress severe severe severe Not available 04/19/2022 5489 RxNorm Not Available [facility] 3 08:15:03 Medications Name Sig Start [...] DAY ON DAY 2 THROUGH DAY 5 04/16 completed Not Available Not Available Not Available alprazolam 1 mg tablet TAKE 1 [...] Not Available Not Available No t Available clonazepam 1 mg tablet TAKE 1 TABLET BY MOUTH 3 TIMES A DAY NEEDED 09/01 completed Not Available Not Available Not Available venlafaxine ER 150 mg capsule,ext ended release 24 hr TAKE 1 CAPSULE BY MOUTH ONCE DAILY active Not Available [...] 1 TABLET BY MOUTH THREE TIMES DAILY 04/16 completed Not Available Not Available Not Available alprazolam 0.25 mg tablet 09/01 completed [...] 1 TABLET BY MOUTH EVERY 12 HOURS active Not Available Not Available No t Available Ventolin HFA 90 mcg/actuati on aerosol [...] completed Not Available Not Available Not Available Paxlovid 300 mg (150 mg x 2)-100 mg tablets in a dose pack TAKE 3 TABLETS TOGETHER (TWO 150 MG NIRMATREL VIR TABLETS AND ONE 100 MG RITONAVIR TABLET) BY MOUTH TWICE DAILY FOR 5 DAYS. 04/16 completed Not Available Not Available Not Available Vitals Date Recorded Body height Body mass index (BMI) Body weight Body temperature Heart rate Systolic blood pressure Diastolic blood pressure Provider Name and Address Organization Details Last Updated DateTime 4 162.56 cm 26.8 kg/m2 02710.4 1 g 97.9 [degF] 84 /min 110 mm[Hg] 64 mm[Hg] Tabitha Estes Angel [facility] [employer] 4 11:18:26 Date Recorded Body height Body mass index (BMI) Body weight Body temperature Heart rate Systolic blood pressure Diastolic blood pressure Provider Name and Address Organization Details Last Updated DateTime 4 162.56 cm 26.1 kg/m2 97961.0 4 g 97.5 [degF] 78 /min 114 mm[Hg] 62 mm[Hg] Tabitha Estes Angel [facility] 4 11:01:36 Date Recorded Pain severity - 0-10 verbal numeric rating [Score] - Reported Provider Name and Address Organization Details Last Updated DateTime 09/10/2023 6 Kuldeep Phillips LPN [facility] 09/10/2023 11:30:55 Date Recorded Body height Body mass index (BMI) Body weight Body temperature Heart rate Oxygen saturation Oxygen saturation in Arterial blood by Pulse oximetry Systolic blood pressure Diastolic blood pressure Provider Name and Address Organization Details Last Updated DateTime 4 162.56 cm 24 kg/m2 14976.9 3 g 98.1 [degF] 80 /min 97 % 97 % 136 mm[Hg] 86 mm[Hg] Juanita Cedeño MA [facility] 4 12:40:52 Date Recorded Heart rate Respiratory rate Provider N keily and Address Organization Details Last Updated DateTime 10/29/2023 80 /min 15 /min Joel Madison MD [address] [place] [address], [address], [facility] 10/29/2023 13:16:51 Date Recorded Body height Body mass index (BMI) Body weight Body temperature Heart rate Systolic blood pressure Diastolic blood pressure Provider Name and Address Organization Details Last Updated DateTime 4 162.56 cm 25.6 kg/m2 29835.2 6 g 97.6 [degF] 78 /min 118 mm[Hg] 76 mm[Hg] Tabitha Estes HANDYAngel [facility] 4 11:31:34 Date Recorded Body height Body mass index (BMI) Body weight Body temperature Heart rate Systolic blood pressure Diastolic blood pressure Provider Name and Address Organization Details Last Updated DateTime 5 162.56 cm 25.7 kg/m2 71943.8 6 g 97.6 [degF] 78 /min 118 mm[Hg] 60 mm[Hg] CHINA Dominguez [place] [facility] [place] [facility] 12:03:39 Social History Question Answer Notes LastModified by Organization Details LastModified Time Tobacco Smoking Status Current Every Day Smoker Not Available [facility] 04/19/2022 08:07:12 Do You Have An Advance Directive? Yes Information not available 05/23/2023 What Is Your Level Of Alcohol Consumption? Occasional Information not available 05/23/2023 How Many Years Have You Consumed Alcohol? 30 [email or web address] Information not available 09/10/2023 Are You Blind Or Do You Have Difficulty Seeing? No Information not available 05/23/2023 Is Blood Transfusion Acceptable In An Emergency? Yes [email or web address] Information not available 09/10/2023 What Is Your Level Of Caffeine Consumption? Occasional [email or web address] Information not available 09/10/2023 What Is Your Code Status? DNR [email or web address] Information not available 09/10/2023 In The 14 Days Before Symptom Onset, Have You Had Close Contact With A Laboratory-conf irmed COVID-19 While That Case Was Ill? No Information not available 05/23/2023 In The 14 Days Before Symptom Onset, Have You Had Close Contact With A Person Who Is Under Investigation For COVID-19 While That Person Was Ill? No Information not available 05/23/2023 Are You Currently Employed? No Diabled [email or web address] Information not available 09/10/2023 Are You Deaf Or Do You Have Serious Difficulty Hearing? No Information not available 05/23/2023 What Type Of Diet Are You Following? REGULAR Information not available 05/23/2023 Which Illicit Or Recreational Drugs Have You Used? Marijuana Information not available 05/23/2023 What Is The Highest Grade Or Level Of School You Have Completed Or The Highest Degree You Have Received? [id number] Information not available 05/23/2023 Do You Have An Electrostatic Air Filter? Yes Information not available 10/29/2023 How Many Days Of Moderate To Strenuous Exercise, Like A Brisk Walk, Did You Do In The Last 7 Days? 0 [email or web address] Information not available 09/10/2023 Have There Been Any Changes To Your Family Or Social Situation? Yes MIL And Step Dtr. [email or web address] Information not available 09/10/2023 What Is The Fluoride Status Of Your Home? Unknown Information not available 05/23/2023 Are There Any Guns Present In Your Home? Yes Information not available 05/23/2023 Do You Have A Humidifier? Yes Information not available 10/29/2023 How Many Years Have You Used Illicit Or Recreational Drugs? 4 [email or web address] Information not available 09/10/2023 Do You Use Insect Repellent Routinely? No Information not available 09/10/2023 Where Do You Live? SingleLevelHouse Information not available 05/23/2023 Advance Directive- Providers Has Reviewed Directive And Consents To Follow Them (insert Provider Name With Any Objectives In Notes Field) Yes [email or web address] Information not available 09/10/2023 Presence Of Domestic Violence No [email or web address] Information not available 09/10/2023 Guns Present In The Home? Yes [email or web address] Information not available 09/10/2023 Are You Able To Care For Yourself? Yes Wityh Assistance When Needed Information not available 09/10/2023 Are You Blind Or Do Yo Have Difficulty Seeing? No [email or web address] Information not available 09/10/2023 Are You Deaf Or Do You Have Serious Difficulty Hearing? No [email or web address] Information not available 09/10/2023 General Stress Level? High [email or web address] Information not available 09/10/2023 Live Alone Of With Others? With Others [email or web address] Information not available 09/10/2023 Do You Have A Medical Power Of Control Valve Technician? Yes Information not available 05/23/2023 Do You Have Moisture Problems In Your Home? No Information not available 10/29/2023 What Was The Date Of Your Most Recent Tobacco Screening? 04/16/2024 Information not available 04/16/2024 How Many Children Do You Have? 1 Information not available 09/10/2023 What Is Your Current Pack Years? 20-29packyears Information not available 09/10/2023 Have You Ever Been Counseled For Unhealthy Alcohol Use? No [email or web address] Information not available 09/10/2023 Do You Have Any Pets? Yes Dog [email or web address] Information not available 09/10/2023 What Is Your [...] Are You Passively Exposed To Smoke? No [email or web address] Information not available 09/10/2023 Are There Any Smokers In Your House? No [email or web address] Information not available 09/10/2023 How Much Tobacco Do You Smoke? 1 PPD Information not available 05/23/2023 What Types Of Sporting Activities Do You Participate In? None [email or web address] Information not available 09/10/2023 Do You Feel Stressed (tense, Restless, Nervous, Or Anxious, Or Unable To Sleep At Night)? [id number] Information not available 05/23/2023 Do You Use Any Illicit Or Recreational Drugs? Yes Information not available 05/23/2023 Do You Use Sunscreen Routinely? No [email or web address] Information not available 09/10/2023 Has Tobacco Cessation Counseling Been Provided? Yes [email or web address] Information not available 09/10/2023 On What Date Was Tobacco Cessation Counseling Provided? 09/10/2023 [email or web address] Information not available 09/10/2023 How Many Years Have You Smoked Tobacco? 25 [id number] Information not available 04/19/2022 Have You Recently Traveled Abroad? No Information not available 05/23/2023 Have You Used IV Drugs? No [email or web address] Information not available 09/10/2023 Do You Have Any Dietary Restrictions? No [email or web address] Information not available 09/10/2023 Do You Or Have You Ever Used Any Other Forms Of Tobacco Or Nicotine? No Information not available 05/23/2023 How Many Days In The Past Year Have You Consumed 4 Or More Drinks? 0 [email or web address] Information not available 09/10/2023 Sex: Unknown Functional Status Question Answer Note LastModified by Organizat ion Details LastModified Time Do you have difficulty walking or climbing stairs? Yes Uses cane Information not available 09/10/2023 Do you have transportation difficulties? No [email or web address] Information not available 09/10/2023 Are you able to walk? YESASSIST Cane [email or web address] Information not available 09/10/2023 Do you have difficulty doing errands alone? No Information not available 05/23/2023 Are you able to care for yourself? Yes Information n ot available 05/23/2023 Do you have difficulty dressing or bathing? Yes needs help at times [email or web address] Information not available 09/10/2023 What is your exercise level? None Information not available 09/10/2023 Mental Status Question [...] DISEASE/DISORDER N HISTORY OF DRUG ABUSE N RADIATION / CHEMOTHERAPY N COPD N Other # 2 N BLOOD DISEASES N EAR OR HEARING PROBLEMS N MUMPS N SHINGLES N BOWEL PROBLEMS N DEPRESSION (INCLUDING POST ) Y FAILED BACK SYNDROME N STROKE/TIA Y ULCERS N BENIGN PROSTATIC HYPERPLASIA N MEASLES N HYPOTENSION N MYOCARDIAL INFARCTION N OBESITY N GERD/NAUSEA N ANEURYSM Y URINARY/BLADDER/KIDNEY PROBLEMS N CORONARY ARTERY DISEASE (CAD) N Do you have Advance directive? N ADDICTION CONCERNS N ENDOMETRIOSIS N Impotence N USE OF BLOOD THINNERS N SKIN PROBLEMS N GASTROINTESTINAL DISORDER N PERIPHERAL VASCULAR DISEASE N MUSCLE,JOINT OR BONE PROBLEMS N GASTROINTESTINAL BLEEDING N BLOOD CLOTS N ASTHMA N Abdominal Pain N CATARACTS N ARTERIAL INSUFFICIENCY N ERECTILE DYSFUNCTION N VARICOSITIES N GI PROBLEMS N Low Testosterone N INFERTILITY N AIDS/HIV N CHEMOTHERAPY / RADIATION N LIVER DISEASE N MALE HYPOGONADISM N HYPERTENSION Y Deficiency N TOURETTE'S N ANXIETY DISORDER Y BLOOD TRANSFUSION N ANEMIA/BLOOD DISORDER N CHRONIC EAR INFECTIONS N TUBERCULOSIS N GLAUCOMA N FOOT PROBLEM N DIVERTICULITIS N CHICKENPOX N SLEEP APNEA N BACK INJECTIONS N ALLERGIES/HAYFEVER N INFECTIOUS DISEASE N HEART ARRHYTHMIA N PROSTATE N ESRD N INSOMNIA N HIGH CHOLESTEROL / HYPERLIPIDEMIA Y HYPERTHYROIDISM [...] Brain Problems N HERPES N DEMENTIA N HEADACHES/MIGRAINES N SEIZURES/EPILEPSY N VASCULAR DISEASE N PACEMAKER N DIZZINESS N HEART DISEASE/HEART PROBLEMS N KIDNEY DISEASE N MULTIPLE SCLEROSIS N NEUROPSYCHOLOGICAL N CARDIAC ARRHYTHMIA N CANCER: SPECIFY N ATRIAL FIBRILLATION N Gall Stones N PULMONARY EMBOLISM N AUTOIMMUNE DISEASE N Gynecological HistoryNo gynecological history recorded. Obstetrics History GPAL:G 0 P 0 0 0 0 Immunizations Vaccine Type Date Status Note Provider Nam e and Address Organization Details Recorded Time Influenza, split virus, trivalent, PF 4 completed JEAN CARLOS Maria, [place] [facility] [employer] [facility] 09/10/2023 08:21:04 pneumococcal polysaccharide PPV23 0 completed JEAN CARLOS Maria, [place] [facility] [employer] [facility] 09/10/2023 08:21:04 influenza, unspecified formulation 0 completed CHINA Dominguez, [employer] [facility] 05/23/2023 12:43:27 COVID-19, mRNA, LNP-S, PF, 30 mcg/0.3 mL dose 1 completed Kuldeep Phillips LPN null, [facility] 09/10/2023 08:21:04 COVID-19, mRNA, LNP-S, PF, 30 mcg/0.3 mL dose 1 completed Kuldeep Phillips LPN null, [facility] 09/10/2023 08:21:04 Influenza, recombinant, quadrivalent, PF 2 completed Kuldeep Phillips LPN null, [facility] 09/10/2023 08:21:04 Influenza, split virus, quadrivalent, PF 4 completed Kuldeep Phillips LPN null, [facility] 09/10/2023 08:21:04 Pneumococcal conjugate PCV 13 4 completed Estela Cook MD [address] [facility], [facility] [address], [place], [address], [facility] 05/23/2023 14:13:40 Influenza, high-dose, trivalent, PF 4 completed Estela Cook MD [address] [facility], [facility] [address], [place], [address], [facility] 01/14/2024 18:15:24 Past Encounters Encounter ID Performer Location Encounter Start Date Encounter Closed Date Diagnosis/Indication Diagnosis SNOMED-CT Code Diagnosis ICD10 Code Diagnosis Note [id number] [facility] [address] [place] [address] 11/30/2020 00:00:00 11/30/2020 14:51:27 [id number] [facility] [address] [place] [address] 08/11/2021 00:00:00 08/11/2021 11:36:57 [id number] [facility] [address] [place], [place] [address] 09/01/2021 00:00:00 09/01/2021 11:31:[id number] [facility] [address] [place], [place] [address] 03/02/2022 00:00:00 03/02/2022 11:48:48 [id number] [address] [facility] [address] [place] [address] 08/31/2022 09:46:39 08/31/2022 11:12:27 Pain in left sacroiliac joint [id number] 7024205 M53.3 Pain of le ft hip joint 1368173858 93079 M25.552 Trochanter ic bursitis of left hip 7821947901 81884 M70.62 Spinal adonay nosis of lumbar region 75127972 M48.517 [id number] [address] [facility] Internal Med Ce jennifer [address] [facility] , [place] [address] 05/23/2023 10:32:01 05/23/2023 12:46:46 Screening - NAD 833681126 Z13.9 C-scope: Get this done if not done Mammogram: Get thisDEXA: Get thisPAP: Not doing d/t ROSANNA and Davy O Get yearly flu shotGet Tdap if not doneUTD PCV #13 05/23/2023 Get shingrix vaccineCan do RSV vaccineGet COVID 19 vaccine and its boosters RTC in 3 months, do labs, ER if worse, she and her verbalized her understand ing of the above Hyperlipidemia 06653572 E78.5 On atorvastat in 40mg dailyGet labs Essential hypertension 37322667 I10 On lisinopril 10mg bidGet labs Urinary incontinence 165 149194 R32 On oxybutynin ER 5mg dailyWill get a referral to urology Moderate r ecurrent major depression 79372742 F33.1 On alprazolam 1mg tid as neededOn buspirone 10mg dailyOn hydroxyzin e 25mg tid as needed, renewed 05/23/2023 , advised the next refill has to be from psychiatry On venlafaxin e ER 150mg bidNot suicidal or homicidalA greeable to see psychiatry Chronic pain 59241944 G8 9.29 On meloxicam 7.5mg daily, advised to take ONLY as neededOn cyclobenza blaine 10mg daily as needed, renewed 05/23/2023 On tizanadine 2mg every 4 hours as neededOn tramadol 50mg tidOn zofranAdvi sed that she will need to see pain management and get her meds sent by them, advised that I am unable to fill any opiates Smoker 44040233 F17.200 Advised to quit!Get a referral to pulmonaryG et LDCT Transient cerebral ischemia 261175343 G45.9 S/p aneurysmS/ p surgeryShjennifer has noted some gait imbalance, uses a walker, refer to neurology Vitamin D deficiency 347 38030 E55.9 Serum fatuma min B12 below reference range 880027399 R79.89 Administra tion of pneumococcal vaccine 74306223 Z23 Screening for malignant neoplasm of colon 583123279 Z12.11 Gastroesop hageal reflux disease without esophagitis 830371644 K21.9 On pantoprazo le 40mg bidNeeds to get EGD [id number] Estela hancock MD [facility] [place] [address] [place] [address] , [facility] [place] [address] 09/10/2023 10:50:00 09/10/2023 12:04:40 Screening - NAD 628130617 Z13.9 C-scope: Get this done if not done Mammogram: Get thisDEXA: Get thisPAP: Not doing d/t ROSANNA and Davy O Get yearly flu shotGet Tdap if not doneUTD PCV #13 05/23/2023 Get shingrix vaccineCan do RSV vaccineGet COVID 19 vaccine and its boosters RTC in 3 months, do labs, ER if worse, she and her verbalized her understand ing of the above Hyperlipidemia 01508979 E78.5 On atorvastat in 40mg dailyGet labs Essential hypertension 29811233 I10 On lisinopril 10mg bid, renewed 09/10/2023 Get labsLDCT 05/28/2023 Needs to keep apt with cardiology ! referred again 09/10/2023 Urinary incontinence 165 861043 R32 On oxybutynin ER 5mg dailyWill get a referral to urology Moderate r ecurrent major depression 41825423 F33.1 On alprazolam 1mg tid as neededOn buspirone 10mg dailyOn hydroxyzin e 25mg tid as needed, renewed by Dr Mendez pain management On venlafaxin e ER 150mg bidNot suicidal or homicidalS ees Anayeli Luis [employer] REG[employer] psychiatry Chronic pain 37003683 G8 9.29 On meloxicam 7.5mg daily, advised [...] again provided to her today 09/10/2023 Smoker 84033690 F17.200 Advised to quit!Get a referral to pulmonaryL DCT 05/28/2023 Transient cerebral ischemia 023643635 G45.9 S/p aneurysmS/ p surgeryShe has noted some gait imbalance, uses a walker, refer to neurology Vitamin D deficiency 347 19568 E55.9 Serum fatuma min B12 below reference range 314138715 R79.89 Screening for malignant neoplasm of colon 074669488 Z12.11 Gastroesop hageal reflux disease without esophagitis 198086112 K21.9 On pantoprazo le 40mg bidNeeds to get EGD Adult heal th examination 991695537 Z00.00 Screening for disorder 559169999 Z13.9 Screening mammography 24 503948 Z12.31 Screening for osteoporosis 058867879 Z13.820 Pulmonary emphysema 8743 3001 J43.9 LDCT 05/28/2023 Get a referral to Dr Madison Dementia 03466444 F03.90 MWV 09/10/2023 , dementia screening scored 5/8, will refer to neurology Pruritic rash 40464352 L 28.2 Faint hyperemic, slightly excoriated rash noted on the R inner upper thigh, will get on nystatin cream as needed [id number] Joel Madison MD [facility] Pulmonolo gy [place] [address] [facility], [facility] [address] [place] [address] 10/29/2023 12:24:46 10/30/2023 15:30:48 Dyspnea on exertion 24387647 R06.09 R05.9 T78.40XA D89.9 Smoker 00741866 F17.218 F17.219 Z87.340 [id number] Estela hancock MD [facility] [address] [facility] [address] [place] [address] 01/14/2024 11:11:28 01/14/2024 12:49:51 Screening - NAD 183873152 Z13.9 C-scope: Get this done if not done Mammogram: Get thisDEXA: Get thisPAP: Not doing d/t ROSANNA and Davy O Get yearly flu shotGet Tdap if not doneUTD PCV #13 05/23/2023 Get shingrix vaccineCan do RSV vaccineGet COVID 19 vaccine and its boosters RTC in 3 months, do labs, ER if worse, she and her verbalized her understand ing of the above Hyperlipidemia 64954359 E78.5 On atorvastat in 40mg dailyGet labs Essential hypertension 82325998 I10 On lisinopril 10mg bid, renewed 09/10/2023 Get labsLDCT 05/28/2023 Needs to keep apt with cardiology ! referred again 09/10/2023 Urinary incontinence 165 125443 R32 On oxybutynin ER 5mg dailyWill get a referral to urology Moderate r ecurrent major depression 77590954 F33.1 On alprazolam 1mg tid as neededOn buspirone 10mg dailyOn hydroxyzin e 25mg tid as needed, renewed by Dr Mendez pain management On venlafaxin e ER 150mg bidNot suicidal or homicidalS ees Anayeli Luis [employer] REG[employer] psychiatry Chronic pain 02892463 G8 9.29 On meloxicam 7.5mg daily, advised to take ONLY as neededOn cyclobenza blaine 10mg daily as neededOn tizanadine 2mg every 4 hours as neededOn gabapentin 600mg tidOn tramadol 50mg tidOn Argelia sees Dr Galicia s also to get her nerve simulator removed as per her history 09/10/2023 , states that she does not need any cardiac clearance as her pain management MD in [facility] has done her cardiac work up, advised her that she still needs to see cardiology and referral was again provided to her today 09/10/2023 Smoker 59376453 F17.200 Advised to quit!Get a referral to pulmonaryL DCT 05/28/2023 Transient cerebral ischemia 967531426 G45.9 S/p aneurysmS/ p surgeryShe has noted some gait imbalance, uses a walker, refer to neurology Vitamin D deficiency 347 64431 E55.9 Serum fatuma min B12 below reference range 380828035 R79.89 Screening for malignant neoplasm of colon 263425399 Z12.11 Gastroesop hageal reflux disease without esophagitis 506079872 K21.9 On pantoprazo le 40mg bidNeeds to get EGD Screening mammography 24 241933 Z12.31 Screening for osteoporosis 372915749 Z13.820 Pulmonary emphysema 8743 3001 J43.9 LDCT 05/28/2023 Dr Madison 10/29/2023 , ordered labs and PFT Dementia 93048620 F03.90 MWV 09/10/2023 , dementia screening scored 5/8, will refer to neurology Leukocytosis 379419471 D 72.829 Repeat the labs Administra tion of influenza vaccine 30968291 Z23 [id number] Estela hancock MD [facility] [address] [place] [address] 04/16/2024 11:16:23 04/16/2024 12:29:10 Screening - NAD 955364290 Z13.9 C-scope: Get this done if not done Mammogram: Get thisDEXA: Get thisPAP: Not doing d/t ROSANNA and Davy O Get yearly flu shotGet Tdap if not doneUTD PCV #13 05/23/2023 Get shingrix vaccineCan do RSV vaccineGet COVID 19 vaccine and its boosters RTC in 3 months, do labs, ER if worse, she and her verbalized her understand ing of the above Hyperlipidemia 49585267 E78.5 On atorvastat in 40mg dailyGet labs Essential hypertension 48212379 I10 On lisinopril 10mg bid, renewed 09/10/2023 Get labsLDCT 05/28/2023 Needs to keep apt with cardiology ! referred again 09/10/2023 Urinary incontinence 165 306067 R32 On oxybutynin ER 5mg dailyWill get a referral to urology Moderate r ecurrent major depression 61296689 F33.1 On alprazolam 1mg tid as needed filled by Anayeli Luis [employer] 04/14/2024 On buspirone 10mg dailyOn hydroxyzin e 25mg tid as needed, renewed by Dr Mendez pain management On venlafaxin e ER 150mg bidNot suicidal or homicidalS ees Anayeli Luis [employer] REG[employer] psychiatry Chronic pain 45879343 G8 9.29 On meloxicam 7.5mg daily, advised to take ONLY as neededOn cyclobenza blaine 10mg daily as neededOn tizanadine 2mg every 4 hours as neededOn gabapentin 600mg tidOn tramadol 50mg tidOn zofranNow sees Dr Mendez Smoker 26642438 F17.200 Advised to quit!Get a referral to pulmonaryL DCT 05/28/2023 Transient cerebral ischemia 224710942 G45.9 S/p aneurysmS/ p surgeryShe has noted some gait imbalance, uses a walker, refer to neurology Vitamin D deficiency 347 65736 E55.9 Serum fatuma min B12 below reference range 093057179 R79.89 Screening for malignant neoplasm of colon 505800434 Z12.11 Gastroesop hageal reflux disease without esophagitis 748291684 K21.9 On pantoprazo le 40mg bidNeeds to get EGD Screening mammography 24 281356 Z12.31 Screening for osteoporosis 222915531 Z13.820 Pulmonary emphysema 8743 3001 J43.9 LDCT 05/28/2023 Dr Madison 10/29/2023 , ordered labs and PFT Dementia 83807044 F03.90 MWV 09/10/2023 , dementia screening scored 5/8, will refer to neurology Leukocytosis 677462168 D 72.829 Repeat the labs COVID-19 590093610 U07.1 +ve 03/21/2024 , see cases Health Concerns Section Related Observation LastModified by Organization Detai ls LastModified Time None Recorded Concern Status LastModified by Organization Details LastModified Time None Recorded Advance Directives Directive Y: Payers Encounter Date Sequence Insurance Name Policy Number Policy Ayers Covered Member ID Ayers Member ID Guarantor Name 05/23/2023 1 [place] Avril Tee Martin [id number] Avril L Martin 05/23/2023 2 [employer] [place] (MEDICARE SUPPLEMENT) Avril L [place] [id number] Avril L [place] 09/10/2023 1 [place] Avril L Martin [id number] Avril L [place] 09/10/2023 2 [employer] [place] (MEDICARE SUPPLEMENT) Avril L Martin [id number] Avril L [place] 10/29/2023 1 [place] Avril L [place] [id number] Avril L [place] 10/29/2023 2 [employer] [place] (MEDICARE SUPPLEMENT) Avril L [place] [id number] Avril L [place] 01/14/2024 1 [place] Avril L Martin [id number] Avril L [place] 01/14/2024 2 [employer] [place] (MEDICARE SUPPLEMENT) Avril L [place] [id number] Avril L [place] 04/16/2024 1 [place] Avril L Martin [id number] Avril L [place] 04/16/2024 2 [employer] [place] (MEDICARE SUPPLEMENT) Avril L [place] [id number] Avril L Martin Notes Date Note Type Note Provider Name and Address Organization Details Recorded Time 05/23/2023 text/html OV 05/23/2023:He re to establish care Present Hx:DepressionHLDHTNG ERDChronic painSmokerS/p TIA s/p surgery Here to discuss above, to get labs, also wants refill on the hydroxyzine and flexerill Estela Cook MD [address], [place], [address], [place] 05/23/2023 14:16:51 09/10/2023 text/html OV 05/23/2023:He re [...] Cook MD [address], [place], [address], [place] 09/10/2023 14:22:29 10/29/2023 text/html Primary care/Referring provider: [...] groceries Alleviating factors: rest Modified [employer] (mMRC) Dyspnea Scale - Grade 2 Grade 0 I only get breathless with strenuous exercise . Grade 1 I get short of breath when hurrying on the level or walking up a slight hill . Grade 2 I walk slower than people of the same age on the level because of breathlessness or have to stop for breath when walking at my own pace on the level . Grade 3 I stop for breath after walking about 100 yards or after a few minutes on the level . Grade 4 I am too breathless to leave the house or I am breathless when dressing . Treatment history:None Other symptoms: Drooling: no Dysarthria: no Neck pain: no Odynophagia: no Dysphagia: no Weak mastication: no Facial weakness: no Nasal speech: no Protruding tongue: no Productive cough: no Wheezing: no Chest tightness: yes Orthopnea: no Frequent throat clearing or swallowing: no Palpitations: no Heartburn: no Edema: yes Environmental exposures: Nicotine smoke: 1 ppd 1984-present (quit 8 years in between) = 32 pack years Trona: no Dye: no Dust mites: yes Mold: no Damp basement: no Wood burning stove: no Animal dander: dog, cockatiel [phone] Cockroaches: no Pollen: yes Arsenic: no Asbestos: no Beryllium: no Cadmium: no Chromium: no Cotton smoke: no Diesel fumes: no Nickel: no [...] has a slight chance of dozing. Joel Madison MD [address] [address], [place], [address], [facility] 10/29/2023 13:23:50 01/14/2024 text/html OV 05/23/2023:He re [...] is doing well today Estela Cook MD [address], [place], [address], [place] 01/14/2024 18:16:07 04/16/2024 text/html OV 05/23/2023:He re to establish care [...] f/u apt, she is doing well today OV 04/16/2024: Here for her f/u apt she is here with her , no new labs noted Estela Cook MD [address], [place], [address], [place] 04/16/2024 18:25:29 OBGyn Episode No OBEpisode recorded.
--- OUTSIDE RECORDS SUMMARY | 2024-04-28 12:43 | XMS_ITS | Clinical Summary ---
Author Organization [facility] Address [address] [place] [address] Care Team Providers Care Materials Handling Equipment Operator Name Role Phone BroomfieldDontrell schultz DO Primary Care Provider [phone] Source Comments [facility],non-owned Affiliates and Associated Physician Practices is amultiple site organization consisting of ambulatory clinics and hospital sitesin [place], [place], [place] and [place]. This disclosure is being madepursuant to the Care Everywhere program and may not contain all information available regarding this patient. Last updated 17.[facility] [employer] Allergies Active Allergy Reactions Criticality Noted Date Comments Diclofenac Epolamine Unknown Medium 07/23/2012 Dust Mite Extract Itching Low 04/18/2017 Fenofibrate Unknown Medium 07/23/2012 Fentanyl Swelling Medium 03/15/2017 Gabapentin Nausea and/or Vomiting Medium 05/20/2015 Gramineae Pollens Urticaria,Itching Medium 12/28/2017 Green Estrada Urticaria Medium 04/29/2020 Hydrocodone Anaphylaxis High 04/18/2017 Hydrocodone-Acetaminophen Unknown Medium 07/23/2012 Kiwi Extract Urticaria Medium 04/29/2020 Magnesium Sulfate Unknown Medium 07/23/2012 Morphine Anaphylaxis High 04/18/2017 Codeine Urticaria Medium 04/04/2016 Oxcarbazepine Unknown Medium 07/23/2012 Oxycodone Other Medium 04/18/2017 Seasonal Itching Low 04/18/2017 Corticosteroids Rash,Anaphylaxis High 04/04/2016 [place] Other Medium 04/18/2017 Medications * Be aware that medications may not be up to date on this document. Alwaysverify current medications with the patient. Medication Sig Dispensed Refills Start Date End Date Status venlafaxine XR 24hr (EFFEXOR XR) 150 MG capsule Take 150 mg by mouth daily with breakfast 06/19/2017 Active hydrOXYzine hcl (ATARAX) 25 MG tablet Take 25 mg by mouth 3 times daily as needed Active acetaminophen (TYLENOL) 325 MG tablet Take 2 (two) tablets by mouth every 6 hours as needed for Headache (alternate with ibuprofen) Maximum allowable Acetaminophen amount = 4 Grams (4000 mg) / 24 hours. 05/31/2020 Active calcium carbonate (TUMS) 500 MG chew tablet Take 1 (one) tablet by mouth every 4 hours as needed 05/31/2020 Active clonazePAM (KLONOPIN) 0.5 MG tablet Take 1 (one) tablet by mouth every 8 hours 05/31/2020 Active busPIRone (BUSPAR) 10 MG tablet Take 10 mg by mouth 2 times daily 06/21/2020 Active cimetidine (TAGAMET) 400 MG tablet TAKE 1 TABLET BY MOUTH TWICE A DAY 07/05/2020 Active dicyclomine (BENTYL) 10 MG capsule Take 1 (one) capsule by mouth once daily 07/07/2020 Active lisinopril (PRINIVIL; ZESTRIL) 10 MG tablet Take 10 mg by mouth 2 times daily 06/21/2020 Active pantoprazole EC (PROTONIX) 40 MG tablet 07/10/2020 Active Probiotic Product (PROBIOTIC-10 PO) Active traMADol (ULTRAM) 50 MG tablet Take 50 mg by mouth every 6 hours as needed for Pain Active ALPRAZolam (XANAX) 1 MG tablet TAKE 1 TABLET BY MOUTH THREE TIMES A DAY NEEDED 08/28/2020 Active meloxicam (MOBIC) 7.5 MG tablet Take 7.5 mg by mouth 2 times daily 03/28/2021 Active perampanel (Fycompa) 8 MG tablet Take 1 (one) tablet by mouth once daily 01/13/2022 Active ondansetron, disintegrating, (Zofran ODT) 8 MG tablet Take 1 (one) tablet by mouth every 8 hours as needed 01/13/2022 Active metoprolol succinate XL 24hr (Toprol XL) 25 MG tablet Take 1 (one) tablet by mouth once daily 01/13/2022 Active polyethylene glycol 3350 (MiraLax) 17 g packet Take 17 (seventeen) g by mouth once daily as needed for Constipation 01/13/2022 Active metoclopramide (Reglan) 10 MG tablet 01/13/2022 Active tiZANidine (Zanaflex) 2 MG tablet Take 1 (one) tablet by mouth 01/13/2022 Active sucralfate (Carafate) 1 GM/10ML suspension Take 10 mL by mouth 4 times daily 01/13/2022 Active oxybutynin CR 24hr (Ditropan-XL) 5 MG tablet Take 1 (one) tablet by mouth once daily 01/13/2022 Active bismuth subsalicylate (Pepto-Bismol;Kaopec cao) 262 MG/15ML suspension Take 15 mL by mouth every 1 hour as needed for Diarrhea 118 mL 2 01/13/2022 Active saline nasal spray ([place]; Baby [place]) 0.65 % nasal spray [place] 2 (two) sprays into each nostril every 30 minutes as needed for Dry Nose 15 mL 2 01/13/2022 Active Active Problems Problem Noted Date Diagnosed Date Subarachnoid hemorrhage 01/05/2022 Brain aneurysm 01/05/2022 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 Encounter for central line placement 05/06/2020 Cerebral aneurysm 05/06/2020 Depression 07/17/2018 Essential (primary) hypertension 07/02/2018 Tobacco use 11/26/2015 Overview (03/09/2020): Tobacco abuse Fibromyalgia 07/23/2012 Overview (03/09/2020): Fibromyalgia Gastroesophageal reflux disease 07/23/2012 Hyperlipidemia 07/23/2012 Viral hepatitis B 07/23/2012 Overview (03/09/2020): Description: 1992 Anxiety 05/27/2012 SAH (subarachnoid hemorrhage) Seizures Nontraumatic epidural hematoma Subdural hematoma Acute respiratory failure Malnutrition Pulmonary insufficiency Leukocytosis Immunizations Name Administration Dates Next Due INFLUENZA VACCINE 12/03/2020,12/11/2019 Social History Tobacco Use Types Packs/Day Years [...] Mass Index 32.24 08/05/2022 9:21 PM CDT Plan of Treatment Health Maintenance Due Date Last Done Comments BONE DENSITY TESTING 1960 COLOGUARD (AGES 45-75) - COLON CA SCREENING 1958 COLON MONITORING 1958 COLONOSCOPY - COLON CA SCREENING 1958 CT COLONOGRAPHY - COLON CA SCREENING 1960 Colorectal Cancer Screening 1958 FIT - COLON CA SCREENING 1958 FLEX SIG - COLON CA SCREENING 1958 LIPID TESTING 1960 MAMMOGRAM 1960 MEDICARE AWV 12 MONTHS 1958 PAP SMEAR 1958 HIV SCREENING 1973 HEPATITIS C SCREENING 05/09/1976 DTAP/TDAP/TD VACCINES (1 - Tdap) 1977 PNEUMOCOCCAL VACCINE 50+ (1 of 2 - PCV) 1977 ZOSTER VACCINE (1 of 2) 2008 COVID-19 VACCINE (3 - season) 2023 09/29/2020, 09/08/2020 INFLUENZA VACCINE (#1) 2023 2, 12/03/2020, 12/11/2019, Additional history exists DEPRESSION SCREENING 02/20/2024 01/05/2022 SCREENING FOR DIABETES 08/06/2025 3, 08/05/2022, 08/05/2022, Additional history exists Respiratory Syncytial Virus (RSV) Vaccine Pt: or over 60 yrs (1 - 1-dose 75+ series) 2033 HEPATITIS B VACCINE Aged Out No longe r eligible based on patient's age to complete this topic HIB VACCINE Aged Out No longer eligi ble based on patient's age to complete this topic HPV VACCINE Aged Out No longer eligi ble based on patient's age to complete this topic MENINGOCOCCAL (Group B) VACCINE Aged Out No longer eligible based on patient's age to complete this topic MENINGOCOCCAL VACCINE Aged Out No alla kevin eligible based on patient's age to complete this topic Medical Devices Implanted Type Area Wind Farm Engineer Device Identifier Shelf Expiration Date Model / Serial / Lot Sugita Titanium Aneurysm Clip Ii Implanted:Qty: 1 on 05/06/2020 by Timoteo Mckinney MD at [facility] Aneurysm Clip Left: Brain Sugita Standard 17-001-0 1 / 52SLAP / 52-SL Sugita Titanium Aneurysm Clip Ii Implanted:Qty: 1 on 05/06/2020 by Timoteo Mckinney MD at [facility] Aneurysm Clip Left: Brain Sugita Standard 17-001-0 2 / 48SKAE / 48-SK Graft Tissue Drgn + Bvn Clgn Mtrx 5x4in Implanted:Qty: 1 on 05/06/2020 by Timoteo Mckinney MD at [facility] Left: Brain Integra Neurosciences 01/18/2023 [id number] / / [id number] Plate 2 Hl Ult Lopro Chmfr Edg Crnl Implanted:Qty: 1 on 05/06/2020 by Timoteo Mckinney MD at [facility] Left: Cranial Synthes Usa .502.0 62 / / Plate 4 Hl Ult Lopro Chmfr Edg Crnl .3mm Implanted:Qty: 1 on 05/06/2020 by Timoteo Mckinney MD at [facility] Left: Cranial Synthes Usa .502.0 64 / / Screw 1.5mm 4mm Crnmxf Slfdrl Implanted:Qty: 16 on 05/06/2020 by Timoteo Mckinney MD at [facility] Left: Cranial Synthes Maxillofacial 503.1 04.01 / / Graft Tissue Drgn + Bvn Clgn Mtrx 2x2in Implanted:Qty: 1 on 05/11/2020 by Austyn Saldaña MD at [facility] Left: Brain Integra Neurosciences 10/19/2022 DP-1022 / / [id number] Cover Bur Hl Lght Grn 17mm Matrixneuro Implanted:Qty: 2 on 05/06/2020 by Timoteo Mckinney MD at [facility] Explanted:Qty: 1 on 08/04/2020 by Austyn Saldaña MD at [facility] Left: Cranial Synthes Usa 502.0 23 / / Screw 1.5mm 4mm Crnmxf Slfdrl Implanted:Qty: 6 on 08/04/2020 by Austyn Saldaña MD at [facility] Left: Cranial Synthes Maxillofacial .1 04.01 / / Procedures Procedure Name Priority Date/Time Associated Diagnosis Comments BASIC METABOLIC PANEL (CALCIUM TOTAL) Timed 08/06/2022 4:11 AM CDT from Last 3 Months or Most Recently Relevant to Health Maintenance Results * (ABNORMAL) BASIC METABOLIC PANEL (CALCIUM TOTAL) (08/06/2022 4:11 AM CDT) BUN 7 7 - 26 mg/dL 08/06/2022 5:05 AM [facility] Creatinine 0.63 0.56 - 0.96 mg/dL 08/06/2022 5:05 AM [facility] Sodium 137 136 - 145 mmol/L 08/06/2022 5:05 AM [facility] Potassium 5.0(H) 3.5 - 4.5 mmol/L 08/06/2022 5:05 AM [facility] Chloride 108(H) 98 - 107 mmol/L 08/06/2022 5:05 AM [facility] CO2 21(L) 22 - 29 mmol/L 08/06/2022 5:05 AM [facility] Glucose 100 70 - 115 mg/dL 08/06/2022 5:05 AM [facility] Calcium 9.3 8.4 - 10.2 mg/dL 08/06/2022 5:05 AM [facility] Anion Gap 13 8 - 18 08/06/2022 5:05 AM [facility] BUN/Creatinine Ratio 11 7 - 23 08/06/2022 5:05 AM [facility] Osmolality Calculated 282 270 - 300 mOsm/kg 08/06/2022 5:05 AM [facility] eGFR by CKD-EPI >90 >=90 mL/min/1.7 3 m2 08/06/2022 5:05 AM [facility] Blood BLOOD SPECIMEN / Unknown Venipuncture / Unknown 08/06/2022 4:11 AM T 08/06/2022 4:38 AM [facility][NOTE 3] Charbel Batista MD LAB - CHEMISTRY ORDERABLES [facility] [address] [place] [address], [facility] [phone] from Last 3 Months or Most Recently Relevant to Health Maintenance Advance Directives * Full Code (Latest Code Status on File) Date Activated Date Inactivated Comments 01/05/2022 4:14 PM 01/13/2022 12:35 PM * Full Code Date Activated Date Inactivated Comments 08/04/2020 6:05 PM 08/05/2020 2:21 PM * Full Code Date Activated Date Inactivated Comments 05/06/2020 3:01 PM 05/31/2020 4:37 PM Care Teams Materials Handling Equipment Operator Relationship Specialty Start Date End Date Dontrell Brooks DO [address] [place] [phone] PCP - General Family Medicine 11/12/15
--- OUTSIDE RECORDS SUMMARY | 2024-04-28 12:43 | XMS_ITS | Referral Summary ---
Author Organization [facility] Address [address] [address] Care Team Providers Care Oil Fire Specialist Name Role Phone MarengoDontrell schultz DO Primary Care Provider [phone] Source Comments [facility],non-owned Affiliates and Associated Physician Practices is amultiple site organization consisting of ambulatory clinics and hospital sitesin [place], [place], [place] and [place]. This disclosure is being madepursuant to the Care Everywhere program and may not contain all information available regarding this patient. Last updated 17.[facility] Allergies Active Allergy Reactions Criticality Noted Date [...] Itching Low 04/18/2017 Corticosteroids Rash,Anaphylaxis High 04/04/2016 [place] Other Medium 04/18/2017 Medications * Be aware [...] mL 2 01/13/2022 Active saline nasal spray ([place]; Baby [place]) 0.65 % nasal spray [place] 2 (two) sprays into each nostril every [...] Mass Index 32.24 08/05/2022 9:21 PM CDT Functional Status Functional Status Response Date of Assess ment Is person deaf or have serious hearing difficult y? No 01/05/2022 Is person blind or have serious difficulty seein g? No 01/05/2022 Does person have serious dif ficulty walking/climbing stairs? Yes 01/05/2022 Does person have difficulty dressing/bathing? No 01/05/2022 Does person have difficulty doing errands alone? No 01/05/2022 Cognitive Status Response Date of Assessm ent Does person have difficulty concentrating/remembering/making decisions? No 01/05/2022 Plan of Treatment Not on file Medical Devices Implanted Type Area Rotary Drier Operator Device Identifier Shelf Expiration Date Model / Serial / Lot Sugita Titanium Aneurysm Clip Ii Implanted:Qty: 1 on 05/06/2020 by Timoteo Mckinney MD at [facility] Aneurysm Clip Left: Brain Sugyulia Standard -001-0 1 / 52SLAP / 52-SL Sugita Titanium Aneurysm Clip Ii Implanted:Qty: 1 on 05/06/2020 by Timoteo Mckinney MD at [facility] Aneurysm Clip Left: Brain Sugyulia Standard -001-0 2 / 48SKAE / 48-SK Graft Tissue Drgn + Bvn Clgn Mtrx 5x4in Implanted:Qty: 1 on 05/06/2020 by Timoteo Mckinney MD at [facility] Left: Brain Integra Neurosciences 01/18/2023 [id number] / / [id number] Plate 2 Hl Ult Lopro Chmfr Edg Crnl Implanted:Qty: 1 on 05/06/2020 by Timoteo Mckinney MD at [facility] Left: Cranial Synthes Usa 04.502.0 62 / / Plate 4 Hl Ult Lopro Chmfr Edg Crnl .3mm Implanted:Qty: 1 on 05/06/2020 by Timoteo Mckinney MD at [facility] Left: Cranial Synthes Usa 04.502.0 64 / / Screw 1.5mm 4mm Crnmxf Slfdrl Implanted:Qty: 16 on 05/06/2020 by Timoteo Mckinney MD at [facility] Left: Cranial Synthes Maxillofacial 04.503.1 04.01 / / Graft Tissue Drgn + Bvn Clgn Mtrx 2x2in Implanted:Qty: 1 on 05/11/2020 by Austyn Saldaña MD at [facility] Left: Brain Integra Neurosciences 10/19/2022 DP-1022 / / [id number] Cover Bur Hl Lght Grn 17mm Matrixneuro Implanted:Qty: 2 on 05/06/2020 by Timoteo Mckinney MD at [facility] Explanted:Qty: 1 on 08/04/2020 by Austyn Saldaña MD at [facility] Left: Cranial Synthes Usa 502.0 23 / / Screw 1.5mm 4mm Crnmxf Slfdrl Implanted:Qty: 6 on 08/04/2020 by Austyn Saldaña MD at [facility] Left: Cranial Synthes Maxillofacial .503.1 04.01 / / Procedures Procedure Name Priority Date/Time Associated Diagnosis Comments BASIC METABOLIC PANEL (CALCIUM TOTAL) Timed 08/06/2022 4:11 AM CDT from Last 3 Months or Most Recently Relevant to Health Maintenance Results * (ABNORMAL) BASIC METABOLIC PANEL (CALCIUM TOTAL) (08/06/2022 4:11 AM CDT) BUN 7 7 - 26 mg/dL 08/06/2022 5:05 AM [facility] Creatinine 0.63 0.56 - 0.96 mg/dL 08/06/2022 5:05 AM [facility] Sodium 137 136 - 145 mmol/L 08/06/2022 5:05 AM [facility] Potassium 5.0(H) 3.5 - 4.5 mmol/L 08/06/2022 5:05 AM [facility] Chloride 108(H) 98 - 107 mmol/L 08/06/2022 5:05 AM [facility] CO2 21(L) 22 - 29 mmol/L 08/06/2022 5:05 AM [facility] Glucose 100 70 - 115 mg/dL 08/06/2022 5:05 AM [facility] Calcium 9.3 8.4 - 10.2 mg/dL 08/06/2022 5:05 AM [facility] Anion Gap 13 8 - 18 08/06/2022 5:05 AM [facility] BUN/Creatinine Ratio 11 7 - 23 08/06/2022 5:05 AM [facility] Osmolality Calculated 282 270 - 300 mOsm/kg 08/06/2022 5:05 AM [facility] eGFR by CKD-EPI >90 >=90 mL/min/1.7 3 m2 08/06/2022 5:05 AM [facility] Blood BLOOD SPECIMEN / Unknown Venipuncture / Unknown 08/06/2022 4:11 AM CDT 08/06/2022 4:38 AM CDT Charbel Batista MD LAB - CHEMISTRY ORDERABLES [facility] [address] [place] [address], [facility] [phone] from Last 3 Months or Most Recently Relevant to Health Maintenance Administered Medications Advance Directives * Full Code (Latest Code Status on File) Date Activated Date Inactivated Comments 01/05/2022 4:14 PM 01/13/2022 12:35 PM * Full Code Date Activated Date Inactivated Comments 08/04/2020 6:05 PM 08/05/2020 2:21 PM * Full Code Date Activated Date Inactivated Comments 05/06/2020 3:01 PM 05/31/2020 4:37 PM Care Teams Oil Fire Specialist Relationship Specialty Start Date End Date Dontrell Brooks DO [address] [place] [phone] PCP - General Family Medicine 11/12/15
--- OUTSIDE RECORDS SUMMARY | 2024-04-28 12:43 | XMS_ITS ---
Author Organization [facility] Care Team Providers Care Organ Pipe Maker Metal Name Role Phone Cherelle Ashford Unavailable Unavailable Belia Castillo Unavailable Unavailable Allergies and adverse reactions Code CodeSystem Substance Reaction Severity StartDate Concern Status Strawberries Unknown 05/31/2020 active SEASONAL Unknown 05/31/2020 active 7804 RXNORM Oxycodone Unknown 05/31/2020 active 72757 RXNORM Oxcarbazepine Unknown 05/31/2020 active 7052 RXNORM Morphine Unknown 05/31/2020 active Magnesium Sulfat e, Anhydrous Unknown 05/31/2020 active Kiwi Fruit Unknown 05/31/2020 active 5489 RXNORM Hydrocodone Unknown 05/31/2020 active Green Estrada Unknown 05/31/2020 active Gramineae Pollens Unknown 05/31/2020 act jessica 43926 RXNORM Gabapentin Unknown 05/31/2020 active 4337 RXNORM Fentanyl Unknown 05/31/2020 active 8703 RXNORM Fenofibrate Unknown 05/31/2020 active Dust Unknown 05/31/2020 active 3355 RXNORM Diclofenac Unknown 05/31/[address] Corticosteroids Unknown 05/31/2020 a ctive 2670 RXNORM Codeine Unknown 05/31/2020 active 161 RXNORM Acetaminophen Unknown 05/31/2020 active Care Team Name Role Address Phone Organization Dates Cherelle Ashford PCP [address] [address] [facility], [place], [address], [place] (Office): : [facility] 05/31/2020 - 06/02/2020 Belia Castillo Attending Physician [address] [place] [address], [address], [place] (Office): [facility] 05/31/2020 - 06/02/2020 Immunizations Immunization Status Vaccine Details Vaccine Code CodeSystem Date Notes Afluria (Influenza vaccine) Q2035 completed Influenza, split virus, quadrivalent, injectable, preservative free 150 CVX created date: 06/01/2020 administer ed date: 12/11/2019 per hospital record(P 4 of 84) Problems Problem # Description Date of onset Resolved Date Code CodeSystem Concern Status 1 ANXIETY DISORDER, UNSPECIFIED 06/01/[address] active 2 CONSTIPATION, UNSPECIFIED 06/01/[address] active 3 DERMATITIS, UNSPECIFIED 06/01/[address] active 4 ESSENTIAL (PRIMARY) HYPERTENSION 06/01/[address] active 5 GASTRO-ESOPHAGEAL REFLUX DISEASE WITHOUT ESOPHAGITIS 06/01/[address] active 6 INSOMNIA, UNSPECIFIED 06/01/[address] active 7 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 06/01/[address] active 8 CEREBRAL ANEURYSM, NONRUPTURED 05/31/[address] active 9 CHRONIC OR UNSPECIFIED GASTRIC ULCER WITH PERFORATION 05/31/[address] active 10 DELIRIUM DUE TO KNOWN PHYSIOLOGICAL CONDITION 05/31/[address] active 11 DIFFICULTY IN WALKING, NOT ELSEWHERE CLASSIFIED 05/31/[address] active 12 DISORIENTATION, UNSPECIFIED 05/31/[address] active 13 ENCOUNTER FOR SURGICAL AFTERCARE FOLLOWING SURGERY ON THE NERVOUS SYSTEM 05/31/[address] active 14 EPIDURAL HEMORRHAGE WITHOUT LOSS OF CONSCIOUSNESS, SUBSEQUENT ENCOUNTER 05/31/[address] active 15 EPILEPSY, UNSPECIFIED, INTRACTABLE, WITH STATUS EPILEPTICUS 05/31/[address] active 16 EPILEPSY, UNSPECIFIED, NOT INTRACTABLE, WITH STATUS EPILEPTICUS 05/31/[address] active 17 FRONTAL LOBE AND EXECUTIVE FUNCTION DEFICIT 05/31/[address] active 18 HEADACHE, UNSPECIFIED 05/31/[address] active 19 HYPERLIPIDEMIA, UNSPECIFIED 05/31/[address] active 20 MUSCLE WEAKNESS (GENERALIZED) 05/31/[address] active 21 OTHER SYMPTOMS AND SIGNS INVOLVING COGNITIVE FUNCTIONS AND AWARENESS 05/31/[address] active 22 TRAUMATIC SUBDURAL HEMORRHAGE WITHOUT LOSS OF CONSCIOUSNESS, SEQUELA 05/31/[address] active 23 URINARY TRACT INFECTION, SITE NOT SPECIFIED 05/31/[address] active Reason for Referral No Reasons for Referral Entered Social History Social History Observation Description Start Date End Date Code Code System Current Smoking Status Tobacco smoking consumption unknown 377158062 SNOMED CT Sex Assigned At Female 1960 60308-4 [facility] Vital Signs Code Code System Vitals Name Values and Units Timing Information 14814-8 [facility] Pain Level Value=0.0 06/02/2020 8310-5 [facility] Body Temperature Value=97.0 Units= F 06/02/2020 23903-4 [facility] O2 % BldC Oximetry Value=95.0 Units= % 06/02/2020 9279-1 INC Respiratory Rate Value=18.0 Units=/m in 06/01/2020 8867-4 INC Heart rate Value=78.0 Units=/min 8462-4 [facility] Blood Pressure-Diastolic Value=70 Un its=mmHg 06/01/2020 8480-6 [facility] Blood Pressure-Systolic Qbixv=979 Un its=mmHg 06/01/2020 18400-4 [facility] Weight Srgrb=498.0 Units=Lbs
--- OUTSIDE RECORDS SUMMARY | 2024-04-28 12:44 | XMS_ITS | Patient Health Record ---
Author Organization [facility] Address [address] [place] [address] [address] [place] [address] Care Team Providers Care Gas Station Operator Name Role Phone Awais Davenport Unavailable [phone] Reason For Referral No Information Problems Problem Type SNOMED Code ICD Code Onset Dates Problem Status W/U Status Risk Notes Problem [id number] Complex regional pain syndrome I of left lower limb (G90.522) Active confirmed Encounters Encounter Location Date Provider Diagnosis [facility] [address] [place] [address] [address] [place] [address] 08/15/2023 Awais Davenport [facility] [address] [place] [address] [address] [place] [address] 09/12/2023 Awais Davenport [facility] [address] [place] [address] [address] [place] [address] 09/19/2023 Awais Davenport Pain in left ankle a nd joints of left foot M25.572 ; Complex regional pain syndrome I of left lower limb G90.522 and Malfunction of spinal cord stimulator, initial encounter T85.192A [facility] [address] [place] [address] [address] [place] [address] 09/24/2023 Awais Davenport [facility] [address] [place] [address] [address] [place] [address] 09/26/2023 Awais Davenport [facility] [address] [place] [address] [address] [place] [address] 10/03/2023 Awais Davenport [facility] [address] [place] [address] [address] [place] [address] 09/20/2023 Awais Davenport Assessments Encounter Date Diagnosis (ICD Code) Assessment Notes Treatment Notes Treatment Clinical Notes Section Notes 09/19/2023 Complex regional pain syndrome I of left lower limb (ICD-10 - G90.522) 09/19/2023 Pain in left ankle and joints of left foot (ICD-10 - M25.572) 09/19/2023 Malfunction of spinal cord stimulator, initial encounter (ICD-10 - T85.192A) 10/03/2023 patient is here for surgical wound [...] better. follow-up as needed Plan Of Treatment No Information Insurance Providers Payer Name Payer Address Payer Phone Subscriber Number Group Number Insured Name Patient Relationship to Insured Coverage Start Date Coverage End Date [place] J5 [address] [address] [place] [address] [id number] Avril Salazar Self - patient is the insured 7 [employer] [place] [address] - [place] [employer] [place] [address] [id number] PLAN N Avril Salazar Self - patient is the insured 7 Medications Administered Medication Instructions Date of Administration Dosage Notes Spinal Cord Stim Placement Associate Director Career Services 09/19/2023
--- OUTSIDE RECORDS SUMMARY | 2024-04-28 12:44 | XMS_ITS | Encounter Summary ---
Author Organization [facility] Address [address] [facility] [place] [address] Care Team Providers Care Focusing Machine Operator Name Role Phone Dontrell Brooks DO Primary Care Provider [phone] Encounter Details Date Type Department Care Team (Late st Contact Info) Description 01/16/[address] [facility]ORD[facility] [address] [place] [address] Marjan Rasmussen, RN Social History Tobacco Use Types Packs/Day Years Used Date Smoking Tobacco: Some Days Cigarettes Smokeless Tobacco: Never Alcohol Use Standard Drinks/Week Comments Yes 0 (1 standard drink = 0.6 oz pur e alcohol) 2-3 DRINKS EVERY OTHER DAY AUDIT-C Answer Date Recorded Q1: How often do you have a drink containing alc ohol? Monthly or less 01/05/2022 Q2: How many drinks containi ng alcohol do you have on a typical day when you are drinking? 1 or 2 01/05/2022 Q3: How often do you have si x or more drinks on one occasion? Less than monthly 01/05/2022 PHQ-2 Answer Date Recorded PHQ2 TOTAL SCORE [...] on file Sexual Orientation Not on file COVID-19 Exposure Response Date Recorded In the last 10 days, have yo u been in contact with someone who was confirmed or suspected to have Coronavirus/COVID-19? No / Unsure 12/30/2021 11:25 AM TRIAL MANAGER documented as of this encounter Functional Status Functional Status Response Date of [...] person have difficulty concentrating/remembering/making decisions? No 01/05/2022 documented as of this encounter Plan of Treatment Not on file documented as of this encounter Visit Diagnoses Not on filedocumented in this encounter Care Teams Focusing Machine Operator Relationship Specialty Start Date End Date Dontrell Brooks DO [address] [place] [id number] PCP - General Family Medicine 11/12/15 documented as of this encounter
--- OUTSIDE RECORDS SUMMARY | 2024-04-28 12:44 | XMS_ITS ---
Author Organization [facility] Address [address] [place] [phone] Care Team Providers Care Biology Internship Name Role Phone Awais Davenport [phone] REASON FOR VISIT f/u to remove scs leads Medications Medication SIG (Take, Route, Fr equency, Duration) Notes Start Date End Date Status traMADol HCl 50 MG 1 tablet as needed O rally every 6 hours for 16 days 09/20/2023 10/06/2023 Active Cephalexin 500 MG 1 capsule Orally twice a day for 7 days for 7 days 09/27/2023 Active Encounters Encounter Location Date Provider Diagnosis [facility] [address] [place] [phone] 09/24/2023 Awais Davenport Plan Of Treatment Next Appt Details Follow Up: 1 Week, Reason: f u Progress Notes * Avril BAKER LDOB:[birth year] (63 yo F)Acc No.[id number]:09/24/2023 Progress Notes Patient: Milagro SPENCE Avril Oliveira Provider: Tripp Davenport MD :1960 A ge:63 Y S ex:Female Date:09/24/2023 Address:[address], [facility] Subjective: * Chief Complaints: * 1 . F/u to remove scs leads. * Medical History: * Medications: T aking Cephalexin 500 MG Capsule 1 capsule Orally twice a day for 7 days, stop date 09/27/2023, Taking traMADol HCl 50 MG Tablet 1 tablet as needed Orally every 6 hours , stop date 10/06/2023 Objective: * Vitals: Assessment: Plan: * Treatment: * Procedures: P atient returns for surgical incision check, patient underwent the SCS IPG replacement/ repositioning last Sunday, the procedure was performed uneventfully, patient denies any fever chills short of breath during the interval, patient is taking oral antibiotics, patient feels the pain is under control and she is taking tramadol as needed, surgical incision has been inspected , dressing changed with sterile style, all3 small incisions is clean dry intact and covered by Telfa, no swelling/hotness /redness or discharge, all 3 incisions have been covered by 4 x 4 loosely and secured by tape , patient can take shower but no soaking this , patient has been instructed to keep the incision dry/dry, paper tape/sterile 4 x 4 given, follow-up in clinic next Sunday. * Follow Up: 1 Week (Reason: fu) * Billing Information: * Visit Code: * Procedure Codes: * Sign off status: Completed true * Provider: Tripp Davenport MD Date: 0 09/24/2023 Generated for Shawanda johnson/Gold/Mariamitting on: 0 04/28/2024 12:44 PM CDT
--- OUTSIDE RECORDS SUMMARY | 2024-04-28 12:44 | XMS_ITS | Encounter Summary ---
Author Organization [facility] Address [address] [facility] [place] [address] Care Team Providers Care Shoelace Tipping Machine Operator Name Role Phone Cecilia, James Kamala Primary Care Provider [phone] Reason for Visit * Reason Comments Refill Request Encounter Details Date Type Department Care Team (Late st Contact Info) Description 12/16/2020 Refill [facility] [address] [place] [address], [place] [address] Timoteo Mckinney MD [address] [place] [address] [place] [address] Refill Request Social History Tobacco Use Types Packs/Day Years Used Date Smoking Tobacco: Some Days Cigarettes Smokeless Tobacco: Never Alcohol Use Standard Drinks/Week Comments Not Currently 0 (1 standard drink = 0.6 oz pur e alcohol) Quit 90 days ago Sex and Gender Information Value Date Recorded Sex Assigned at Not on file Gender Identity Not on file Sexual Orientation Not on file documented as of this encounter Functional Status Functional Status Response Date of Assess ment Is person deaf or have serious hearing difficult y? No 08/05/2020 Is person blind or have serious difficulty seein g? No 08/05/2020 Does person have serious dif ficulty walking/climbing stairs? Yes-use cane 08/05/2020 Does person have difficulty dressing/bathing? No 08/05/2020 Does person have difficulty doing errands alone? No 08/05/2020 Cognitive Status Response Date of Assessm ent Does person have difficulty concentrating/remembering/making decisions? No 08/05/2020 documented as of this encounter Plan of Treatment Not on file documented as of this encounter Visit Diagnoses Diagnosis Cerebral aneurysm (HCC) Cerebral aneurysm, nonruptured Seizures (HCC) Other convulsions documented in this encounter Care Teams Shoelace Tipping Machine Operator Relationship Specialty Start Date End Date Dontrell Brooks DO [address] [place] [address] PCP - General Family Medicine 11/12/15 documented as of this encounter
--- OUTSIDE RECORDS SUMMARY | 2024-04-28 12:44 | XMS_ITS | Clinical Summary ---
Author Organization [facility] Address [address] [place] [address] Care Team Providers Care Pinmaker Name Role Phone Dontrell Brooks Clemente Primary Care Provider Allergies Active Allergy Reactions Criticality Noted Date Comments Acetaminophen Azithromycin Codeine Diclofenac Fenofibrate Gabapentin House Dust Hydrocodone Hydrocodone-Acetaminophen Itching Reaction: Itching, Meperidine Morphine Itching Reaction: Itching, , Nsaids (Non-Steroidal Anti-Inflammatory Drug) Opioids - Morphine Analogues Oxcarbazepine [place] Medications ascorbic acid (vitamin C) 1,000 mg [...] Additional Information Patient not taking.Reported on 12/22/2020 [id number] pa-fish oil (FISH OIL) 720-1,200 mg capsule [...] of right knee Pain of foot 10/02/2012 Surgical History Surgery Date Site/Laterality Comments SPINAL CORD STIMULATOR IMPLANT Medical History Medical History Date Comments Hypertension Family History Medical History Relation Name Comments Other Father Unknown; Coronary artery disease Other 1 Fami ly history of Coronary artery disease; Diabetes Other 2 Family history of Diabetes mellitus; Lung cancer Other 3 Family history of Cancer, lung; Relation Name Status Comments Father Other 1 Other 2 Other 3 Social History Tobacco Use Types Packs/Day Years [...] on file Legal Sex Female 4:15 AM WIRER PASSENGER CAR Gender Identity Not on file Sexual Orientation Not on file Obstetrics History Last Filed Vital Signs Vital Sign Reading Time Taken Comments Blood Pressure 110/70 11/26/2015 2:42 PM CDT Pulse 94 11/26/2015 2:42 PM CDT Temperature 36.5 C (97.7 F) 03/02/2021 10:22 AM WIRER PASSENGER CAR Respiratory Rate - - Oxygen Saturation - - Inhaled Oxygen Concentration - - Weight 83 kg (183 lb) 11/26/2015 2:42 PM CDT Height 160 cm (5' 3 ) 11/26/2015 2:42 PM CDT Body Mass Index 32.42 11/26/2015 2:42 PM CDT Plan of Treatment Not on file Insurance MEDICARE [facility] MEDICARE [facility] MEDICARE [facility] Care Teams Pinmaker Relationship Specialty Start Date End Date Dontrell Brooks DO PCP - General 11/26/15
--- OUTSIDE RECORDS SUMMARY | 2024-04-28 12:44 | XMS_ITS | Clinical Summary ---
Author Organization [facility] Address [facility] [place] [address] Care Team Providers Care Blanket Cutting Machine Operator Name Role Phone Dontrell Brooks DO Primary Care Provider [phone] Hugo Riddle MD Unavailable [phone] Allergies Active Allergy Reactions Criticality Noted Date Comments Acetaminophen Unknown Medium 03/09/2020 Codeine Swelling,Unknown 07/23/2012 Corticosteroids Other (see comment),Headache,Hives,Reza h,Shakiness Medium 10/22/2013 Diclofenac Unknown 07/23/2012 Hydromorphone Hcl Swelling 03/15/2017 Dust Mite Extract Itching Low 04/18/2017 Fentanyl Swelling 03/15/2017 Gabapentin Unknown 05/20/2015 Gramineae Pollens Hives,Itching 12/28/2017 Hydrocodone Hives,Itching,Shortn ess of Breath High 12/25/2019 Hydrocodone-Acetaminophen Unknown 07/23/2012 Kiwi Extract Unknown Medium 04/29/2020 Magnesium Sulfate Unknown 07/23/2012 Meperidine Unknown 07/23/2012 Morphine Swelling 03/15/2017 Orphenadrine Unknown 07/23/2012 Oxcarbazepine Unknown Medium 07/23/2012 Oxycodone Hives,Itching,Shortn ess of Breath High 12/25/2019 Seasonal Itching Low 04/18/2017 Steroids Swelling 03/15/2017 Strawberries Other (see comment) Medium 04/18/2017 Bledsoe Extract Hives 12/28/2017 Fenofibrate Unknown 07/23/2012 Oxcarbazepine Unknown 07/23/2012 Azithromycin Unknown 07/23/2012 Medications Cholecalciferol (VITAMIN D) 2000 units Tab Take 1 tablet by mouth daily. Active vitamin C 1000 MG tablet Take by mouth daily. Active vitamin B-12 500 MCG tablet Take 500 mcg by mouth daily. Active Atkins-3 Fatty Acids (FISH OIL) 1200 MG Cap Take 1,200 mg by mouth daily. Active EPINEPHrine 0.3 MG/0.3ML injection EpiPen 2-Pancho 0.3 mg/0.3 mL injection, auto-injector Active SUCRALFATE 1 G tabletIndications: Chronic GERD TAKE 1 TABLET BY MOUTH 3 TIMES A DAY WITH MEALS AND AT BEDTIME 360 tablet 1 11/02/19 21 Active Additional Information Patient not taking.Reported on 06/19/2022 hydrOXYzine (ATARAX) 25 MG tabletIndications: Eczema TAKE 1 TABLET BY MOUTH 3 TIMES A DAY AND TAKE 2 TABLETS BY MOUTH EVERY NIGHT AT BEDTIME NEEDED 450 tablet 12/15/19 22 Active loperamide (IMODIUM) 2 MG capsule 01/14/20 22 Active potassium chloride CR (KLOR-CON M) 20 MEQ tablet 01/14/20 22 Active bismuth subsalicylate (PEPTO BISMOL) 262 mg/15mL suspension Take 15 mLs by mouth every hour as needed. 01/14/20 22 Active metoprolol succinate ER (TOPROL-XL) 25 MG 24 hr tablet Take 25 mg by mouth daily. 01/14/20 22 Active sodium chloride (OCEAN) 0.65 % Solution 2 sprays by Nasal route every 30 (thirty) minutes as needed. 01/14/20 Active polyethylene glycol (GLYCOLAX) 17 GM/SCOOP powder Take 17 g by mouth daily as needed. 01/14/20 22 Active perampanel (FYCOMPA) 8 MG tablet Take 8 mg by mouth daily. 01/14/20 22 Active oxybutynin XL (DITROPAN-XL) 5 MG 24 hr tabletIndications: Urinary incontinence, unspecified type TAKE 1 TABLET BY MOUTH EVERY DAY 90 tablet 1 01/25/20 22 Active ALPRAZolam (XANAX) 1 MG tabletIndications: Anxiety TAKE 1 TABLET BY MOUTH THREE TIMES A DAY NEEDED 90 tablet 05/13/19 23 Active ondansetron (ZOFRAN-ODT) 8 MG disintegrating tabletIndications: Nausea DISSOLVE 1 TABLET ON THE TONGUE EVERY 8 HOURS NEEDED FOR NAUSEA 30 tablet 1 05/23/19 23 Active ALPRAZolam (XANAX) 1 MG tabletIndications: Anxiety take 1 tablet by mouth three times a day as needed 90 tablet 02/09/20 23 Active metoclopramide (REGLAN) 10 MG tabletIndications: Peptic ulcer, site unspecified, unspecified as acute or chronic, without hemorrhage or perforation take 1 tablet by mouth three times a day 90 tablet 02/09/20 23 Active venlafaxine XR (EFFEXOR-XR) 150 MG 24 hr capsuleIndications :Recurrent major depressive disorder, remission status unspecified take 1 capsule by mouth twice a day 180 capsule 02/09/20 23 Active lisinopril (PRINIVIL) 10 MG tabletIndications: Essential hypertension take 1 tablet by mouth twice a day 180 tablet 02/09/20 23 Active meloxicam (MOBIC) 7.5 MG tabletIndications: Chronic pain syndrome take 1 tablet by mouth every day 90 tablet 02/09/20 23 Active oxybutynin XL (DITROPAN-XL) 5 MG 24 hr tabletIndications: Overactive bladder take 1 tablet by mouth every day 90 tablet 02/09/20 23 Active atorvastatin (LIPITOR) 40 MG tabletIndications: Mixed hyperlipidemia take 1 tablet by mouth everyday at bedtime 90 tablet 02/09/20 23 Active traMADol (ULTRAM) 50 MG tabletIndications: Chronic pain syndrome take 1 tablet by mouth three times a day as needed for pain 90 tablet 02/09/20 23 Active Active Problems Problem Noted Date Diagnosed Date Recent cerebrovascular accident (CVA) 01/17/2022 Overview (01/17/2022): Dec 2021 Moderate mood disorder 10/19/2020 Seizures (CMS/HCC [facility]) 06/22/2020 Brachial neuritis 06/14/2020 Closed fracture of lateral malleolus 06/14/2020 Closed fracture of metatarsal bone 06/14/2020 Current tear of medial cartilage or meniscus of knee 06/14/2020 Disorder of shoulder 06/14/2020 Neoplasm of uncertain behavior 06/14/2020 Pelvic mass 06/14/2020 Shoulder joint pain 06/14/2020 Spinal stenosis in cervical region 06/14/2020 Cerebral aneurysm ([facility]) 05/06/2020 Dizziness and giddiness 11/11/2019 Recurrent major depressive d isorder, remission status unspecified 04/23/2019 Family history of heart disease 07/17/2018 Overview (06/14/2020): dad mi Palpitations 07/17/2018 Peptic ulcer, site unspecifi ed, unspecified as acute or chronic, without hemorrhage or perforation 07/17/2018 Sleep apnea, unspecified 07/17/2018 Tobacco use disorder, continuous 07/17/2018 Essential hypertension 07/02/2018 Personal history of tobacco use, presenting hazards to health 12/29/2017 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 12/29/19 18 Diarrhea 12/07/2017 Headache 08/15/2016 Concussion 07/28/2016 Cervicalgia 04/02/2014 Eczema 11/04/2013 Backache 09/19/2013 Reflex sympathetic dystrophy of left lower extre mity 08/12/2012 Chronic GERD 07/23/2012 Chronic pain 07/23/2012 Overview (06/19/2018): Description: LLE, foot pain Fibromyalgia 07/23/2012 Hyperlipidemia 07/23/2012 Obesity 07/23/2012 Osteoarthritis of knee 07/23/2012 Viral hepatitis B 07/23/2012 Overview (06/19/2018): Description: 1992 Anxiety 05/27/2012 Resolved Problems Problem Noted Date Diagnosed Date Resolved Date Radiotherapy follow-up 06/14/202006/21 Encounter for preventive health examination 05/06/2012 10/31/2019 Encounters Date Type Department Care Team Description 02/11/2024 Patient Outreach [facility] [address] [place] [phone] Sintia Álvarez, JEAN CARLOS Pre-visit Gap Closure from Last 3 Months Immunizations Name Administration Dates Next Due Flublok (Quadrivalent) 01/17/2022 Fluzone High Dose (IIV, triv alent, 0.5mL) 01/14/2024 Influenza (Generic) 12/03/2020, 0,12/24/2013,2012 Influenza Adult (Generic) 12/05/2017 PFIZER COVID-19 (ORIGINAL FORMULATION, PURPLE CAP) mRNA, LNP-S, PF, 30 MCG/0.3 ML DOSE 09/29/2020,09/08/2020 Pneumococcal (Pneumovax 23) 04/23/2019 Pneumococcal (Prevnar 13) 05/23/2023 Td (Tenivac) preservative free 07/20/2010 Family History Medical History Relation Comments Cancer Father lung cancer Diabetes Father Heart Father CAD Heart Disease Father Dementia Mother Mental Health Mother ALS1 Sister Relation Status Comments Father (Age 64) Mother Sister BARRETT THRASHER Social History Tobacco Use Types Packs/Day Years Used Date Smoking Tobacco: Every Day Cigarettes Smokeless Tobacco: Never Tobacco Cessation:Ready to Q uit: No; Counseling Given: Yes Alcohol Use Standard Drinks/Week Comments Yes 0 (1 standard drink = 0.6 oz pur e alcohol) PHQ-2 Answer Date Recorded Patient Health Questionnaire-2 Score 4 06/19/2022 Comments No Sex and Gender Information Value Date Recorded Sex Assigned at Not on file Legal Sex Female 7:03 PM CDT Gender Identity Not on file Sexual Orientation Not on file Last Filed Vital Signs Vital Sign Reading Time Taken Comments Blood Pressure 112/72 06/19/2022 10:37 AM CDT Pulse 84 06/19/2022 10:37 AM CDT Temperature 36.9 C (98.4 F) 03/16/2020 12:36 PM SEAMAN Respiratory Rate 17 03/16/2020 1:00 PM SEAMAN Oxygen Saturation 98% 03/16/2020 1:00 PM SEAMAN Inhaled Oxygen Concentration - - Weight 79.8 kg (176 lb) 06/19/2022 10:37 AM CDT Height 160 cm (5' 3 ) 06/19/2022 10:37 AM CDT Body Mass Index 31.18 06/19/2022 10:37 AM CDT Plan of Treatment Health Maintenance Due Date Last Done Comments Hepatitis C 1976 Mammogram Screening 1998 Zoster Vaccines (1 of 2) 2008 DTaP, Tdap and Td Vaccines (1 - Tdap) 07/21/2010 07/20/2010 RSV Immunization or 60+ Years (1 - Risk 60-74 years 1-dose series) 2018 Colorectal Cancer Screening Colonoscopy (10 Years) 06/20/2019 06/19/2009 Dexa Scan (General) 05/15/2023 COVID-19 Vaccine ( season) 2023 09/29/2020, 09/08/2020 Pneumococcal Vaccine: 65+ Years (3 of 3 - PPSV23 or PCV20) 05/22/2024 05/23/2023, 04/23/2019 Pneumococcal Vaccine: Pediatrics (0 to 5 Years) and At-Risk Patients (6 to 64 Years) (3 of 3 - PPSV23 or PCV20) 05/22/2024 05/23/2023, 04/23/2019 Influenza Adult Completed 01/14/2024, 12/21, 12/03/2020, Additional history exists Meningococcal B Vaccine Aged Out No l onger eligible based on patient's age to complete this topic Meningococcal Vaccine Aged Out No alla kevin eligible based on patient's age to complete this topic RSV Immunizations Under 20 Months Aged Out No longer eligible based on patient's age to complete this topic Medical Devices Implanted Type Area Exerciser Horse Device Identifier Shelf Expiration Date Model / Serial / Lot Hip Components Hip Components Description:Unsure of device Knee Components Knee Components Right: Knee Stimulator Stimulator Implant Back Procedures Procedure Name Priority Date/Time Associated Diagnosis Comments COLONOSCOPY Routine 06/19/2009 12:00 AM CDT from Last 3 Months or Most Recently Relevant to Health Maintenance Results * Colonoscopy (06/19/2009 12:00 AM CDT) 06/19/2009 06/19/2009 Narrative TOUCHWORKS TO EPIC CONVERSION - 06/19/2009 12:00 AM CDT Documented hx of procedure Procedure Note , Generic Conversion, - 05/09/2018 Documented hx of procedure us Generic Conversion Md ARAUJO GI PROCEDURE ORDERABLES Final Result TOUCHWORKS TO EPIC CONVERSION from Last 3 Months or Most Recently Relevant to Health Maintenance Insurance MEDICARE [facility] MEDICARE Care Teams Blanket Cutting Machine Operator Relationship Specialty Start Date End Date Dontrell Brooks DO PCP - General 05/19/15 Hugo Riddle MD [address] [place] [id number] ORTHOPAEDICS 03/03/22
--- OUTSIDE RECORDS SUMMARY | 2024-04-28 12:44 | XMS_ITS | Clinical Summary ---
Author Organization [facility] Address [address] [place] [address] Phone Care Team Providers Care Data Entry Associate Name Role Phone Dontrell Brooks DO Primary Care Provider [phone] Allergies Active Allergy Reactions Criticality Noted Date Comments Codeine Unknown 12/28/2017 Dust Mite Extract Itching 12/28/2017 Gramineae Pollens Hives,Itching 12/28/2017 Hydrocodone Hives,Shortness of Breath 8 Morphine Hives,Shortness of Breath 12/28/2017 Other Hives,Shortness of Breath 12/28/2017 Steroids Oxycodone Hives,Shortness of Breath 12/28/2017 [place] Extract Hives 12/28/2017 Medications ALPRAZolam (XANAX) 1 MG Tablet Take by mouth 3 times daily as needed. 04/06/2017 Active hydrOXYzine (ATARAX) 25 MG Tablet TAKE 1 TABLET BY MOUTH 3 TIMES A DAY AND TAKE 2 TABLETS EVERY NIGHT AT BEDTIME NEEDED 0 12/09/2017 Active venlafaxine (EFFEXOR-XR) 150 MG CAPSULE SR 24 HR 06/19/2017 Active sucralfate (CARAFATE) 1 GM Tablet Take by mouth. Active Aspirin 81 MG Tablet Take 81 mg by mouth daily. Active [place]-3 Fatty Acids (FISH OIL) 1200 MG Capsule Take 1,200 mg by mouth daily. Active diclofenac sodium (VOLTAREN) 1 % Gel Apply daily as needed. Active Cholecalciferol (VITAMIN D) 2000 UNIT Tablet Take by mouth daily. Active vitamin b-12 (CYANOCOBALAMIN ) 500 MCG Tablet Take 500 mcg by mouth daily. Active Ascorbic Acid (VITAMIN C) 1000 MG Tablet Take by mouth daily. Active cimetidine (TAGAMET) 200 MG Tablet Take 200 mg by mouth 2 times daily. Active Active Problems Problem Noted Date Diagnosed Date Personal history of tobacco use, presenting hazards to health 12/29/2017 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 12/29/19 18 Family History Medical History Relation Name Comments Alzheimer's Disease Mother Relation Name Status Comments Father Mother Social History Tobacco Use Types Packs/Day Years Used Date Smoking Tobacco: Every Day Cigarettes Smokeless Tobacco: Never Alcohol Use Standard Drinks/Week Comments Yes 0 (1 standard drink = 0.6 oz pur e alcohol) weekly Comments No Sex and Gender Information Value Date Recorded Sex Assigned at Not on file Legal Sex Female 3:32 PM CDT Gender Identity Not on file Sexual Orientation Not on file Last Filed Vital Signs Vital Sign Reading Time Taken Comments Blood Pressure 136/68 02/08/2018 10:25 AM INSTRUMENT REPAIR SPECIALIST Pulse 97 02/08/2018 10:25 AM INSTRUMENT REPAIR SPECIALIST Temperature 36.7 C (98.1 F) 02/08/2018 10:25 AM INSTRUMENT REPAIR SPECIALIST Respiratory Rate 18 02/08/2018 10:2 5 AM INSTRUMENT REPAIR SPECIALIST Oxygen Saturation 96% 02/08/2018 10: 25 AM INSTRUMENT REPAIR SPECIALIST Inhaled Oxygen Concentration - - Weight 85.2 kg (187 lb 12.8 oz) 018 10:25 AM INSTRUMENT REPAIR SPECIALIST Height 160 cm (5' 3 ) 02/08/2018 10:25 AM INSTRUMENT REPAIR SPECIALIST Body Mass Index 33.27 02/08/2018 10:25 AM INSTRUMENT REPAIR SPECIALIST Plan of Treatment Health Maintenance Due Date Last Done Comments DEXA Bone Density 1960 Hepatitis C Virus (HCV) Screening 1960 TdaP Immunization 1960 Colonoscopy 05/15/2003 Colorectal Cancer Screening 05/15/2003 Cologuard 2008 Immunochemical Fecal Occult Blood 2008 Mammogram 2008 Zoster Immunization (1 of 2) 2008 Pneumococcal Immunization (5 0+ years) (2 of 2 - PCV) 04/22/2020 04/23/2019 Influenza Immunization (#1) 2023 12/24/2013 SARS-COV-2 Immunization ( season) 2023 09/29/2020, 09/08/2020 Respiratory Syncytial Virus (RSV) Immunization (Adult) (1 - 1-dose 75+ series) 2033 Pneumococcal Immunization Combined Discontinued 04/23/2019 Hepatitis B Immunization Aged Out No longer eligible based on patient's age to complete this topic Meningococcal Immunization (ACWY) Aged Out No longer eligible based on patient's age to complete this topic Rotavirus Immunization Aged Out No lo nger eligible based on patient's age to complete this topic Insurance MEDICARE [employer] [id number] MEDICARE Member Subscriber Plan / Payer (Ef fective 2008-Present) Name:Avril Salazar Member ID:[id number] Relation to Subscriber:Self Name:Avril Salazar Subscriber ID:[id number] Payer ID:[id number] Group ID:Not on file Type:Not on file Address: [address] [facility] [place] [phone] [facility] Care Teams Data Entry Associate Relationship Specialty Start Date End Date Dontrell Brooks DO PCP - General Family Medicine 12/27/17
--- OUTSIDE RECORDS SUMMARY | 2024-04-28 12:44 | XMS_ITS ---
Author Organization [facility] Address [address] [place] [id number] Care Team Providers Care Rugby League Footballer Name Role Phone Awais Davenport [phone] Medications Medication SIG (Take, Route, Fr equency, Duration) Notes Start Date End Date Status Cephalexin 500 MG 1 capsule Orally twice a day for 7 days for 7 days 09/27/2023 Active traMADol HCl 50 MG 1 tablet as needed O rally every 6 hours for 16 days 09/20/2023 10/06/2023 Active Encounters Encounter Location Date Provider Diagnosis [facility] [address] [place] [phone] 09/26/2023 Awais Davenport Plan Of Treatment Next Appt Details Follow Up: 1 Week, Reason: r esch to next sunday Progress Notes * Avril BAKER LDOB:[birth year] (63 yo F)Acc No.[id number]:09/26/2023 Progress Notes Patient: Milagro SPENCE Avril Tee Provider: Tripp Davenport MD :1960 A ge:63 Y S ex:Female Date:09/26/2023 Address:[address] [phone] Subjective: * Chief Complaints: * * Medical History: * Surgical History: * Hospitalization/Major Diagno stic Procedure: * Medications: T akingCephalexin 500 MG Capsule 1 capsule Orally twice a day for 7 days, stop date 09/27/2023traMADol HCl 50 MG Tablet 1 tablet as needed Orally every 6 hours , stop date 10/06/2023Taking Cephalexin 500 MG Capsule 1 capsule Orally twice a day for 7 days, stop date 09/27/2023Taking traMADol HCl 50 MG Tablet 1 tablet as needed Orally every 6 hours , stop date 10/06/2023 Objective: * Vitals: Assessment: Plan: * Treatment: * Procedure Codes: * Follow Up: 1 Week (Reason: axel to sunday) * Billing Information: * Visit Code: * Procedure Codes: * Sign off status: Completed true * Provider: Tripp Davenport MD Date: 0 09/26/2023 Generated for Shawanda johnson/Gold/Mannie on: 0 04/28/2024 12:43 PM CDT
--- OUTSIDE RECORDS SUMMARY | 2024-04-28 12:44 | XMS_ITS | CONTINUITY OF CARE DOCUMENT ---
Author Name lorie melo Address Unknown Organization [facility] Address [address] [address] [facility] [facility] [address] [place] [address] Phone [phone] Care Team Providers Care Supply Chain Director Name Role Phone Arnaud ARAUJO, Parveen Unavailable ESTELA THOMPSON MD Unavailable ESTELA THOMPSON MD Unavailable PROBLEMS Condition Status Date Provider Notes Tobacco dependence, continuous active Trudy Espinal MD FAMILY HISTORY OF HEART DISEASE active Danielle Espinal MD dad mi CAD- CA score 45 2019 active Parveen Mathis ? Sleep apnea completed - Parveen Lares MD Peptic ulcer disease;no asa now active Danielle Espinal MD Screening completed - Parveen Lares MD Hypertriglyceridemia active Abhijit Mathis Hypercholesterolemia completed - Parveen Lares MD Palpitations;will alexis completed - Parveen Lares MD Anxiety, chronic active Abhijit Espinal MD Depression active Abhijit Espinal MD Obesity active Abhijit Espinal MD HTN essential active Abhijit Espinal MD ENCOUNTERS Date Type Provider Location Encounter Diag nosis 7 - 7 In-person encounter Office Visit Parveen Lares MD [facility] Screening 4 - 4 In-person encounter Office Visit Parveen Lares MD [facility] Palpitations;will wuHypercholesterolemia? Sleep apneaCAD- CA score 45 2019 9 - 9 In-person encounter Office Visit Abhijit Espinal MD [facility] HTN essentialObesityDepressionTobacco dependence, continuousFAMILY HISTORY OF HEART DISEASEAnxiety, chronicHypertriglyceridemiaPeptic ulcer disease;no asa now VITAL SIGNS Date Observation Value Provider Body Mass Index (Ratio) 33.12 kg/m2 Danielle Espinal MD blood pressure, diastolic 80 mm[Hg] [facility] blood pressure, systolic 130 mm[Hg] Veronica farmer [place] oxygen saturation, oximetry 97 % [facility] respiratory rate E&M 16 /min [facility] pulse rate 96 /min [facility] weight E&M 193 [lb_av] [facility] blood pressure, resting Yes [facility] height E&M 64 [in_i] [facility] ALLERGIES Allergy Name Onset Date Reaction Criticality Status CONTRAVE Low Criticality active STRAWBERRY Other Low Criticality active SEASONAL Itching Itching Low Criticality acti ve OXYCODONE Other Low Criticality active MORPHINE Anaphylaxis Anaphylaxis Low Critical ity active HYDROCODONE Anaphylaxis Anaphylaxis Low Critica lity active DUST MITE EXTRACT Itching Itching Low Criticali ty active CORTICOSTEROIDS Rash Rash Low Criticality acti ve CODEINE Urticaria Urticaria Low Criticality active RESULTS Date Observation Value Provider Reference Range Interpretation Location 8 ferritin, serum 212 ng/mL [facility] 15-150 High 8 prothrombin time (patient) 10.8 s [facility] 9.1-12.0 8 international normalized ratio (INR) 1.0 [facility] 0.8-1.2 8 iron saturation percent, serum 42 % [facility] 15-55 8 iron, serum 140 ug/dL [facility] 27-159 8 iron binding capacity, unsaturated 194 ug/dL [facility] 874-272 8368/08/2 8 iron binding capacity, total 334 ug/dL [facility] 151-061 0235/08/2 8 free thyroxine index 1.4 [facility] 1.2-4.9 8 triiodothyronine resin uptake 25 % [facility] 24-39 8 thyroxine, serum, total 5.5 ug/dL [facility] 4.5-12.0 8 thyroid stimulating hormone, serum 1.990 u[IU]/mL [facility] 0.450-4.500 8 basophil count, absolute 0.0 x10E3/uL [facility] 0.0-0.2 8 Eosinophil Absolute Count 0.1 X10E3/UL [facility] 0.0-0.4 8 monocyte count, blood, automated 0.8 X10E3/UL [facility] 0.1-0.9 8 lymphocyte count, blood, automated 3.0 X10E3/UL [facility] 0.7-3.1 8 Absolute Neutrophils 6.4 X10E3/UL [facility] 1.4-7.0 8 basophils as percent of blood leukocytes 0 % [facility] Not Estab. 8 eosinophils as percent of blood leukocytes 1 % [facility] Not Estab. 8 monocytes as percent of blood leukocytes 8 % [facility] Not Estab. 8 lymphocytes as percent of blood leukocytes 29 % [facility] Not Estab. 8 neutrophils as percent of blood leukocytes 62 % [facility] Not Estab. 8 platelet count 247 X10E3/UL [facility] 898-538 3094/08/2 8 red blood cell distribution width 13.6 % [facility] 12.3-15.4 8 mean corpuscular hemoglobin concentration, RBC 33.3 G/DL [facility] 31.5-35.7 8 mean corpuscular hemoglobin, RBC 31.1 pg [facility] 26.6-33.0 8 mean corpuscular volume, RBC 94 fL [facility] 79-97 8 hematocrit, blood 40.0 % [facility] 34.0-46.6 8 hemoglobin, blood 13.3 g/dL [facility] 11.1-15.9 8 erythrocyte (RBC) count 4.28 X10E6/UL [facility] 3.77-5.28 8 leukocyte count, blood 10.4 X10E3/UL [facility] 3.4-10.8 8 lipoprotein, beta, serum, point, quantitative, calculated 131 mg/dL [facility] 0-99 High 8 very low density lipoproteins 78 mg/dL [facility] 5-40 High 8 HDL cholesterol, serum 46 mg/dL [facility] >39 8 triglyceride, serum, random 388 mg/dL [facility] 0-149 High 8 cholesterol, serum 255 mg/dL [facility] 100-199 High 8 alanine aminotransferase (SGPT), serum 37 1/L [facility] 0-32 High 8 aspartate aminotransferase (SGOT), serum 32 1/L [facility] 0-40 8 alkaline phosphatase, serum 66 1/L [facility]117 8 bilirubin, serum, total 0.3 mg/dL [facility] 0.0-1.2 8 albumin/globulin ratio, serum 1.8 [facility] 1.2-2.2 8 globulin, serum 2.5 [facility] 1.5-4.5 8 albumin, serum 4.4 g/dL [facility] 3.6-4.8 8 protein, total, serum 6.9 g/dL [facility] 6.0-8.5 8 calcium, serum 9.5 mg/dL [facility] 8.7-10.3 8 carbon dioxide, venous blood 26 mmol/L [facility] 20-29 8 chloride, serum 100 mmol/L [facility] 96-106 8 potassium, serum 4.9 mmol/L [facility] 3.5-5.2 8 sodium, serum 142 mmol/L [facility] 815-477 6142/08/2 8 urea nitrogen/creatinine ratio, serum 14 [facility] 12-28 8 eGFR if 109 mL/min/{1 .73_m2} [facility] >59 8 eGFR if not 94 mL/min/{1 .73_m2} [facility] >59 8 creatinine, serum 0.70 mg/dL [facility] 0.57-1.00 8 urea nitrogen, blood 10 mg/dL [facility] 8- 8 blood glucose, random 93 mg/dL [facility] 65-99 HISTORY OF MEDICATION USE Medication Status Instructions Dates Provider Indications Com ments ATORVASTATIN CALCIUM 80 MG ORAL TABLET active 1 tablet daily [place] [facility] ADIPEX-P 37.5 MG ORAL TABLET active one tab by mouth daily Abhijit Espinal MD HYDROXYZINE HCL 25 MG ORAL TABLET active take 1 tab three times daily Lani Erazo B-12 500 MCG ORAL TABLET active take 1 tab once daily [place] Erazo D3-1000 CAPSULE active take 2 caps once daily [place] [facility] ASCORBIC ACID 500 MG ORAL TABLET active take 2 tabs once daily Lani Erazo OMEGA-3 FISH OIL 1200 MG ORAL CAPSULE active take 1 caps once daily Lani Erazo ESCITALOPRAM OXALATE 5 MG ORAL TABLET active TAKE 1 TABLET BY MOUTH EVERY DAY Lani Sandovalam #30, 30 days supply, Prescribed by PAUL ADLER, Filled 06/21/2018 METOPROLOL SUCCINATE ER 25 MG ORAL TABLET EXTENDED RELEASE 24 HOUR active TAKE 1 TABLET BY MOUTH EVERY DAY IN THE EVENING Lani Sandovalam #30, 30 days supply, Prescribed by PAUL ADLER, Filled 07/02/2018 AMLODIPINE BESYLATE 5 MG ORAL TABLET active TAKE 1 TABLET BY MOUTH EVERY MORNING Lani Erazo #30, 30 days supply, Prescribed by PAUL ADLER, Filled 07/02/2018 LISINOPRIL 10 MG ORAL TABLET active TAKE 1 TABLET BY MOUTH TWICE A DAY Lani Erazo #60, 30 days supply, Prescribed by PAUL ADLER, Filled 07/09/2018 venlafaxine XR 24hr (EFFEXOR XR) 150 MG capsule active null Lani Erazo Imported from [employer] (17-Jul-2018 at 11:29:26 AM) VENLAFAXINE (EFFEXOR) 25 MG TABLET completed Oral - Lani Erazo Imported from [employer] (17-Jul-2018 at 11:29:26 AM) traMADol (ULTRAM) 50 MG tablet active Take 50 mg by mouth every 6 hours [place] [facility] Imported from [employer] (17-Jul-2018 at 11:29:26 AM) TRAMADOL (ULTRAM) 25 MG TABS TABLET completed Take by mouth every 6 hours as needed - Lani Erazo Imported from [employer] (17-Jul-2018 at 11:29:26 AM) tiZANidine (ZANAFLEX) 2 MG capsule active Take 2 mg by mouth every 8 hours as needed for Muscle Spasms [place] Erazo Imported from [employer] (17-Jul-2018 at 11:29:26 AM) sucralfate (CARAFATE) 1 GM tablet active Take 1 g by mouth 4 times daily - before meals & nightly [place] [facility]o Imported from [employer] (17-Jul-2018 at 11:29:26 AM) ondansetron, disintegrating, (ZOFRAN ODT) 4 MG tablet active Take 4 mg by mouth every 6 hours as needed [place] [facility] Imported from [employer] (17-Jul-2018 at 11:29:26 AM) omeprazole (PRILOSEC) 40 MG capsule active Take 40 mg by mouth 2 times daily Lani Erazo Imported from [employer] (17-Jul-2018 at 11:29:26 AM) ketorolac (TORADOL) 10 MG tablet active Take 10 mg by mouth every 6 hours as needed for Pain [place] [facility] Imported from [employer] (17-Jul-2018 at 11:29:26 AM) EPINEPHrine injection active Intramuscular Lani Erazo Imported from [employer] (17-Jul-2018 at 11:29:26 AM) benzonatate (TESSALON) 100 MG capsule active Take 1 Cap by mouth 3 times daily as needed for Cough Lani Erazo Imported from [employer] (17-Jul-2018 at 11:29:26 AM) ALPRAZolam (XANAX) 1 MG tablet active Take 1 tablet by mouth 3 times daily as needed Lani Erazo Imported from [employer] (17-Jul-2018 at 11:29:26 AM) ALBUTEROL HFA (VENTOLIN HFA) 108 (90 BASE) MCG/ACT INHALER completed Inhale 2 Puffs by mouth every 6 hours as needed - Lani Erazo Imported from [employer] (17-Jul-2018 at 11:29:26 AM) SOCIAL HISTORY Date Observation Value Provider social history E&M S moking History: Chase mohan has never smoked. Abhijit Espinal MD social history reviewed E&M revi ewed - no changes required Abhijit Espinal MD number of grandchildren Abhijit Erazo smoking status Never smoker Lani dominguez FAMILY HISTORY Family Member Condition Full Sister Family History of Co ronary Artery Disease: Full Brother Family History of Co ronary Artery Disease: Father Family History of Co ngestive Heart Failure: INSURANCE PROVIDERS Payer name Policy type / Coverage type [facility] democrat ID [employer] [id number] [place] MEDIC[place] Medicare [id number] ADVANCE DIRECTIVES Name Date LIVING WILL ON FILE TREATMENT PLAN Date Name Performer Cardiology: H er updated medication list for this problem includes: Metoprolol Succinate Er 25 Mg Oral Tablet Extended Release 24 Hour (Metoprolol succinate) ..... Take 1 tablet by mouth every day in the evening Amlodipine Besylate 5 Mg Oral Tablet (Amlodipine besylate) ..... Take 1 tablet by mouth every morning Lisinopril 10 Mg Oral Tablet (Lisinopril) ..... 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 The patient is either a current smoker or has quit within the past 15 years. T he patient is recommended to have low dose CT scan for lung cancer screening. Has been counseled regarding the importance of tobacco cessation and abstinence. Shared decision making during this office visit included discussion of the benefits and harms of screening, possible future recommendations of follow-up diagnostic testing, and total amount of radiation exposure. The patient was recommended to have annual low dose CT scan for lung cancer screening and is willing to undergo diagnosis and treatment. Abhijit Espinal MD Date Name PROTHROMBIN TIME WIT H INR IRON AND TOTAL IRON BINDING CAPACITY FERRITIN CBC (INCLUDES DIFF/P LT) THYROID PANEL WITH T SH, 3RD GENERATION LIPID PANEL COMPREHENSIVE METABO LIC PANEL, W/EGFR Sleep Study Home PROTHROMBIN TIME WIT H INR CBC (INCLUDES DIFF/P LT) LIPID PANEL COMPREHENSIVE METABO LIC PANEL, W/EGFR IRON AND TOTAL IRON BINDING CAPACITY FERRITIN THYROID PANEL WITH T SH, 3RD GENERATION Mobile Cardiac Tele Complete Echo CT, Coronary Calcium Score Low Dose Lung CT HISTORY OF PROCEDURES Procedure Date Procedure Name Provider Procedure Notes S tatus CT- Coronary CA score Abhijit Espinal MD completed Counseling LDCT Abhijit Espinal MD com pleted EKG Abhijit Espinal MD complete d
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
--- OUTSIDE RECORDS SUMMARY | 2024-04-28 12:44 | XMS_ITS ---
Author Organization [facility] [employer] [facility] Address [address] [facility] [address] [place] [address] Care Team Providers Care Partner Management Consultant Name Role Phone Joyce ARAUJO, Ralph Primary Care Provider Un available Anayeli Luis Unavailable [phone] REASON FOR VISIT DBT Social History Sex Assigned At : Social History Observation Description Sex Assigned At Female Encounters Encounter Location Date Provider Diagnosis [facility] [employer] [place] [id number] [facility] [address] [place] [address] 04/28/2024 Anayeli Luis Plan Of Treatment Next Appt Details Provider Name:Anayeli Luis, 06/27/2024 11:00:00 AM, [address], [facility] [address], [place], [address], Progress Notes * DIMA BAKERHDOB: [birth year] (63 yo F)Acc No.[id number]:04/28/2024 Patient: RASHARD AGUILERA :1960 A ge:63 Y S ex:Female Phone: Address:[address] [place], [address] * * Date:
== END 2024-04-28 10:44 | disposition home or self-care (01) ==
PROVIDERS: PCP Family Medicine; Visit Provider Internal Medicine
DX: E78.5 Hyperlipidemia, unspecified (principal); E55.9 Vitamin D deficiency, unspecified; R79.89 Other specified abnormal findings of blood chemistry
CPT/HCPCS: 36415; 80053; 80061; 82306; 82607; 82746; 84439; 84443; 85025

== ENCOUNTER 2024-08-17 09:54 | Emergency (ER) | payer MEDICARE, OTHER, SELFPAY ==
[2024-08-17 10:06] VITALS: BP 129/85; O2SAT 100
[2024-08-17 10:10] VITALS: BP 129/85; PULSE 89; RESP 18; TEMP 36.6; O2SAT 100
[2024-08-17 10:16] VITALS: BP 101/79; O2SAT 100
[2024-08-17 10:31] VITALS: BP 140/68; O2SAT 99
--- NOTE | 2024-08-17 11:04 | ED.GENADULT ---
HPI - General Adult General Chief complaint: Back Pain/Injury Stated complaint: sciatic pain Time Seen by Provider: 08/17/24 10:00 History of Present Illness HPI narrative: This is a 64-year-old female with a history of chronic pain presenting for back pain. Patient has been having sciatica on the left side for the several months. She has seen a pain specialist who performed a MILD procedure on 08/08. The patient says the procedure had no effect at all and her pain is unchanged. She does not have any weakness the leg urinary retention or bowel incontinence. No saddle anesthesia. Patient says he has been using tramadol, naproxen and Tylenol and lidocaine patches over the last several months and has made her pain bearable. She is out of tramadol. Patient has appointment her primary care physician later this week. Related Data Home Medications ?Medication ?Instructions ?Recorded ?Confirmed ?Last Taken ?Type alprazolam 1 mg tablet 1 mg PO TID PRN Anxiety 11/05/19 11/05/19 Unknown History cimetidine 400 mg tablet 400 mg PO BID 11/05/19 11/05/19 Unknown History hydroxyzine HCl 25 mg tablet 25 mg PO TID 11/05/19 11/05/19 Unknown History lisinopril 10 mg tablet 10 mg PO BID 11/05/19 11/05/19 Unknown History metoprolol succinate 25 mg capsule 25 mg PO DAILY 11/05/19 11/05/19 Unknown History sprinkle, ext. release 24 hr omeprazole 40 mg capsule,delayed 40 mg PO BID 11/05/19 11/05/19 Unknown History release ondansetron 8 mg disintegrating 8 mg PO Q8H PRN Nausea 11/05/19 11/05/19 Unknown History tablet sucralfate 1 gram tablet 1 g PO TIDWMEAL 11/05/19 11/05/19 Unknown History tizanidine 2 mg tablet 2 mg PO TID PRN Pain 11/05/19 11/05/19 Unknown History venlafaxine 150 mg 150 mg PO BID 11/05/19 11/05/19 Unknown History capsule,extended release 24 hr diazepam 2 mg tablet 11/16/19 Unknown History Allergies Allergy/AdvReac Type Severity Reaction Status Date / Time codeine Allergy Severe ITCHING,HIV Verified 08/17/24 10:22 ES hydrocodone Allergy Severe Itching Verified 08/17/24 10:22 NSAIDS (Non-Steroidal Allergy Severe Swelling Verified 08/17/24 10:22 Anti-Inflamma oxycodone Allergy Severe ITCHEY Verified 08/17/24 10:22 HIVES levofloxacin Allergy Mild HIVES ALL Verified 08/17/24 10:22 OVER morphine Allergy Mild ITCHEY Verified 08/17/24 10:22 HIVES kiwi Allergy Unknown Unknown Verified 08/17/24 10:22 strawberry Allergy Unknown Unknown Verified 08/17/24 10:22 OPIODS Allergy Intermediate HIVES Uncoded 08/17/24 10:22 steroids Allergy Intermediate HIVES Uncoded 08/17/24 10:22 PMFSH Past Medical History Medical History History of subarachnoid hemorrhage Spinal cord stimulator status Chronic back pain History of skin cancer Neuropathy RSD (reflex sympathetic dystrophy) History of cervical cancer status post history High blood triglycerides HTN (hypertension), malignant History of peptic ulcer disease GERD with esophagitis Depression with anxiety Fibromyalgia Surgical History Surgical History History of craniotomy History of cerebral aneurysm repair Status post osteotomy full Merissa osteotomy right tibia H/O: hysterectomy 2004 Total knee replacement status x2 Family History Family History Father Heart disease Mother Alzheimer disease Sibling Alzheimer disease 2 brother Heart disease sister Idania Gehrigs disease sister from this Social History Social History Social History: 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 She lives with her and has 1 child. She smokes a pack a cigarettes a day. She socially drinks. She is a full code and desires to have her is the durable power staff attorney for healthcare his name is Dileep Salazar. Smoking packs per day: 1.5 Smoking cigarettes per day: 30.0 Smoking status: Current every day smoker Tobacco type: cigarettes Alcohol intake: former Substance use: former Substance use type: marijuana Last use: August 2019 Gender identity (if verbalized by the patient): Female Spiritual care concerns: No Exam Narrative: APPEARANCE: Patient is intermittently tearful and crying Head: atraumatic. EYES: EOMI, NOSE: Atraumatic NECK: Trachea midline RESPIRATORY: No increased rate of breathing CARDIOVASCULAR: RRR, ABDOMINAL: Non-distended soft nontender no guarding rebound MUSCULOSKELETAl: No obvious deformities focal exam of the left leg revealed no overlying skin changes. No tenderness to palpation. All compartments are soft. Foot is neurovascularly intact NEURO: Cranial nerves 2-12 grossly intact. Sensation light touch, motor function cerebellar function intact for 4 extremities. No saddle anesthesia. SKIN:: Focal exam of the back shows to clean dry intact incisions PSYCHIATRIC: Normal affect Course Vital Signs Vital signs: Vital Signs Temperature 98 F 08/17/24 10:10 Pulse Rate 89 08/17/24 10:10 Respiratory Rate 08/17/24 10:10 Blood Pressure 129/85 08/17/24 10:10 Pulse Oximetry 100 08/17/24 10:10 Oxygen Delivery Room Air 08/17/24 10:10 Temperature 98 F 08/17/24 10:10 Pulse Rate 89 08/17/24 10:10 Respiratory Rate 08/17/24 10:10 Blood Pressure 129/85 08/17/24 10:10 Pulse Oximetry 100 08/17/24 10:10 Oxygen Delivery Room Air 08/17/24 10:10 Medical Decision Making MDM Narrative Medical decision making narrative: -Course: 64-year-old female presenting with chronic sciatica pain. She had a procedure 9 days ago but it had no effect on her pain at all and she has run out of her tramadol. She does not have any fevers or pain at the incision sites. No concern for surgical infection. No neurologic deficits. Patient will be treated symptomatically for sciatica. She has follow-up with her primary care physician later this week and she can discuss further pain management modalities with them. Given return precautions for weakness, lower extremities, urinary retention or bowel incontinence. -DDX includes but is not limited to: Sciatica, surgical complication, chronic pain syndrome -Co-morbidities complicating care: Fibromyalgia, chronic pain Vital Signs Vital Signs: Vital Signs Temperature 98 F 08/17/24 10:10 Pulse Rate 89 08/17/24 10:10 Respiratory Rate 18 08/17/24 10:10 Blood Pressure 129/85 08/17/24 10:10 Pulse Oximetry 100 08/17/24 10:10 Oxygen Delivery Room Air 08/17/24 10:10 Temperature 98 F 08/17/24 10:10 Pulse Rate 89 08/17/24 10:10 Respiratory Rate 18 08/17/24 10:10 Blood Pressure 129/85 08/17/24 10:10 Pulse Oximetry 100 08/17/24 10:10 Oxygen Delivery Room Air 08/17/24 10:10 Discharge Plan Discharge Clinical Impression: Fibromyalgia, Sciatica Patient Disposition: Home Condition: Stable Instructions: Antibiotic Form, Back Pain (ED) Additional Instructions: Please take the medication chins prescribed as directed. Please follow-up your primary care physician and your painter airbrush as soon as possible. Return if you develop weakness to her leg unbearable pain, urinary retention or bowel incontinence. Patient Language: Tuvaluan Prescriptions: New tramadol 50 mg tablet 50 mg PO Q6-8H 7 Days Qty: 28 0RF acetaminophen 500 mg tablet 1,000 mg PO TID PRN (Reason: kenyetta) 7 Days Qty: 42 0RF methocarbamol 750 mg tablet 1,500 mg PO TID Qty: 42 0RF lidocaine 5 % adhesive patch,medicated 1 patch topical DAILY Qty: 15 0RF Rx Instructions: leave on most painful area for up to 12 hrs No Action cephalexin 500 mg capsule 500 mg PO Q12H 7 Days Qty: 14 0RF ondansetron 4 mg tablet,disintegrating 4 mg PO Q8H PRN (Reason: nausea and vomiting) Qty: 10 0RF tizanidine 2 mg Tablet 2 mg PO TID PRN (Reason: Pain) alprazolam 1 mg Tablet 1 mg PO TID PRN (Reason: Anxiety) cimetidine 400 mg Tablet 400 mg PO BID Rx Instructions: One in the morning and one at bedtime sucralfate 1 gram Tablet 1 g PO TIDWMEAL Rx Instructions: And at bed time. venlafaxine 150 mg Capsule,Extended Release 24hr 150 mg PO BID omeprazole 40 mg Capsule,Delayed Release(Dr/Ec) 40 mg PO BID ondansetron 8 mg Tablet,Disintegrating 8 mg PO Q8H PRN (Reason: Nausea) lisinopril 10 mg Tablet 10 mg PO BID hydroxyzine HCl 25 mg Tablet 25 mg PO TID metoprolol succinate 25 mg Capsule,Sprinkle,Er 24hr 25 mg PO DAILY meclizine 25 mg Tablet 25 mg PO QID PRN (Reason: dizziness) Qty: 10 0RF Rx Instructions: Take 1 tablet by mouth up to 4 times daily as needed until further recommendation from PCP or Dr. Faulkner diazepam 2 mg tablet alprazolam [Xanax] 0.5 mg tablet 0.5 mg PO TID PRN (Reason: anxiety) Qty: 10 0RF dicyclomine 20 mg tablet 20 mg PO BID Qty: 30 0RF Follow-up/Referrals: Joyce,MD Ralph [Primary Care Provider] -
[2024-08-17] MEDS: KETOROLAC 30 MG/ML VIAL (*BKC) IM (11:12)
[2024-08-17] MEDS: methocarbamoL 750 MG TABLET 1500 MG PO (11:16)
[2024-08-17] MEDS: LIDOCAINE 5% PATCH 1 PATCH TRANSDERM (11:16)
[2024-08-17] MEDS: traMADol HCL (*CRX) 50 MG TABLET PO (11:16)
[2024-08-17] MEDS: ACETAMINOPHEN 500 MG TABLET 1000 MG PO (11:16)
== END 2024-08-17 11:36 | disposition home or self-care (01) ==
PROVIDERS: Emergency Provider Emergency Medicine; PCP Internal Medicine
DX: M54.42 Lumbago with sciatica, left side (principal); M79.7 Fibromyalgia; Z85.828 Personal history of other malignant neoplasm of skin; G62.9 Polyneuropathy, unspecified; I10 Essential (primary) hypertension; K21.9 Gastro-esophageal reflux disease without esophagitis; F32.A Depression, unspecified; F41.9 Anxiety disorder, unspecified
CPT/HCPCS: 96372; 99283; A9270; J1885

== ENCOUNTER 2024-11-25 14:31 | Outpatient (CLI) | payer MEDICARE, OTHER, SELFPAY ==
--- OUTSIDE RECORDS SUMMARY | 2024-11-25 15:24 | XMS_ITS | Encounter Summary ---
Author Organization [facility] Address [facility] [place] [address] Care Team Providers Care Deck Mechanic Name Role Phone Dontrell Brooks DO Primary Care Provider [phone] Hugo Riddle MD Unavailable [phone] Ralph Cook MD Unavailable [phone] Ralph Cook MD Primary Care Provider Encounter Details Date Type Department Care Team (Latest Contact Info) Description 12/25/2017 Abstract 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
--- OUTSIDE RECORDS SUMMARY | 2024-11-25 15:25 | XMS_ITS | Clinical Summary ---
Author Organization [facility] Address [address] [place] [address] Care Team Providers Care National Account Manager Name Role Phone [place]leevilleDontrell Kamala Primary Care Provider [phone] Source Comments [facility],non-owned Affiliates and Associated Physician Practices is amultiple site organization consisting of ambulatory clinics and hospital sitesin [place], [place], [place] and [place]. This disclosure is being madepursuant to the Care Everywhere program and may not contain all information available regarding this patient. Last updated 17.[facility] Egenera Allergies Active Allergy Reactions Criticality Noted Date [...] Itching Low 04/18/2017 Corticosteroids Rash,Anaphylaxis High 04/04/2016 [place] Other Medium 04/18/2017 Medications * Be aware that medications may not be up to date on this document. Alwaysverify current medications with the patient. venlafaxine XR 24hr (EFFEXOR XR) 150 MG capsule Take 150 mg by mouth daily with breakfast 06/20/19 18 Active hydrOXYzine hcl (ATARAX) 25 MG tablet Take 25 mg by mouth 3 times daily as needed Active acetaminophen (TYLENOL) 325 MG tablet Take 2 (two) tablets by mouth every 6 hours as needed for Headache (alternate with ibuprofen) Maximum allowable Acetaminophen amount = 4 Grams (4000 mg) / 24 hours. 06/01/19 21 Active calcium carbonate (TUMS) 500 MG chew tablet Take 1 (one) tablet by mouth every 4 hours as needed 06/01/19 21 Active clonazePAM (KLONOPIN) 0.5 MG tablet Take 1 (one) tablet by mouth every 8 hours 06/01/19 21 Active busPIRone (BUSPAR) 10 MG tablet Take 10 mg by mouth 2 times daily 06/22/19 21 Active cimetidine (TAGAMET) 400 MG tablet TAKE 1 TABLET BY MOUTH TWICE A DAY 07/06/19 21 Active dicyclomine (BENTYL) 10 MG capsule Take 1 (one) capsule by mouth once daily 07/08/19 21 Active lisinopril (PRINIVIL; ZESTRIL) 10 MG tablet Take 10 mg by mouth 2 times daily 06/22/19 21 Active pantoprazole EC (PROTONIX) 40 MG tablet 07/11/19 21 Active Probiotic Product (PROBIOTIC-10 PO) Ac tive traMADol (ULTRAM) 50 MG tablet Take 50 mg by mouth every 6 hours as needed for Pain Active ALPRAZolam (XANAX) 1 MG tablet TAKE 1 TABLET BY MOUTH THREE TIMES A DAY NEEDED 08/29/19 21 Active meloxicam (MOBIC) 7.5 MG tablet Take 7.5 mg by mouth 2 times daily 03/28/19 22 Active perampanel (Fycompa) 8 MG tablet Take 1 (one) tablet by mouth once daily 01/14/20 22 Active ondansetron, disintegrating, (Zofran ODT) 8 MG tablet Take 1 (one) tablet by mouth every 8 hours as needed 01/14/20 22 Active metoprolol succinate XL 24hr (Toprol XL) 25 MG tablet Take 1 (one) tablet by mouth once daily 11/25/20 22 Active polyethylene glycol 3350 (MiraLax) 17 g packet Take 17 (seventeen) g by mouth once daily as needed for Constipation 01/14/20 Active metoclopramide (Reglan) 10 MG tablet 01/14/20 Active tiZANidine (Zanaflex) 2 MG tablet Take 1 (one) tablet by mouth 01/14/20 Active sucralfate (Carafate) 1 GM/10ML suspension Take 10 mL by mouth 4 times daily 01/14/20 Active oxybutynin CR 24hr (Ditropan-XL) 5 MG tablet Take 1 (one) tablet by mouth once daily 01/14/20 Active bismuth subsalicylate (Pepto-Bismol;Luis pectate) 262 MG/15ML suspension Take 15 mL by mouth every 1 hour as needed for Diarrhea 118 mL 2 01/14/20 Active saline nasal spray ([place]; Baby [place]) 0.65 % nasal spray [place] 2 (two) sprays into each nostril every 30 minutes as needed for Dry Nose 15 mL 2 01/14/20 Active Active Problems Problem Noted Date Diagnosed [...] respiratory failure Malnutrition Pulmonary insufficiency Leukocytosis Immunizations Immunization Administration Dates Next Due INFLUENZA VACCINE 12/03/2020,12/11/2019 [...] money to get more. 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 Gender Identity Not on file Sexual Orientation [...] 9:21 PM CDT Height 160 cm (5' 3) 08/05/2022 9:21 PM CDT Body Mass Index [...] FLEX SIG - COLON CA SCREENING 1958 MAMMOGRAM 1960 MEDICARE AWV 12 MONTHS 1958 HEPATITIS C SCREENING 05/09/1976 DTAP/TDAP/TD VACCINES (1 - Tdap) 1977 PNEUMOCOCCAL VACCINE 50+ (1 of 2 - PCV) 1977 ZOSTER VACCINE (1 of 2) 2008 DEPRESSION SCREENING 02/20/2024 01/05/2022 COVID-19 VACCINE (3 - season) 2024 09/29/2020, 09/08/2020 INFLUENZA VACCINE (#1) 2024 2, 12/03/2020, 12/11/2019, Additional history exists SCREENING FOR DIABETES 08/06/2025 3, 08/05/2022, 08/05/2022, Additional history exists LIPID TESTING 06/20/2027 06/19/2022 Respiratory Syncytial Virus (RSV) Vaccine Pt: or [...] complete this topic MENINGOCOCCAL (Group B) VACCINE SHARED DECISION-MAKING Aged Out No longer eligible based on patient's age to complete this topic MENINGOCOCCAL GROUPS A/C/Y/W VACCINE Aged Out No longer eligible based on patient's age to complete this topic Medical Devices Implanted Type Area Bricklayer Apprentice Device Identifier Shelf Expiration Date Model / Serial / Lot Sugita Titanium Aneurysm Clip Ii Implanted:Qty: 1 on 05/06/2020 by Timoteo Mckinney MD at [facility] Aneurysm Clip Left: Brain Sugita Standard 17-001-0 1 / 52SLAP / 52-SL Sugita Titanium Aneurysm Clip Ii Implanted:Qty: 1 on 05/06/2020 by Timoteo Mckinney MD at [facility] Aneurysm Clip Left: Brain Sugita Standard 17-001-0 2 / 48SKAE / 48-SK Graft Tissue Drgn + Bvn Clgn Mtrx 5x4in Implanted:Qty: 1 on 05/06/2020 by Timoteo Mckinney MD at [facility] Left: Brain Integra Neurosciences 01/18/2023 [id number] / / [id number] Plate 2 Hl Ult Lopro Chmfr Edg Crnl Implanted:Qty: 1 on 05/06/2020 by Timoteo Mckinney MD at [facility] Left: Cranial Synthes Usa 04.502.0 62 / / Plate 4 Hl Ult Lopro Chmfr Edg Crnl .3mm Implanted:Qty: 1 on 05/06/2020 by Timoteo Mckinney MD at [facility] Left: Cranial Synthes Usa 04.502.0 64 / / Screw 1.5mm 4mm Crnmxf Slfdrl Implanted:Qty: 16 on 05/06/2020 by Timoteo Mckinney MD at [facility] Left: Cranial Synthes Maxillofacial .1 04.01 / / Graft Tissue Drgn + Bvn Clgn Mtrx 2x2in Implanted:Qty: 1 on 05/11/2020 by Austyn Saldaña MD at [facility] Left: Brain Integra Neurosciences 10/19/2022 DP-1022 / / [id number] Cover Bur Hl Lght Grn 17mm Matrixneuro Implanted:Qty: 2 on 05/06/2020 by Timoteo Mckinney MD at [facility] Explanted:Qty: 1 on 08/04/2020 by Austyn Saldaña MD at [facility] Left: Cranial Synthes Usa 04.502.0 23 / / Screw 1.5mm 4mm Crnmxf Slfdrl Implanted:Qty: 6 on 08/04/2020 by Austyn Saldaña MD at [facility] Left: Cranial Synthes Maxillofacial 503.1 04.01 / / Procedures Procedure Name Priority Date/Time Associated Diagnosis Comments BASIC METABOLIC PANEL (CALCIUM TOTAL) Timed 08/06/2022 4:11 AM CDT from Last 3 Months or Most Recently Relevant to Health Maintenance Results * (ABNORMAL) BASIC METABOLIC PANEL (CALCIUM TOTAL) (08/06/2022 4:11 AM CDT) BUN 7 7 - 26 mg/dL 08/06/2022 5:[address] [facility] Creatinine 0.63 0.56 - 0.96 mg/dL 08/06/2022 5:[address] [facility] Sodium 137 136 - 145 mmol/L 08/06/2022 5:[address] [facility] Potassium 5.0(H) 3.5 - 4.5 mmol/L 08/06/2022 5:[address] [facility] Chloride 108(H) 98 - 107 mmol/L 08/06/2022 5:[address] [facility] CO2 21(L) 22 - 29 mmol/L 08/06/2022 5:[address] [facility] Glucose 100 70 - 115 mg/dL 08/06/2022 5:[address] [facility] Calcium 9.3 8.4 - 10.2 mg/dL 08/06/2022 5:[address] [facility] Anion Gap 13 8 - 18 08/06/2022 5:[address] [facility] BUN/Creatinine Ratio 11 7 - 23 08/06/2022 5:[address] [facility] Osmolality Calculated 282 270 - 300 mOsm/kg 08/06/2022 5:[address] [facility] eGFR by CKD-EPI >90 >=90 mL/min/1.7 3 m2 08/06/2022 5:[address] [facility] Blood BLOOD SPECIMEN / Unknown Venipuncture / Unknown 08/06/2022 4:11 AM T 08/06/2022 4:38 AM [facility] us Charbel Batista MD LAB - CHEMISTRY ORDERAB LES Final Result [facility] [address] [place] [address], [facility] [phone] from Last 3 Months or Most Recently Relevant to Health Maintenance Insurance MEDICARE [facility] [place] [facility] MEDICARE Advance Directives * Full Code (Latest Code Status on File) Date Activated Date Inactivated Comments 01/05/2022 4:14 PM 01/13/2022 12:35 PM * Full Code Date Activated Date Inactivated Comments 08/04/2020 6:05 PM 08/05/2020 2:21 PM * Full Code Date Activated Date Inactivated Comments 05/06/2020 3:01 PM 05/31/2020 4:37 PM Care Teams National Account Manager Relationship Specialty Start Date End Date Dontrell Brooks DO [address] [place] [id number] PCP - General Family Medicine 11/12/15
--- OUTSIDE RECORDS SUMMARY | 2024-11-25 15:25 | XMS_ITS | Clinical Summary ---
Author Organization [facility] Healthcare Address [address] [place] [address] Care Team Providers Care Converting Technician Name Role Phone Vivien Cook MD Primary Care Provide r Allergies Active Allergy Reactions Criticality Noted Date Comments Codeine Hives Medium Fenofibrate Hives Medium House Dust Other (See comments) Sinus congestion Hydrocodone Hives,Shortness of breath High Hydrocodone-Acetaminoph en Hives,Shortness of breath High Reaction: Itching, Meperidine Unknown Morphine Hives,Itching,Nausea & Vomiting Medium Reaction: Itching, , Nsaids (Non-Steroidal Anti-Inflammatory Drug) Unknown Opioids - Morphine Analogues Oxcarbazepine Other (See comments) Patient states she pretty much crazy Prednisone Anaphylaxis High 05/27/2024 Downs Hives Medium Medications ascorbic acid (vitamin C) 1,000 mg tablet take 1 by Oral route once 0 0 11/26/19 16 Active EPINEPHrine (EPIPEN) 0.3 mg/0.3 mL injection syringe inject 0.3 milliliter by intramuscular route once as needed for anaphylaxis 0 0 11/26/19 16 Active venlafaxine 150 mg tablet extended release 24hr 24 hr tablet take 1 tablet by oral route every day in the morning at the same time each day with food 0 0 11/26/19 16 Active gtfzm-[id number]-epa- fish oil (FISH OIL) 720-1,200 mg capsule take as directed 0 0 11/26/19 16 Active hydrOXYzine (ATARAX) 25 mg tablet take 1 tablet by oral route 3 times every day as needed 0 0 11/26/19 16 Active lisinopriL (PRINIVIL,ZESTRIL ) 10 mg tablet Take 1 tablet (10 mg total) by mouth 2 (two) times a day Active metoclopramide (REGLAN) 10 mg tablet Take 1 tablet (10 mg total) by mouth 3 (three) times a day as needed (nausea) 90 tablet 2 03/12/19 24 Active oxyBUTYnin XL (DITROPAN-XL) 5 mg 24 hr tablet Take 1 tablet (5 mg total) by mouth daily 90 tablet 3 03/12/19 24 Active ALPRAZolam (XANAX) 1 mg tablet Take 1 tablet (1 mg total) by mouth 3 (three) times a day as needed for anxiety 90 tablet 05/14/19 24 Active busPIRone (BUSPAR) 10 mg tablet Take 1 tablet (10 mg total) by mouth 2 (two) times a day 06/22/19 21 Active calcium carbonate (TUMS) 500 mg (200 mg elemental calcium) chewable tablet Take 1 tablet/chew tab (500 mg total) by mouth every 4 (four) hours as needed 06/01/[address] (PROTONIX) 40 mg EC tablet Take 1 tablet (40 mg total) by mouth daily as needed Active gabapentin (NEURONTIN) 800 mg tabletIndications :Neuropathic Pain Take 1 tablet (800 mg total) by mouth 4 (four) times a day 120 tablet 2 08/22/19 25 Active ketorolac (TORADOL) 10 mg tablet Take 1 tablet by mouth twice daily 10 tablet 08/30/19 25 Active lidocaine (LIDODERM) 5 %Indications:Lumb ar radiculopathy Place 1 patch on the skin daily for 12 hours Remove & discard patch within 12 hours or as directed by . 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 OTHER SURGICAL HISTORY 06/13/2024 SPINAL CORD STIMULATOR EXPLANTATION-[facility]TRONIC/[place] Medical History Medical History Date Comments Hypertension PONV (postoperative nausea and vomiting) History of stomach ulcers Chronic pain disorder Cancer (HCC) Cervix cancer, b kenrick cell carcinoma Cerebral aneurysm without rupture Fibromyalgia RSD (reflex sympathetic dystrophy) Dilatation of esophagus Depression Anxiety Family History Medical History Relation Name Comments [...] drink = 0.6 oz pur e alcohol) AUDIT-C Answer Date Recorded Q1: How often do you have a drink containing alcohol? Never 08/08/2024 Q2: How many drinks containi ng alcohol do you have on a typical day when you are drinking? Patient does not drink Q3: How often do you have si x or more drinks on one occasion? Never 08/08/2024 PHQ-2 Answer Date Recorded PHQ-2 Total Score (If total score is 3 or more points, staff should administer the PHQ-9) 5 05/27/2024 PHQ-9 Answer Date Recorded PHQ-9 Total Score 15 05/27/2024 Personal Safety Answer Date Recorded Have you ever been in or are you currently in a harmful physical or emotional relationship or is someone making you feel afraid or unsafe? Denies 08/08/2024 Comments No Sex and Gender Information Value Date Recorded Sex Assigned at Not on file Legal Sex Female 4:15 AM BROODMARE FOREMAN Gender Identity Not on file Sexual Orientation Not on file Obstetrics History Last Filed Vital Signs Vital Sign Reading Time Taken Comments Blood Pressure 126/97 08/08/2024 1:55 PM CDT Pulse 60 08/08/2024 1:55 PM CDT Temperature 36.1 C (96.9 F) 08/08/2024 1:55 PM CDT Respiratory Rate 18 08/08/2024 1:55 PM CDT Oxygen Saturation 100% 08/08/2024 1:55 PM CDT Inhaled Oxygen Concentration - - Weight 68.6 kg (151 lb 3.8 oz) 08/08/2024 10:07 AM CDT Height 162.6 cm (5' 4) 08/08/2024 10:07 AM CDT Body Mass Index 25.96 08/08/2024 10:07 AM CDT Plan of Treatment Health Maintenance Due Date Last Done Comments Breast Cancer Screening-Mammogram 1960 Colon Cancer Screening-Colonoscopy 1960 Fall Risk Assessment 1960 Hepatitis C Screening 1960 Osteoporosis Screening-Bone Density Scan 1960 Zoster Vaccine (1 of 2) 2008 DTaP/Tdap/Td Vaccine (1 - Tdap) 07/21/2010 1 Well Visit 65+ 05/15/2023 Covid-19 Vaccine (3 - 2024-2 6 season) 2024 09/29/2020, 09/08/2020 Influenza Vaccine (#1) 2024 , 01/17/2022, 12/03/2020, Additional history exists Depression Screening 05/27/2025 05/27/2024, 05/28/19 25 Pneumococcal vaccine 65+ (3 of 3 - PCV20 or PCV21) 05/22/2028 05/23/2023, 04/23/2019 Medical Devices Implanted Type Area V Belt Mold Assembler And Curer Device Identifier Shelf Expiration Date Model / Serial / Lot Sugita Titanium Aneurysm Clip-05/06/2020 Implanted:Qty: 2 on 05/06/2020 by Timoteo Mckinney MD Internal Carotid Artery Insurance MEDICARE [place] [employer] [place] MEDICARE [employer] [place] [employer] [employer] [place] Care Teams Converting Technician Relationship Specialty Start Date End Date Vivien Cook MD [address] [facility] [address] [place] [address] PCP - General Internal Medicine 06/03/24
--- OUTSIDE RECORDS SUMMARY | 2024-11-25 15:25 | XMS_ITS | Encounter Summary ---
Author Organization [facility] Address [address] [place] [address] Care Team Providers Care Rum Processing Operator Name Role Phone KinneyDontrell giron Primary Care Provider [phone] Reason for Visit * Reason Comments Refill Request Encounter Details Date Type Department Care Team (Late st Contact Info) Description 12/16/2020 Refill [facility] [address] [place] [address], [place] [address] Timoteo Mckinney MD [address] [place] [address] [place] [address] Refill Request Social History Tobacco Use Types Packs/Day Years Used Date Smoking Tobacco: Some Days Cigarettes Smokeless Tobacco: Never Alcohol Use Standard Drinks/Week Comments Not Currently 0 (1 standard drink = 0.6 oz pur e alcohol) Quit 90 days ago Comments No Sex and Gender Information Value Date Recorded Sex Assigned at Not on file Legal Sex Female 6:15 AM SUPERVISOR INDUSTRIAL GARMENT Gender Identity Not on file Sexual Orientation Not on file documented as of this encounter Functional Status * Is person deaf or have serious hearing difficulty? Answer Date of Assessment Author No 08/05/2020 10:18 AM Niraj Phan RN * Is person blind or have serious difficulty seeing? Answer Date of Assessment Author No 08/05/2020 10:18 AM Niraj Phan RN * Does person have serious difficulty walking/climbing stairs? Answer Date of Assessment Author Yes 08/05/2020 10:18 AM Niraj Phan RN * Does person have difficulty dressing/bathing? Answer Date of Assessment Author No 08/05/2020 10:18 AM Niraj Phan RN * Does person have difficulty doing errands alone? Answer Date of Assessment Author No 08/05/2020 10:18 AM Niraj Phan RN documented as of this encounter Mental Status * Does person have difficulty concentrating/remembering/making decisions? Answer Entry Date Author No 08/05/2020 10:18 AM Niraj Phan RN documented in this encounter Plan of Treatment Not on file documented as of this encounter Visit Diagnoses Diagnosis Cerebral aneurysm (HCC) Cerebral aneurysm, nonruptured Seizures (HCC) Other convulsions documented in this encounter Care Teams Rum Processing Operator Relationship Specialty Start Date End Date Dontrell Brooks DO [address] [facility] [address] [facility] [employer] [facility] [place] [address] PCP - General Family Medicine 11/12/15 documented as of this encounter
--- OUTSIDE RECORDS SUMMARY | 2024-11-25 15:25 | XMS_ITS | Clinical Summary ---
Author Organization [facility] Address [facility] [place] [address] Care Team Providers Care Powder Nipper Name Role Phone Hugo Riddle MD Unavailable [phone] Ralph Cook MD Unavailable [phone] Ralph Cook MD Primary Care Provider Allergies Active Allergy Reactions [...] 03/15/2017 Strawberries Other (see comment) Medium 04/18/2017 Chandler Extract Hives 12/28/2017 Fenofibrate Unknown 07/23/2012 Oxcarbazepine Unknown 07/23/2012 Azithromycin Unknown 07/23/2012 Medications Cholecalciferol (VITAMIN D) 2000 units Tab Take 1 tablet by mouth daily. Active vitamin C 1000 MG tablet Take by mouth daily. Active vitamin B-12 500 MCG tablet Take 500 mcg by mouth daily. Active [place]-3 Fatty Acids (FISH OIL) 1200 MG Cap [...] Take 25 mg by mouth daily. 01/14/20 Active sodium chloride (OCEAN) 0.65 % Solution [...] Dec 2021 Moderate mood disorder 10/19/2020 Seizures ([facility]) 06/22/2020 Brachial neuritis 06/14/2020 Closed fracture of lateral malleolus 06/14/2020 Closed fracture of metatarsal bone 06/14/2020 Current tear of medial cartilage or meniscus of knee 06/14/2020 Disorder of shoulder 06/14/2020 Neoplasm of uncertain behavior 06/14/2020 Pelvic mass 06/14/2020 Shoulder joint pain 06/14/2020 Spinal stenosis in cervical region 06/14/2020 Cerebral aneurysm (HHS/HCC) 05/06/2020 Dizziness and giddiness 11/11/2019 Recurrent major [...] Encounters Date Type Department Care Team Description 11/25/2024 Telephone [facility], [address] [phone] Anyi Prescott, A Appointment Request (Self ref) from Last 3 Months Immunizations Immunization Administration Dates Next Due Flublok (Quadrivalent) 01/17/2022 [...] 36.9 C (98.4 F) 03/16/2020 12:36 PM DRY CLEANER APPRENTICE Respiratory Rate 17 03/16/2020 1:00 PM DRY CLEANER APPRENTICE Oxygen Saturation 98% 03/16/2020 1:00 PM DRY CLEANER APPRENTICE Inhaled Oxygen Concentration - - Weight 79.8 kg (176 lb) 06/19/2022 10:37 AM CDT Height 160 cm (5' 3) 06/19/2022 10:37 AM CDT Body Mass Index [...] Years) 06/20/2019 06/19/2009 Dexa Scan (General) 05/15/2023 Annual Medicare Wellness Visit 06/21/2023 06/19/2022 COVID-19 Vaccine (3 - season) 2024 09/29/2020, 09/08/2020 Influenza Adult (#1) 2024 01/14/2024, 01/17/2022, 12/03/2020, Additional history exists Pneumococcal Vaccine: 50+ Years (3 of 3 - PCV20 or PCV21) 05/22/2028 05/23/2023, 04/23/2019 Meningococcal B Vaccine Aged Out No l onger eligible based on patient's age to complete this topic Meningococcal Vaccine Aged Out No alla kevin eligible based on patient's age to complete this topic RSV Immunizations Under 20 Months Aged Out No longer eligible based on patient's age to complete this topic Medical Devices Implanted Type Area Cotton Presser Device Identifier Shelf Expiration Date Model / [...] Documented hx of procedure Procedure Note , Nicho ConversionMD - 05/09/2018 Documented hx of procedure us Generic Conversion Md ARAUJO GI PROCEDURE ORDERABLES Final Result TOUCHWORKS TO EPIC CONVERSION from Last 3 Months or Most Recently Relevant to Health Maintenance Insurance MEDICARE [facility] MEDICARE Care Teams Powder Nipper Relationship Specialty Start Date End Date Ralph Cook MD [address] [facility] [address] [place] [address] PCP - General INTERNAL MEDICINE 07/21/24 Hugo [place] MD [address] [place] [address] ORTHOPAEDICS 03/03/22 Ralph Cook MD [address] [facility] [address] [place] [address] INTERNAL MEDICINE 07/21/24
--- OUTSIDE RECORDS SUMMARY | 2024-11-25 15:25 | XMS_ITS | Encounter Summary ---
Author Organization [facility] Address [facility] [place] [address] Care Team Providers Care Electrical Research Engineer Name Role Phone Hugo Riddle MD Unavailable [phone] Ralph Cook MD Unavailable [phone] Ralph Cook MD Primary Care Provider Reason for Visit * Reason Onset Date Comments Appointment Request 11/25/2024 Self ref Encounter Details Date Type Department Care Team (Late st Contact Info) Description 11/25/2024 Telephone [facility] [address] [phone] Anyi Prescott RMA Appointment Request (Self ref) Social History Tobacco Use Types Packs/Day Years [...] on file documented as of this encounter Progress Notes * CHINA Guevara - 11/25/2024 11:35 AM CDT Returned call to patient who was asking if one of our cardiologists would look at an EKG she had done recently. Patient let me know she already has an appt to see cardiology at another location. I let her know she should bring EKG to that visit. documented in this encounter Plan of Treatment Not on file documented as of this encounter Visit Diagnoses Not on filedocumented in this encounter Additional Health Concerns Assessment Noted Time PHQ-9 Depression Total Score: 2 09/14/19 21 9:50 AM CDT documented as of this encounter Care Teams Electrical Research Engineer Relationship Specialty Start Date End Date Ralph Cook MD [address] [facility] [address] [place] [address] PCP - General INTERNAL MEDICINE 07/21/24 Hugo [place] MD [address] [place] [id number] ORTHOPAEDICS 03/03/22 Ralph Cook MD [address] [facility] [address] [place] [address] INTERNAL MEDICINE 07/21/24 documented as of this encounter
--- OUTSIDE RECORDS SUMMARY | 2024-11-25 15:25 | XMS_ITS | Clinical Summary ---
Author Organization [facility] Address [address] [place] [address] Phone Care Team Providers Care Video Production Intern Name Role Phone Dontrell Brooks DO Primary Care Provider Allergies Active Allergy Reactions Criticality Noted Date Comments Codeine Unknown 12/28/2017 Dust Mite Extract Itching 12/28/2017 Gramineae Pollens Hives,Itching 12/28/2017 Hydrocodone Hives,Shortness of Breath 8 Morphine Hives,Shortness of Breath 12/28/2017 Other Hives,Shortness of Breath 12/28/2017 Steroids Oxycodone Hives,Shortness of Breath 12/28/2017 Enterprise Extract Hives 12/28/2017 Medications ALPRAZolam (XANAX) 1 [...] Take 81 mg by mouth daily. Active [place]-3 Fatty Acids (FISH OIL) 1200 MG Capsule [...] Comments Blood Pressure 136/68 02/08/2018 10:25 AM SHOVEL HANDLE ASSEMBLER Pulse 97 02/08/2018 10:25 AM SHOVEL HANDLE ASSEMBLER Temperature 36.7 C (98.1 F) 02/08/2018 10:25 AM SHOVEL HANDLE ASSEMBLER Respiratory Rate 18 02/08/2018 10:2 5 AM SHOVEL HANDLE ASSEMBLER Oxygen Saturation 96% 02/08/2018 10: 25 AM SHOVEL HANDLE ASSEMBLER Inhaled Oxygen Concentration - - Weight 85.2 kg (187 lb 12.8 oz) 018 10:25 AM SHOVEL HANDLE ASSEMBLER Height 160 cm (5' 3) 02/08/2018 10:25 AM SHOVEL HANDLE ASSEMBLER Body Mass Index 33.27 02/08/2018 10:25 AM SHOVEL HANDLE ASSEMBLER Plan of Treatment Health Maintenance Due Date Last Done Comments Hepatitis C Virus (HCV) Screening 1960 TdaP Immunization 1960 Cologuard 05/15/2003 Colonoscopy 05/15/2003 Colorectal Cancer Screening 05/15/2003 Immunochemical Fecal Occult Blood 05/15/2003 Zoster Immunization (1 of 2) 2008 Medicare Initial AWV G0438 10/20/2009 Pneumococcal Immunization (5 0+ years) (2 of 2 - PCV) 04/22/2020 04/23/2019 Influenza Immunization (#1) 2024 12/24/2013 SARS-COV-2 Immunization ( season) 2024 09/29/2020, 09/08/2020 Respiratory Syncytial Virus (RSV) Immunization (Adult) (1 - 1-dose 75+ series) 2033 Pneumococcal Immunization Combined Discontinued 04/23/2019 Hepatitis B Immunization Aged Out No longer eligible based on patient's age to complete this topic Human Papillomavirus (HPV) Immunization Aged Out No longer eligible based on patient's age to complete this topic Meningococcal Immunization (ACWY) Aged Out No longer eligible based on patient's age to complete this topic Rotavirus Immunization Aged Out No lo nger eligible based on patient's age to complete this topic Insurance MEDICARE MEDICARE Member Subscriber Plan / Payer (Ef fective 2008-Present) Name:Avril Salazar Member ID:[id number] Relation to Subscriber:Self Name:Avril Salazar Subscriber ID:[id number] Payer ID:[id number] Group ID:Not on file Type:Not on file Address: [address] Care Teams Video Production Intern Relationship Specialty Start Date End Date Dontrell Brooks DO PCP - General Family Medicine 12/27/17
--- OUTSIDE RECORDS SUMMARY | 2024-11-25 15:25 | XMS_ITS | Encounter Summary ---
Author Organization [facility] Address [address] [facility] [place] [address] Care Team Providers Care Loss Prevention Operations Manager Name Role Phone Dontrell Brooks DO Primary Care Provider [phone] Encounter Details Date Type Department Care Team (Late st Contact Info) Description 01/16/2022 Telephone [facility]ORDINATION [address] [place] [address] Marjan Rasmussen, RN Social History [...] on file Legal Sex Female 6:15 AM THIRD COOK Gender Identity Not on file Sexual Orientation Not on file COVID-19 Exposure Response Date Recorded In the last 10 days, have yo u been in contact with someone who was confirmed or suspected to have Coronavirus/COVID-19? No / Unsure 12/30/2021 11:25 AM THIRD COOK documented as of this encounter Functional Status * Is person deaf or have serious hearing difficulty? Answer Date of Assessment Author No 01/05/2022 6:30 PM THIRD COOK Carmen Marshall RN * Is person blind or have serious difficulty seeing? Answer Date of Assessment Author No 01/05/2022 6:30 PM THIRD COOK Carmen Marshall RN * Does person have serious difficulty walking/climbing stairs? Answer Date of Assessment Author Yes 01/05/2022 6:30 PM THIRD COOK Carmen Marshall RN * Does person have difficulty dressing/bathing? Answer Date of Assessment Author No 01/05/2022 6:30 PM THIRD COOK Carmen Marshall RN * Does person have difficulty doing errands alone? Answer Date of Assessment Author No 01/05/2022 6:30 PM THIRD COOK Carmen Marshall RN documented as of this encounter Mental Status * Does person have difficulty concentrating/remembering/making decisions? Answer Entry Date Author No 01/05/2022 6:30 PM THIRD COOK Carmen Marshall RN documented in this encounter Plan of Treatment Not on file documented as of this encounter Visit Diagnoses Not on filedocumented in this encounter Care Teams Loss Prevention Operations Manager Relationship Specialty Start Date End Date Dontrell Brooks DO [address] [place] [id number] PCP - General Family Medicine 11/12/15 documented as of this encounter
[2024-11-25 18:40] LABS: Hematocrit 43.3 % (37.0-47.0); Hemoglobin 14.2 g/dL (12.0-15.0); Immature Granulocyte Percent A 0.3 % (0-0.5); Lymphocytes Absolute Auto 3.40 K/mm3 (0.9-3.2); Mean Corpuscular HGB Conc 32.8 g/dl (32-36); Mean Corpuscular Hemoglobin 30.7 pg (26-34); Mean Corpuscular Volume 93.7 fl (80-100); Nucleated Red Blood Cells Absolute Auto 0.000 K/mm3 (0.0-0.012); Nucleated Red Blood Cells Perc 0.0 % (0.0-0.2); Platelet Count Result 258 k/mm3 (150-375); Red Blood Count 4.62 M/mm3 (4.2-5.4); White Blood Count 10.1 K/mm3 (4.5-10.0)
[2024-11-25 19:37] LABS: Thyroid Stimulating Hormone Reflex 3.040 uIU/mL (0.465-4.68)
[2024-11-25 20:17] LABS: Hemoglobin A1C 5.2 % (<5.7)
[2024-11-25 20:22] LABS: Alanine Aminotransferase 15 U/L (6-35); Albumin Level 4.5 g/dL (3.5-5.1); Alkaline Phosphatase 65 U/L (38-126); Anion Gap 7 mmol/L (4-12); Aspartate Amino Transferase 23 U/L (14-36); Bilirubin,Total 0.4 mg/dL (0.2-1.3); Blood Urea Nitrogen 16 mg/dL (7-17); Calcium 10.0 mg/dL (8.4-10.2); Carbon Dioxide 26 mmol/L (22-30); Chloride 100 mmol/L (98-107); Cholesterol 151 mg/dL (0-200); Estimated Glomerular Filt Rate > 60; Glucose 84 mg/dL (65-110); HDL Direct 60 mg/dL; Magnesium 1.8 mg/dL (1.6-2.3); Potassium 4.8 mmol/L (3.4-5.0); Sodium 133 mmol/L (137-145); Total Protein 7.2 g/dL (6.3-8.2); Triglycerides 120 mg/dL (<150)
[2024-11-25 22:25] LABS: Vitamin B12 603.0 pg/mL (239-931)
== END 2024-11-25 14:32 | disposition home or self-care (01) ==
LOC: ANHGOSHLAB 14:32
PROVIDERS: PCP Nurse Practitioner Family; Visit Provider Nurse Practitioner Family
DX: M79.7 Fibromyalgia (principal); R73.9 Hyperglycemia, unspecified; I10 Essential (primary) hypertension; E55.9 Vitamin D deficiency, unspecified
CPT/HCPCS: 36415; 80053; 80061; 82306; 82607; 83036; 83735; 84443; 85025

== ENCOUNTER 2024-12-03 12:31 | Outpatient (CLI) | payer MEDICARE, OTHER, SELFPAY ==
--- OUTSIDE RECORDS SUMMARY | 2023-09-12 02:00 | XMS_ITS ---
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 Name Role Phone Awais Davenport [phone] Encounters Encounter Location Date Provider Diagnosis [facility] [id number] [place] [address] [address] [place] [address] 09/12/2023 Awais Davenport Plan Of Treatment No Information Progress Notes * Avril BAKER LDOB:[birth year] (64 yo F)Acc No.[id number]:09/12/2023 Patient: Milagro RAMOSAvril GARZON Provider: Tripp Davenport MD :1960 A ge:63 Y S ex:Female Date:09/12/2023 Address:[address] [facility] Subjective: * Chief Complaints: * * Medical History: Objective: * Vitals: Assessment: Plan: * Treatment: * Billing Information: * Visit Code: * Procedure Codes: * Electronic signature of Awais Davenport MD on 12/03/2024 at 02:11 PM CDT Sign off status: Pending * Provider: Tripp Davenport MD Date: 09/12/2023 Generated for Shawanda johnson/Gold/Mariamitting on: 02:11 PM CDT
--- OUTSIDE RECORDS SUMMARY | 2024-10-29 05:50 | XMS_ITS ---
Author Organization [facility] Address [address] [place] [address] Care Team Providers Care Dairy Nutritionist Name Role Phone Yang Acevedo Primary Care Provider Un available Austyn Mayorga Unavailable [phone] Ralph Cook Unavailable Unavailable ALLERGIES Allergen (clinical drug ingredient) Drug/Non Drug Allergy documented on EMR Reaction Allergy Type Onset Date Status prednisone predniSONE Unknown Drug Allergy Activ e oxycodone oxyCODONE Unknown Drug Allergy Active morphine Morphine Unknown Drug Allergy Active hydrocodone HYDROcodone Unknown Drug Allergy Act jessica RESULTS Component Value Reference Range Notes CT Myelogram - Lumbar with s agittal and coronal reconstructions Reviewed date:11/13/2024 03:51:38 PM Interpretation:medicare/supp no auth Performing Lab: Notes/Report: medicare/supp no auth REASON FOR VISIT Test MEDICATIONS Medication SIG (Take, Route, Frequency, Duration) Notes Start Date End Date Status tiZANidine HCl Not-T aking Xarelto Not-Taking Gabapentin Active Escitalopram Oxalate Active Combivent Respimat A ctive Flector Active CeleBREX Active Flowflex Plus COVID-19/Flu A/B Active Orphenadrine Citrate ER Active Pantoprazole Sodium Active Ondansetron HCl Acti ve levETIRAcetam Active Contrave Active Potassium Chloride A ctive Metoclopramide HCl A ctive [place] 3 Active Amoxicillin Active Paxlovid Active Diclofenac Active hydrOXYzine HCl Acti ve PCCA Aladerm Base Ac tive busPIRone HCl Active amLODIPine Benzoate Active Sulfamethoxazole Act jessica Nitrofurantoin Monohyd Macro Active Benzonatate Active Ventolin HFA Active ALPRAZolam Active Lidoderm Active Fluconazole Active Hyoscyamine Active Lisinopril Active Meclizine HCl Active Euflexxa Active Loperamide A-D Activ e Sucralfate Active Meloxicam Active oxyBUTYnin Active clonazePAM Active Meperidine HCl Activ e Nystatin Active Metoprolol Succinate Active Nucynta Active Ketorolac Tromethamine Active Methocarbamol Active Cyclobenzaprine HCl Active Cimetidine Active Omeprazole Active Ranitidine HCl Activ e Atorvastatin Calcium Active diazePAM Active Promethazine HCl Act jessica Venlafaxine HCl Acti ve Phentermine HCl Acti ve traMADol HCl Active Tylenol Active Lyrica Active VITAL SIGNS BMI 26.57 kg/m2 10/29/2024 Height 63 in 10/29/2024 Weight 150 lbs 10/29/2024 Encounters Encounter Location Date Provider Diagnosis [facility] [address] [place] [address] 10/29/2024 Austyn Mayorga Lumbar radiculopathy M54.16 ; Other intervertebral disc degeneration, lumbar region with lower extremity pain only M51.361 and Other low back pain M54.59 ASSESSMENTS Encounter Date Diagnosis Assessment Notes Treatment Notes Treatment Clinical Notes Section Notes 10/29/2024 Lumbar radiculopathy (ICD-10 - M54.16) <b>IMPRESSION:</b > Back pain Radiculopathy Disc degeneration H/O recent removal of spinal cord stimulator H/O recent MILD procedure by Dr. Yanes <b>PLAN:</b> It is my recommendation the patient continue on her present medications. She will undergo a lumbar myelo/post-myelo CT to clarify the origin of her symptoms. She will follow-up after completion of the study. USP/clm 10/29/2024 Other intervertebral disc degeneration, lumbar region with lower extremity pain only (ICD-10 - M51.361) <b>IMPRESSION:</b > Back pain Radiculopathy Disc degeneration H/O recent removal of spinal cord stimulator H/O recent MILD procedure by Dr. Yanes <b>PLAN:</b> It is my recommendation the patient continue on her present medications. She will undergo a lumbar myelo/post-myelo CT to clarify the origin of her symptoms. She will follow-up after completion of the study. USP/clm 10/29/2024 Other low back pain (ICD-10 - M54.59) <b>IMPRESSION:</b > Back pain Radiculopathy Disc degeneration H/O recent removal of spinal cord stimulator H/O recent MILD procedure by Dr. Yanes <b>PLAN:</b> It is my recommendation the patient continue on her present medications. She will undergo a lumbar myelo/post-myelo CT to clarify the origin of her symptoms. She will follow-up after completion of the study. USP/hector PLAN OF TREATMENT Next Appt Details Provider Name:Austyn Blair ot, 12/09/2024 08:30:00 AM, [address], [address], [place], [address], Provider Name:Prema escalante, 12/09/2024 08:30:00 AM, [address], [place], [address], Provider Name:Austyn Blair ot, 12/22/2024 11:50:00 AM, [address], [address], [place], [address], Progress Notes * Examination Category Sub-Category Detail Notes Category Not es X-ray Interpretation Five vi ews L-spine reveal evidence of a 28 degree curvature to the left. Disc degeneration at all levels with disc space narrowing and endplate sclerosis. Facet degeneration from L2 to S1. Mild anterolisthesis at L4-5 and L5-S1. Well preserved disc space height at L1-2. EMG/NCV Electrodiagnostic Studies LE EMG/NCV revealed no evidence of an active radiculopathy. There was evidence of an absent left sural sensory response possibly associated with 5 prior foot surgeries. General Examination GENERAL: Patient is a n alert and cooperative female who moves about the room in a cautious manner. She tends to maintain a slightly forward-flexed position at the waist by about 15 degrees NECK: Loss of cervical ray dosis. Cervical ROM reduced in EXT. Tension involving bilateral paraspinal and trapezius musculature. Spurling's test is negative HEART: Regular rate and rhy thm LUNGS: Clear to auscultatio n in all tineo ABDOMEN: No tenderness to pal pation. Bowel sounds present all four quadrants NEUROLOGIC: UE neurologic exam r eveals symmetric DTR's, intact sensation, 5+/5+ motor strength. Usama's sign negative. LE neurologic exam reveals decreased sensation involving L. anterior thigh, L. lateral calf and L. dorsal foot. L. EHL and anterior tibialis weakness at 4+/5+. DTR's symmetric. SLR testing negative. No clonus, negative Babinski's sign involving LE's SKIN: No evidence of skin rashes or dermal lesions MUSCULOSKELETAL: Thoracic exam reveal s no tenderness to palpation, no spasm. Lumbar exam reveals multiple incisions to the L-spine involving the L. and R. iliac crest and centrally along the mid L-spine. Tension involving lumbar paraspinal musculature. Lumbar ROM reveals FF 90-95 degrees, EXT 30 degrees, SB 40 degrees. She can heel and toe walk PSYCHIATRIC: Mood and affect appe ar normal HEENT: No masses, PERRLA, E OM intact, no nasal drainage, no lymphadenopathy JOINTS: Hip log roll testing negative. Hip ROM full. FABERE test negative VASCULAR: Dorsalis pedis pulse s are 2+ bilaterally. Her feet are warm to touch. Capillary refill is good History and Physical Notes * HPI (History of Present Illness) Category Sub-Category Detail Notes Category Not es Lower back Avril escalante presents for re-evaluation today, 10/29/2024. She was previously diagnosed with back pain, lumbar radiculopathy, degenerative disc disease and facet DJD. Her prior physical examination revealed evidence of an active radiculopathy involving the LLE with numbness and weakness involving the L. leg. Her x-rays revealed evidence of a scoliotic deformity to the left and advanced degeneration involving primarily the L4-5 and L5-S1 levels. She was scheduled to undergo an MRI of the L-spine today, but she was told she could not get an MRI because of a history of metal in her brain. She reports that she had brain surgery 6 years ago at [facility]. She believes metallic clips were inserted. She states this is the reason the facility would not perform the MRI. She completed a LE EMG/NCV with Dr. Swift.
--- OUTSIDE RECORDS SUMMARY | 2024-11-03 04:20 | XMS_ITS ---
Author Organization [facility] Address [address] [place] [address] Care Team Providers Care Truck Switcher Name Role Phone Yang Acevedo Primary Care Provider Un available Austyn Mayorga [phone] Ralph Cook Unavailable Unavailable REASON FOR VISIT Left Leg Encounters Encounter Location Date Provider Diagnosis [facility] [address] [place] [address] 11/03/2024 Austyn Mayorga PLAN OF TREATMENT Next Appt Details Provider Name:Austyn Blair ot, 12/09/2024 08:30:00 AM, [address], [address], [place], [address], Provider Name:Prema escalante, 12/09/2024 08:30:00 AM, [address], [place], [address], Provider Name:Austyn Blair ot, 12/22/2024 11:50:00 AM, [address], [address], [place], [address],
--- OUTSIDE RECORDS SUMMARY | 2024-11-06 04:19 | XMS_ITS ---
Author Organization [facility] Address [address] [place] [address] Care Team Providers Care Air Crew Member Name Role Phone Yang Acevedo Primary Care Provider Un available Austyn Mayorga [phone] Ralph Cook Unavailable Unavailable REASON FOR VISIT Medication/Test Encounters Encounter Location Date Provider Diagnosis [facility] [address] [place] [address] 11/06/2024 Austyn Mayorga PLAN OF TREATMENT Next Appt Details Provider Name:Austyn Blair ot, 12/09/2024 08:30:00 AM, [address], [address], [place], [address], Provider Name:Prema escalante, 12/09/2024 08:30:00 AM, [address], [place], [address], Provider Name:Austyn Blair ot, 12/22/2024 11:50:00 AM, [address], [address], [place], [address],
--- OUTSIDE RECORDS SUMMARY | 2024-11-10 07:20 | XMS_ITS ---
Author Organization [facility] Address [address] [facility] [address] [place] [address] Care Team Providers Care Sleeping Car Service Attendant Name Role Phone Yang Acevedo Primary Care Provider Un available Austyn Mayorga Unavailable [phone] Ralph Cook Unavailable Unavailable ALLERGIES Allergen (clinical drug ingredient) Drug/Non Drug Allergy documented on EMR Reaction Allergy Type Onset Date Status Strawberries Unknown Allergy Active prednisone predniSONE Severe hives Drug Allergy Ac tive oxycodone oxyCODONE Severe hives Drug Allergy Acti ve morphine Morphine Severe hives Drug Allergy Acti ve hydrocodone HYDROcodone Severe hives Drug Allergy Active REASON FOR VISIT test results MEDICATIONS Medication SIG (Take, Route, Fr equency, Duration) Notes Start Date End Date Status Gabapentin Active Pantoprazole Sodium Active hydrOXYzine HCl Acti ve busPIRone HCl Active Ondansetron HCl Acti ve Metoclopramide HCl A ctive Atorvastatin Calcium Active Venlafaxine HCl Acti ve ALPRAZolam Active Lisinopril Active traMADol HCl Active VITAL SIGNS BMI 26.57 kg/m2 11/10/2024 Height 63 in 11/10/2024 Weight 150 lbs 11/10/2024 PROCEDURES Procedure Date Ordered Date Performed Result Body Sit e Lumbar Decompression 11/10/2024 medicare/formerly [facility] Encounters Encounter Location Date Provider Diagnosis [facility] [address] [place] [address] 11/10/2024 Austyn Mayorga Lumbar stenosis without neurogenic claudication M48.061 ; Other low back pain M54.59 ; Other intervertebral disc degeneration, lumbar region with discogenic back pain only M51.360 and Lumbar disc disease with radiculopathy M51.16 ASSESSMENTS Encounter Date Diagnosis Assessment Notes Treatment Notes Treatment Clinical Notes Section Notes 11/10/2024 Lumbar stenosis without neurogenic claudication (ICD-10 - M48.061) <b>IMPRESSION:</b> Lumbar spinal stenosis. Lumbar radiculopathy. Back pain. Disc degeneration. Facet degenerative joint disease. HNP. <b>PLAN:</b> I had a long discussion with patient regarding treatment options. It is my opinion she is a candidate for surgical intervention. The surgical procedure of choice would be that of wide lumbar decompressive laminectomies L3-4 and L4-5, hemilaminectomy L5-S1 on the left, possible discectomy on the left at L4-5 and L5-S1. The risks and benefits of the surgical procedure were discussed. The risks include, but are not limited to, infection, bleeding, , neurovascular injury, persisting back and leg pain, progression of disc degeneration, perineural fibrosis, arachnoiditis and dural tear. She will have to have a drain inserted. She will stay overnight and be discharged the following morning once drainage has reduced. The patient states she understands the risks and benefits and wishes to proceed forward with surgical intervention. She will be scheduled in the near future. She will continue on her present medications, but stop all anti-inflammatory medication and blood thinners a week prior to surgery. She will notify us if she develops any change in her neurologic status at any time. SENIOR CARE/cp 11/10/2024 Other low back pain (ICD-10 - M54.59) <b>IMPRESSION:</b> Lumbar spinal stenosis. Lumbar radiculopathy. Back pain. Disc degeneration. Facet degenerative joint disease. HNP. <b>PLAN:</b> I had a long discussion with patient regarding treatment options. It is my opinion she is a candidate for surgical intervention. The surgical procedure of choice would be that of wide lumbar decompressive laminectomies L3-4 and L4-5, hemilaminectomy L5-S1 on the left, possible discectomy on the left at L4-5 and L5-S1. The risks and benefits of the surgical procedure were discussed. The risks include, but are not limited to, infection, bleeding, , neurovascular injury, persisting back and leg pain, progression of disc degeneration, perineural fibrosis, arachnoiditis and dural tear. She will have to have a drain inserted. She will stay overnight and be discharged the following morning once drainage has reduced. The patient states she understands the risks and benefits and wishes to proceed forward with surgical intervention. She will be scheduled in the near future. She will continue on her present medications, but stop all anti-inflammatory medication and blood thinners a week prior to surgery. She will notify us if she develops any change in her neurologic status at any time. SENIOR CARE/ 11/10/2024 Other intervertebral disc degeneration, lumbar region with discogenic back pain only (ICD-10 - M51.360) <b>IMPRESSION:</b> Lumbar spinal stenosis. Lumbar radiculopathy. Back pain. Disc degeneration. Facet degenerative joint disease. HNP. <b>PLAN:</b> I had a long discussion with patient regarding treatment options. It is my opinion she is a candidate for surgical intervention. The surgical procedure of choice would be that of wide lumbar decompressive laminectomies L3-4 and L4-5, hemilaminectomy L5-S1 on the left, possible discectomy on the left at L4-5 and L5-S1. The risks and benefits of the surgical procedure were discussed. The risks include, but are not limited to, infection, bleeding, , neurovascular injury, persisting back and leg pain, progression of disc degeneration, perineural fibrosis, arachnoiditis and dural tear. She will have to have a drain inserted. She will stay overnight and be discharged the following morning once drainage has reduced. The patient states she understands the risks and benefits and wishes to proceed forward with surgical intervention. She will be scheduled in the near future. She will continue on her present medications, but stop all anti-inflammatory medication and blood thinners a week prior to surgery. She will notify us if she develops any change in her neurologic status at any time. SENIOR CARE/ 11/10/2024 Lumbar disc disease with radiculopathy (ICD-10 - M51.16) <b>IMPRESSION:</b> Lumbar spinal stenosis. Lumbar radiculopathy. Back pain. Disc degeneration. Facet degenerative joint disease. HNP. <b>PLAN:</b> I had a long discussion with patient regarding treatment options. It is my opinion she is a candidate for surgical intervention. The surgical procedure of choice would be that of wide lumbar decompressive laminectomies L3-4 and L4-5, hemilaminectomy L5-S1 on the left, possible discectomy on the left at L4-5 and L5-S1. The risks and benefits of the surgical procedure were discussed. The risks include, but are not limited to, infection, bleeding, , neurovascular injury, persisting back and leg pain, progression of disc degeneration, perineural fibrosis, arachnoiditis and dural tear. She will have to have a drain inserted. She will stay overnight and be discharged the following morning once drainage has reduced. The patient states she understands the risks and benefits and wishes to proceed forward with surgical intervention. She will be scheduled in the near future. She will continue on her present medications, but stop all anti-inflammatory medication and blood thinners a week prior to surgery. She will notify us if she develops any change in her neurologic status at any time. SENIOR CARE/cp PLAN OF TREATMENT Pending Test Test Name Order Date Electrocardiogram (EKG) 11/10/2024 CBC With Differential/Platelet PT AND PTT 11/10/2024 Chem-Comprehensive 11/10/2024 X ray : Chest 2 views, PA, Lateral 11/10 Lumbar Decompression 11/10/2024 INR 11/10/2024 Next Appt Details Provider Name:Austyn Blair ot, 12/09/2024 08:30:00 AM, [address], [address], [place], [address], Provider Name:Prema escalante, 12/09/2024 08:30:00 AM, [address], [place], [address], Provider Name:Austyn Blair ot, 12/22/2024 11:50:00 AM, [address], [address], [place], [address], Progress Notes * Examination Category Sub-Category Detail Notes Category Notes Plain X-ray Imaging Studies LUMBAR SPINE X-RAYS: Five view x-rays through the lumbar spine reveal evidence of a 28 degree curvature to the left. Disc degeneration of all levels with disc space narrowing and endplate sclerosis. Facet degeneration L2 to S1. Mild anterolisthesis of L4-5 and L5-S1. Well-preserved disc space height at L1-2 Myelogram/Post-My elogram CT Lumbar myelogram/post-m yelogram CT study reveals evidence of mild stenosis involving the lumbar spine at the L2-3 level associated with facet and ligamentum flavum hypertrophy. At L3-4 there is evidence of moderate to severe spinal stenosis, thecal sac measures 7.6 mm x 12 mm, associated with facet and ligamentum flavum hypertrophy. At L4-5 there is evidence of severe spinal stenosis associated with facet and ligamentum flavum hypertrophy, thecal sac measures 5.6 mm x 6.9 mm. At L5-S1 there is evidence of left facet hypertrophy resulting in severe left foraminal stenosis with less significant stenosis on the right. It is unclear whether or not a portion of the left foraminal stenosis at L5-S1 is associated with a disc protrusion General Examination GENERAL: Patient is an alert and coop erative female who moves about the room in a cautious manner. She tends to maintain a slightly forward flexed position about the waist by about 15 degrees NECK: Exam reveals loss of cervical lordosis. ROM of the cervical spine is reduced in extension. There is tension involving the bilateral paraspinal and trapezius musculature. Spurling's test is negative HEART: Regular rate and rhy thm LUNGS: Clear to auscultatio n in all tineo ABDOMEN: No tenderness to pal pation. Bowel sounds present all four quadrants NEUROLOGIC: Upper extremity neur ologic examination reveals symmetric DTR's, intact sensation, 5+/5+ motor strength. Usama's sign negative. Lower extremity neurologic examination reveals decreased sensation involving the left anterior thigh, left lateral calf and left dorsal foot. Muscle strength testing reveals weakness involving the left EHL and anterior tibialis at 4+/5+. Reflexes are 2+. SLR testing negative. No clonus, negative Babinski's sign involving the lower extremities SKIN: No evidence of skin rashes or dermal lesions MUSCULOSKELETAL: Thoracic exam reveal s no tenderness to palpation. No spasm. Lumbar exam reveals multiple incisions to the lumbar spine involving the areas left and right iliac crest and centrally along the mid lumbar spine. There is tension involving the lumbar paraspinal musculature. ROM of the lumbar spine reveals forward flexion to 90 to 95 degrees, extension to 30 degrees, side-bending to 40 degrees. She can heel and toe walk PSYCHIATRIC: Mood and affect appe ar normal HEENT: No masses, PERRLA, E OM intact, no nasal drainage, no lymphadenopathy JOINTS: Hip log roll testing negative. Hip ROM is full. FABERE test negative VASCULAR: Dorsalis pedis pulse s are 2+ bilaterally. Her feet are warm to touch. Capillary refill is good History and Physical Notes * HPI (History of Present Illness) Category Sub-Category Detail Notes Category Not es Lower back Avril escalante presents for reevaluation today, 11/10/2024. She was previously diagnosed with lumbar spinal stenosis, back pain, radiculopathy and disc degeneration. She complains of back pain with radiation to the left lower extremity, which has been present for 20 years. Historically, she has undergone pain management treatment with Dr. Navas. When that failed to improve her complaints she had placement of a spinal cord stimulator. The spinal cord stimulator eventually was removed by Dr. Yanes in July of 2024. She continues to complain of back pain with radiation into the left lower extremity with weakness, numbness and paresthesias involving the left leg. She was unable to undergo an MRI study because of prior placement of intracranial metallic clips. Her prior examination revealed evidence of neurologic changes involving the left lower extremity consistent with an active radiculopathy. A nerve study, however, did not confirm the presence of radiculopathy. The patient recently completed a lumbar myelogram/post-myelogram CT study to clarify the origin of her complaints, which is reviewed with her in the office today
--- OUTSIDE RECORDS SUMMARY | 2024-11-20 09:28 | XMS_ITS ---
Author Organization [facility] Address [address] [place] [address] Care Team Providers Care Life Sciences Director Name Role Phone Yang Acevedo Primary Care Provider Un available Austyn Mayorga [phone] Ralph Cook Unavailable Unavailable REASON FOR VISIT Clearance Encounters Encounter Location Date Provider Diagnosis [facility] [address] [place] [address] 11/20/2024 Austyn Mayorga PLAN OF TREATMENT Next Appt Details Provider Name:Austyn Blair ot, 12/09/2024 08:30:00 AM, [address], [address], [place], [address], Provider Name:Prema escalante, 12/09/2024 08:30:00 AM, [address], [place], [address], Provider Name:Austyn Blair ot, 12/22/2024 11:50:00 AM, [address], [address], [place], [address],
--- OUTSIDE RECORDS SUMMARY | 2024-12-02 05:15 | XMS_ITS | Continuity of Care Document ---
Author Organization [facility] Address [address] [place] [address] Phone Care Team Providers Care Inpatient Services Rn Name Role Phone Merly ARAUJO, FACC, Roger HERNANDEZ Unavailable Unavailable Allergies, Adverse Reactions, Alerts Substance Reaction Status Criticality oxycodone EdemaItchingItchingMyalgiasNausea Active No Information codeine ItchingItchingMyalgiasNausea Active No Information Medications Medication Instructions Dosage Effective Dates (start - stop) Status Comments alprazolam 1 mg tablet take 1 tablet by mouth three times a day - Active metoclopramide 10 mg tablet as needed - Active venlafaxine ER 150 mg capsule,extended release 24 hr - Active hydroxyzine HCl 25 mg tablet as needed - Active atorvastatin 40 mg tablet TAKE 1 TABLET BY MOUTH ONCE DAILY - Active tramadol 50 mg tablet TAKE 1-2 TABLETS B Y MOUTH THREE TIMES DAILY NEEDED - Active lisinopril 10 mg tablet take 1 tablet tw ice daily - Active tizanidine 4 mg tablet TAKE 1 TABLET BY MOUTH TWICE DAILY NEEDED - Active pantoprazole 40 mg tablet,delayed release TAKE 1 TABLET BY MOUTH NEEDED - Active gabapentin 800 mg tablet take 1 tablet three times a day - Active buspirone 15 mg tablet TAKE 1 TABLET BY MOUTH THREE TIMES DAILY - Active ondansetron HCl 4 mg tablet as needed - Active Procedures Procedure Date OFFICE/OUTPATIENT VISIT, NEW ELECTROCARDIOGRAM, COMPLETE Advance Directives Directive Yes / No Effective Date File Name No Information Encounters Encounter Description Practice Location Reason(s) For Visit Diagnoses Date Provider Providers Copied on Encounter [facility] , [address] [place] [address], [address] [place] [address] , tel: [phone] [facility] [place] No Information 5 Merly Duran. [address] [place] [address], [id number], . [phone] Referring Provider: [address], [place], [address]. tel:[phone] OFFICE/OUTPA TIENT VISIT, [facility] , [address] [place] [address], [id number] , tel: [phone] [facility] Ericka new patient consultation (chief complaint) Abnormal ECGHypertensionD yslipidemiaTobac co useBrain aneurysm [address] [facility] , [place], [place], [id number], . tel:[phone] Referring Provider: [address], [place], [address]. tel:[phone] [facility] , [address] [place] [address], [id number] , tel: [phone] [facility] Ericka No Information 5 Merly Duran. [address] [place], [place], [id number], . tel:[phone] Family History Family Member Type Diagnosis Age At Onset Problem (finding) Family history of Father with CA age 62; age 64 (noncardiac) Payers Payer name Insurance type Covered democrat ID Authoriza tion(s) [employer] [facility] CI [id number] [place] MEDICARE CI [id number] Social History Type Description Quantity Date Captured Comments Sex Female Smoking Status No Information Chief Complaint And Reason For Visit No Information Reason For Referral Reason For Referral No Information Plan Of Treatment Date Type Action Status Appointment Avril Salazar BOOKED History Of Present Illness Encounter Date Complaint History Of Prese nt Illness new patient consultation Functional Status Date Functional Assessmen t No Information Instructions Date Instruction Additional Infor mation No Information Assessments Type Assessment Date No Information Patient Care Teams Name Effective Dates (start - stop) Status Members No Information
--- OUTSIDE RECORDS SUMMARY | 2024-12-03 14:10 | XMS_ITS | Clinical Summary ---
Author Organization [facility] Address [address] [place] [address] Phone Care Team Providers Care Research And Development Director Name Role Phone Dontrell Brooks DO Primary Care Provider Allergies Active Allergy Reactions Criticality Noted Date Comments Codeine Unknown 12/28/2017 Dust Mite Extract Itching 12/28/2017 Gramineae Pollens Hives,Itching 12/28/2017 Hydrocodone Hives,Shortness of Breath 8 Morphine Hives,Shortness of Breath 12/28/2017 Other Hives,Shortness of Breath 12/28/2017 Steroids Oxycodone Hives,Shortness of Breath 12/28/2017 [place] Extract Hives 12/28/2017 Medications ALPRAZolam (XANAX) 1 [...] Take 81 mg by mouth daily. Active [place]-3 Fatty Acids (FISH OIL) 1200 MG Capsule [...] Comments Blood Pressure 136/68 02/08/2018 10:25 AM ANALYTICAL CHEMISTRY TEACHER Pulse 97 02/08/2018 10:25 AM ANALYTICAL CHEMISTRY TEACHER Temperature 36.7 C (98.1 F) 02/08/2018 10:25 AM ANALYTICAL CHEMISTRY TEACHER Respiratory Rate 18 02/08/2018 10:2 5 AM ANALYTICAL CHEMISTRY TEACHER Oxygen Saturation 96% 02/08/2018 10: 25 AM ANALYTICAL CHEMISTRY TEACHER Inhaled Oxygen Concentration - - Weight 85.2 kg (187 lb 12.8 oz) 018 10:25 AM ANALYTICAL CHEMISTRY TEACHER Height 160 cm (5' 3) 02/08/2018 10:25 AM ANALYTICAL CHEMISTRY TEACHER Body Mass Index 33.27 02/08/2018 10:25 AM ANALYTICAL CHEMISTRY TEACHER Plan of Treatment Health Maintenance Due Date [...] Payer (Ef fective 2008-Present) Name:Avril Salazar Member ID:[id number] Relation to Subscriber:Self Name:Avril Salazar Subscriber ID:[id number] Payer ID:[id number] Group ID:Not on file Type:Not on file Address: [address] Care Teams Research And Development Director Relationship Specialty Start Date End Date Dontrell Brooks DO PCP - General Family Medicine 12/27/17
--- OUTSIDE RECORDS SUMMARY | 2024-12-03 14:11 | XMS_ITS | Encounter Summary ---
Author Organization [facility] Address [address] [facility] [place] [address] Care Team Providers Care Nurse Plastics Name Role Phone [place], Dontrell Kamala Primary Care Provider [phone] Reason for Visit * Reason Comments Refill Request Encounter Details Date Type Department Care Team (Late st Contact Info) Description 12/16/2020 Refill [facility] [address] [place] [address], [place] [address] Timoteo Mckinney MD [address] [place] [address] [place] [address] Refill Request Social History Tobacco Use Types Packs/Day Years Used Date Smoking Tobacco: Some Days Cigarettes Smokeless Tobacco: Never Alcohol Use Standard Drinks/Week Comments Not Currently 0 (1 standard drink = 0.6 oz pur e alcohol) Quit 90 days ago Comments No Sex and Gender Information Value Date Recorded Sex Assigned at Not on file 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
--- OUTSIDE RECORDS SUMMARY | 2024-12-03 14:12 | XMS_ITS | Encounter Summary ---
Author Organization [facility] Address [address] [facility] [place] [address] Care Team Providers Care Bread Baker Name Role Phone Dontrell Brooks DO Primary Care Provider [phone] Encounter Details Date Type Department Care Team (Late st Contact Info) Description 01/16/2022 Telephone [facility]ORD[facility]ATION [address] [place] [address] Marjan Rasmussen, RN Social History [...] on file Legal Sex Female 6:15 AM SOCIAL CONTACT WORKER Gender Identity Not on file Sexual Orientation Not on file COVID-19 Exposure Response Date Recorded In the last 10 days, have yo u been in contact with someone who was confirmed or suspected to have Coronavirus/COVID-19? No / Unsure 12/30/2021 11:25 AM SOCIAL CONTACT WORKER documented as of this encounter Functional Status * Is person deaf or have serious hearing difficulty? Answer Date of Assessment Author No 01/05/2022 6:30 PM SOCIAL CONTACT WORKER Carmen Marshall RN * Is person blind or have serious difficulty seeing? Answer Date of Assessment Author No 01/05/2022 6:30 PM SOCIAL CONTACT WORKER Carmen Marshall RN * Does person have serious difficulty walking/climbing stairs? Answer Date of Assessment Author Yes 01/05/2022 6:30 PM SOCIAL CONTACT WORKER Carmen Marshall RN * Does person have difficulty dressing/bathing? Answer Date of Assessment Author No 01/05/2022 6:30 PM SOCIAL CONTACT WORKER Carmen Marshall RN * Does person have difficulty doing errands alone? Answer Date of Assessment Author No 01/05/2022 6:30 PM SOCIAL CONTACT WORKER Carmen Marshall RN documented as of this encounter Mental Status * Does person have difficulty concentrating/remembering/making decisions? Answer Entry Date Author No 01/05/2022 6:30 PM SOCIAL CONTACT WORKER Carmen Marshall RN documented in this encounter Plan of Treatment Not on file documented as of this encounter Visit Diagnoses Not on filedocumented in this encounter Care Teams Bread Baker Relationship Specialty Start Date End Date Dontrell Brooks DO [address] [place] [address] PCP - General Family Medicine 11/12/15 documented as of this encounter
--- OUTSIDE RECORDS SUMMARY | 2024-12-03 14:12 | XMS_ITS | Clinical Summary ---
Author Organization [facility] Address [address] [place] [address] Care Team Providers Care Dry Can Tender Name Role Phone AlleghenyDontrell Kamala Primary Care Provider [phone]- [phone] Source Comments [facility],non-owned Affiliates and Associated Physician Practices is amultiple site organization consisting of ambulatory clinics and hospital sitesin [place], [place] and [place]. This disclosure is being madepursuant to the Care Everywhere program and may not contain all information available regarding this patient. Last updated 17.[facility] [employer] Allergies Active Allergy Reactions Criticality Noted Date [...] Itching Low 04/18/2017 Corticosteroids Rash,Anaphylaxis High 04/04/2016 Finger Other Medium 04/18/2017 Medications * Be aware [...] mL 2 01/14/20 Active saline nasal spray (Jobos; Baby Hayden) 0.65 % nasal spray [place] 2 (two) sprays into each nostril every [...] on file Legal Sex Female 6:15 AM LATHE HAND Gender Identity Not on file Sexual Orientation [...] this topic Medical Devices Implanted Type Area Communications Designer Device Identifier Shelf Expiration Date Model / Serial / Lot Sugita Titanium Aneurysm Clip Ii Implanted:Qty: 1 on 05/06/2020 by Timoteo Mckinney MD at [facility] Aneurysm Clip Left: Brain Sugita Standard 17-001-0 1 / 52SLAP / 52-SL Sugita Titanium Aneurysm Clip Ii Implanted:Qty: 1 on 05/06/2020 by Timoteo Mckinney MD at [facility] Aneurysm Clip Left: Brain Sugita Standard 17-001-0 2 / 48SKAE / 48-SK Graft Tissue Drgn + Bvn Clgn Mtrx 5x4in Implanted:Qty: 1 on 05/06/2020 by Timoteo Mckinney MD at [facility] Left: Brain Integra Neurosciences 01/18/2023 [id number] / / [id number] Plate 2 Hl Ult Lopro Chmfr Edg Crnl Implanted:Qty: 1 on 05/06/2020 by Timoteo Mckinney MD at [facility] Left: Cranial Synthes Usa 04.502.0 62 / / Plate 4 Hl Ult Lopro Chmfr Edg Crnl .3mm Implanted:Qty: 1 on 05/06/2020 by Timoteo Mckinney MD at [facility] Left: Cranial Synthes Usa 04.502.0 64 / / Screw 1.5mm 4mm Crnmxf Slfdrl Implanted:Qty: 16 on 05/06/2020 by Timoteo Mckinney MD at [facility] Left: Cranial Synthes Maxillofacial .1 04.01 / / Graft Tissue Drgn + Bvn Clgn Mtrx 2x2in Implanted:Qty: 1 on 05/11/2020 by Austyn Saldaña MD at [facility] Left: Brain Integra Neurosciences 10/19/2022 DP-1022 / / [id number] Cover Bur Hl Lght Grn 17mm Matrixneuro Implanted:Qty: 2 on 05/06/2020 by Timoteo Mckinney MD at [facility] Explanted:Qty: 1 on 08/04/2020 by Austyn Saldaña MD at [facility] Left: Cranial Synthes Usa 04.502.0 23 / / Screw 1.5mm 4mm Crnmxf Slfdrl Implanted:Qty: 6 on 08/04/2020 by Austyn Saldaña MD at [facility] Left: Cranial Synthes Maxillofacial 503.1 04.01 / / Procedures Procedure Name Priority Date/Time Associated Diagnosis Comments BASIC METABOLIC PANEL (CALCIUM TOTAL) Timed 08/06/2022 4:11 AM CDT from Last 3 Months or Most Recently Relevant to Health Maintenance Results * (ABNORMAL) BASIC METABOLIC PANEL (CALCIUM TOTAL) (08/06/2022 4:11 AM CDT) BUN 7 7 - 26 mg/dL 08/06/2022 5:05 AM [facility] Creatinine 0.63 0.56 - 0.96 mg/dL 08/06/2022 5:05 AM [facility] Sodium 137 136 - 145 mmol/L 08/06/2022 5:05 AM [facility] Potassium 5.0(H) 3.5 - 4.5 mmol/L 08/06/2022 5:05 AM [facility] Chloride 108(H) 98 - 107 mmol/L 08/06/2022 5:05 AM [facility] CO2 21(L) 22 - 29 mmol/L 08/06/2022 5:05 AM [facility] Glucose 100 70 - 115 mg/dL 08/06/2022 5:05 AM [facility] Calcium 9.3 8.4 - 10.2 mg/dL 08/06/2022 5:05 AM [facility] Anion Gap 13 8 - 18 08/06/2022 5:05 AM [facility] BUN/Creatinine Ratio 11 7 - 23 08/06/2022 5:05 AM [facility] Osmolality Calculated 282 270 - 300 mOsm/kg 08/06/2022 5:05 AM [facility] eGFR by CKD-EPI >90 >=90 mL/min/1.7 3 m2 08/06/2022 5:05 AM [facility] Blood BLOOD SPECIMEN / Unknown Venipuncture / Unknown 08/06/2022 4:11 AM T 08/06/2022 4:38 AM [facility] us Charbel Batista MD LAB - CHEMISTRY ORDERAB LES Final Result [facility] [address] [place] [address], [facility] [phone] from Last 3 Months or Most Recently Relevant to Health Maintenance Insurance MEDICARE [place] [facility] MEDICARE Advance Directives * Full Code (Latest Code Status on File) Date Activated Date Inactivated Comments 01/05/2022 4:14 PM 01/13/2022 12:35 PM * Full Code Date Activated Date Inactivated Comments 08/04/2020 6:05 PM 08/05/2020 2:21 PM * Full Code Date Activated Date Inactivated Comments 05/06/2020 3:01 PM 05/31/2020 4:37 PM Care Teams Dry Can Tender Relationship Specialty Start Date End Date Dontrell Brooks DO [address] [place] [address] PCP - General Family Medicine 11/12/15
--- OUTSIDE RECORDS SUMMARY | 2024-12-03 14:12 | XMS_ITS | Patient Health Record ---
Author Organization [facility] Address [address] [place] [address] Care Team Providers Care Catalyst Unit Operator Name Role Phone Yang Acevedo Primary Care Provider Un available Austyn Mayorga Unavailable [phone] Ralph Cook Unavailable Unavailable ALLERGIES Allergen (clinical drug ingredient) Drug/Non Drug Allergy documented on EMR Reaction Allergy Type Onset Date Status Strawberries Unknown Allergy Active prednisone predniSONE Severe hives Drug Allergy Ac tive oxycodone oxyCODONE Severe hives Drug Allergy Acti ve morphine Morphine Severe hives Drug Allergy Acti ve hydrocodone HYDROcodone Severe hives Drug Allergy Active RESULTS Component Value Reference Range Notes X ray : Lumbar spine 5 views , AP, Lateral, Spot, Flexion and Extension Reviewed date:10/01/2024 01:27:49 PM Interpretation: Performing Lab: Notes/Report: EMG, NCV, Bilateral, Lower E xtremity, Consultative EDX & Evaluate Symptoms Reviewed date:10/31/2024 11:22:14 AM Interpretation:medicare/[facility] Performing Lab: Notes/Report: medicare/[facility] CT Myelogram - Lumbar with s agittal and coronal reconstructions Reviewed date:11/13/2024 03:51:38 PM Interpretation:medicare/supp no auth Performing Lab: Notes/Report: medicare/supp no auth REASON FOR REFERRAL No Information MEDICATIONS Medication SIG (Take, Route, Fr equency, Duration) Notes Start Date End Date Status Atorvastatin Calcium Active Venlafaxine HCl Acti ve ALPRAZolam Active Lisinopril Active traMADol HCl Active Gabapentin Active Pantoprazole Sodium Active hydrOXYzine HCl Acti ve busPIRone HCl Active Ondansetron HCl Acti ve Metoclopramide HCl A ctive PROBLEMS Problem Type ICD Code Onset Dates Problem Status W/U Status Risk SNOMED Code Notes Problem Lumbar stenosis with neurogenic claudication (M48.062) Active confirmed Neurogenic claudication (352475508) Problem Lumbar radiculopathy (M54.16) Active confirmed Lumbar radiculopathy (779198493) VITAL SIGNS Height 63 in 11/10/2024 Weight 150 lbs 11/10/2024 BMI 26.57 kg/m2 11/10/2024 PROCEDURES Procedure Date Ordered Date Performed Result Body Sit e Lumbar Decompression 11/10/2024 medicare/[facility] Encounters Encounter Location Date Provider Diagnosis [facility] [address] [place] [address] 10/01/2024 Austyn Mayorga Lumbar radiculopathy M54.16 ; Other intervertebral disc degeneration, lumbar region with lower extremity pain only M51.361 and Other low back pain M54.59 [facility] [address] [place] [phone] 10/10/2024 Austyn Mayorga [facility] [address] [place] [phone] 10/10/2024 Austyn Mayorga [facility] [address] [place] [phone] 11/03/2024 Austyn Mayorga [facility] [address] [place] [phone] 11/06/2024 Austyn Mayorga [facility] [address] [place] [phone] 11/20/2024 Austyn Mayorga [facility] [address] [place] [phone] 10/29/2024 Austyn Mayorga Lumbar radiculopathy M54.16 ; Other intervertebral disc degeneration, lumbar region with lower extremity pain only M51.361 and Other low back pain M54.59 [facility] [address] [place] [address] 11/10/2024 Austyn Mayorga Lumbar stenosis without neurogenic claudication M48.061 ; Other low back pain M54.59 ; Other intervertebral disc degeneration, lumbar region with discogenic back pain only M51.360 and Lumbar disc disease with radiculopathy M51.16 ASSESSMENTS Encounter Date Diagnosis Assessment Notes Treatment Notes Treatment Clinical Notes Section Notes 10/01/2024 Lumbar radiculopathy (ICD-10 - M54.16) <b>IMPRESSION:</b> Back pain. Radiculopathy. Disc degeneration. History of recent removal of spinal cord stimulator. History of recent MILD procedure with Dr. Yanes. <b>PLAN:</b> It is my recommendation we obtain the patient's prior lower extremity arterial Doppler study to review. I recommend she undergo an MRI through the lumbar spine with and without gadolinium. She is to undergo a lower extremity EMG and NCS to try to clarify the origin of her complaints. She will continue on her present medications. We will see her back in the office following completion of the diagnostic studies. [facility]/cp 10/29/2024 Lumbar radiculopathy (ICD-10 - M54.16) <b>IMPRESSION:</b> Back pain Radiculopathy Disc degeneration H/O recent removal of spinal cord stimulator H/O recent MILD procedure by Dr. Yanes <b>PLAN:</b> It is my recommendation the patient continue on her present medications. She will undergo a lumbar myelo/post-myelo CT to clarify the origin of her symptoms. She will follow-up after completion of the study. [facility]/clm 11/10/2024 Lumbar stenosis without neurogenic claudication (ICD-10 [...] in her neurologic status at any time. [facility]/ 11/10/2024 Other low back pain (ICD-10 - [...] in her neurologic status at any time. [facility]/ 10/01/2024 Other intervertebral disc degeneration, lumbar region with lower extremity pain only (ICD-10 - M51.361) <b>IMPRESSION:</b> Back pain. Radiculopathy. Disc degeneration. History of recent removal of spinal cord stimulator. History of recent MILD procedure with Dr. Yanes. <b>PLAN:</b> It is my recommendation we obtain the patient's prior lower extremity arterial Doppler study to review. I recommend she undergo an MRI through the lumbar spine with and without gadolinium. She is to undergo a lower extremity EMG and NCS to try to clarify the origin of her complaints. She will continue on her present medications. We will see her back in the office following completion of the diagnostic studies. [facility]/cp 10/29/2024 Other intervertebral disc degeneration, lumbar region with lower extremity pain only (ICD-10 - M51.361) <b>IMPRESSION:</b> Back pain Radiculopathy Disc degeneration H/O recent removal of spinal cord stimulator H/O recent MILD procedure by Dr. Yanes <b>PLAN:</b> It is my recommendation the patient continue on her present medications. She will undergo a lumbar myelo/post-myelo CT to clarify the origin of her symptoms. She will follow-up after completion of the study. [facility]/clm 11/10/2024 Other intervertebral disc degeneration, lumbar region [...] in her neurologic status at any time. [facility]/cp 10/01/2024 Other low back pain (ICD-10 - M54.59) <b>IMPRESSION:</b> Back pain. Radiculopathy. Disc degeneration. History of recent removal of spinal cord stimulator. History of recent MILD procedure with Dr. Yanes. <b>PLAN:</b> It is my recommendation we obtain the patient's prior lower extremity arterial Doppler study to review. I recommend she undergo an MRI through the lumbar spine with and without gadolinium. She is to undergo a lower extremity EMG and NCS to try to clarify the origin of her complaints. She will continue on her present medications. We will see her back in the office following completion of the diagnostic studies. [facility]/cp 10/29/2024 Other low back pain (ICD-10 - M54.59) <b>IMPRESSION:</b> Back pain Radiculopathy Disc degeneration H/O recent removal of spinal cord stimulator H/O recent MILD procedure by Dr. Yanes <b>PLAN:</b> It is my recommendation the patient continue on her present medications. She will undergo a lumbar myelo/post-myelo CT to clarify the origin of her symptoms. She will follow-up after completion of the study. [facility]/clm 11/10/2024 Lumbar disc disease with radiculopathy (ICD-10 [...] in her neurologic status at any time. [facility]/cp PLAN OF TREATMENT Pending Test Test Name Order Date Electrocardiogram (EKG) 11/10/2024 CBC With Differential/Platelet PT AND PTT 11/10/2024 Chem-Comprehensive 11/10/2024 X ray : Chest 2 views, PA, Lateral 11/10 Lumbar Decompression 11/10/2024 INR 11/10/2024 Next Appt Details Provider Name:Austyn Blair ot, 12/09/2024 08:30:00 AM, [address], [address], [place], [address], Provider Name:Prema escalante, 12/09/2024 08:30:00 AM, [address], [place], [address], Provider Name:Austyn Blair ot, 12/22/2024 11:50:00 AM, [address], [address], [place], [address], Insurance Providers Payer Name Payer Address Payer Phone Subscriber Number Group Number Insured Name Patient Relationship to Insured Coverage Start Date Coverage End Date [place] [address] [address] [place] [address] [id number] Avril Salazar Self - patient is the insured 5 [address] [place], [place] [id number] Avril Salazar Self - patient is the insured 5 MEDICAL (GENERAL) HISTORY Medical History History ICD Code Brain aneursym Hypertension Fibromyalgia Back pain Spinal stenosis Depression Anxiety Denies being hospitalized for psychiatri c condition Denies h/o drug/chemical dependency Surgical History Surgery Date(Month/Year) Spinal cord stimulator removed 07/2024 Spinal cord stimulator implanted Low back 07/2024 Brain surgery as a result of dizzy spell s 2021 L. foot x 4 Hysterectomy 1994
--- OUTSIDE RECORDS SUMMARY | 2024-12-03 14:13 | XMS_ITS | Clinical Summary ---
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
--- OUTSIDE RECORDS SUMMARY | 2024-12-03 14:13 | XMS_ITS | Patient Health Record ---
Author Organization [facility] [employer] Address [address] [place] [address] Care Team Providers Care Clay Mixer Name Role Phone Joyce ARAUJO, Ralph Primary Care Provider Un available Anayeli Newton Unavailable [phone] Allergies Allergen (clinical drug ingredient) Drug/Non Drug Allergy documented on EMR Reaction Allergy Type Onset Date Status predniSONE Unknown Drug Allergy 06/07/2023 Activ e hydrocodone Hydrocodone Unknown Drug Allergy 06/07/2023 Ac tive morphine Morphine Unknown Drug Allergy 06/07/2023 Active oxycodone Oxycodone Unknown Drug Allergy 06/07/2023 Active Reason For Referral No Information Medications Medication SIG (Take, Route, Frequency, Duration) Notes Start Date End Date Status Cimetidine 400 MG Tablet Oral 06/07/2023 Unknown Meloxicam 7.5 MG Tablet Oral 06/07/2023 Unknown ALPRAZolam 1 MG Tablet TAKE 1 TABLET BY MOUTH TWICE DAILY NEEDED AND TAKE 1/2 TABLET DAILY NEEDED; Duration: 30 11/23/2024 Active Boswellia 307 MG Tablet as directed Orally Active Benzonatate 100 MG Capsule Oral 06/07/2023 Unknown Diclofenac Sodium 75 MG Tablet Delayed Release Oral 06/07/2023 Unkno wn Venlafaxine HCl ER 150 MG Capsule Extended Release 24 Hour 1 capsule with food Oral Once a day; Duration: 30 days Active Pantoprazole Sodium 40 MG Tablet Delayed Release Oral 06/07/2023 Unkno wn Metoprolol Succinate ER 25 MG Tablet Extended Release 24 Hour Oral 06/07/2023 Unknown oxyBUTYnin Chloride ER 5 MG Tablet Extended Release 24 Hour Oral 06/07/2023 Unknown Cyclobenzaprine HCl 10 MG Tablet Oral 06/07/2023 Unknown Atorvastatin Calcium 40 MG Tablet Oral 06/07/2023 Unknown traMADol HCl 50 MG Tablet Oral 06/07/2023 Unknown Nitrofurantoin Monohyd Macro 100 MG Capsule Oral 06/07/2023 Unknown Lisinopril 10 MG Tablet Oral 06/07/2023 Unknown Metoclopramide HCl 10 MG Tablet Oral 06/07/2023 Unknown busPIRone HCl 15 MG Tablet 1 tablet Oral THREE TIMES DAILY; Duration: 90 days Active Social History Tobacco Use: Social History Observation Description Date Details (start date - stop date) Current Smoker NA - NA Sex Assigned At : Social History Observation Description Sex Assigned At Female Social History Miscellaneous: Social Info Question Answer Notes Advance Care Planning Advance Directive FULL CODE Safety issues: Do you feel safe at home? Yes Household: Social Info Question Answer Notes Household Marital status: Number of adults in household: 2 Number of children in household: 0 Drug/Alcohol: Social Info Question Answer Notes Drugs Have you used drugs other than those for medical reasons in the past 12 months? No Tobacco Use: Social Info Question Answer Notes Tobacco Control (Standard) Tobacco use: Current smoker Additional Details Category Social Info Options Details Miscellaneous: Occupation: retired Migrated Social History Migrated Social History Tobacco Years: Current every day smoker 06/07/2023 Problems Problem Type SNOMED Code ICD Code Onset Dates Problem Status W/U Status Risk Notes Problem Generalized anxiety disorder (00417660) DEBBY (generalized anxiety disorder) (F41.1) Active confirmed Problem Severe recurrent major depression without psychotic features (68946257) MDD (major depressive disorder), recurrent severe, without psychosis (F33.2) Active confirmed Vital Signs Heart Rate 71 /min 06/27/2024 Height-cm 160.02 cm 06/27/2024 Blood pressure diastolic 97 mm Hg 06/27/2024 Weight-kg 66.68 kg 06/27/2024 Height 63.00 in 06/27/2024 Blood pressure systolic 144 mm Hg 06/27/2024 Weight 147 lbs 06/27/2024 BMI 26.04 kg/m2 06/27/2024 Encounters Encounter Location Date Provider Diagnosis [facility] [address] [address] 01/28/2024 Anayeli Newton MDD (major depressiv e disorder), recurrent severe, without psychosis F33.2 and DEBBY (generalized anxiety disorder) F41.1 [facility], [place] [id number] [place] [address] 04/07/2024 Anayeli Newton MDD (major depressiv e disorder), recurrent severe, without psychosis F33.2 and DEBBY (generalized anxiety disorder) F41.1 [facility], [place] [address] [place] [address] 04/28/2024 Anayelimahendra Newton Encounter for screen ing for depression Z13.31 ; Encounter for screening for cardiovascular disorders Z13.6 ; Nicotine use Z72.0 ; MDD (major depressive disorder), recurrent severe, without psychosis F33.2 and DEBBY (generalized anxiety disorder) F41.1 [facility], [facility] [address] [place] [address] 06/27/2024 Anayelimahendra Newton Encounter for screen ing for cardiovascular disorders Z13.6 ; Nicotine use Z72.0 ; Encounter for screening for depression Z13.31 ; MDD (major depressive disorder), recurrent severe, without psychosis F33.2 ; DEBBY (generalized anxiety disorder) F41.1 and Negative depression screening Z13.31 [facility], [place] [address] [place] [address] 09/19/2024 Anayeli Newton MDD (major depressiv e disorder), recurrent severe, without psychosis F33.2 and DEBBY (generalized anxiety disorder) F41.1 [facility], [place] [address] [place] [address] 03/20/2024 Anayelimahendra Newton [facility], [place] [address] [place] [address] 03/24/2024 Anayelimahendra Newton [facility], [place] [address] [place] [address] 03/27/2024 Anayelimahendra Newton DEBBY (generalized anxiety disorder) F41.1 [facility], [place] [address] [place] [address] 03/28/2024 Anayelimahendra Newton [facility], [place] [address] [place] [address] 07/02/2024 Anayelimahendra Newton [facility], [place] [address] [place] [address] 07/18/2024 Anayeli Newton [facility], [facility] [address] [place] [address] 07/22/2024 Anayeli Newton DEBBY (generalized anxiety disorder) F41.1 [place] [address] [place] [address] 08/05/2024 Anayelimahendra Newton DEBBY (generalized anxiety disorder) F41.1 [place] [address] [facility] [address] [place] [address] 08/06/2024 Anayeli Newton [place] [address] [facility] [address] [place] [address] 08/14/2024 Anayeli Newton [facility] [address] [facility] [address] [place] [address] 09/08/2024 Anayeli Newton DEBBY (generalized anxiety disorder) F41.1 [place] [address] [facility] [address] [place] [address] 09/09/2024 Anayeli Newton DEBBY (generalized anxiety disorder) F41.1 [place] [address] [facility] [address] [place] [address] 04/07/2024 Anayelimahendra Newton [place] [address] [facility] [address] [place] [address] 04/28/2024 Anayeli Newton Assessments Encounter Date Diagnosis (ICD Code) Assessment Notes Treatment Notes Treatment Clinical Notes Section Notes 01/28/2024 MDD (major depressive disorder), recurrent severe, [...] for screening for depression (ICD-10 - Z13.31) 06/27/2024 Encounter for screening for cardiovascular disorders (ICD-10 - Z13.6) 07/22/2024 DEBBY (generalized anxiety disorder) (ICD-10 - F41.1) 08/05/2024 DEBBY (generalized anxiety disorder) (ICD-10 - F41.1) 09/08/2024 DEBBY (generalized anxiety disorder) (ICD-10 - F41.1) 09/09/2024 DEBBY (generalized anxiety disorder) (ICD-10 - F41.1) 09/19/2024 MDD (major depressive disorder), recurrent severe, without psychosis (ICD-10 - F33.2) SSRI/SNRI side effects discussed including but not limited to, gastric upset, nausea, vomiting, diarrhea and/or constipation, weight changes, sexual side effects including loss of libido, increased suicidal thoughts/behaviors in children and young adults, and serotonin syndrome. 09/19/2024 DEBBY (generalized anxiety disorder) (ICD-10 - F41.1) [...] alcohol, as this combination can be lethal. 06/27/2024 Nicotine use (ICD-10 - Z72.0) 04/28/2024 Encounter for screening for cardiovascular disorders [...] alcohol, as this combination can be lethal. 06/27/2024 Encounter for screening for depression (ICD-10 - Z13.31) 04/28/2024 Nicotine use (ICD-10 - Z72.0) 04/28/2024 MDD (major depressive disorder), recurrent severe, without psychosis (ICD-10 - F33.2) SSRI/SNRI side effects discussed including but not limited to, gastric upset, nausea, vomiting, diarrhea and/or constipation, weight changes, sexual side effects including loss of libido, increased suicidal thoughts/behaviors in children and young adults, and serotonin syndrome. 06/27/2024 MDD (major depressive disorder), recurrent severe, without [...] alcohol, as this combination can be lethal. 06/27/2024 DEBBY (generalized anxiety disorder) (ICD-10 - F41.1) [...] alcohol, as this combination can be lethal. 06/27/2024 Negative depression screening (ICD-10 - Z13.31) 01/28/2024 Other Pharmacy has not been filling [...] not affordable with insurance (15 dollars at [facility] with goodrx coupon). Patient educated on all [...] of psychotropic medications. -Crisis prevention hotline 988. 06/27/2024 Other Decrease alprazolam to 2.5mg total daily, plan to slowly decrease and taper off. Patient educated on all medications [...] of psychotropic medications. -Crisis prevention hotline 988. 09/19/2024 Other Stable on current medication regimen, continue at current doses. -Refills sent in today -Feels depression/anxiety directly related to increased pain, following up with pain management next week Patient educated on all medications including potential benefits, side effects, risks. Educated on proper dosing schedule and importance of compliance. [place] PDMP report checked and consistent with prescription [...] Of Treatment Next Appt Details Provider Name:Anayeli Humphrey Umu barillas, 12/05/2024 11:15:00 AM, [address] [facility] [address], [place], [address], Insurance Providers Payer Name Payer Address Payer Phone Subscriber Number Group Number Insured Name Patient Relationship to Insured Coverage Start Date Coverage End Date [place] [address] [place] [address] [id number] RASHARD BAKER Self - patient is the insured [employer] Medicare Supplement [address] [place] [phone] [id number] RASHARD BAKER Self - patient is the [...]
[2024-12-03 18:38] LABS: Anion Gap 7 mmol/L (4-12); Blood Urea Nitrogen 13 mg/dL (7-17); Calcium 9.5 mg/dL (8.4-10.2); Carbon Dioxide 28 mmol/L (22-30); Chloride 99 mmol/L (98-107); Estimated Glomerular Filt Rate > 60; Glucose 77 mg/dL (65-110); Potassium 4.2 mmol/L (3.4-5.0); Sodium 134 mmol/L (137-145)
== END 2024-12-03 12:32 | disposition home or self-care (01) ==
LOC: ANHGOSHLAB 12:33
PROVIDERS: PCP Nurse Practitioner Family; Visit Provider Nurse Practitioner Family
DX: E87.1 Hypo-osmolality and hyponatremia (principal)
CPT/HCPCS: 36415; 80048